=== PATIENT | female | born 1990 | race Hispanic/Latino ===

== ENCOUNTER 2020-07-12 11:10 | Emergency (ER) | payer MEDICAID ==
[~2020-07-12] VITALS: Ht 165.1 cm; Wt 84.1 kg
[2020-07-12 11:10] VITALS: BP 158/68
[2020-07-12] MEDS ORDERED: NS 1,000 ML IV ONE (11:45)
[2020-07-12] MEDS ORDERED: ACETAMINOPHEN 325 MG TAB PO ONE (12:00)
[2020-07-12 12:18] LABS: BASO % 0.4 % (0.0-1.0); EOS # 0.1 10^3/uL (0.0-0.5); HEMATOCRIT 38.2 % (36.0-47.0); HEMOGLOBIN 11.5 g/dl (12.0-15.5); LYMPH # 1.7 10^3/uL (1.5-5.0); LYMPH % 24.7 % (24.0-44.0); MEAN CORPUSCULAR HEMOGLOBIN 25.2 pg (27.0-33.0); MEAN CORPUSCULAR HGB CONC 30.1 g/dl (32.0-36.5); MEAN CORPUSCULAR VOLUME 83.8 fl (80.0-96.0); MONO # 0.7 10^3/uL (0.0-0.8); MONO % 10.3 % (0.0-5.0); NEUTROPHILS # 4.4 10^3/uL (1.5-8.5); NEUTROPHILS % 63.3 % (36.0-66.0); PLATELET COUNT, AUTOMATED 342 10^3/uL (150-450); RED BLOOD COUNT 4.56 10^6/uL (4.00-5.40); WHITE BLOOD COUNT 6.9 10^3/uL (4.0-10.0)
[2020-07-12 12:37] LABS: ALBUMIN 3.8 GM/DL (3.2-5.2); BILIRUBIN,DIRECT 0.2 MG/DL (0.0-0.2); BILIRUBIN,TOTAL 0.5 MG/DL (0.2-1.0); TOTAL PROTEIN 7.3 GM/DL (6.4-8.2)
--- NOTE | 2020-08-13 16:11 | REP ---
EMERGENCY FIRST TRIMESTER OBSTETRIC SONOGRAPHY HISTORY: Pelvic pain. Early . FINDINGS: Transabdominal and transvaginal scanning demonstrate an empty normal size uterus with dimension of 7.7 x 4.0 x 4.9 cm. Endometrial echo is 1.8 cm thick. No cul-de-sac fluid is seen. A normal right ovary is seen measuring 3.2 x 2.1 x 3.1 cm. Left ovarian dimensions are 4.5 x 2.7 x 2.6 cm. There is a 2.6 x 2.5 x 1.7 cm cystic area in the left ovary. Doppler flow is present bilaterally in the ovaries. IMPRESSION: Normal size empty uterus. No free fluid. A 2.6 cm complex cyst, left ovary. Nonspecific findings. Clinical and possibly sonographic follow-up suggested. MTDD
== END 2020-07-12 13:52 | disposition home or self-care (01) ==
LOC: M ED 11:10
DX: Z32.01 Encounter for pregnancy test, result positive (principal); R51 Headache; Z98.84 Bariatric surgery status; Z88.0 Allergy status to penicillin

== ENCOUNTER → 2020-10-07 | Outpatient (CLI) | payer SELFPAY, MEDICAID ==
[~2020-10-07] MED LIST: CYCL5TAB PO; LIDO5DIS41 TD
[2020-10-07 13:48] LABS: BASO % 0.4 % (0.0-1.0); EOS # 0.1 10^3/uL (0.0-0.5); EOS % 1.2 % (0.0-3.0); HEMATOCRIT 37.1 % (36.0-47.0); HEMOGLOBIN 11.2 g/dl (12.0-15.5); LYMPH # 1.9 10^3/uL (1.5-5.0); LYMPH % 28.3 % (24.0-44.0); MEAN CORPUSCULAR HEMOGLOBIN 25.4 pg (27.0-33.0); MEAN CORPUSCULAR HGB CONC 30.2 g/dl (32.0-36.5); MEAN CORPUSCULAR VOLUME 84.1 fl (80.0-96.0); MONO # 0.6 10^3/uL (0.0-0.8); MONO % 8.2 % (0.0-5.0); NEUTROPHILS # 4.2 10^3/uL (1.5-8.5); NEUTROPHILS % 61.8 % (36.0-66.0); PLATELET COUNT, AUTOMATED 270 10^3/uL (150-450); RED BLOOD COUNT 4.41 10^6/uL (4.00-5.40); WHITE BLOOD COUNT 6.7 10^3/uL (4.0-10.0)
[2020-10-07 14:19] LABS: C REACTIVE PROTEIN QUANTITATIV 0.41 MG/DL (0.00-0.30); RHEUMATOID FACTOR QUANT < 10.0 IU/ML (<15.0)
[2020-10-07 14:29] LABS: ERYTHROCYTE SEDIMENTATION RATE 17 mm/hr (0-20)
[2020-10-08 16:11] LABS: ANTINUCLEAR ANTIBODIES DIRECT Negative (Negative); Lyme Disease IgG/IgM Antibodie <0.91 ISR (0.00-0.90); Lyme Disease IgM Ab Quantitati <0.80 index (0.00-0.79)
== END ==
LOC: M PLALAB 11:03
PROVIDERS: ATTEND Orthopaedic Surgery
DX: G56.03 Carpal tunnel syndrome, bilateral upper limbs (principal)

== ENCOUNTER 2020-10-09 19:33 | Emergency (ER) | payer OTHER, MEDICAID ==
[~2020-10-09] VITALS: Ht 165.1 cm; Wt 77.3 kg
[2020-10-09 19:34] VITALS: BP 129/66
[2020-10-09] MEDS ORDERED: CYCLOBENZAPRINE 5MG TABLET PO ONE ×2 (21:00→22:30)
[2020-10-09] MEDS ORDERED: NORCO, ANEXSIA 5/325MG TABLET (HYDROcodone/ACETAMINOPHEN) PO ONE (21:00)
[2020-10-09] MEDS ORDERED: LIDOCAINE 5% (LIDODERM) PATCH TD ONE (21:00)
[2020-10-09] MEDS ORDERED: **NOTE PATIENT COMMENT** MISC XX SCH (21:00)
[2020-10-09 21:31] LABS: BASO % 0.6 % (0.0-1.0); EOS # 0.1 10^3/uL (0.0-0.5); EOS % 1.7 % (0.0-3.0); HEMOGLOBIN 10.6 g/dl (12.0-15.5); LYMPH % 41.6 % (24.0-44.0); MEAN CORPUSCULAR HEMOGLOBIN 25.1 pg (27.0-33.0); MEAN CORPUSCULAR HGB CONC 30.3 g/dl (32.0-36.5); MEAN CORPUSCULAR VOLUME 82.7 fl (80.0-96.0); MONO # 0.7 10^3/uL (0.0-0.8); MONO % 10.4 % (0.0-5.0); NEUTROPHILS # 3.3 10^3/uL (1.5-8.5); NEUTROPHILS % 45.6 % (36.0-66.0); PLATELET COUNT, AUTOMATED 280 10^3/uL (150-450); RED BLOOD COUNT 4.23 10^6/uL (4.00-5.40); WHITE BLOOD COUNT 7.1 10^3/uL (4.0-10.0)
[2020-10-09 21:49] LABS: BLOOD UREA NITROGEN 12 MG/DL (7-18); CALCIUM LEVEL 8.7 MG/DL (8.5-10.1); CARBON DIOXIDE LEVEL 27 MEQ/L (21-32); CHLORIDE LEVEL 109 MEQ/L (98-107); CREATININE FOR GFR 0.64 MG/DL (0.55-1.30); GLOMERULAR FILTRATION RATE > 60.0 (>60); GLUCOSE, FASTING 84 MG/DL (70-100); HCG, SERUM QUANTITATIVE 9 MIU/ML; POTASSIUM SERUM 4.1 MEQ/L (3.5-5.1); SODIUM LEVEL 141 MEQ/L (136-145)
[2020-10-09] MEDS ORDERED: ACETAMINOPHEN 500 MG TAB PO ONE (22:00)
[2020-10-09] MEDS ORDERED: LIDO5DIS41 TD (22:23)
[2020-10-09] MEDS ORDERED: CYCL5TAB PO (22:23)
== END 2020-10-09 22:40 | disposition left against medical advice (07) ==
LOC: M ED 19:33
DX: M54.9 Dorsalgia, unspecified (principal); Z33.1 Pregnant state, incidental; Z98.84 Bariatric surgery status; Z88.0 Allergy status to penicillin

== ENCOUNTER 2020-12-07 08:02 | Inpatient (IN) | payer MEDICAID, OTHER ==
[~2020-12-07] VITALS: Ht 165.1 cm; Wt 75.0 kg
[2020-12-07] VITALS (8 sets, daily range): BP systolic 102–131; BP diastolic 61–83; O2SAT 100
--- OUTSIDE RECORDS SUMMARY | 2020-12-07 08:08 | CCD | Continuity of Care Document ---
Author Author Joie LOO MD Organization Unknown Address [address] [place] [address] Phone [phone] Care Team Providers Care Spectroscopist Name Role Phone Louisa Rod MD [facility] [phone] Problems Description No Information Available Social History Type Date Description Comments Sex Unknown Allergies, Adverse Reactions, Alerts Description No Information Available Medications Description No Information Available Immunizations Description No Information Available Vital Signs Description No Information Available Results Description No Information Available Procedures Description No Information Available Medical Devices Description No Information Available Encounters Description No Information Available Assessments Date Code Description Provider 10/07/2020 G56.03 Carpal tunnel syndrome, bilatera l upper limbs Prabhu Loo MD Plan of Treatment 10/07/2020 - Prabhu Loo MD* G56.03 Carpal tunnel syndrome, bilateral upper limbs* New Orders:* [place] [facility] Wrist Brace - Right, Ordered: 10/07/20 * Follow up:* after emg results with any pa Functional Status Description No Information Available Mental Status Description No Information Available Referrals Description No Information Available
--- OUTSIDE RECORDS SUMMARY | 2020-12-07 08:08 | CCD | Continuity of Care Document ---
Author Author Joie LAWSON MD Organization Unknown Address [address] [place] [address] Phone [phone] Care Team Providers Care Is Analyst Name Role Phone Louisa Rod MD [facility] [phone] Problems Description No Information Available Social History Type Date Description Comments Sex Unknown Allergies, Adverse Reactions, Alerts Description No Information Available Medications Description No Information Available Immunizations Description No Information Available Vital Signs Description No Information Available Results Test Acquired Date Facility Test Result H/L Range Note CBC With Differential 10/07/[address] [address] (464)- - White Blood Count 6.7 10 Normal 4.0-10.0 Red Blood Count 4.41 10 Normal 4.00-5.40 Hemoglobin 11.2 g/dL Low 12.0-15.5 Hematocrit 37.1 % Normal 36.0-47.0 Mean Corpuscular Volume 84.1 fl Normal 80.0-96.0 Mean Corpuscular Hemoglobin 25.4 pg Low 27.0-33.0 Mean Corpuscular HGB Conc 30.2 g/dL Low 32.0-36.5 Red Cell Distribution Width 13.6 % Normal 11.5-14.5 Platelet Count, Automated 270 10 Normal 150-450 Neutrophils % 61.8 % Normal 36.0-66.0 Lymph % 28.3 % Normal 24.0-44.0 [place] % 8.2 % High 0.0-5.0 Eos % 1.2 % Normal 0.0-3.0 Baso % 0.4 % Normal 0.0-1.0 Immature Granulocyte % 0.1 % Normal 0-3.0 Nucleated Red Blood Cell % 0.0 % Normal 0-0 Neutrophils # 4.2 10 Normal 1.5-8.5 Lymph # 1.9 10 Normal 1.5-5.0 [place] # 0.6 10 Normal 0.0-0.8 Eos # 0.1 10 Normal 0.0-0.5 Baso # 0.0 10 Normal 0.0-0.2 Laboratory test finding 10/07/2020 [place] [address] (315)- - Rheumatoid Factor Quant < 10.0 IU/mL Normal <15.0 Antinuclear Antibodies 10/07/2020 [place] [address] (315)- - Antinuclear Antibodies Direct Negative Normal Negati ve 1 Laboratory test finding 10/07/2020 [place] [address] (315)- - Erythrocyte Sedimentation Rate 17 mm/hr Normal 0-20 C Reactive Protein Quantitativ 0.41 mg/dL High 0.00-0.30 Lyme Disease SCRN With Confirm 10/07/2020 [place] [address] (315)- - Lyme Disease IgG/IgM Antibodie <0.91 ISR Normal 0.00- 0.90 2 Lyme Disease IgM Ab Quantitati <0.80 index Normal 0.00-0.79 3 1 Performed at: RN - [facility] [address] [id number] Dba: Michelle Metzger MD, Phone: [phone] 2 Negative <0.91 Equivocal 0.91 - 1.09 Positive >1.09 3 Negative <0.80 Equivocal 0.80 - 1.19 Positive >1.19 . IgM levels may peak at 3-6 weeks post infection, then gradually decline. Procedures Description No Information Available Medical Devices Description No Information Available Encounters Type Date Location Provider Dx Diagnosis Office Visit 10/07/2020 9:30a Saud Lawson MD G56.03 Carpal tunnel syndrome, bilateral upper limbs Assessments Date Code Description Provider 10/07/2020 G56.03 Carpal tunnel syndrome, bilatera l upper limbs Prabhu Lawson MD Plan of Treatment 10/07/2020 - Prabhu Lawson MD* G56.03 Carpal tunnel syndrome, bilateral upper limbs* Follow up:* after EMG results with any pa Functional Status Description No Information Available Mental Status Description No Information Available Referrals Description No Information Available
--- OUTSIDE RECORDS SUMMARY | 2020-12-07 08:08 | CCD ---
Author Organization Unknown Address [address] [place] [address] Phone [phone] Care Team Providers Care Epic Cadence Analyst Name Role Phone GUY 1 [phone] Allergies Code Code System Name Reaction Severity Status Onset 723 RxNorm Amoxicillin Hives Mild to Moderate Active Penicillins Hives Mild to Moderate Active Medications Name Status Start Date Stop Date albuterol sulfate HFA 90 mcg/actuation aerosol inhaler Completed 10/27/2020 bupropion HCl XL 150 mg 24 hr tablet, ex tended release take 1 tablet by mouth once daily Completed 10/27 chlorhexidine gluconate 0.12 % mouthwash Completed 10/27/2020 cholecalciferol (vitamin D3) 1,250 mcg (50,000 unit) capsule Com pleted 10/27/2020 clindamycin HCl 150 mg capsule Completed 1 12/28/2019 clindamycin HCl 300 mg capsule Completed 1 12/28/2019 cyclobenzaprine 10 mg tablet Completed 06/2020 ferrous sulfate 325 mg (65 mg iron) tablet Completed 10/27/2020 fluconazole 150 mg tablet Completed 2019 hydrocodone 5 mg-acetaminophen 325 mg tablet Completed 10/27/2020 ibuprofen 600 mg tablet Completed 10/27/20 20 Lidocaine Viscous 2 % mucosal solution Completed 10/27/2020 multivitamin 1 capsule once a day Active Not available naproxen 500 mg tablet Completed 0 nitrofurantoin monohydrate/macrocrystals 100 mg capsule Complete d 10/27/2020 permethrin 5 % topical cream Completed 06/2020 phenazopyridine 200 mg tablet TAKE 1 TABLET BY MOUTH THREE TIMES DAILY FOR 2 DAYS Completed 10/27/2020 sulfamethoxazole 800 mg-trimethoprim 160 mg tablet Completed 10/27/2020 tramadol 50 mg tablet take 1 tablet by mouth every 6 hours if needed for pain Completed 10/27/2020 Vitamin C 500 mg tablet TAKE 1 TABLET DAILY Completed 10/27/2020 Zanaflex 4 mg tablet Take 1 tablet 3 times a day by oral route as needed. Active Not available Problems None recorded. Procedures Date Name Performed by 11/04/2015 Gastric Bypass for Obesity Information n ot available Back Surgery Notes: [address] Jewell Information not available 10/27/2020 MRI, Cervical Spine, W/o Contrast Inform ation not available 10/27/2020 MRI, Lumbar Spine, W/o Contrast Informat ion not available Results Lab Results None recorded. Past Encounters 10/27/2020 Lumbar Post-laminectomy Syndrome; Lumbar Radiculopathy; Lumbosacral Spondylosis without Myelopathy; Cervical Radiculopathy; Cervical Spondylosis without Myelopathy; Myofascial Pain Gume Bhardwaj MD: [id number] [facility] [address], [place] [address], Ph. Social History Tobacco Smoking Status Never Smoker Vaccine List None recorded. Plan of Care Reminders Provider Appointments None recorded. Lab None recorded. Referral None recorded. Procedures None recorded. Surgeries None recorded. Imaging None recorded. Vitals Height Weight BMI Blood Pressure 5 ft 5 in 189 lbs 31.5 kg/m2 128/81 mm[Hg]
--- OUTSIDE RECORDS SUMMARY | 2020-12-07 08:08 | CCD | Continuity of Care Document ---
Author Author Joie GASTELUM Organization Unknown Address [address] [place] [address] Phone [phone] Care Team Providers Care Crematory Operator Name Role Phone [facility] [phone] Problems Description No Information Available Social History Type Date Description Comments Sex Unknown Tobacco Use Start: Unknown Never Smoked Cigarettes Tobacco Use Start: Unknown Never Smoked Cigars Tobacco Use Start: Unknown Never Smoked A Pipe Tobacco Use Start: Unknown Never Used Smokeless Tobacco ETOH Use Denies alcohol use Tobacco Use Start: Unknown Patient has never smoked Recreational Drug Use Denies Drug Use Allergies, Adverse Reactions, Alerts Description No Information Available Medications Description No Information Available Immunizations Description No Information Available Vital Signs Date Vital Result Comment 10/19/2020 10:33am BP Systolic 121 mmHg BP Diastolic 81 mmHg Heart Rate 87 /min Body Temperature 97.8 F Respiratory Rate 16 /min O2 % BldC Oximetry 98 % Weight 190.00 lb Weight 86.184 kg Height 65 inches 5'5" BMI (Body Mass Index) 31.6 kg/m2 BSA (Body Surface Area) 1.94 m2 Results Description No Information Available Procedures Description No Information Available Medical Devices Description No Information Available Encounters Description No Information Available Assessments Description No Information Available Plan of Treatment Future Appointment(s):* 01/18/2021 9:00 am - [facility] at Neurosurgery Functional Status Description No Information Available Mental Status Description No Information Available Referrals Description No Information Available
--- OUTSIDE RECORDS SUMMARY | 2020-12-07 08:08 | CCD ---
Author Organization Unknown Address [address] [place] [address] Phone [phone] Care Team Providers Care Composite Layup Worker Name Role Phone GUY 1 [phone] Allergies Code Code System Name Reaction Severity Status Onset 723 RxNorm Amoxicillin Hives Mild to Moderate Active Penicillins Hives Mild to Moderate Active Medications Name Status Start Date Stop Date albuterol sulfate HFA 90 mcg/actuation aerosol inhaler Completed 10/27/2020 baclofen 10 mg tablet Take 1 tablet twice a day by oral route as needed. Active Not available bupropion HCl XL 150 mg 24 hr [...] 800 mg-trimethoprim 160 mg tablet Completed 10/27/2020 tizanidine 4 mg tablet Active Not avail able tramadol 50 mg tablet take 1 tablet by mouth every 6 hours if needed for pain Completed 10/27/2020 Vitamin C 500 mg tablet TAKE 1 TABLET DAILY Completed 10/27/2020 Problems None recorded. Procedures Date Name Performed by 11/04/2015 Gastric Bypass for Obesity Information n ot available Back Surgery Notes: [address] Jewell Information not available 10/27/2020 MRI, Cervical Spine, W/o Contrast [facility] [address] [address] (Work [address]) 10/27/2020 MRI, Lumbar Spine, W/o Contrast [facility] [address] [address] (Work Place) 11/03/2020 MRI, Cervical Spine, W/o Contrast [facility] [address] [address] (Work [address]) 11/03/2020 MRI, Lumbar Spine, W/o Contrast [facility] [address] [address] (Work [address]) Results Lab Results None recorded. Past Encounters 11/03/2020 Lumbar Post-laminectomy Syndrome; Lumbar Radiculopathy; Lumbosacral Spondylosis without Myelopathy; Cervical Radiculopathy; Cervical Spondylosis without Myelopathy; Myofascial Pain Hazel Cadet NP: [id number] [address], [place] [address], Ph. 10/27/2020 Lumbar Post-laminectomy Syndrome; Lumbar Radiculopathy; Lumbosacral Spondylosis without Myelopathy; Cervical Radiculopathy; Cervical Spondylosis without Myelopathy; Myofascial Pain Gume Bhardwaj MD: [id number] [facility], [place] [address], Ph. Social History Tobacco Smoking Status Never Smoker Vaccine List None recorded. Plan of Care Reminders Provider Appointments None recorded. Lab None recorded. Referral None recorded. Procedures None recorded. Surgeries None recorded. Imaging None recorded. Vitals 11/03/2020 01:45PM FOLLOW-UP Height Blood Pressure 5 ft 5 in 130/82 mm[Hg] 10/27/2020 11:30AM NEW PATIENT Height Weight BMI Blood Pressure 5 ft 5 in 189 lbs 31.5 kg/m2 128/81 mm[Hg]
--- OUTSIDE RECORDS SUMMARY | 2020-12-07 08:08 | CCD | Continuity of Care Document ---
Author Author Joie LOO MD Organization Unknown Address [address] [place] [address] Phone [phone] Care Team Providers Care Velvet Cutter Name Role Phone Louisa Rod MD [facility] [phone] Problems Description No Information Available Social History Type Date Description Comments Sex Unknown Allergies, Adverse Reactions, Alerts Description No Information Available Medications Description No Information Available Immunizations Description No Information Available Vital Signs Description No Information Available Results Test Acquired Date Facility Test Result H/L Range Note CBC With Differential 10/07/[address] [address] (544)- - White Blood Count 6.7 10 Normal [...] 36.0-66.0 Lymph % 28.3 % Normal 24.0-44.0 [place] % 8.2 % High 0.0-5.0 Eos % 1.2 % Normal 0.0-3.0 Baso % 0.4 % Normal 0.0-1.0 Immature Granulocyte % 0.1 % Normal 0-3.0 Nucleated Red Blood Cell % 0.0 % Normal 0-0 Neutrophils # 4.2 10 Normal 1.5-8.5 Lymph # 1.9 10 Normal 1.5-5.0 [place] # 0.6 10 Normal 0.0-0.8 Eos # 0.1 10 Normal 0.0-0.5 Baso # 0.0 10 Normal 0.0-0.2 Laboratory test finding 10/07/2020 [facility] [address] [place] [address] (315)- - Rheumatoid Factor Quant < 10.0 IU/mL Normal <15.0 Laboratory test finding 10/07/2020 [facility] [address] [place] [address] (315)- - Erythrocyte Sedimentation Rate 17 mm/hr Normal 0-20 C Reactive Protein Quantitativ 0.41 mg/dL High 0.00-0.30 Procedures Description No Information Available Medical Devices Description No Information Available Encounters Type Date Location Provider Dx Diagnosis Office Visit 10/07/2020 9:30a [place] Prabhu Loo MD G56.03 Carpal tunnel syndrome, bilateral upper limbs Assessments Date Code Description Provider 10/07/2020 G56.03 Carpal tunnel syndrome, bilatera l upper limbs Prabhu Loo MD Plan of Treatment 10/07/2020 - Prabhu Loo MD* G56.03 Carpal tunnel syndrome, bilateral upper limbs* Follow up:* after emg results with any pa Functional Status Description No Information Available Mental Status Description No Information Available Referrals Description No Information Available
--- OUTSIDE RECORDS SUMMARY | 2020-12-07 08:08 | CCD | Continuity of Care Document ---
Author Author Joie LOO MD Organization Unknown Address [address] [place] [address] Phone [phone] Care Team Providers Care Labor Arbitrator Name Role Phone Louisa Rod MD [facility] [phone] Problems Description No Information Available Social History [...] Provider Dx Diagnosis Office Visit 10/07/2020 9:30a [place] Prabhu Loo MD G56.03 Carpal tunnel syndrome, [...]
--- OUTSIDE RECORDS SUMMARY | 2020-12-07 08:08 | CCD | Continuity of Care Document ---
Author Author Joie LAWSON MD Organization Unknown Address [address] [place] [address] Phone [phone] Care Team Providers Care Billing Assistant Name Role Phone Louisa Rod MD [facility] [phone] Problems Description No Information Available Social History Type Date Description Comments Sex Unknown Allergies, Adverse Reactions, Alerts Description No Information Available Medications Description No Information Available Immunizations Description No Information Available Vital Signs Description No Information Available Results Test Acquired Date Facility Test Result H/L Range Note CBC With Differential 10/07/[address] [address] (724)- - White Blood Count 6.7 10 Normal [...] 36.0-66.0 Lymph % 28.3 % Normal 24.0-44.0 [place] % 8.2 % High 0.0-5.0 Eos % 1.2 % Normal 0.0-3.0 Baso % 0.4 % Normal 0.0-1.0 Immature Granulocyte % 0.1 % Normal 0-3.0 Nucleated Red Blood Cell % 0.0 % Normal 0-0 Neutrophils # 4.2 10 Normal 1.5-8.5 Lymph # 1.9 10 Normal 1.5-5.0 [place] # 0.6 10 Normal 0.0-0.8 Eos # 0.1 10 Normal 0.0-0.5 Baso # 0.0 10 Normal 0.0-0.2 Laboratory test finding 10/07/2020 [place] [address] (315)- - Rheumatoid Factor Quant < 10.0 IU/mL Normal <15.0 Antinuclear Antibodies 10/07/2020 [place] [address] (315)- - Antinuclear Antibodies Direct Negative Normal Negati ve 1 Laboratory test finding 10/07/2020 [place] [address] (315)- - Erythrocyte Sedimentation Rate 17 mm/hr Normal 0-20 C Reactive Protein Quantitativ 0.41 mg/dL High 0.00-0.30 Lyme Disease SCRN With Confirm 10/07/2020 [place] [address] (315)- - Lyme Disease IgG/IgM Antibodie <0.91 ISR Normal 0.00- 0.90 2 Lyme Disease IgM Ab Quantitati <0.80 index Normal 0.00-0.79 3 1 Performed at: RN - [facility] [address] [id number] Rubberizing Mechanic: Michelle Metzger MD, Phone: [phone] 2 Negative <0.91 Equivocal 0.91 - 1.09 Positive >1.09 3 Negative <0.80 Equivocal 0.80 - 1.19 Positive >1.19 . IgM levels may peak at 3-6 weeks post infection, then gradually decline. Procedures Description No Information Available Medical Devices Description No Information Available Encounters Type Date Location Provider Dx Diagnosis Office Visit 10/07/2020 9:30a Saud Lawson MD M25.531 Pain in right wrist M25.532 Pain in left wrist Assessments Date Code Description Provider 10/07/2020 M25.531 Pain in right wrist Prabhu grossman MD 10/07/2020 M25.532 Pain in left wrist Prabhu aguayo MD Plan of Treatment No Information Available Functional Status Description No Information Available Mental Status Description No Information Available Referrals Description No Information Available
--- OUTSIDE RECORDS SUMMARY | 2020-12-07 08:09 | CCD ---
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 Name Role Phone Ahmed, Ohara Unavailable Unavailable Ahmed, Ohara Unavailable Unavailable Ahmed, Ohara Unavailable Unavailable Ahmed, Ohara Unavailable Unavailable Ahmed, Ohara Unavailable Unavailable Bailee LICONA MD Unavailable Unavailable Bailee LICONA MD Unavailable Unavailable Bailee LICONA MD Unavailable Unavailable Bailee LICONA MD Unavailable Unavailable Bailee LICONA MD Unavailable Unavailable Bailee LICONA MD Unavailable Unavailable Fish B Prabhu SMITH Unavailable Unavailable Fish, B Prabhu SMITH Unavailable Unavailable Fish, B Prabhu SMITH Unavailable Unavailable Fish, B Prabhu SMITH Unavailable Unavailable Fish, B Prabhu SMITH Unavailable Unavailable Fish, B Prabhu SMITH Unavailable Unavailable Fish, B Prabhu SMITH Unavailable Unavailable Fish, B Prabhu SMITH Unavailable Unavailable Fish, B Prabhu SMITH Unavailable Unavailable Fish, B Prabhu SMITH Unavailable Unavailable Fish, B Prabhu SMITH Unavailable Unavailable Fish, B Prabhu SMITH Unavailable Unavailable Fish, B Prabhu SMITH Unavailable Unavailable Fish, B Prabhu SMITH Unavailable Unavailable Fish, B Prabhu SMITH Unavailable Unavailable Fish, B Prabhu SMITH Unavailable Unavailable Fish, B Prabhu SMITH Unavailable Unavailable Fish, B Prabhu SMITH Unavailable Unavailable Fish, B Prabhu SMITH Unavailable Unavailable Fish, B Prabhu SMITH Unavailable Unavailable Fish, B Prabhu SMITH Unavailable Unavailable Fish, B Prabhu SMITH Unavailable Unavailable Fish, B Prabhu SMITH Unavailable Unavailable Fish, B Prabhu SMITH Unavailable Unavailable Fish, B Prabhu SMITH Unavailable Unavailable Fish, B Prabhu SMITH Unavailable Unavailable Fish, B Prabhu SMITH Unavailable Unavailable Fish, B Prabhu SMITH Unavailable Unavailable Fish, B Prabhu SMITH Unavailable Unavailable Fish, B Prabhu SMITH Unavailable Unavailable Fish, B Prabhu SMITH Unavailable Unavailable Fish, B Prabhu SMITH Unavailable Unavailable Fish, B Prabhu SMITH Unavailable Unavailable Fish, B Prabhu SMITH Unavailable Unavailable Fish, B Prabhu SMITH Unavailable Unavailable Fish, B Prabhu SMITH Unavailable Unavailable Fish, B Prabhu SMITH Unavailable Unavailable Fish, B Prabhu SMITH Unavailable Unavailable Fish, B Prabhu SMITH Unavailable Unavailable Fish, B Prabhu SMITH Unavailable Unavailable Fish, B Prabhu SMITH Unavailable Unavailable Fish, B Prabhu SMITH Unavailable Unavailable Fish, B Prabhu SMITH Unavailable Unavailable Fish, B Prabhu SMITH Unavailable Unavailable Fish, B Prabhu SMITH Unavailable Unavailable Fish, B Prabhu SMITH Unavailable Unavailable Fish, B Prabhu SMITH Unavailable Unavailable Fish, B Prabhu SMITH Unavailable Unavailable Fish, B Prabhu SMITH Unavailable Unavailable Fish, B Prabhu SMITH Unavailable Unavailable Fish, B Prabhu SMITH Unavailable Unavailable Fish, B Prabhu SMITH Unavailable Unavailable Fish, B Prabhu SMITH Unavailable Unavailable Zuniga, M Guerrero PA Unavailable Unavailable Zuniga, M Guerrero PA Unavailable Unavailable Zuniga, M Guerrero PA Unavailable Unavailable Zuniga, M Guerrero PA Unavailable Unavailable Zuniga, M Guerrero PA Unavailable Unavailable Zuniga, M Guerrero PA Unavailable Unavailable Zuniga, M Guerrero PA Unavailable Unavailable Zuniga, M Guerrero PA Unavailable Unavailable Zuniga, M Guerrero PA Unavailable Unavailable Zuniga, M Guerrero PA Unavailable Unavailable Zuniga, M Guerrero PA Unavailable Unavailable Zuniga, M Guerrero PA Unavailable Unavailable Zuniga, M Guerrero PA Unavailable Unavailable Zuniga, M Guerrero PA Unavailable Unavailable Zuniga, M Guerrero PA Unavailable Unavailable Zuniga, M Guerrero PA Unavailable Unavailable Zuniga, M Guerrero PA Unavailable Unavailable Zuniga, M Guerrero PA Unavailable Unavailable Zuniga, M Guerrero PA Unavailable Unavailable Zuniga, M Guerrero PA Unavailable Unavailable Zuniga, M Guerrero PA Unavailable Unavailable Zuniga, M Guerrero PA Unavailable Unavailable Zuniga, M Guerrero PA Unavailable Unavailable Zuniga, M Guerrero PA Unavailable Unavailable Zuniga, M Guerrero PA Unavailable Unavailable Zuniga, M Guerrero PA Unavailable Unavailable Zuniga, M Guerrero PA Unavailable Unavailable Zuniga, M Guerrero PA Unavailable Unavailable Zuniga, M Guerrero PA Unavailable Unavailable Zuniga, M Guerrero PA Unavailable Unavailable Zuniga, M Guerrero PA Unavailable Unavailable Zuniga, M Guerrero PA Unavailable Unavailable Zuniga, M Guerrero PA Unavailable Unavailable Zuniga, M Guerrero PA Unavailable Unavailable Zuniga, M Guerrero PA Unavailable Unavailable Zuniga, M Guerrero PA Unavailable Unavailable Zuniga, M Guerrero PA Unavailable Unavailable Zuniga, M Guerrero PA Unavailable Unavailable Zuniga, M Guerrero PA Unavailable Unavailable Zuniga, M Guerrero PA Unavailable Unavailable Zuniga, M Guerrero PA Unavailable Unavailable Zuniga, M Guerrero PA Unavailable Unavailable Zuniga, M Guerrero PA Unavailable Unavailable Zuniga, M Guerrero PA Unavailable Unavailable Zuniga, M Guerrero PA Unavailable Unavailable Zuniga, M Guerrero PA Unavailable Unavailable Zuniga, M Guerrero PA Unavailable Unavailable Saleem, P Ortiz SMITH Unavailable Unavailable Saleem, P Ortiz SMITH Unavailable Unavailable Saleem, P Ortiz MD Unavailable Unavailable Saleem, P Ortiz SMITH Unavailable Unavailable Saleem, P Ortiz SMITH Unavailable Unavailable Saleem, P Ortiz SMITH Unavailable Unavailable Saleem, P Ortiz MD Unavailable Unavailable Saleem, P Ortiz MD Unavailable Unavailable Saleem, P Ortiz SMITH Unavailable Unavailable Saleem, P Ortiz SMITH Unavailable Unavailable Saleem, P Ortiz SMITH Unavailable Unavailable Saleem, P Ortiz SMITH Unavailable Unavailable Saleem, P Ortiz SMITH Unavailable Unavailable Saleem, P Ortiz MD Unavailable Unavailable Saleem, P Ortiz MD Unavailable Unavailable Saleem, P Ortiz SMITH Unavailable Unavailable Saleem, P Ortiz MD Unavailable Unavailable Saleem, P Ortiz SMITH Unavailable Unavailable Saleem, P Ortiz MD Unavailable Unavailable Saleem, P Ortiz MD Unavailable Unavailable Saleem, P Ortiz MD Unavailable Unavailable Saleem, P Ortiz MD Unavailable Unavailable Saleem, P Ortiz MD Unavailable Unavailable Saleem, P Ortiz MD Unavailable Unavailable Saleem, P Ortiz MD Unavailable Unavailable Saleem, P Ortiz MD Unavailable Unavailable Saleem, P Ortiz MD Unavailable Unavailable Saleem, P Ortiz MD Unavailable Unavailable Saleem, P Ortiz MD Unavailable Unavailable Saleem, P Ortiz MD Unavailable Unavailable Saleem, P Ortiz MD Unavailable Unavailable Saleem, P Ortiz MD Unavailable Unavailable Saleem, P Ortiz MD Unavailable Unavailable Saleem, P Ortiz MD Unavailable Unavailable Saleem, P Ortiz MD Unavailable Unavailable Saleem, P Ortiz MD Unavailable Unavailable Saleem, P Ortiz MD Unavailable Unavailable Saleem, P Ortiz MD Unavailable Unavailable Saleem, P Ortiz MD Unavailable Unavailable Saleem, P Ortiz MD Unavailable Unavailable Saleem, P Ortiz MD Unavailable Unavailable Saleem, P Ortiz MD Unavailable Unavailable Saleem, P Ortiz MD Unavailable Unavailable Saleem, P Ortiz MD Unavailable Unavailable Saleem, P Ortiz MD Unavailable Unavailable Saleem, P Ortiz MD Unavailable Unavailable Saleem, P Ortiz MD Unavailable Unavailable Saleem, P Ortiz MD Unavailable Unavailable Metzger, E Isabel MEATMAN Unavailable Unavailable Metzger, E Isabel MEATMAN Unavailable Unavailable Metzger, E Isabel MEATMAN Unavailable Unavailable Metzger, E Isabel MEATMAN Unavailable Unavailable Metzger, E Isabel MEATMAN Unavailable Unavailable Metzger, E Isabel MEATMAN Unavailable Unavailable Metzger, E Isabel MEATMAN Unavailable Unavailable Metzger, E Isabel MEATMAN Unavailable Unavailable Metzger, E Isabel MEATMAN Unavailable Unavailable Metzger, E Isabel MEATMAN Unavailable Unavailable Metzger, E Isabel MEATMAN Unavailable Unavailable Metzger, E Isabel MEATMAN Unavailable Unavailable Metzger, E Isabel MEATMAN Unavailable Unavailable Metzger, E Isabel MEATMAN Unavailable Unavailable Metzger, E Isabel MEATMAN Unavailable Unavailable Metzger, E Isabel MEATMAN Unavailable Unavailable Metzger, E Isabel MEATMAN Unavailable Unavailable Metzger, E Isabel MEATMAN Unavailable Unavailable Metzger, E Isabel MEATMAN Unavailable Unavailable Metzger, E Isabel MEATMAN Unavailable Unavailable Metzger, E Isabel MEATMAN Unavailable Unavailable Metzger, E Isabel MEATMAN Unavailable Unavailable Metzger, E Isabel MEATMAN Unavailable Unavailable Metzger, E Isabel MEATMAN Unavailable Unavailable Metzger, E Isabel MEATMAN Unavailable Unavailable Metzger, E Isabel MEATMAN Unavailable Unavailable Metzger, E Isabel MEATMAN Unavailable Unavailable Metzger, E Isabel MEATMAN Unavailable Unavailable Metzger, E Isabel MEATMAN Unavailable Unavailable Metzger, E Isabel MEATMAN Unavailable Unavailable Cyndi Sylvester MD Unavailable Unavailable Cyndi Sylvester MD Unavailable Unavailable Cyndi Sylvester MD Unavailable Unavailable Cyndi Sylvester MD Unavailable Unavailable Cyndi Sylvester MD Unavailable Unavailable Cyndi Sylvester MD Unavailable Unavailable Cyndi Sylvester MD Unavailable Unavailable Cyndi Sylvester MD Unavailable Unavailable Wojtasiewicz, Cyndi MD Unavailable Unavailable Wojtasiewicz, Cyndi Unavailable Unavailable Wojtasiewicz, Cyndi MD Unavailable Unavailable Wojtasiewicz, Cyndi Unavailable Unavailable Wojtasiewicz, Cyndi MD Unavailable Unavailable Wojtasiewicz, Cyndi MD Unavailable Unavailable Wojtasiewicz, Cyndi MD Unavailable Unavailable Wojtasiewicz, Cyndi MD Unavailable Unavailable Wojtasiewicz, Cyndi MD Unavailable Unavailable Wojtasiewicz, Cyndi MD Unavailable Unavailable Wojtasiewicz, Cyndi MD Unavailable Unavailable Wojtasiewicz, Cyndi MD Unavailable Unavailable Wojtasiewicz, Cyndi Unavailable Unavailable Wojtasiewicz, Cyndi MD Unavailable Unavailable Wojtasiewicz, Cyndi MD Unavailable Unavailable Wojtasiewicz, Cyndi MD Unavailable Unavailable Wojtasiewicz, Cyndi Unavailable Unavailable Wojtasiewicz, Cyndi MD Unavailable Unavailable Wojtasiewicz, Cyndi MD Unavailable Unavailable Wojtasiewicz, Cyndi SMITH Unavailable Unavailable Wojtasiewicz, Cyndi Unavailable Unavailable Wojtasiewicz, Cyndi MD Unavailable Unavailable Wojtasiewicz, Cyndi SMITH Unavailable Unavailable Wojtasiewicz, Cyndi SMITH Unavailable Unavailable Wojtasiewicz, Cyndi SMITH Unavailable Unavailable Wojtasiewicz, Cyndi MD Unavailable Unavailable Wojtasiewicz, Cyndi MD Unavailable Unavailable Wojtasiewicz, Cyndi SMITH Unavailable Unavailable Wojtasiewicz, Cyndi SMITH Unavailable Unavailable Wojtasiewicz, Cyndi SMITH Unavailable Unavailable Wojtasiewicz, Cyndi MD Unavailable Unavailable Wojtasiewicz, Cyndi SMITH Unavailable Unavailable Wojtasiewicz, Cyndi Unavailable Unavailable Wojtasiismael, Cyndi SMITH Unavailable Unavailable Wojtasiewcassandra, Cyndi SMITH Unavailable Unavailable Wojtasiewcassandra, Cyndi SMITH Unavailable Unavailable Wojtasiewcassandra, Cyndi MD Unavailable Unavailable Wojtasiewcassandra, Cyndi MD Unavailable Unavailable Wojtasiewcassandra, Cyndi MD Unavailable Unavailable Wojtasiewcassandra, Cyndi SMITH Unavailable Unavailable Wojtasiewcassandra, Cyndi SMITH Unavailable Unavailable Wojtasiewicz, Cyndi MD Unavailable Unavailable Wojtasiewicz, Cyndi MD Unavailable Unavailable Wojtasiewicz, Cyndi MD Unavailable Unavailable Wojtasiewicz, Cyndi MD Unavailable Unavailable Wojtasiewicz, Cyndi MD Unavailable Unavailable Wojtasiewicz, Cyndi MD Unavailable Unavailable Wojtasiewicz, Cyndi MD Unavailable Unavailable Wojtasiewicz, Cyndi MD Unavailable Unavailable Wojtasiewicz, Cyndi MD Unavailable Unavailable Wojtasiewicz, Cyndi MD Unavailable Unavailable Wojtasiewicz, Cyndi MD Unavailable Unavailable Wojtasiewicz, Cyndi MD Unavailable Unavailable Wojtasiewicz, Cyndi MD Unavailable Unavailable Wojtasiewicz, Cyndi MD Unavailable Unavailable Wojtasiewicz, Cyndi MD Unavailable Unavailable Wojtasiewicz, Cyndi MD Unavailable Unavailable Wojtasiewicz, Cyndi MD Unavailable Unavailable Wojtasiewicz, Cyndi MD Unavailable Unavailable Wojtasiewicz, Cyndi MD Unavailable Unavailable Wojtasiewicz, Cyndi MD Unavailable Unavailable CHENG, C WILBUR CNM Unavailable Unavailable CHENG, C WILBUR CNM Unavailable Unavailable CHENG, C WILBUR CNM Unavailable Unavailable CHENG, C WILBUR CNM Unavailable Unavailable CHENG, C WILBUR CNM Unavailable Unavailable CHENG, C WILBUR CNM Unavailable Unavailable CHENG, C WILBUR CNM Unavailable Unavailable CHENG, C WILBUR CNM Unavailable Unavailable CHENG, C WILBUR CNM Unavailable Unavailable CHENG, C WILBUR CNM Unavailable Unavailable CHENG, C WILBUR CNM Unavailable Unavailable CHENG, C WILBUR CNM Unavailable Unavailable CHENG, C WILBUR CNM Unavailable Unavailable CHENG, C WILBUR CNM Unavailable Unavailable CHENG, C WILBUR CNM Unavailable Unavailable CHENG, C WILBUR CNM Unavailable Unavailable CHENG, C WILBUR CNM Unavailable Unavailable CHENG, C WILBUR CNM Unavailable Unavailable CHENG, C WILBUR CNM Unavailable Unavailable CHENG, C WILBUR CNM Unavailable Unavailable Ibis AMBRIZ MD Unavailable Unavailable Ibis AMBRIZ MD Unavailable Unavailable Ibis AMBRIZ MD Unavailable Unavailable Ibis AMBRIZ MD Unavailable Unavailable Ibis AMBRIZ MD Unavailable Unavailable Ibis AMBRIZ MD Unavailable Unavailable Ibis AMBRIZ MD Unavailable Unavailable Ibis AMBRIZ MD Unavailable Unavailable Ibis AMBRIZ MD Unavailable Unavailable Ibis AMBRIZ MD Unavailable Unavailable Ibis AMBRIZ MD Unavailable Unavailable Ibis AMBRIZ MD Unavailable Unavailable Ibis AMBRIZ MD Unavailable Unavailable Ibis AMBRIZ MD Unavailable Unavailable Ibis AMBRIZ MD Unavailable Unavailable Ibis AMBRIZ MD Unavailable Unavailable Ibis AMBRIZ MD Unavailable Unavailable Ibis AMBRIZ MD Unavailable Unavailable Ibis AMBRIZ MD Unavailable Unavailable Ibis AMBRIZ MD Unavailable Unavailable Ibis AMBRIZ MD Unavailable Unavailable Ibis AMBRIZ MD Unavailable Unavailable Ibis AMBRIZ MD Unavailable Unavailable Ibis AMBRIZ MD Unavailable Unavailable Ibis AMBRIZ MD Unavailable Unavailable Ibis AMBRIZ MD Unavailable Unavailable Ibis AMBRIZ MD Unavailable Unavailable Ibsi AMBRIZ MD Unavailable Unavailable Ibis AMBRIZ MD Unavailable Unavailable Ibis AMBRIZ MD Unavailable Unavailable Ibis AMBRIZ MD Unavailable Unavailable Ibis AMBRIZ MD Unavailable Unavailable Ibis AMBRIZ MD Unavailable Unavailable Ibis AMBRIZ MD Unavailable Unavailable Ibis AMBRIZ MD Unavailable Unavailable Ibis AMBRIZ MD Unavailable Unavailable Ibis AMBRIZ MD Unavailable Unavailable Ibis AMBRIZ MD Unavailable Unavailable Ibis AMBRIZ MD Unavailable Unavailable Ibis AMBRIZ MD Unavailable Unavailable Ibis AMBRIZ MD Unavailable Unavailable Ibis AMBRIZ MD Unavailable Unavailable Ibis AMBRIZ MD Unavailable Unavailable Ibis AMBRIZ MD Unavailable Unavailable Ibis AMBRIZ MD Unavailable Unavailable Ibis AMBRIZ MD Unavailable Unavailable Ibis AMBRIZ MD Unavailable Unavailable Ibis AMBRIZ MD Unavailable Unavailable Ibis AMBRIZ MD Unavailable Unavailable Ibis AMBRIZ MD Unavailable Unavailable Ibis AMBRIZ MD Unavailable Unavailable Ibis AMBRIZ MD Unavailable Unavailable Ibis AMBRIZ MD Unavailable Unavailable Ibis AMBRIZ MD Unavailable Unavailable Ibis AMBRIZ MD Unavailable Unavailable Ibis AMBRIZ MD Unavailable Unavailable Ibis AMBRIZ MD Unavailable Unavailable Ibis AMBRIZ MD Unavailable Unavailable Ibis AMBRIZ MD Unavailable Unavailable Ibis AMBRIZ MD Unavailable Unavailable Ibis AMBRIZ MD Unavailable Unavailable Ibis AMBRIZ MD Unavailable Unavailable Ibis AMBRIZ MD Unavailable Unavailable Ibis AMBRIZ MD Unavailable Unavailable Ibis AMBRIZ MD Unavailable Unavailable Ibis AMBRIZ MD Unavailable Unavailable Ibis AMBRIZ MD Unavailable Unavailable Ibis AMBRIZ MD Unavailable Unavailable Ibis AMBRIZ MD Unavailable Unavailable Ibis AMBRIZ MD Unavailable Unavailable Ibis AMBRIZ MD Unavailable Unavailable Ibis AMBRIZ MD Unavailable Unavailable Ibis AMBRIZ MD Unavailable Unavailable Ibis AMBRIZ MD Unavailable Unavailable Ibis AMBRIZ MD Unavailable Unavailable Ibis AMBRIZ MD Unavailable Unavailable Ibis AMBRIZ MD Unavailable Unavailable Ibis AMBRIZ MD Unavailable Unavailable Ibis AMBRIZ MD Unavailable Unavailable Ibis AMBRIZ MD Unavailable Unavailable Ibis AMBRIZ MD Unavailable Unavailable Ibis AMBRIZ MD Unavailable Unavailable Ibis AMBRIZ MD Unavailable Unavailable Ibis AMBRIZ MD Unavailable Unavailable Ibis AMBRIZ MD Unavailable Unavailable Ibis AMBRIZ MD Unavailable Unavailable Ibis AMBRIZ MD Unavailable Unavailable Jumalon, M Hazel BI TRI OPERATOR Unavailable Unavailable Jumalon, M Hazel BI TRI OPERATOR Unavailable Unavailable Jumalon, M Hazel BI TRI OPERATOR Unavailable Unavailable Jumalon, M Hazel BI TRI OPERATOR Unavailable Unavailable Jumalon, M Hazel BI TRI OPERATOR Unavailable Unavailable Jumalon, M Hazel BI TRI OPERATOR Unavailable Unavailable Jumalon, M Hazel BI TRI OPERATOR Unavailable Unavailable Jumalon, M Hazel BI TRI OPERATOR Unavailable Unavailable Jumalon, M Hazel BI TRI OPERATOR Unavailable Unavailable Jumalon, M Hazel BI TRI OPERATOR Unavailable Unavailable Jumalon, M Hazel BI TRI OPERATOR Unavailable Unavailable Jumalon, M Hazel BI TRI OPERATOR Unavailable Unavailable Jumalon, M Hazel BI TRI OPERATOR Unavailable Unavailable Jumalon, M Hazel BI TRI OPERATOR Unavailable Unavailable Jumalon, M Hazel BI TRI OPERATOR Unavailable Unavailable Jumalon, M Hazel BI TRI OPERATOR Unavailable Unavailable Jumalon, M Hazel BI TRI OPERATOR Unavailable Unavailable Jumalon, M Hazel BI TRI OPERATOR Unavailable Unavailable Jumalon, M Hazel BI TRI OPERATOR Unavailable Unavailable Jumalon, M Hazel BI TRI OPERATOR Unavailable Unavailable Jumalon, M Hazel BI TRI OPERATOR Unavailable Unavailable Jumalon, M Hazel BI TRI OPERATOR Unavailable Unavailable Jumalon, M Hazel BI TRI OPERATOR Unavailable Unavailable Jumalon, M Hazel BI TRI OPERATOR Unavailable Unavailable Jumalon, M Hazel BI TRI OPERATOR Unavailable Unavailable Jumalon, M Hazel BI TRI OPERATOR Unavailable Unavailable Jumalon, M Hazel BI TRI OPERATOR Unavailable Unavailable Jumalon, M Hazel BI TRI OPERATOR Unavailable Unavailable Huger, P Lul DO Unavailable Unavailable Binh, P Lul DO Unavailable Unavailable Binh, P Lul DO Unavailable Unavailable Binh, P Lul DO Unavailable Unavailable Binh, P Lul DO Unavailable Unavailable Huger, P Lul DO Unavailable Unavailable Huger, P Lul DO Unavailable Unavailable Binh, P Lul DO Unavailable Unavailable Binh, P Lul DO Unavailable Unavailable Huger, P Lul DO Unavailable Unavailable Binh, P Lul DO Unavailable Unavailable Huger, P Lul DO Unavailable Unavailable Binh, P Lul DO Unavailable Unavailable Huger, P Lul DO Unavailable Unavailable Binh, P Lul DO Unavailable Unavailable Huger, P Lul DO Unavailable Unavailable Binh, P Lul DO Unavailable Unavailable Binh, P Lul DO Unavailable Unavailable Huger, P Lul DO Unavailable Unavailable Huger, P Lul DO Unavailable Unavailable Binh, P Lul DO Unavailable Unavailable Binh, P Lul DO Unavailable Unavailable Binh, P Lul DO Unavailable Unavailable Huger, P Lul DO Unavailable Unavailable Binh, P Lul DO Unavailable Unavailable Huger, P Lul DO Unavailable Unavailable Huger, P Lul DO Unavailable Unavailable Huger, P Lul DO Unavailable Unavailable Huger, P Lul DO Unavailable Unavailable Huger, P Lul DO Unavailable Unavailable Binh, P Lul DO Unavailable Unavailable Huger, P Lul DO Unavailable Unavailable Huger, P Lul DO Unavailable Unavailable Huger, P Lul DO Unavailable Unavailable Binh, P Lul DO Unavailable Unavailable Huger, P Lul DO Unavailable Unavailable Huger, P Lul DO Unavailable Unavailable Huger, P Lul DO Unavailable Unavailable Huger, P Lul DO Unavailable Unavailable Binh, P Lul DO Unavailable Unavailable Huger, P Lul DO Unavailable Unavailable VIANEY, Analia LOPES MD Unavailable Unavailable VIANEY, Analia LOPES MD Unavailable Unavailable VIANEY, Analia LOPES MD Unavailable Unavailable VIANEY, Analia LOPES MD Unavailable Unavailable VIANEY, Analia LOPES MD Unavailable Unavailable VIANEY, Analia LOPES MD Unavailable Unavailable VIANEY, Analia LOPES MD Unavailable Unavailable VIANEY, Analia LOPES MD Unavailable Unavailable VIANEY, Analia LOPES MD Unavailable Unavailable VIANEY, Analia LOPES MD Unavailable Unavailable VIANEY, Analia LOPES MD Unavailable Unavailable VIANEY, Analia LOPES MD Unavailable Unavailable VIANEY, Analia LOPES MD Unavailable Unavailable VIANEY, Analia LOPES MD Unavailable Unavailable VIANEY, Analia LOPES MD Unavailable Unavailable VIANEY, Analia LOPES MD Unavailable Unavailable VIANEY, Analia LOPES MD Unavailable Unavailable VIANEY, Analia LOPES MD Unavailable Unavailable VIANEY, Analia LPOES MD Unavailable Unavailable VIANEY, Analia LOPES MD Unavailable Unavailable VIANEY, Analia LOPES MD Unavailable Unavailable VIANEY, Analia LOPES MD Unavailable Unavailable VIANEY, Analia LOPES MD Unavailable Unavailable VIANEY, Analia LOPES MD Unavailable Unavailable VIANEY, Analia LOPES MD Unavailable Unavailable VIANEY, Analia LOPES MD Unavailable Unavailable VIANEY, Analia LOPES MD Unavailable Unavailable VIANEY, Analia LOPES MD Unavailable Unavailable VIANEY, Analia LOPES MD Unavailable Unavailable VIANEY, Analia LOPES MD Unavailable Unavailable VIANEY, Analia LOPES MD Unavailable Unavailable VIANEY, Analia LOPES MD Unavailable Unavailable VIANEY, Analia LOPES MD Unavailable Unavailable VIANEY, Analia LOPES MD Unavailable Unavailable VIANEY, Analia LOPES MD Unavailable Unavailable VIANEY, Analia LOPES MD Unavailable Unavailable VIANEY, Analia LOPES MD Unavailable Unavailable VIANEY, Analia LOPES MD Unavailable Unavailable VIANEY, Analia LOPES MD Unavailable Unavailable VIANEY, Analia LOPES MD Unavailable Unavailable VIANEY, Analia LOPES MD Unavailable Unavailable VIANEY, Analia LOPES MD Unavailable Unavailable VIANEY, Analia LOPES MD Unavailable Unavailable VIANEY, Analia LOPES MD Unavailable Unavailable VIANEY, Analia LOPES MD Unavailable Unavailable VIANEY, Analia LOPES MD Unavailable Unavailable VIANEY, Analia LOPES MD Unavailable Unavailable VIANEY, Analia LOPES MD Unavailable Unavailable VIANEY, Analia LOPES MD Unavailable Unavailable VIANEY, Analia LOPES MD Unavailable Unavailable VIANEY, Analia LOPES MD Unavailable Unavailable VIANEY, Analia LOPES MD Unavailable Unavailable VIANEY, Analia LOPES MD Unavailable Unavailable VIANEY, Analia LOPES MD Unavailable Unavailable VIANEY, Analia LOPES MD Unavailable Unavailable VIANEY, Analia LOPES MD Unavailable Unavailable VIANEY, Analia LOPES MD Unavailable Unavailable VIANEY, Analia LOPES MD Unavailable Unavailable VIANEY, Analia LOPES MD Unavailable Unavailable VIANEY, Analia LOPES MD Unavailable Unavailable VIANEY, Analia LOPES MD Unavailable Unavailable VIANEY, Analia LOPES MD Unavailable Unavailable VIANEY, Analia LOPES MD Unavailable Unavailable BARBOZA, P GAVIN MD Unavailable Unavailable BARBOZA, P GAVIN MD Unavailable Unavailable BARBOZA, P GAVIN MD Unavailable Unavailable BARBOZA, P GAVIN MD Unavailable Unavailable BARBOZA, P GAVIN MD Unavailable Unavailable BARBOZA, P GAVIN MD Unavailable Unavailable BARBOZA, P GAVIN MD Unavailable Unavailable BARBOZA, P GAVIN MD Unavailable Unavailable BARBOZA, P GAVIN MD Unavailable Unavailable BARBOZA, P GAVIN MD Unavailable Unavailable BARBOZA, P GAVIN MD Unavailable Unavailable BARBOZA, P GAVIN MD Unavailable Unavailable BARBOZA, P GAVIN MD Unavailable Unavailable BARBOZA, P GAVIN MD Unavailable Unavailable BARBOZA, P GAVIN MD Unavailable Unavailable BARBOZA, P GAVIN MD Unavailable Unavailable BARBOZA, P GAVIN MD Unavailable Unavailable BARBOZA, P GAVIN MD Unavailable Unavailable BARBOZA, P GAVIN MD Unavailable Unavailable BARBOZA, P GAVIN MD Unavailable Unavailable BARBOZA, P GAVIN MD Unavailable Unavailable BARBOZA, P GAVIN MD Unavailable Unavailable Cherelle Menchaca MD Unavailable Unavailable Cherelle Menchaca MD Unavailable Unavailable Cherelle Menchaca MD Unavailable Unavailable Cherelle Menchaca MD Unavailable Unavailable Cherelle Menchaca MD Unavailable Unavailable Cherelle Menchaca MD Unavailable Unavailable Cherelle Menchaca MD Unavailable Unavailable Cherelle Menchaca MD Unavailable Unavailable Cherelle Menchaca MD Unavailable Unavailable Cherelle Menchaca MD Unavailable Unavailable Cherelle Menchaca MD Unavailable Unavailable Cherelle Menchaca MD Unavailable Unavailable Cherelle Menchaca MD Unavailable Unavailable Cherelle Menchaca MD Unavailable Unavailable Cherelle Menchaca MD Unavailable Unavailable Cherelle Menchaca MD Unavailable Unavailable Cherelle Menchaca MD Unavailable Unavailable Cherelle Menchaca MD Unavailable Unavailable Cherelle Menchaca MD Unavailable Unavailable Cherelle Menchaca MD Unavailable Unavailable Cherelle Menchaca MD Unavailable Unavailable Cherelle Menchaca MD Unavailable Unavailable Cherelle Menchaca MD Unavailable Unavailable Cherelle Menchaca MD Unavailable Unavailable Cherelle Menchaca MD Unavailable Unavailable Cherelle Menchaca MD Unavailable Unavailable Cherelle Menchaca MD Unavailable Unavailable Cherelle Menchaca MD Unavailable Unavailable Cherelle Menchaca MD Unavailable Unavailable Cherelle Menchaca MD Unavailable Unavailable Cherelle Menchaca MD Unavailable Unavailable Cherelle Menchaca MD Unavailable Unavailable Cherelle Menchaca MD Unavailable Unavailable Cherelle Menchaca MD Unavailable Unavailable Cherelle Menchaca MD Unavailable Unavailable Cherelle Menchaca MD Unavailable Unavailable Cherelle Menchaca MD Unavailable Unavailable Cherelle Menchaca MD Unavailable Unavailable Cherelle Menchaca MD Unavailable Unavailable Cherelle Menchaca MD Unavailable Unavailable Falguni Bhardwaj MD Unavailable Unavailable Falguni Bhardwaj MD Unavailable Unavailable BolFalguni culver MD Unavailable Unavailable Falguni Bhardwaj MD Unavailable Unavailable Falguni Bhardwaj MD Unavailable Unavailable Falguni Bhardwaj MD Unavailable Unavailable BolFalguni culver MD Unavailable Unavailable BolFalguni culver MD Unavailable Unavailable BolFalguni culver MD Unavailable Unavailable Falguni Bhardwaj MD Unavailable Unavailable BolFalguni culver MD Unavailable Unavailable Falguni Bhardwaj MD Unavailable Unavailable BolFalguni culver MD Unavailable Unavailable Falguni Bhardwaj MD Unavailable Unavailable BolFalguni culver MD Unavailable Unavailable BolFalguni culver MD Unavailable Unavailable BolFalguni culver MD Unavailable Unavailable BolFalguni culver MD Unavailable Unavailable BolFalguni culver MD Unavailable Unavailable BolFalguni culver MD Unavailable Unavailable BolFalguni culver MD Unavailable Unavailable BolFalguni culver MD Unavailable Unavailable BolFalguni culver MD Unavailable Unavailable BolFalguni culver MD Unavailable Unavailable BolFalguni culver MD Unavailable Unavailable BolFalguni culver MD Unavailable Unavailable BolFalguni culver MD Unavailable Unavailable BolFalguni culver MD Unavailable Unavailable BolFalguni culver MD Unavailable Unavailable BolFalguni culver MD Unavailable Unavailable BolFalguni culver MD Unavailable Unavailable BolFalguni culver MD Unavailable Unavailable Bolla, S Gume MD Unavailable Unavailable Falguni Bhardwaj MD Unavailable Unavailable Falguni Bhardwaj MD Unavailable Unavailable Falguni Bhardwaj MD Unavailable Unavailable Falguni Bhardwaj MD Unavailable Unavailable Falguni Bhardwaj MD Unavailable Unavailable Falguni Bhardwaj MD Unavailable Unavailable Falguni Bhardwaj MD Unavailable Unavailable Falguni Bhardwaj MD Unavailable Unavailable Falguni Bhardwaj MD Unavailable Unavailable Falguni Bhardwaj MD Unavailable Unavailable Falguni Bhardwaj MD Unavailable Unavailable Falguni Bhardwaj MD Unavailable Unavailable Falguni Bhardwaj MD Unavailable Unavailable Falguni Bhardwaj MD Unavailable Unavailable Falguni Bhardwaj MD Unavailable Unavailable WojCyndi bradford MD Unavailable Unavailable WojCyndi bradford MD Unavailable Unavailable WojtaCyndi cruz MD Unavailable Unavailable WojtaCyndi cruz MD Unavailable Unavailable WojtaCyndi cruz MD Unavailable Unavailable WojtaCyndi cruz MD Unavailable Unavailable WojtaCyndi cruz MD Unavailable Unavailable WojCyndi bradford MD Unavailable Unavailable WojtaCyndi cruz MD Unavailable Unavailable WojtaCyndi cruz MD Unavailable Unavailable WojtaCyndi cruz MD Unavailable Unavailable WojtaCyndi cruz MD Unavailable Unavailable WojtasiCyndi guevara MD Unavailable Unavailable WojtasiCyndi guevara MD Unavailable Unavailable WojtaCyndi cruz MD Unavailable Unavailable WojtaCyndi cruz MD Unavailable Unavailable WojtaCyndi cruz MD Unavailable Unavailable WojtasiCyndi guevara MD Unavailable Unavailable WojtasiCyndi guevara MD Unavailable Unavailable WojtasiCyndi guevara MD Unavailable Unavailable WojtasiCyndi guevara MD Unavailable Unavailable WojtaCyndi cruz MD Unavailable Unavailable WojtasiCyndi guevara MD Unavailable Unavailable WojtasiCyndi guevara MD Unavailable Unavailable WojtasiCyndi guevara MD Unavailable Unavailable WojtasiCyndi guevara MD Unavailable Unavailable WojtasiCyndi guevara MD Unavailable Unavailable Wojtasiewicz, Cyndi MD Unavailable Unavailable Wojtasiewicz, Cyndi MD Unavailable Unavailable Wojtasiewicz, Cyndi MD Unavailable Unavailable Wojtasiewicz, Cyndi MD Unavailable Unavailable Wojtasiewicz, Cyndi MD Unavailable Unavailable Wojtasiewicz, Cyndi MD Unavailable Unavailable Wojtasiewicz, Cyndi MD Unavailable Unavailable Wojtasiewicz, Cyndi MD Unavailable Unavailable Wojtasiewicz, Cyndi MD Unavailable Unavailable Wojtasiewicz, Cyndi MD Unavailable Unavailable Wojtasiewicz, Cyndi MD Unavailable Unavailable Wojtasiewicz, Cyndi MD Unavailable Unavailable Wojtasiewicz, Cyndi MD Unavailable Unavailable Wojtasiewicz, Cyndi MD Unavailable Unavailable Wojtasiewicz, Cyndi MD Unavailable Unavailable Wojtasiewicz, Cyndi MD Unavailable Unavailable Wojtasiewicz, Cyndi MD Unavailable Unavailable Wojtasiewicz, Cyndi MD Unavailable Unavailable Wojtasiewicz, Cyndi MD Unavailable Unavailable Wojtasiewicz, Cyndi MD Unavailable Unavailable Wojtasiewicz, Cyndi MD Unavailable Unavailable Wojtasiewicz, Cyndi MD Unavailable Unavailable Wojtasiewicz, Cyndi MD Unavailable Unavailable Wojtasiewicz, Cyndi MD Unavailable Unavailable Wojtasiewicz, Cyndi MD Unavailable Unavailable Wojtasiewicz, Cyndi MD Unavailable Unavailable Wojtasiewicz, Cyndi MD Unavailable Unavailable Wojtasiewicz, Cyndi MD Unavailable Unavailable Wojtasiewicz, Cyndi MD Unavailable Unavailable Wojtasiewicz, Cyndi MD Unavailable Unavailable Wojtasiewicz, Cyndi MD Unavailable Unavailable Wojtasiewicz, Cyndi MD Unavailable Unavailable Wojtasiewicz, Cyndi MD Unavailable Unavailable Wojtasiewicz, Cyndi MD Unavailable Unavailable Wojtasiewicz, Cyndi MD Unavailable Unavailable Wojtasiewicz, Cyndi MD Unavailable Unavailable Wojtasiewicz, Cyndi MD Unavailable Unavailable Wojtasiewicz, Cyndi MD Unavailable Unavailable Wojtasiewicz, Cyndi MD Unavailable Unavailable Wojtasiewicz, Cyndi MD Unavailable Unavailable Wojtasiewicz, Cyndi MD Unavailable Unavailable Wojtasiewicz, Cyndi MD Unavailable Unavailable Re-disclosure Warning The records that you are about to access may contain information from federally-assisted alcohol or drug abuse programs. If such information is present, then the following federally mandated warning applies: This information has been disclosed to you from records protected by federal confidentiality rules (42 CFR part 2). The federal rules prohibit you from making any further disclosure of this information unless further disclosure is expressly permitted by the written consent of the person to whom it pertains or as otherwise permitted by 42 CFR part 2. A general authorization for the release of medical or other information is NOT sufficient for this purpose. The Federal rules restrict any use of the information to criminally investigate or prosecute any alcohol or drug abuse patient.The records that you are about to access may contain highly sensitive health information, the redisclosure of which is protected by Article 27-F of the [facility] Public Health law. If you continue you may have access to information: Regarding HIV / AIDS; Provided by facilities licensed or operated by the [facility] Office of Mental Health; or Provided by the [facility] Office for People With Developmental Disabilities. If such information is present, then the following [facility] mandated warning applies: This information has been disclosed to you from confidential records which are protected by state law. State law prohibits you from making any further disclosure of this information without the specific written consent of the person to whom it pertains, or as otherwise permitted by law. Any unauthorized further disclosure in violation of state law may result in a fine or fpc sentence or both. A general authorization for the release of medical or other information is NOT sufficient authorization for further disc losure. Encounters Encounter Providers Location Date Indications Data Source(s ) Recurring Patient Attender: Isabel Metzger NPReferrer: PRANAY BETTENCOURT MD 11/19/2020 11:06:45 AM EST [facility] Hazel Krzysztof Cadet, MEATMAN: [id number] [address], [facility] [place] [address], Ph. Attender: Hazel Cadet [facility] - [facility] - Main Office 11/03/2020 12:00:00 AM EST ATHE SENIA ([facility]) Gume Bhardwaj MD: [id number] [facility] [address] [place] [phone], Ph. Attender: Gume Bhardwaj MD [place] - [facility] - Main Office 10/27/2020 12:00:00 AM EST LENNY ([facility]) Gume Bhardwaj MD: [id number] [facility], [place] [address], Ph. Attender: Gume Bhardwaj MD [place] - [facility] - Main Office 10/27/2020 12:00:00 AM EST LENNY ([facility]) Recurring Patient Attender: Isabel Metzger NPReferrer: PRANAY BETTENCOURT MD 10/26/2020 10:36:01 AM EST [facility] Outpatient Attender: Guerrero CHANG 10/19 10:20:00 AM EST - 10/19/2020 10:20:00 AM EST [facility] Outpatient Attender: MARIANNE WINTERS MD [id number] 2019 02:55:01 PM EST - 10/12/2020 03:31:04 PM EST [facility] Outpatient Attender: Lul Purcell DOConsultant: Camryn Purcell DO [id number] 10/09/2020 01:48:23 PM EST - 10/09/2020 02:37:55 PM EST OFFICE OUTPATIENT NEW 30 MINUTES Attender: Prabhu Loo MD Physic al Therapy 10/07/2020 08:30:00 AM EST [facility] ([facility]) Outpatient 08/20/2020 12:00:00 AM [facility] Outpatient Attender: WILBUR CHENG CNM 08/20/2020 12:00:00 AM [facility] Outpatient Attender: WILBUR CHENG CNM 08/11/2020 12:00:00 AM [facility] Outpatient Attender: WILBUR CHENG CNM 07/20/2020 12:00:00 AM [facility] Outpatient Attender: Cyndi Sylvester MD [id number] 07/08/2020 12:00:00 AM EDT - 07/08/2020 10:46:40 AM EDT [facility] Emergency Attender: ALETHA LICONA MD [id number] 05/20 11:54:00 AM EDT - 05/31/2020 02:56:00 PM EDT [facility] Patient discharged. Outpatient Attender: Ortiz Saleem MD [id number] 12:00:00 AM EDT - 02/27/2020 01:12:04 PM EDT [facility] Outpatient Attender: Cyndi Sylvester MDAttender: Ortiz Saleem MDReferrer: Cyndi Sylvester MD [id number] 02/18/2020 12:00:00 AM EDT Outpatient Attender: Cyndi NOVAK 02/13/2020 12:26:54 PM EDT - 02/13/2020 02:16:04 PM EDT [facility] Emergency Attender: Lev Crowder ES1-ES1 0 09:08:00 AM EDT - 02/08/2020 01:23:00 PM EDT Patient discharged. Outpatient Attender: Ferdinand Menchaca MD 01/28/2020 12:00:00 A M [facility] Outpatient Attender: Cyndi NOVAK 01/27/2020 08:49:25 AM EDT - 01/27/2020 09:42:48 AM EDT [facility] Outpatient 01/20/2020 12:00:00 AM [facility] Outpatient Admitter: GAVIN BARBOZA MDReferrer: GAVIN CLARK MD [id number] 01/08/2020 10:03:13 AM EST [facility] Outpatient Attender: Cyndi NOVAK 01/02/2020 09:19:17 AM EST - 01/02/2020 11:05:40 AM EST [facility] Outpatient Admitter: GAVIN BARBOZA MDReferrer: GAVIN LIEBERMAN.CCN 11/20/2019 12:00:00 AM EST [facility] Outpatient Admitter: GAVIN BARBOZA MDReferrer: GAVIN LIEBERMAN.CCN 10/20/2019 12:00:00 AM EST [facility] Immunizations Vaccine Date Status Description Data Source(s) TB Skin test is not vaccine. 10/09/2020 12:00:00 AM EST completed PPD Test 10/09/2020, 10/03/2018 Medications Medication Brand Name Start Date Product Form Dose Route Admi nistrative Instructions Pharmacy Instructions Status Indications Reaction Description Data Source(s) Cyclobenzaprine hydrochloride 10 MG Oral Tablet cyclobenzaprine (FLEXERIL) 10 MG tablet cyclobenzaprine (FLEXERIL) 10 MG tablet 07/08/2020 12:00:00 AM E DT 10 mg Oral active Take 1 tab let (10 mg total) by mouth 2 (two) times a day as needed for muscle spasms 24 HR Bupropion Hydrochloride 150 MG Ext ended Release Oral Tablet buPROPion (WELLBUTRIN XL) 150 MG 24 hr tablet buPROPion (WELLBUTRIN XL) 150 MG 24 hr tablet 07/08/2020 12:00:00 AM EDT 150 mg Oral active Take 1 tablet (150 mg total) by mouth daily lidocaine (LIDODERM) 5 % [id number] 07/08/2020 12:00:00 AM EDT 1 {patch} Transdermal active Place 1 patch on the skin daily Remove & Discard patch within 12 hours or as directed by buspirone hydrochloride 7.5 MG Oral Tablet busPIRone ( BUSPAR) 7.5 MG tablet busPIRone (BUSPAR) 7.5 MG tablet 02/13/2020 12:00:00 AM EDT 7.5 mg Oral active Take 1 tablet (7.5 mg total) by mouth 3 (three) times a day sodium chloride 0.9% (NS) bolus 1,000 mL [id number] 02/08/2020 11:00:00 AM EDT 1000 mL Intravenous completed 1, 000 mL, Intravenous, Administer over 1 Hours, Once, 02/08/20 at 1100, For 1 dose Medication administered onsite Acetaminophen 325 MG / Hydrocodone Sara trate 5 MG Oral Tablet HYDROcodone- acetaminophen (NORCO) 5-325 MG per tablet 1 tablet HYDROcodone-acetaminophen (NORCO) 5-325 MG per tablet 1 tablet 02/08/2020 10:35:00 AM EDT 1 { tbl} Oral completed 1 tablet, Oral, Once, 02/08/20 at 1035, For 1 dose Medication administered onsite Sulfamethoxazole 800 MG / Trimethoprim 1 60 MG Oral Tablet sulfamethoxazole- trimethoprim (BACTRIM DS,SEPTRA DS) 800-160 MG per tablet sulfamethoxazole- trimethoprim (BACTRIM DS,SEPTRA DS) 800-160 MG per tablet 02/08/2020 12:00:00 AM EDT Oral active Take 1 t ablet (160 mg of trimethoprim total) by mouth 2 (two) times a day for 7 days smx-tmp DS (BACTRIM) 800-160 mg tabs (1tab q12 D10) tramadol hydrochloride 50 MG Oral Tablet traMADol (ULT MARILY) 50 MG tablet traMADol (ULTRAM) 50 MG tablet 02/08/2020 12:00:00 AM EDT 50 mg Oral active Take 1 tablet (50 mg total) by mouth every 6 (six) hours as needed for pain Max Daily Amount: 200 mg Cholecalciferol 41605 UNT Oral Capsule C holecalciferol (VITAMIN D3) 1.25 MG (52172 UT) CAPS Cholecalciferol (VITAMIN D3) 1.25 MG (57178 UT) CAPS 0 01/07/2020 12:00:00 AM EST 13941 U Oral active Take 1 capsule (50,000 Units total) by mouth once a week albuterol (PROVENTIL HFA) 108 (90 Base) MCG/ACT inhaler [id number] 01/02/2020 12:00:00 AM EST 2 {puff} Inhalation active Mil d intermittent asthma without complication Inhale 2 puffs every 4 (four ) hours as needed for wheezing or shortness of breath [facility] Mild intermittent asthma without complic ation Ibuprofen 600 MG Oral Tablet ibuprofen (ADVIL,MOTRIN) 600 MG tablet ibuprofen (ADVIL,MOTRIN) 600 MG tablet 01/02/2020 12:00:00 AM EST 600 mg Oral active Take 1 tablet (600 mg total) by mouth every 30 (thirty) days ferrous sulfate 325 MG Oral Tablet Ferrous Sulfate (IR ON) 325 (65 Fe) MG TABS Ferrous Sulfate (IRON) 325 (65 Fe) MG TABS 01/02/2020 12:00:00 AM EST 325 mg Oral active Take 1 tablet (325 mg total) by mouth 2 (two) times a day with meals calcium citrate-vitamin D (CALCIUM + D) 315-200 MG-UNIT per tablet [id number] 01/02/2020 12:00:00 AM EST 1 {tbl} Oral active Take 1 tablet by mouth daily Ascorbic Acid 500 MG Oral Capsule Ascorbic Acid (VITAM IN C) 500 MG CAPS Ascorbic Acid (VITAMIN C) 500 MG CAPS 01/02/2020 12:00:00 AM EST 1 {capsule} Or al active Take 1 capsule by mouth Daily sl iding scale Vit-Fe Fumarate-FA ( MULTIVITAMIN) 27-1 MG TABS 01/02/2020 12:00:00 AM EST 1 {tbl} Oral active Take 1 tablet by mouth daily Cholecalciferol 50833 UNT Oral Capsule c holecalciferol (vitamin D3) 1,250 mcg (50,000 unit) capsule cholecalciferol (vitamin D3) 1,250 mcg ( 50,000 unit) capsule completed cholecalcifero l 1.25 MG Oral Capsule LENNY ([facility]) Fluconazole 150 MG Oral Tablet fluconazole 150 mg tabl et fluconazole 150 mg tablet completed fluconazole 150 MG Oral Tablet LENNY ([facility]) Permethrin 50 MG/ML Topical Cream permethrin 5 % topic al cream permethrin 5 % topical cream completed permethr in 50 MG/ML Topical Cream LENNY ([facility]) Clindamycin 300 MG Oral Capsule clindamycin HCl 300 mg capsule clindamycin HCl 300 mg capsule completed clindam ycin 300 MG Oral Capsule LENNY ([facility]) Clindamycin 150 MG Oral Capsule clindamycin HCl 150 mg capsule clindamycin HCl 150 mg capsule completed clindam ycin 150 MG Oral Capsule LENNY ([facility]) Cyclobenzaprine hydrochloride 10 MG Oral Tablet cyclob enzaprine 10 mg tablet cyclobenzaprine 10 mg tablet completed cyclobenzaprine hydrochloride 10 MG Oral Tablet LENNY ([facility]) tramadol hydrochloride 50 MG Oral Tablet tramadol 50 mg tablet take 1 tablet by mouth every 6 hours if needed for pain tramadol 50 mg tablet take 1 tablet by mouth every 6 hours if needed for pain completed tramadol hydrochloride 50 MG Oral Tablet LENNY ([facility]) Clindamycin 150 MG Oral Capsule clindamycin HCl 150 mg capsule clindamycin HCl 150 mg capsule completed clindam ycin 150 MG Oral Capsule LENNY ([facility]) 24 HR Bupropion Hydrochloride 150 MG Ext ended Release Oral Tablet bupropion HCl XL 150 mg 24 hr tablet, extended release take 1 tablet by mouth once daily bupropion HCl XL 150 mg 24 hr tablet, extended release take 1 tablet by mouth once daily completed 24 HR bupropion hydrochloride 150 MG Extended Release Oral Tablet LENNY ([facility]) NITROFURANTOIN, MACROCRYSTALS 25 MG / Ni trofurantoin, Monohydrate 75 MG Oral Capsule nitrofurantoin monohydrate/macrocrystals 100 mg capsule nitrofurantoin monohydrate/macrocrystals 100 mg capsule completed nitrofurantoin, macrocrystals 25 MG / nitrofurantoin, monohydrate 75 MG Oral Capsule LENNY ([facility]) Lidocaine Hydrochloride 20 MG/ML Mucous Membrane Topical Solution Lidocaine Viscous 2 % mucosal solution Lidocaine Viscous 2 % mucosal solution completed lidocaine hydrochloride 20 MG/ML Mucous Membrane Topical Solution LENNY ([facility]) 24 HR Bupropion Hydrochloride 150 MG Ext ended Release Oral Tablet bupropion HCl XL 150 mg 24 hr tablet, extended release take 1 tablet by mouth once daily bupropion HCl XL 150 mg 24 hr tablet, extended release take 1 tablet by mouth once daily completed 24 HR bupropion hydrochloride 150 MG Extended Release Oral Tablet LENNY ([facility]) albuterol sulfate HFA 90 mcg/actuation aerosol inhaler [id number] completed [id number] 200 ACTUAT albuterol 0.09 MG/ACTUAT Metered Dose Inhaler LENNY ([facility]) NITROFURANTOIN, MACROCRYSTALS 25 MG / Ni trofurantoin, Monohydrate 75 MG Oral Capsule nitrofurantoin monohydrate/macrocrystals 100 mg capsule nitrofurantoin monohydrate/macrocrystals 100 mg capsule completed nitrofurantoin, macrocrystals 25 MG / nitrofurantoin, monohydrate 75 MG Oral Capsule LENNY ([facility]) Naproxen 500 MG Oral Tablet naproxen 500 mg tablet naproxen 500 mg ta blet completed naproxen 500 MG Oral Tablet LENNY ([facility]) chlorhexidine gluconate 1.2 MG/ML Mouthw juan josé chlorhexidine gluconate 0.12 % mouthwash chlorhexidine gluconate 0.12 % mouthwash completed chlorhexidine gluconate 1.2 MG/ML Mouthwash LENNY ([facility]) Ascorbic Acid 500 MG Oral Tablet Vitamin C 500 mg tabl et TAKE 1 TABLET DAILY Vitamin C 500 mg tablet TAKE 1 TABLET DAILY completed ascorbic acid 500 MG Oral Tablet LENNY ([facility]) Fluconazole 150 MG Oral Tablet fluconazole 150 mg tabl et fluconazole 150 mg tablet completed fluconazole 150 MG Oral Tablet LENNY ([facility]) Sulfamethoxazole 800 MG / Trimethoprim 1 60 MG Oral Tablet sulfamethoxazole 800 mg-trimethoprim 160 mg tablet sulfamethoxazole 800 mg-trimethoprim 160 mg tablet completed sulfame thoxazole 800 MG / trimethoprim 160 MG Oral Tablet LENNY ([facility]) ferrous sulfate 325 MG Oral Tablet ferrous sulfate 325 mg (65 mg iron) tablet ferrous sulfate 325 mg (65 mg iron) tablet completed ferrous sulfate 325 MG Oral Tablet LENNY ([facility]) Lidocaine Hydrochloride 20 MG/ML Mucous Membrane Topical Solution Lidocaine Viscous 2 % mucosal solution Lidocaine Viscous 2 % mucosal solution completed lidocaine hydrochloride 20 MG/ML Mucous Membrane Topical Solution LENNY ([facility]) Clindamycin 300 MG Oral Capsule clindamycin HCl 300 mg capsule clindamycin HCl 300 mg capsule completed clindam ycin 300 MG Oral Capsule LENNY ([facility]) Ibuprofen 600 MG Oral Tablet ibuprofen 600 mg tablet ibuprofen 6 00 mg tablet completed ibuprofen 600 MG Oral Tablet LENNY ([facility]) Acetaminophen 325 MG / Hydrocodone Sara trate 5 MG Oral Tablet hydrocodone 5 mg- acetaminophen 325 mg tablet hydrocodone 5 mg-acetaminophen 325 mg tablet completed acetaminophen 325 MG / hydrocodone bitartrate 5 MG Oral Tablet LENNY ([facility]) Sulfamethoxazole 800 MG / Trimethoprim 1 60 MG Oral Tablet sulfamethoxazole 800 mg-trimethoprim 160 mg tablet sulfamethoxazole 800 mg-trimethoprim 160 mg tablet completed sulfame thoxazole 800 MG / trimethoprim 160 MG Oral Tablet LENNY ([facility]) Naproxen 500 MG Oral Tablet naproxen 500 mg tablet naproxen 500 mg ta blet completed naproxen 500 MG Oral Tablet LENNY ([facility]) Ibuprofen 600 MG Oral Tablet ibuprofen 600 mg tablet ibuprofen 6 00 mg tablet completed ibuprofen 600 MG Oral Tablet LENNY ([facility]) Permethrin 50 MG/ML Topical Cream permethrin 5 % topic al cream permethrin 5 % topical cream completed permethr in 50 MG/ML Topical Cream LENNY ([facility]) albuterol sulfate HFA 90 mcg/actuation aerosol inhaler [id number] completed [id number] 200 ACTUAT albuterol 0.09 MG/ACTUAT Metered Dose Inhaler LENNY ([facility]) tramadol hydrochloride 50 MG Oral Tablet tramadol 50 mg tablet take 1 tablet by mouth every 6 hours if needed for pain tramadol 50 mg tablet take 1 tablet by mouth every 6 hours if needed for pain completed tramadol hydrochloride 50 MG Oral Tablet LENNY ([facility]) Ascorbic Acid 500 MG Oral Tablet Vitamin C 500 mg tabl et TAKE 1 TABLET DAILY Vitamin C 500 mg tablet TAKE 1 TABLET DAILY completed ascorbic acid 500 MG Oral Tablet LENNY ([facility]) Acetaminophen 325 MG / Hydrocodone Sara trate 5 MG Oral Tablet hydrocodone 5 mg- acetaminophen 325 mg tablet hydrocodone 5 mg-acetaminophen 325 mg tablet completed acetaminophen 325 MG / hydrocodone bitartrate 5 MG Oral Tablet [facility] ([facility]) Phenazopyridine hydrochloride 200 MG Ora l Tablet phenazopyridine 200 mg tablet TAKE 1 TABLET BY MOUTH THREE TIMES DAILY FOR 2 DAYS phenazopyridine 200 mg tablet TAKE 1 TABLET BY MOUTH THREE TIMES DAILY FOR 2 DAYS completed phenazopyridine hydrochloride 20 0 MG Oral Tablet [facility] ([facility]) ferrous sulfate 325 MG Oral Tablet ferrous sulfate 325 mg (65 mg iron) tablet ferrous sulfate 325 mg (65 mg iron) tablet completed ferrous sulfate 325 MG Oral Tablet [facility] ([facility]) Phenazopyridine hydrochloride 200 MG Ora l Tablet phenazopyridine 200 mg tablet TAKE 1 TABLET BY MOUTH THREE TIMES DAILY FOR 2 DAYS phenazopyridine 200 mg tablet TAKE 1 TABLET BY MOUTH THREE TIMES DAILY FOR 2 DAYS completed phenazopyridine hydrochloride 20 0 MG Oral Tablet [facility] ([facility]) Cyclobenzaprine hydrochloride 10 MG Oral Tablet cyclob enzaprine 10 mg tablet cyclobenzaprine 10 mg tablet completed cyclobenzaprine hydrochloride 10 MG Oral Tablet [facility] ([facility]) Cholecalciferol 44313 UNT Oral Capsule c holecalciferol (vitamin D3) 1,250 mcg (50,000 unit) capsule cholecalciferol (vitamin D3) 1,250 mcg ( 50,000 unit) capsule completed cholecalcifero l 1.25 MG Oral Capsule [facility] ([facility]) chlorhexidine gluconate 1.2 MG/ML Mouthw juan josé chlorhexidine gluconate 0.12 % mouthwash chlorhexidine gluconate 0.12 % mouthwash completed chlorhexidine gluconate 1.2 MG/ML Mouthwash [facility] ([facility]) Insurance Providers Payer name Policy type / Coverage type Policy ID Covered libertarian ID Covered libertarian's relationship to littlejohn Policy Littlejohn Plan Information [employer] [id number] SP [id number] EMEDNY [id number] SP [id number] [facility] Medicaid D [id number] SELF [id number] SNYDER [id number] Fozia [id number] MEDICAID [id number] Fozia [id number] 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 [id number] COMM[employer] [id number] SP [id number] SELF PAY ONLY [id number] SP [id number] WORKERS COMPENSATION GENERIC W [id number] Empl [id number] [facility] I [id number] Self [id number] MEDICAID [id number] SNYDER [id number] [employer] [id number] SP [id number] SNYDER [id number] Fozia [id number] SNYDER [id number] SNYDER [id number] Fozia [id number] MEDICAID [id number] Fozia [id number] [facility] HEA [id number] S [id number] TOTAL CARE MEDICAID/SNYDER [id number] Fozia [id number] TOTAL CARE MEDICAID/SNYDER [id number] Fozia [id number] [facility] I [id number] Self CB [id number] MEDICAID GME [id number] S [id number] MEDICAID PI PI TOTAL CARE MEDICAID/SNYDER PI PI STPP Wrap [id number] [facility] [id number] M [id number] NO FAULT [id number] Fozia [id number] [employer]ALTHPLEX IPA INC DENTAL [id number] Fozia [id number] NO FAULT PI PI HEALTHPLEX IPA INC DENTAL PI PI UNAVAILABLE UNAVAILA BLE MEDICAID HEALTH MAINTENANCE ORGANIZATION HEA UNAVAILABLE UNAVAILABLE TOTAL CARE HEA [id number] TOTAL CARE I [id number] Self [id number] TOTAL CARE MEDICAID [id number] Fozia [id number] HEALTHPLEX IPA INC DENTAL [id number] Fozia [id number] Totalcare Medicaid F [id number] SELF C [id number] Total Care [id number] Totalcare Medicaid F [id number] SELF C [id number] MEDICAID GME W [id number] TOTAL CARE W [id number] S [id number] MEDICAID [id number] Fozia [id number] MEDICAID [id number] Fozia [id number] HEALTHPLEX IPA INC DENTAL [id number] Fozia [id number] SELF PAY 2 UNAVAILABLE 1 UNAVAILA BLE PCAP PENDING [id number] [facility] MEDICAID 2 [id number] 1 [id number] [place] 3 [id number] TOTAL CARE MEDICAID 2 [id number] [place] 3 [id number] PCAP PENDING [id number] SELF PAY 2 UNAVAILABLE UNAVAILA BLE Problems, Conditions, and Diagnoses Code Display Name Description Problem Type Effective Dates Data Source(s) Z11.1 Encounter for screening for respiratory tuberculosis Encounter for screening for respiratory Diagnosis 10/12/2020 02:55:01 PM EST [facility] Z02.1 Encounter for pre-employment examination Encounter for pre-employment examination Diagnosis 10/09/2020 01:48:23 PM EST M51.36 Other intervertebral disc degeneration, lumbar region Other intervertebral disc degeneration, Diagnosis 07/08/2020 09:48:58 AM EDT M50.30 Other cervical disc degeneration, unspec ified cervical region Other cervical disc degeneration, unspec Diagnosis 07/08/2020 09:48:58 AM ED T N93.9 Abnormal uterine and vaginal bleeding, u nspecified Abnormal uterine and vaginal bleeding, u Diagnosis 05/31/2020 12:40:57 PM EDT M54.32 Sciatica, left side Sciatica, left side Diagnosis 0 05/31/2020 12:40:57 PM EDT Z48.89 Encounter for other specified surgical a ftercare Encounter for other specified surgical a Diagnosis 02/27/2020 12:19:46 PM EDT T81.49XA Infection following a proced ure, other surgical site, initial encounter Infection following a procedure, other s Diagnosis 020 01:07:26 PM EDT T81.49XA Infection following a proced ure, other surgical site, initial encounter Infection following a procedure, other s Diagnosis 020 12:26:54 PM EDT [facility] F41.9 Anxiety disorder, unspecified Anxiety disorder, unspec ified Diagnosis 02/13/2020 12:26:54 PM EDT [facility] Z48.03 Encounter for change or removal of drain s Encounter for change or removal of drain Diagnosis 02/08/2020 09:18:27 AM EDT Z51.89 Encounter for other specified aftercare Encounter for other specified aftercare Diagnosis 02/08/2020 09:18:27 AM EDT N89.8 Other specified noninflammatory disorder s of vagina Other specified noninflammatory disorder Diagnosis 01/27/2020 08:49:25 AM EDT [facility] Z13.6 Encounter for screening for cardiovascul ar disorders Encounter for screening for cardiovascul Diagnosis 01/02/2020 09:19:17 AM EST [facility] Practices Z13.21 Encounter for screening for nutritional disorder Encounter for screening for nutritional Diagnosis 01/02/2020 09:19:17 AM [facility] F32.9 Major depressive disorder, single episod e, unspecified Major depressive disorder, single episod Diagnosis 01/02/2020 09:19:17 AM [facility] K21.9 Gastro-esophageal reflux disease without esophagitis Gastro-esophageal reflux disease without Diagnosis 01/02/2020 09:19:17 AM [facility] Z98.84 Bariatric surgery status Bariatric surgery status Diag nosis 01/02/2020 09:19:17 AM [facility] J45.20 Mild intermittent asthma, uncomplicated Mild intermittent asthma, uncomplicated Diagnosis 01/02/2020 09:19:17 AM [facility] Z00.00 Encounter for general adult medical examination without abnormal findings Encounter for general adult medical exam Diagnosis 020 09:19:17 AM [facility] Surgeries/Procedures Procedure Description Date Indications Data Source(s) MRI, lumbar spine, w/o contrast 10/27/2020 12:00:00 AM EST [facility] ([facility]) MRI, cervical spine, w/o contrast 10/27/2020 12:00:00 AM EST [facility] ([facility]) DUP-SCAN XTR VEINS UNILATERAL/LIMITED STUDY US LOWER EXTREM ITY VENOUS LEFT STAT 05/31/2020 1:40 PM EDT 05/31/2020 05:40:38 PM EDT BLOOD COUNT COMPLETE AUTO&AUTO DIFRNTL WBC COUNT CBC AND DIFFER ENTIAL STAT 05/31/2020 1:20 PM EDT 05/31/2020 05:20:00 PM EDT GONADOTROPIN CHORIONIC QUANTITATIVE HCG, QUANTITATIVE, PREGNANC Y STAT 05/31/2020 1:20 PM EDT 05/31/2020 05:20:00 PM EDT BASIC METABOLIC PANEL CALCIUM TOTAL BASIC METABOLIC PANEL STAT 05/31/2020 1:20 PM EDT 05/31/2020 05:20:00 PM EDT [facility] GLUC BLD GLUC MNTR DEV CLEARED FDA SPEC HOME USE POCT GLUCOSE Routine 02/08/2020 10:29 AM EDT 02/08/2020 02:29:00 PM EDT Results ID Date Data Source [id number] 10/21/2020 09:14:00 AM EST [facility] [address] [place] [address] PHONE: [phone] FAX: [phone] Name .................. : FAIZA SOUZA Acct Number.................. : [id number] ROOM. ................. : MR Number ................... : [id number] Stay type ............. : CLINIC Discharge Date......... ... : 10/19/20 Admit Date ...... ... : 10/19/20 Admit Phys .................... : ORIANA WHITEHEAD Date of ....... : 1990 Family Phys ................... : Phone .................. : [phone] Age ................................ : 30 Film# .................. .:[id number] Sex ................................. : F Unsigned transcriptions are preliminary reports and do not represent a medical or legal document [place] [id number] COMPLETE:10/19/20 12:15 CALEB 00106 (SPINE PROC REASON: CERVICALGIA CERVICAL SPINE SERIES: HISTORY: Cervicalgia. FINDINGS: There is some slight loss of the normal cervical lordosis. There is otherwise normal alignment and position of the bones with no significant pathology identified. IMPRESSION: No acute pathology noted. Electronically Reviewed and Signed By JOSE LOPEZ MD , 10/21/20 09:14, [facility] Transcribe Initials: DZ , Transcribe Date: 10/19/20 21:33, Dictation Date: Page 1 of 1 Name Value Range Interpretation Code Description Data Dayana rce(s) Supporting Document(s) ID Date Data Source [id number] 10/20/2020 09:39:00 AM EST [facility] [address] [place] [address] PHONE: [phone] FAX: [phone] Name .................. : FAIZA SOUZA Acct Number.................. : [id number] ROOM. ................. : Number ................... : [id number] Stay type ............. : CLINIC Discharge Date......... ... : 10/19/20 Admit Date ...... ... : 10/19/20 Admit Phys .................... : ORIANA WHITEHEAD Date of ....... : 1990 Family Phys ................... : Phone .................. : [phone] Age ................................ : 30 Film# .................. .:[id number] Sex ................................. : F Unsigned transcriptions are preliminary reports and do not represent a medical or legal document SPINE LS AP & LAT [id number] COMPLETE:10/19/20 12:15 CALEB 42771 (SPINE PROC REASON: CERVICALGIA LUMBAR SPINE SERIES: INDICATION: Neck pain. FINDINGS: Minimal left-conway curvature of the lumbar spine is identified. No clear evidence of an acute fracture is noted. Disc space narrowing is noted at L4-5 and L5-S1. Mild facet joint hypertrophy is identified at the lower lumbar spine. There is a calcification identified in the right lower quadrant which could represent an appendicolith or possibly could represent a ureteral calculus, though this is less likely. Clinical correlation is recommended. If further imaging is required, a CT scan could be performed. IMPRESSION: Mild leftward curvature which may be positional. Degenerative changes. Calcification in the right lower quadrant, question appendicolith versus ureteral calculus. CT imaging and further evaluation as necessary, is recommended. Examination dictated by BERNARDO Moy. Examination was reviewed with Zeynep Chen MD, radiologist at the time of this dictation. Electronically Reviewed and Signed By Zeynep Chen MD , 10/20/20 09:39, [facility] Transcribe Initials: DOYLE , Transcribe Date: 10/19/20 22:14, Dictation Date: Page 1 of 1 Name Value Range Interpretation Code Description Data Dayana rce(s) Supporting Document(s) ID Date Data Source [id number] 10/15/2020 05:04:17 PM EST [facility] INFORMATIONPatient MRN Name Date of Age Gend*PT [id number] Harley Rutherford 1990 30 years F ---PT Location Admission Date/Time Visit ID Attending Provider --- --- --- --- EPI ID CSN Admitting Provider [id number] ---Assessment/Plan:Diagnoses and all orders for this visit:Encounter for PPD skin test reading (Primary)Negative PPDSigned paperworkFollow Up Return for Next scheduled follow up.Subjective:Patient ID: Harley Rutherford is a 30 years female.Patient presetns today for a PPD reading.HPIPPD Reading NotePPD read and results entered in [employer].Result: 0 mm induration.Interpretation: negative PPDIf test not read within 48-72 hours of initial placement, patient advised torepeat in other arm 1-3 weeks after this test.Allergic reaction: noPPD right arm negativeThe following portions of the patient's history were reviewed and updated asappropriate: allergies, current medications were reconciled with dischargemedications if applicable, past medic al history, past social history, pastsurgical history, problem list and nutrition. Encouraged regular exercise andhealthy diet. BMI management plan discussed..Review of SystemsConstitutional: Negative for chills, fatigue and fever.HENT: Negative for congestion, sinus pressure and sinus pain.Respiratory: Negative for cough, chest tightness and shortness of breath.Cardiovascular: Negative for chest pain, palpitations and leg swelling.Gastrointestinal: Negative for constipation, diarrhea, nausea and vomiting.Genitourinary: Negative for difficulty urinating and urgency.Musculoskeletal: Negative for back pain and neck pain.Skin: Negative for rash.Neurological: Negative for dizziness, light- headedness and headaches.Objective:Vitals: There were no vitals taken for this visit.Physical ExamPPD read right forearm, no erythema or induration, negative PPD Name Value Range Interpretation Code Description Data Dayana rce(s) Supporting Document(s) ID Date Data Source [id number] 10/09/2020 04:26:17 PM EST [facility] INFORMATIONPatient MRN Name Date of Age Gend*PT [id number] Harley Rutherford 1990 30 years F ---PT Location Admission Date/Time Visit ID Attending Provider --- --- --- --- EPI ID CSN Admitting Provider [id number] ---Assessment/Plan:Diagnoses and all orders for this visit:Pre-employment health screening examination (Primary) - 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 Paperwork done. PPD placed. 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 She needs a ppd placed.The following portions of the patient's history were reviewed and updated asappropriate:Past Medical History:Diagnosis Date Adverse effect of anesthesia 04/11/14 Patient had GA, post op developed dissociative like episode where she was notorientated, eyes moving rapidly left/right up and down, unable to feel or moveparts of her body. Narrcan did improve symptoms. NO ketamine was given for theprocedure. Anemia Anxiety Asthma Chronic pain disorder Complication of anesthesia hard to wake up Depression Gallstone Gastric bypass status for obesity GERD (gastroesophageal reflux disease) Gestational diabetes Herniated disc History of narcotic use Obesity depression induced hypertension Trichomonal cervicitis.Review of SystemsConstitutional: Negative for chills and fever.Respiratory: Negative for cough, shortness of breath and wheezi ng.Cardiovascular: Negative for chest pain, palpitations and leg swelling.Gastrointestinal: Negative for abdominal pain, constipation and diarrhea.Neurological: Negative for dizziness, light-headedness and headaches.Objective:Vitals: BP 100/70 (BP Location: Left upper arm, Patient Position: Sitting) |Pulse 85 | Temp 98 F (Tympanic) | Resp 16 | Ht 1.753 m (5' 9") | Wt 86.2 kg(190 lb) | SpO2 96% | BMI 28.06 kg/m Physical Exam Physical ExamConstitutional: Oriented to person, place, and time. Appears well-developed andwell-nourished.HENT:Head: Normocephalic and atraumatic.Eyes: Pupils are equal, round, and reactive to light.Neck: Normal range of motion. Neck supple.Cardiovascular: Normal rate, regular rhythm and normal heart sounds.Pulmonary/Chest: Effort normal and breath sounds normal. No respiratorydistress. No wheezes. no rales. no tenderness.Abdominal: Soft. Bowel sounds are normal.Neurological: alert and oriented to person, place, and time.Skin: warm and dry.Psychiatric: normal mood and affect. Name Value Range Interpretation Code Description Data Dayana madhavi(s) Supporting Document(s) ID Date Data Source [id number] 10/07/2020 11:12:00 AM EST [facility] ([facility]) Name Value Range Interpretation Code Description Data Dayana rce(s) Supporting Document(s) Lyme Disease IgG/IgM Antibodie Laboratory test result 0.00-0.90 [facility] ([facility]) <content>Negative <0.91</content >
<content>Equivocal 0.91 - 1.09</content>
<content>Positive >1.09</content>
<content></content> Lyme Disease IgM Ab Quantitati Laboratory test result 0.00-0.79 [facility] ([facility]) <content>Negative <0.80</content >
<content>Equivocal 0.80 - 1.19</content>
<content>Positive >1.19</content>
<content>.</content>
<content>IgM levels may peak at 3-6 weeks post infection, then</content>
<content>gradually decline.</content>
<content></content> ID Date Data Source [id number] 10/07/2020 11:12:00 AM EST [facility] ([facility]) Name Value Range Interpretation Code Description Data Dayana rce(s) Supporting Document(s) Erythrocyte sedimentation rate by Westergren method 17 mm/hr 0-20 [facility] ([facility]) C reactive protein [Mass/volume] in Serum or Plasma by High sensitivity method 0.41 mg/dL 0.00-0.30 [facility] ([facility]) ID Date Data Source [id number] 10/07/2020 11:12:00 AM EST [facility] ([facility]) Name Value Range Interpretation Code Description Data Dayana rce(s) Supporting Document(s) Antinuclear Antibodies Direct Laboratory test result [facility] ([facility]) Performed at: - [facility] [address] [id number] Admissions Advisor: Michelle Metzger MD, Phone: [phone] ID Date Data Source [id number] 10/07/2020 11:12:00 AM EST [facility] ([facility]) Name Value Range Interpretation Code Description Data Dayana rce(s) Supporting Document(s) Rheumatoid factor [Units/volume] in Serum or Plasma Laboratory test result [facility] ([facility]) ID Date Data Source [id number] 10/07/2020 11:12:00 AM EST [facility] ([facility]) Name Value Range Interpretation Code Description Data Dayana rce(s) Supporting Document(s) Red Blood Count 4.41 10 4.00-5.40 [facility] ([facility]) White Blood Count 6.7 10 4.0-10.0 [facility] ([facility]) Hematocrit 37.1 % 36.0-47.0 [facility] ([facility]) Mean Corpuscular Volume 84.1 fl 80.0-96.0 M [facility] ([facility]) Hemoglobin 11.2 g/dL 12.0-15.5 [facility] ([facility]) Mean Corpuscular HGB Conc 30.2 g/dL 32.0-36.5 [facility] ([facility]) Red Cell Distribution Width 13.6 % 11.5-14.5 [facility] ([facility]) Mean Corpuscular Hemoglobin 25.4 pg 27.0-33.0 [facility] ([facility]) Lymph % 28.3 % 24.0-44.0 [facility] ([facility]) Platelet Count, Automated 270 10 150-450 [facility] ([facility]) Neutrophils % 61.8 % 36.0-66.0 [facility] ([facility]) Aiken % 8.2 % 0.0-5.0 [facility] ([facility]) Eos % 1.2 % 0.0-3.0 [facility] ([facility]) Nucleated Red Blood Cell % 0.0 % 0-0 [facility] ([facility]) Immature Granulocyte % 0.1 % 0-3.0 [facility] ([facility]) Baso % 0.4 % 0.0-1.0 [facility] ([facility]) Aiken # 0.6 10 0.0-0.8 [facility] ([facility]) Neutrophils # 4.2 10 1.5-8.5 [facility] ([facility]) Lymph # 1.9 10 1.5-5.0 [facility] ([facility]) Eos # 0.1 10 0.0-0.5 [facility] ([facility]) Baso # 0.0 10 0.0-0.2 [facility]) ID Date Data Source [id number] 09/29/2020 12:00:00 AM EST [facility] Name Value Range Interpretation Code Description Data Dayana rce(s) Supporting Document(s) SARS coronavirus 2 RNA [Presence] in Res piratory specimen by CHEY with probe detection [facility] This lab was ordered by Althea Villavicencio and reported by [employer]. ID Date Data Source [id number] 06/02/2020 08:49:39 AM EDT [facility] NT INFORMATIONPatient MRN Name Date of Age Gend*PT [id number] Harley Rutherford 1990 29 years F EDPT Location Admission Date/Time Visit ID Attending [id number] 05/31/20 1240 --- --- EPI ID CSN Admitting Provider [id number] ---Provider in Triage NotesNo notes on fileHistory of Present IllnessChief ComplaintPatient presents with Vaginal Bleeding pt had intercourse twice yesterday and noted vag bleeding afterwards Possible pt late with Foot Swelling pt c/o 2 weeks of left foot swelling and pain left foot29 years old female with PMHx of Anemia, Anxiety, Asthma, Chronic pain disorder,Complication of anesthesia, Depression, Gallstone, GERD, Gestational diabetes,Herniated disc, History of narcotic use, Obesity, de pression, induced hypertension, and Trichomonal cervicitis presents to the EDc/o vaginal bleeding onset the last three days. During intercourse yesterday(05/30) and the day before (05/29), pt began having light pink discharge. Pt hassome cramping, but all symptoms have resolved. Pt denies any other irregularvaginal discharge. Pt's LMP was last month, pt thinks it is possible she is. Pt also endorses left leg swelling, soreness, and numbness for thelast three weeks. The pain radiates up into her back and buttocks. Pt denies CP,SOB, vomiting, diarrhea, dysuria, fever, chills and all other sx at this time.PCP- Cyndi Sylvester MDHistory provided by: PatientLanguage newspaper carrier used: Mitch Medical History:Diagnosis Date Adverse effect of anesthesia 04/11/14 Patient had GA, post op developed dissociative like episode where she was notorientated, eyes moving rapidly left/right up and down, unable to feel or moveparts of her body. Narrcan did improve symptoms. NO ketamine was given for theprocedure. Anemia Anxiety Asthma Chronic pain disorder Complication of anesthesia hard to wake up Depression Gallstone GERD (gastroesophageal reflux disease) Gestational diabetes Herniated disc History of narcotic use Obesity depression induced hypertension Trichomonal cervicitisPast Surgical History:Procedure Laterality Date APPENDECTOMY BACK SURGERY Bilateral 04/11/2014 Procedure: LUMBAR/THORACIC DISCECTOMY LEVEL 1 LUMBAR 4 5 MICRODISCECTOMYBILATERAL MICROSCOPE ; Surgeon: Pranay Ambriz MD; [facility] [place];Service: Spine; Laterality: Bilateral; BARIATRIC SURGERY SECTION SECTION CHOLECYSTECTOMY GASTRIC BYPASS LIPOSUCTION MULTIPLE BODY PARTS AVA-EN-Y PROCEDURE 05/2015 TONSILLECTOMYFamily HistoryProblem Relation Age of Onset Kidney disease Father Anxiety disorder Mother Bipolar disorder Mother Depression Mother Anxiety disorder Brother Bipolar disorder Brother Depression Brother Cancer OtherSocial HistoryTobacco Use Smoking status: Never Smoker Smokeless tobacco: Never UsedSubstance Use Topics Alcohol use: No Drug use: NoROSReview of SystemsConstitutional: Negative for chills and fever.HENT: Negative for congestion, rhinorrhea and sore throat.Eyes: Negative for pain and redness.Respiratory: Negative for cough and shortness of breath.Cardiovascular: Negative for chest pain, palpitations and leg swelling (leftleg).Gastrointestinal: Negative for abdominal pain, diarrhea, nausea and vomiting.Genitourinary: Negative for difficulty urinating, dysuria and hematuria.Musculoskeletal: Positive for back pain and myalgias (left leg pain). Negativefor arthralgias and neck pain.Skin: Negative for rash and wound.Neurological: Negative for syncope and headaches.Physical ExamBP 128/90 (BP Location: Right upper arm, Patient Position: Sitting) | Pulse 80| Temp 97.8 F (Oral) | Resp 18 | Ht 69" | Wt 75.8 kg | LMP 04/22/2020(Approximate) | SpO2 99% | No | BMI 24.66 kg/m Physical ExamConstitutional: She is oriented to person, place, and time. She appearswell-developed. Non-toxic appearance. No distress.HENT:Head: Normocephalic and atraumatic.Right Ear: External ear normal.Left Ear: External ear normal.Mouth/Throat: Oropharynx is clear and moist and mucous membranes are normal.Eyes: Pupils are equal, round, and reactive to light. EOM are tato l.Neck: Neck supple. No JVD present.Cardiovascular: Normal rate, regular rhythm and intact distal pulses.Pulmonary/Chest: Effort normal and breath sounds normal. She has no decreasedbreath sounds. She has no wheezes. She has no rhonchi. She has no rales.Abdominal: Soft. She exhibits no distension. There is no tenderness. There is norebound and no guarding.Musculoskeletal:Mild left calf tenderness. No obvious swelling on exam.Neurological: She is alert and oriented to person, place, and time.No focal deficits.Skin: Skin is warm and dry. No rash noted.Nursing note and vitals reviewed.ED CourseProceduresMDMNumber of Diagnoses or Management OptionsSciatica of left side:Vaginal bleeding:Diagnosis management comments: Pt presents with left leg pain that is likelyrelated to sciatica. Pt's ultrasound was negative for DVT. Pt also c/o vaginalbleeding with intercourse and discharge, but refused urinalysis and pelvic exam.She said she will make an appointment with her PCP for pelvic exam. Pt was toldshe was not and will follow up with PCP and return for worseningsymptoms.Amount and/or Complexity of Data ReviewedClinical lab tests: ordered and reviewedTests in the radiology section of CPT : ordered and reviewedReview and summarize past medical records: yesIndependent visualization of images, tracings, or specimens: yesLab ResultsResults for orders placed or performed during the hospital encounter of 05/31/20CBC w/ diffResult Value Ref Range WBC 5.6 4.1 - 11.0 10*3/uL RBC 4.89 4.00 - 5.40 10*6/uL Hemoglobin 12.3 12.0 - 16.0 g/dL Hematocrit 39.2 36.0 - 47.0 % MCV 80.1 80.0 - 95.0 fL MCH 25.1 (L) 27.0 - 32.0 pg MCHC 31.4 (L) 32.0 - 36.0 g/dL RDW 14.9 (H) 10.5 - 14.5 % Platelets 276 150 - 450 10*3/uL MPV 8.5 7.1 - 10.7 fL Neutrophils % 62.2 35.0 - 75.0 % Lymphocytes Relative 25.3 16.0 - 52.0 % Monocytes Relative 10.5 (H) 0.0 - 8.0 % Eosinophils Relative 1.2 0.0 - 5.0 % Basophils Relative 0.8 0.0 - 4.0 % Neutrophils Absolute 3.5 1.8 - 7.7 10*3/uL Lymphocytes Absolute 1.4 1.2 - 4.8 10*3/uL Monocytes Absolute 0.6 0.0 - 0.8 10*3/uL Eosinophils Man 0.1 0.0 - 0.5 10*3/uL Basophils Absolute 0.0 0.0 - 0.2 10*3/uLImaging ResultsUS Leg venous doppler LEFTFinal ResultIMPRESSION: 1. No deep vein thrombosis identifiedED MedicationsMedications - No data to displayProgress Notes:12:57 PM Pt seen and examined.12:55 PM Pt is refusing pelvic exam and will follow up with PCP.2:55 PM Pt is refusing to give a urine sample, and will not accept painmedication unless it is a narcotic. Pt will get pain medication from her PCP. Ptwants to leave so she can, 'celebrate not being '.DISPOSITION - Discharge in stable condition.DIAGNOSIS1. Sciatica of left side2. Vaginal bleedingNew Prescriptions No medications on fileThis was electronically signed by Noe aPrker acting as scribe for andin the presence of Aletha Licona MD , 05/31/20 2:10 PM.ED AttestationAttestation of Scribe Documentation: I personally performed the servicesdescribed in the documentation, reviewed the documentation recorded by thenoe in my presence and it accurately and completely records my words andactions.Aletha Licona MD 8:49 Sanam Licona MD06/02/20 0849 Name Value Range Interpretation Code Description Data Dayana rce(s) Supporting Document(s) ID Date Data Source [id number] 05/31/2020 01:48:37 PM EDT [address] [id number] Name: HARLEY RUTHERFORDDOB: 1990Sex: FOrdering Provider: ALETHA LICONAAuthorizing Prov: ALETHA LICONAReferring Provider: Procedure Performed: US LOWER EXTREMITY VENOUS LEFTExam Date: 05/31/2020 13:40MRN: [id number] Number: [id number] Class: EmergencyAccount #: [id number] for Exam: left leg swelling and painTechnique: Duplex sonography was performed.Comparison: NoneFINDINGS:The common femoral vein, superficial femoral vein, and popliteal veins are patent and compressible.The calf veins are unremarkableIMPRESSION:1. No deep vein thrombosis identified.Report electronically signed by: SEBASTIAN MOSQUEDA On 05/31/2020 1:48 PMWorkstation ID: [id number] - [id number] Name Value Range Interpretation Code Description Data Dayana rce(s) Supporting Document(s) ID Date Data Source [id number] 05/31/2020 02:44:08 PM EDT [facility] Name Value Range Interpretation Code Description Data Dayana rce(s) Supporting Document(s) HCG,QUANT PREG <1 mU/mL [facility] INTERPRETATION:LESS THAN 6 NEGATIVE 6 - 10 BORDERLINE (SUGGEST REPEAT IN 48 HOURS) APPROX HCG RANGE WEEKS POST LMP 11 - 130 3 - 4 WEEKS 75 - 2600 4 - 5 WEEKS 850 - 39507 5 - 6 WEEKS 4000 - [id number] 6 - 7 [id number] - [id number] 7 - 12 [id number] - [id number] 12 - 16 WEEKS 1400 - 36403 16 - 29 WEEKS 940 - 78842 29 - 41 WEEKS ID Date Data Source [id number] 05/31/2020 02:14:48 PM EDT [facility] Name Value Range Interpretation Code Description Data Dayana rce(s) Supporting Document(s) SODIUM 140 mmol/L (136-145) [facility] POTASSIUM 3.7 mmol/L (3.6-5.2) [facility] CHLORIDE 107 mmol/L (100-108) [facility] CO2 30 mmol/L (22-31) [facility] ANION GAP 3 mmol/L (7-16) L [facility] UREA NITROGEN 12 mg/dL (7-24) [facility] CREATININE 0.78 mg/dL (0.60-1.00) [facility] BUN/CREAT RATIO 15.4 RATIO (10.0-20.0) [facility] GLUCOSE 71 mg/dL (70-99) [facility] CALCIUM 8.9 mg/dL (8.4-10.2) [facility] GFR >60 ml/min/1.73m2 (>59) [facility] GFR ( AMER) >60 ml/min/1.73m2 (>59) [facility] GFR INTERPRETATION [facility] --NORMAL KIDNEY FUNCTION OR MILD DISEASE - GFR >OR= 60CHRONIC KIDNEY DISEASE - GFR 15 - 59RENAL FAILURE - GFR <15 Est. GFR calculation based on the MDRDstudy equation, which assumes a steadystate for creatinine. Est. GFR should notbe used for medication dosing. ID Date Data Source [id number] 05/31/2020 02:03:11 PM EDT [facility] Name Value Range Interpretation Code Description Data Dayana [facility](s) Supporting Document(s) WBC 5.6 10*3/uL (4.1-11.0) [facility] [place] RBC 4.89 10*6/uL (4.00-5.40) [facility] HGB 12.3 g/dL (12.0-16.0) [facility] HCT 39.2 % (36.0-47.0) [facility] MCV 80.1 fL (80.0-95.0) [facility] MCH 25.1 pg (27.0-32.0) L [facility] MCHC 31.4 g/dL (32.0-36.0) L [facility] RDW 14.9 % (10.5-14.5) H [facility] PLT 276 10*3/uL (150-450) [facility] MPV 8.5 fL (7.1-10.7) [facility] NEUT % 62.2 % (35.0-75.0) [facility] LYMPH % 25.3 % (16.0-52.0) [facility] MONO % 10.5 % (0.0-8.0) H [facility] EOS % 1.2 % (0.0-5.0) [facility] BASO % 0.8 % (0.0-4.0) [facility] NEUT # 3.5 10*3/uL (1.8-7.7) [facility] LYMPH # 1.4 10*3/uL (1.2-4.8) [facility] MONO # 0.6 10*3/uL (0.0-0.8) [facility] Eosinophils [#/volume] in Blood by Automated count 0.1 10*3/uL (0.0-0 .5) [facility] BASO # 0.0 10*3/uL (0.0-0.2) [facility] ID Date Data Source [id number] 05/01/2020 12:00:00 AM EDT [facility] Name Value Range Interpretation Code Description Data Dayana rce(s) Supporting Document(s) SARS-CoV-2 [facility] This lab was ordered by [facility] and reported by [facility]. ID Date Data Source [id number] 02/27/2020 01:17:45 PM EDT [facility] NT INFORMATIONPatient MRN Name Date of Age Gend*PT [id number] Harley Rutherford 1990 29 years F ---PT Location Admission Date/Time Visit ID Attending Provider --- --- --- --- EPI ID CSN Admitting Provider [id number] ---Subjective:Harley Rutherford is a 29 years old female who [facility] No iss ues.Imaging:noneObjective:Pathology:nonePhysical ExamThere were no vitals taken for this visit.Constitutional: Appears well-developed and well- nourished.Underarm and inner thigh incisions closed with scabs in place, no infectionAssessment:Doing well s/p arm and thigh skin removal.Plan:1. Sutures removed2. Return to clinic PRNSignature: Ortiz Saleem MDDate: February 27, 2020Time: 1:16 PM Name Value Range Interpretation Code Description Data Dayana rce(s) Supporting Document(s) ID Date Data Source [id number] 02/18/2020 01:48:07 PM EDT [facility] NT INFORMATIONPatient MRN Name Date of Age Gend*PT [id number] Harley Rutherford 1990 29 years F ---PT Location Admission Date/Time Visit ID Attending Provider --- --- --- Cyndi Sylvester MD([id number]) EPI ID CSN Admitting Provider [id number] ---Subjective:Harley Rutherford is a 29 years old female who was referred for evaluation forwound care following skin removal of both arms and abdomen. Pt had surgery on02/03/20 in the [facility]. No complaints. Pain controlled. Somedrainage from right thigh. No pain at this time.ImagingnoneAllergies:AllergiesAllergen Reactions Amoxicillin Hives and Shortness Of Breath Paroxetine Anaphylaxis Has "migraine and blurred vision" Paxil [Paroxetine Hcl] Anaphylaxis Has "migraine and blurred vision" Penicillins Hives, Shortness Of Breath and Rash Apple Cider Vinegar SwellingPast medical history:Past Medical History:Diagnosis Date Adverse effect of anesthesia 5/23/14 Patient had GA, post op developed dissociative like episode where she was notorientated, eyes moving rapidly left/right up and down, unable to feel or moveparts of her body. Narrcan did improve symptoms. NO ketamine was given for theprocedure. Anemia Anxiety Asthma Chronic pain disorder Complication of anesthesia hard to wake up Depression Gallstone GERD (gastroesophageal reflux disease) Gestational diabetes Herniated disc History of narcotic use Obesity depression induced hypertension Trichomonal cervicitisPast surgical history:Past Surgical History:Procedure Laterality Date APPENDECTOMY BACK SURGERY Bilateral 04/11/2014 Procedure: LUMBAR/THORACIC DISCECTOMY LEVEL 1 LUMBAR 4 5 MICRODISCECTOMYBILATERAL MICROSCOPE ; Surgeon: Pranay Ambriz MD; Location: [facility];Service: Spine; Laterality: Bilateral; BARIATRIC SURGERY SECTION SECTION CHOLECYSTECTOMY GASTRIC BYPASS LIPOSUCTION MULTIPLE BODY PARTS AVA-EN-Y PROCEDURE 05/2015 TONSILLECTOMYSocial history:Social HistorySocioeconomic History Marital status: Spouse name: Not on file Number of children: Not on file Years of education: Not on file Highest education level: Not on fileOccupational History Not on fileSocial Needs Financial resource strain: Not on file Food insecurity: Worry: Not on file Inability: Not on file Transportation needs: Medical: Not on file Non-medical: Not on fileTobacco Use Smoking status: Never Smoker Smokeless tobacco: Never UsedSubstance and Sexual Activity Alcohol use: No Drug use: No Sexual activity: Yes Partners: Male control/protection: NoneLifestyle Physical activity: Days per week: Not on file Minutes per session: Not on file Stress: Not on fileRelationships Social connections: Talks on phone: Not on file Gets together: Not on file Attends church service: Not on file Active member of club or organization: Not on file Attends meetings of clubs or organizations: Not on file Relationship status: Not on file Intimate partner violence: Fear of current or ex partner: Not on file Emotionally abused: Not on file Physically abused: Not on file Forced sexual activity: Not on fileOther Topics Concern Bike Helmet Not Asked History of Falls Not Asked Self-Exams Not Asked Caffeine Concern Not Asked Hobby Hazards Not Asked Sleep Concern Not Asked Daily Calcium Supplement Not Asked Lead Exposure Not Asked Special Diet Not Asked Daily Vitamin D Supplement Not Asked Service Not Asked Stress Concern Not Asked Domestic Violence in home Not Asked Radon exposure Not Asked Weight Concern Not Asked Exercise Not Asked Seat Belt Not Asked Well water Not Asked Firearms in home Not AskedSocial History Narrative Not on fileMedications:Current Outpatient Medications: albuterol (PROVENTIL HFA) 108 (90 Base) MCG/ACT inhaler, Inhale 2 puffs every4 (four) hours as needed for wheezing or shortness of breath, Disp: 1 Inhaler,Rfl: 2 amitriptyline (ELAVIL) 25 MG tablet, Take 1 tablet (25 mg total) by mouthnightly, Disp: 30 tablet, Rfl: 3 Ascorbic Acid (VITAMIN C) 500 MG CAPS, Take 1 capsule by mouth Daily slidingscale (Patient taking differently: Take 1 capsule by mouth daily ), Disp: 30capsule, Rfl: 2 Blood Glucose Monitoring Suppl (FREESTYLE LITE) JOSE, Use as directed. Testblood sugar up to 10 times daily, Disp: , Rfl: busPIRone (BUSPAR) 7.5 MG tablet, Take 1 tablet (7.5 mg total) by mouth 3(three) times a day, Disp: 90 tablet, Rfl: 2 calcium citrate-vitamin D (CALCIUM + D) 315-200 MG-UNIT per tablet, Take 1tablet by mouth daily, Disp: 30 tablet, Rfl: 2 Cholecalciferol (VITAMIN D3) 1.25 MG (61012 UT) CAPS, Take 1 capsule (50,000Units total) by mouth once a week, Disp: 12 capsule, Rfl: 2 cyclobenzaprine (FLEXERIL) 10 MG tablet, Take 10 mg by mouth 3 (three) timesa day as needed , Disp: , Rfl: Ferrous Sulfate (IRON) 325 (65 Fe) MG TABS, Take 1 tablet (325 mg total) bymouth 2 (two) times a day with meals, Disp: 30 tablet, Rfl: 2 gabapentin (NEURONTIN) 100 MG capsule, Take 100 mg by mouth 3 (three) times aday , Disp: , Rfl: glucose blood (FREESTYLE LITE) test strip, Test blood sugar up to 4 timesdaily, Disp: , Rfl: ibuprofen (ADVIL,MOTRIN) 600 MG tablet, Take 1 tablet (600 mg total) by mouthevery 30 (thirty) days, Disp: 30 tablet, Rfl: 2 levonorgestrel (MIRENA, 52 MG,) 20 MCG/24HR IUD, 1 each by Intrauterine routeonce, Disp: , Rfl: metroNIDAZOLE (FLAGYL) 500 MG tablet, take 1 tablet by mouth twice a day for7 days, Disp: , Rfl: 0 Vit-Fe Fumarate-FA ( MULTIVITAMIN) 27-1 MG TABS, Take 1tablet by mouth daily, Disp: 100 each, Rfl: 2 sulfamethoxazole-trimethoprim (BACTRIM DS,SEPTRA DS) 800-160 MG per tablet,Take 1 tablet (160 mg of trimethoprim total) by mouth 2 (two) times a day for 10days smx-tmp DS (BACTRIM) 800-160 mg tabs (1tab q12 D10), Disp: 20 tablet, Rfl:0 Thiamine HCl (VITAMIN B-1) 100 MG tablet, Take 100 mg by mouth, Disp: , Rfl: traMADol (ULTRAM) 50 MG tablet, Take 1 tablet (50 mg total) by mouth every 6(six) hours as needed for pain Max Daily Amount: 200 mg, Disp: 20 tablet, Rfl: 0Review of SystemsConstitutional: negative for anorexia, chills, fevers and sweatsEyes: negative for icterus, redness and visual disturbanceEars, nose, mouth, throat, and face: negative for earaches, epistaxis andhearing lossRespiratory: negative for cough, dyspnea on exertion, stridor and wheezingCardiovascular: negative for chest pain, chest pressure/discomfort,claudication, exertional chest pressure/discomfort, irregular heart beat andpalpitationsGastrointestinal: negative for abdominal pain, nausea, vomitingGenitourinary: negative for incontinence, retentionHematologic/lymphatic: negative for bleeding, easy bruising, petechiae and hx ofbleeding disorderAllergic/Immunologic: negative for anaphylaxisMusculoskeletal: negative for back pain, neck pain and stiff jointsNe urological: negative for dizziness, gait problems and headachesBehavioral/Psych: negative for anxiety and depressionEndocrine: negative for diabetic symptoms including blurry vision, increasedfatigue and polyuria and temperature intoleranceObjective:Physical ExamBP 110/77 (BP Location: Right lower arm, Patient Position: Sitting) | Pulse 77| Ht 1.651 m (5' 5") | Wt 83.9 kg (185 lb) | LMP 01/19/2020 | BMI 30.79 kg/m Constitutional: Oriented to person, place, and time. Appears well-developed andwell-nourished.HENT:Head: Normocephalic and atraumatic.Right Ear: External ear normal.Left Ear: External ear normal.Mouth/Throat: Oropharynx is clear and moist.Eyes: Conjunctivae and EOM are normal. Pupils are equal, round, and reactive tolight.Neck: Normal range of motion. Neck supple. No JVD present. No tracheal deviationpresent.Cardiovascular: Normal rate, regular rhythm and normal heart sounds.Pulmonary/Chest: Effort normal and breath sounds normal. No respiratorydistress.Abdominal: Soft. Exhibits no distension. There is not tenderness. Liposuctionincisions in abdomen and back healed wellMusculoskeletal: Normal range of motion.Neurological: Alert and oriented to person, place, and time.Psychiatric: Has a normal mood and affect. Behavior is normal. Judgment andthought content normal.Skin: incisions under both arms healing well, no infection. Has open area onproximal left upper arm. Both thigh incisions without erythema, no drainage.Assessment:S/p skin removal of thighs, arms, liposuctionPlan:1. Will remove stitches of liposuction sites, keep arms and legs for now.2. Return late next week for remainder of suture removalSignature: Ortiz Saleem, MDDate: February 18, 2020Time: 1:43 PM Name Value Range Interpretation Code Description Data Dayana rce(s) Supporting Document(s) ID Date Data Source [id number] 02/13/2020 02:06:54 PM EDT [facility]FORMATIONPatient MRN Name Date of Age Gend*PT [id number] Harley Rutherford 1990 29 years F ---PT Location Admission Date/Time Visit ID Attending Provider --- --- --- --- EPI ID CSN Admitting Provider [id number] ---Assessment/Plan:Diagnoses and all orders for this visit:Anxiety (Primary)Pt advised to try Buspar 7.5 mg po bid x 2 weeks, than increase to TID. Call ifshe has any concerns. Pt agreed with the plan.Infected incisionPt is aware Dr. Saleem's nurse will call her with alejandro. Pt advised to continueBactrim. She agreed with the plan.- Ambulatory referral to General Surgery; FutureOther orders- busPIRone (BUSPAR) 7.5 MG tablet; Take 1 tablet (7.5 mg total) by mouth 3(three) times a day- sulfamethoxazole-trimethoprim (BACTRIM DS,SEPTRA DS) 800-160 MG pertablet; Take 1 tablet (160 mg of trimethoprim total) by mouth 2 (two) times aday for 10 days smx-tmp DS (BACTRIM) 800-160 mg tabs (1tab q12 D10)Subjective:Patient ID: Harley Rutherford is a 29 years female.AnxietyPresents for follow-up visit. Onset was at an unknown time. The problem has beenwaxing and waning. Symptoms include excessive worry, irritability andnervous/anxious behavior. Patient reports no chest pain, depressed mood,dizziness, nausea, palpitations or shortness of breath. Symptoms occur mostdays. The severity of symptoms is interfering with daily activities and mild.The symptoms are aggravated by family issues and social activities. The qualityof sleep is fair. Compliance with prior treatments has been variable.PHQ-2/PHQ-9 Depression ScreeningFrequency of the following problems over the past two weeks:Little interest or pleasure in doing things: 0 - not at allFeeling down, depressed, or hopeless: 0 - not at allPHQ-2 Score: 0Interpretation of the PHQ depression sc ore severity: NegativeThe following portions of the patient's history were reviewed and updated asappropriate:Patient Active Problem ListDiagnosis Asthma Lumbar disc disorder with myelopathy GERD without esophagitis induced hypertension Depression Anxiety Herniated nucleus pulposus, L4-5 Lumbar disc herniation with radiculopathy Sleep apnea Nausea Back pain Obesity History of Ava-en-Y gastric bypass Esophageal abrasion Fall due to ice or snow Back pain affecting in second trimester Vaginal bleeding during , antepartum with care elsewhere in second trimester Epigastric pain History of delivery Iron deficiency anemia due to dietary causes DDD (degenerative disc disease), lumbar DDD (degenerative disc disease), cervical Cervical stenosis of spinal canalPast Medical History:Diagnosis Date Adverse effect of anesthesia 5/23/14 Patient had GA, post op developed dissociative like episode where she was notorientated, eyes moving rapidly left/right up and down, unable to feel or moveparts of her body. Narrcan did improve symptoms. NO ketamine was given for theprocedure. Anemia Anxiety Asthma Chronic pain disorder Complication of anesthesia hard to wake up Depression Gallstone GERD (gastroesophageal reflux disease) Gestational diabetes Herniated disc History of narcotic use Obesity depression induced hypertension Trichomonal cervicitisPast Surgical History:Procedure Laterality Date APPENDECTOMY BACK SURGERY Bilateral 04/11/2014 Procedure: LUMBAR/THORACIC DISCECTOMY LEVEL 1 LUMBAR 4 5 MICRODISCECTOMYBILATERAL MICROSCOPE ; Surgeon: Pranay Ambriz MD; [facility];Service: Spine; Laterality: Bilateral; BARIATRIC SURGERY SECTION SECTION CHOLECYSTECTOMY GASTRIC BYPASS LIPOSUCTION MULTIPLE BODY PARTS AVA-EN-Y PROCEDURE 05/2015 TONSILLECTOMYAllergiesAllergen Reactions Amoxicillin Hives and Shortness Of Breath Paroxetine Anaphylaxis Has "migraine and blurred vision" Paxil [Paroxetine Hcl] Anaphylaxis Has "migraine and blurred vision" Penicillins Hives, Shortness Of Breath and Rash Apple Cider Vinegar SwellingFamily HistoryProblem Relation Age of Onset Kidney disease Father Anxiety disorder Mother Bipolar disorder Mother Depression Mother Anxiety disorder Brother Bipolar disorder Brother Depression Brother Cancer OtherSocial HistoryTobacco Use Smoking status: Never Smoker Smokeless tobacco: Never UsedSubstance Use Topics Alcohol use: No Drug use: NoCurrent Outpatient MedicationsMedication Sig Dispense Refill albuterol (PROVENTIL HFA) 108 (90 Base) MCG/ACT inhaler Inhale 2 puffs every 4(four) hours as needed for wheezing or shortness of breath 1 Inhaler 2 amitriptyline (ELAVIL) 25 MG tablet Take 1 tablet (25 mg total) by mouthnightly 30 tablet 3 Ascorbic Acid (VITAMIN C) 500 MG CAPS Take 1 capsule by mouth Daily slidingscale (Patient taking differently: Take 1 capsule by mouth daily ) 30 capsule 2 Blood Glucose Monitoring Suppl (FREESTYLE LITE) JOSE Use as directed. Testblood sugar up to 10 times daily calcium citrate-vitamin D (CALCIUM + D) 315-200 MG-UNIT per tablet Take 1tablet by mouth daily 30 tablet 2 Cholecalciferol (VITAMIN D3) 1.25 MG (64654 UT) CAPS Take 1 capsule (50,000Units total) by mouth once a week 12 capsule 2 cyclobenzaprine (FLEXERIL) 10 MG tablet Take 10 mg by mouth 3 (three) times aday as needed Ferrous Sulfate (IRON) 325 (65 Fe) MG TABS Take 1 tablet (325 mg total) bymouth 2 (two) times a day with meals 30 tablet 2 gabapentin (NEURONTIN) 100 MG capsule Take 100 mg by mouth 3 (three) times aday glucose blood (FREESTYLE LITE) test strip Test blood sugar up to 4 times daily ibuprofen (ADVIL,MOTRIN) 600 MG tablet Take 1 tablet (600 mg total) by mouthevery 30 (thirty) days 30 tablet 2 levonorgestrel (MIRENA, 52 MG,) 20 MCG/24HR IUD 1 each by Intrauterine routeonce Vit-Fe Fumarate-FA ( MULTIVITAMIN) 27-1 MG TABS Take 1 tabletby mouth daily 100 each 2 sulfamethoxazole-trimethoprim (BACTRIM DS,SEPTRA DS) 800-160 MG per tabletTake 1 tablet (160 mg of trimethoprim total) by mouth 2 (two) times a day for 10days smx-tmp DS (BACTRIM) 800-160 mg tabs (1tab q12 D10) 20 tablet 0 Thiamine HCl (VITAMIN B-1) 100 MG tablet Take 100 mg by mouth traMADol (ULTRAM) 50 MG tablet Take 1 tablet (50 mg total) by mouth every 6(six) hours as needed for pain Max Daily Amount: 200 mg 20 tablet 0 busPIRone (BUSPAR) 7.5 MG tablet Take 1 tablet (7.5 mg total) by mouth 3(three) times a day 90 tablet 2 metroNIDAZOLE (FLAGYL) 500 MG tablet take 1 tablet by mouth twice a day for 7days 0No current facility-administered medications for this visit..Review of S ystemsConstitutional: Positive for irritability. Negative for chills and fever.Respiratory: Negative for cough, chest tightness, shortness of breath andwheezing.Cardiovascular: Negative for chest pain and palpitations.Gastrointestinal: Negative for blood in stool, constipation, nausea andvomiting.Genitourinary: Negative for decreased urine volume and difficulty urinating.Skin: Positive for wound (stitches to inner legs, under bilateral axilla, on herback and under buttocks and on bilateral hips.).Allergic/Immunologic: Negative for environmental allergies and food allergies.Neurological: Negative for dizziness, syncope, light-headedness and headaches.Psychiatric/Behavioral: The patient is nervous/anxious.Objective:Vitals: Pulse 84 | Temp 97.8 F | Resp 18 | Ht 1.651 m (5' 5") | Wt 84 kg(185 lb 3.2 oz) | LMP 01/19/2020 | BMI 30.82 kg/m Physical ExamConstitutional: She is oriented to person, place, and time. She appearswell-developed and well-nourished. No distress.HENT:Head: Normocephalic and atraumatic.Eyes: Pupils are equal, round, and reactive to light. Conjunctivae and EOM arenormal.Neck: Normal range of motion. Neck supple.Cardiovascular: Normal rate, regular rhythm and normal heart sounds.Pulmonary/Chest: Effort normal and breath sounds normal.Abdominal: Soft. There is no tenderness.Neurological: She is alert and oriented to person, place, and time. No cranialnerve deficit.Skin: Skin is warm. There is erythema.Pt has incisions to bilateral inner arms, inner legs, lower abdomen, and in thelower lumbar region. Not healed completely yet, erythema with purulent drainagein armpits and thighsPsychiatric: Her speech is normal and behavior is normal. Judgment and thoughtcontent normal. Her mood appears anxious. Her affect is not angry, not blunt,not labile and not inappropriate. Cognition and memory are normal. Name Value Range Interpretation Code Description Data Dayana rce(s) Supporting Document(s) ID Date Data Source [id number] 02/09/2020 09:52:10 AM EDT [facility] NT INFORMATIONPatient MRN Name Date of Age Gend*PT [id number] Harley Rutherford 1990 29 years F EDPT Location Admission Date/Time Visit ID Attending [id number] 02/08/20 0918 --- --- EPI ID CSN Admitting Provider [id number] ---Provider in Triage NotesNo notes on fileHistory of Present IllnessChief ComplaintPatient presents with Post-op Problem pt had [place] the [place] 5 days ago, pt has drains in back and arms that sheneeds removed.29 years old Female [place] [facility] [place] [facility] [place] [facility] [place] [facility] [place] Pt had a [place], fat removal and skin removal. Because pt has kids here and there wasconcern with the CoVid19 Pandemic, [place] Pt wassupposed to have her drains removed yesterday. Pt is following up here withconcern and needing to have her drains removed. Pt has incisions to bilateralinner arms, inner legs and in the lower lumbar region. Pt is unsure if she is onabx. Pt denies DIOP, CP, N/V/D, SOB, fever, chills or any other sx at this time.Pt has a h/o: GERD, .PCP Cyndi Sylvester MDHistory provided by: PatientLanguage newspaper carrier used: MileHishoneyPa Medical History:Diagnosis Date Adverse effect of anesthesia 04/11/14 Patient had GA, post op developed dissociative like episode where she was notorientated, eyes moving rapidly left/right up and down, unable to feel or moveparts of her body. Narrcan did improve symptoms. NO ketamine was given for theprocedure. Anemia Anxiety Asthma Chronic pain disorder Complication of anesthesia hard to wake up Depression Gallstone GERD (gastroesophageal reflux disease) Gestational diabetes Herniated disc History of narcotic use Obesity depression induced hypertension Trichomonal cervicitisPast Surgical History:Procedure Laterality Date APPENDECTOMY BACK SURGERY Bilateral 04/11/2014 Procedure: LUMBAR/THORACIC DISCECTOMY LEVEL 1 LUMBAR 4 5 MICRODISCECTOMYBILATERAL MICROSCOPE ; Surgeon: Pranay Ambriz MD; [facility] [place];Service: Spine; Laterality: Bilateral; BARIATRIC SURGERY SECTION SECTION CHOLECYSTECTOMY GASTRIC BYPASS LIPOSUCTION MULTIPLE BODY PARTS AVA-EN-Y PROCEDURE 05/2015 TONSILLECTOMYFamily HistoryProblem Relation Age of Onset Kidney disease Father Anxiety disorder Mother Bipolar disorder Mother Depression Mother Anxiety disorder Brother Bipolar disorder Brother Depression Brother Cancer OtherSocial HistoryTobacco Use Smoking status: Never Smoker Smokeless tobacco: Never UsedSubstance Use Topics Alcohol use: No Drug use: NoROSReview of SystemsConstitutional: Negative for appetite change, chills, fatigue and fever.HENT: Negative for congestion, ear discharge, ear pain, postnasal drip,rhinorrhea, sinus pressure, sneezing and sore throat.Eyes: Negative for photophobia and visual disturbance.Respiratory: Negative for cough, chest tightness, shortness of breath andwheezing.Cardiovas cular: Negative for chest pain, palpitations and leg swelling.Gastrointestinal: Negative for abdominal distention, abdominal pain,constipation, diarrhea, nausea and vomiting.Genitourinary: Negative for dysuria, flank pain, frequency, hematuria andurgency.Musculoskeletal: Negative for back pain, neck pain and neck stiffness.Skin: Negative for rash and wound.Neurological: Negative for dizziness, syncope, weakness, light-headedness,numbness and headaches.Psychiatric/Behavioral: Negative for behavioral problems and confusion. Thepatient is not nervous/anxious.Physical ExamBP 108/56 (BP Location: Left lower arm, Patient Position: Lying) | Pulse 89 |Temp 98.6 F (Oral) | Resp 18 | Ht 65" | Wt 68 kg | LMP 01/19/2020 | SwD479% | BMI 24.96 kg/m Physical ExamConstitutional: She is oriented to person, place, and time. She appearswell-developed and well-nourished. No distress.HENT:Head: Normocephalic and atraumatic.Nose: Nose normal.Mouth/Throat: Oropharynx is clear and moist. No oropharyngeal exudate.Eyes: Pupils are equal, round, and reactive to light. Conjunctivae and EOM arenormal. No scleral icterus.Neck: Normal range of motion. Neck supple. No JVD present. No tracheal deviationpresent. No thyromegaly present.Cardiovascular: Normal rate, regular rhythm, normal heart sounds and intactdistal pulses.No murmur heard.Pulmonary/Chest: Effort normal and breath sounds normal. No respiratorydistress. She has no wheezes. She exhibits no tenderness.Abdominal: Soft. Bowel sounds are normal. She exhibits no distension. There isno tenderness. There is no rebound and no guarding.Musculoskeletal: Normal range of motion. She exhibits no edema.Lymphadenopathy: She has no cervical adenopathy.Neurological: She is alert and oriented to person, place, and time. No cranialnerve deficit or sensory deficit. She exhibits normal muscle tone.Skin: Skin is warm. She is not diaphoretic. No erythema. No pallor.Incision sites bilaterally to the underarms and inner thighs with sutures inplace. Appearing to the healing hell with no drainage. Iodoform vs packinginside the incision sites.Drain out of the lower back with minimal blood drainage.Extensive bruising to the lower abd, inner arms and thighs bilaterally.Psychiatric: She has a normal mood and affect. Her behavior is normal.Nursing note and vitals reviewed.ED CourseProceduresMDMNumber of Diagnoses or Management OptionsChange or removal of drains:Visit for wound care:Patient ProgressPatient progress: improvedLab Results:Results for orders placed or performed during the hospital encounter of 02/08/20POCT glucoseResult Value Ref Range Glucose, POC 91 70 - 99 mg/dLED Medications:MedicationsHYDROcodone-acetaminophen (NORCO) 5-325 MG per tablet 1 tablet (1 tablet OralGiven 02/08/20 1035)sodium chloride 0.9% (NS) bolus 1,000 mL (0 mL Intravenous Stopped 02/08/20 1144)Progress Notes:10:[address] Bruner regarding the pt's case. She recommends that I pull outthe drain and packing, leaving the drain in her back, then have the pt [facility] with Dr. Sanchez.11:43 LISA spoke with pt regarding alternatives including a follow up with plasticsurgery or being seen by her PCP to follow up. Pt reports that she spoken withher plastic surgeon today who report that she would just like the tubes anddrains and packing removed today in the ED. Pt also reports that she would behappy to speak with her plastic surgeon on Facetime while I am in the room.12:03 PMPt is adamant that the drain be removed now from her back and the packing in herextremities be removed now.12:04 PMI have removed the packing from all four extremities which all are wellappearing with no signs of infection or purulent drainage. This process welltolerated well by the pt. Pt has requested abx as she isn't sure that she is onany right now and I agree that this is a good idea concerning the procedure thatthe pt had done. I also removed the drain from the pt's low back. The incisionsite appears well healing with no signs of infection. There was copious amountsof drainage, all clear and well appearing. There was no signs of infection andthis was well tolerated by the pt.1:07 PMRechecked pt who is resting comfortably in the stretcher. Updated pt on labresults, as well as plan for discharge. Pt understands and agrees with plan. Allquestions answered. Patient was instructed to return to the ED for any worseningsx or concerns, otherwise follow up with her PCP for further management. Ptunderstands and agrees with plan.DISPOSITIONDischarge in stable condition.DIAGNOSIS1. Visit for wound care2. Change or removal of drainsThis was electronically signed by Noe Arellano acting as scribe forand in the presence of Lev Crowder MD, 02/08/20 12:03 PM.ED MD AttestationAttestation of Scribe Documentation: I personally performed the servicesdescribed in the documentation, reviewed the documentation recorded by thegarryribe in my presence and it accurately and completely records my words andactions.Signature: YOLANDA Valladaresate: January 192019Time: 9:50 Mary Crowder MD02/09/20 0952 Name Value Range Interpretation Code Description Data Dayana rce(s) Supporting Document(s) ID Date Data Source [id number] 02/08/2020 10:30:45 AM EDT [facility] Name Value Range Interpretation Code Description Data Dayana rce(s) Supporting Document(s) POC NOVA GLU 91 mg/dL (70-99) [facility] [place] [facility]INICAL STAFF ID Date Data Source [id number] 01/27/2020 09:40:05 AM EDT [facility] NT INFORMATIONPatient MRN Name Date of Age Gend*PT [id number] Harley Rutherford 1990 29 years F ---PT Location Admission Date/Time Visit ID Attending Provider --- --- --- --- EPI ID CSN Admitting Provider [id number] ---Assessment/Plan:Diagnoses and all orders for this visit:Vaginal discharge (Primary)Pt advised to take Diflucan as prescribed. Call if Sx continue despitetreatment. She agreed with the plan.Other orders- fluconazole (DIFLUCAN) 150 MG tablet; Take 1 tablet (150 mg total) bymouth once for 1 dosSubjective:Patient ID: Harley Rutherford is a 29 years female.Vaginal DischargeThe patient's primary symptoms include vaginal discharge. The patient'spertinent negatives include no genital itching, genital lesions, genital odor,genital rash, missed menses, pelvic pain or vaginal bleeding. This is arecurrent problem. The current episode started in the past 7 days. The problemoccurs daily. The problem has been unchanged. The patient is experiencing nopain. She is not . Pertinent negatives include no abdominal pain,chills, constipation, diarrhea, discolored urine, dysuria, fever, frequency,headaches, hematuria, nausea, rash, urgency or vomiting. The vaginal dischargewas copious and white. There has been no bleeding. Nothing aggravates thesymptoms. She has tried nothing for the symptoms. Her menstrual history has beenregular.The following portions of the patient's history were reviewed and updated asappropriate: allergies, current medications were reconciled with dischargemedications if applicable, past family history, past medical history, pastsocial history, past surgical history, problem list and nutrition. Encouragedregular exercise and healthy diet. BMI management plan discussed..Review of SystemsConstitutional: Negative for activity change, appetite change, chills, fatigue,fever and unexpected weight change.HENT: Negative for congestion and trouble swallowing.Respiratory: Negative for cough, chest tightness, shortness of breath andwheezing.Cardiovascular: Negative for chest pain, palpitations and leg swelling.Gastrointestinal: Negative for abdominal pain, constipation, diarrhea, nauseaand vomiting.Genitourinary: Positive for vaginal discharge. Negative for decreased urinevolume, difficulty urinating, dysuria, frequency, hematuria, missed menses,pelvic pain and urgency.Musculoskeletal: Negative for arthralgias and myalgias.Skin: Negative for rash.Neurological: Negative for dizziness, light-headedness and headaches.Psychiatric/Behavioral: Negative for sleep disturbance. The patient isnervous/anxious.Objective:Vitals: BP 118/74 | Pulse 90 | Temp 98.1 F (Oral) | Resp 18 | Ht 1.676 m(5' 6") | Wt 85.3 kg (188 lb) | LMP 01/06/2020 | BMI 30.34 kg/m Physical ExamConstitutional: She is oriented to person, place, and time. She appearswell-developed and well-nourished. No distress.Neck: Neck supple.Cardiovascular: Normal rate, regular rhythm, normal heart sounds and intactdistal pulses.Pulmonary/Chest: Effort normal and breath sounds normal. No respiratorydistress.Abdominal: Soft. There is no tenderness.Genitourinary:Genitourinary Comments: Declined exam; states she had yeast infection multipletimesLymphadenopathy: She has no cervical adenopathy.Neurological: She is alert and oriented to person, place, and time. No cranialnerve deficit.Psychiatric: Her mood appears anxious. Her affect is labile. Name Value Range Interpretation Code Description Data Dayana rce(s) Supporting Document(s) ID Date Data Source [id number] 01/02/2020 02:36:49 PM [facility] NT INFORMATIONPatient MRN Name Date of Age Gend*PT [id number] Harley Rutherford 1990 29 years F ---PT Location Admission Date/Time Visit ID Attending Provider --- --- --- --- EPI ID CSN Admitting Provider [id number] ---Subjective: Harley Rutherford is a 29 years female and is here for a comprehensive physicalexam. The patient reports problems - needs refills for medications anddepression - she sees . Pt needs to do labs. States [facility] She f/u with [facility].Patient Care Team:Cyndi Sylvester MD as PCP - General (Family Medicine)Pranay Ambriz MD as Consulting Physician (Neurosurgery)Mary Carmen Parisi RN as Registered Nurse (Behavioral Health)Doug Law MD as Referring Physician (Gastroenterology)[facility] - [facility] as Care Management - External Health Home OutreachGU History:LMP: No LMP recorded.Last pap date: 2018 History of abnormal pap? noHealth MaintenanceTopic Date Due Dental Radiographs Bitewings 1991 Dental Radiographs Full Mouth 1991 Dental Oral Exam 06/03/2016 Dental Prophylaxis 06/03/2016 Influenza Vaccine 06/20/2019 PHQ Depression Screening 11/20/2019 PAP SMEAR 10/20/2021 Tetanus Vaccines (7 - Td) 10/03/2028 HIV Testing Offered (13-64 y/o) AddressedDepression and anxiety screening if applicable: PHQ Depression ScorePatient Health Questionnaire PHQ-2/9 ResultsPHQ-9 Score: 16Interpretation of the PHQ depression score severity: Moderately severePatient Active Problem ListDiagnosis Asthma Lumbar disc disorder with myelopathy GERD without esophagitis induced hypertension Depression Anxiety Herniated nucleus pulposus, L4-5 Lumbar disc herniation with radiculopathy Sleep apnea Nausea Back pain Obesity History of Ava-en-Y gastric bypass Esophageal abrasion Fall due to ice or snow Back pain affecting in second trimester Vaginal bleeding during , antepartum with care elsewhere in second trimester Epigastric pain History of delivery Iron deficiency anemia due to dietary causes DDD (degenerative disc disease), lumbar DDD (degenerative disc disease), cervical Cervical stenosis of spinal canalPast Medical History:Diagnosis Date Adverse effect of anesthesia 04/11/14 Patient had GA, post op developed di ssociative like episode where she was notorientated, eyes moving rapidly left/right up and down, unable to feel or moveparts of her body. Narrcan did improve symptoms. NO ketamine was given for theprocedure. Anemia Anxiety Asthma Chronic pain disorder Complication of anesthesia hard to wake up Depression Gallstone GERD (gastroesophageal reflux disease) Herniated disc History of narcotic use Obesity depression induced hypertension Trichomonal cervicitisPast Surgical History:Procedure Laterality Date APPENDECTOMY BACK SURGERY Bilateral 04/11/2014 Procedure: LUMBAR/THORACIC DISCECTOMY LEVEL 1 LUMBAR 4 5 MICRODISCECTOMYBILATERAL MICROSCOPE ; Surgeon: Pranay Ambriz MD; [facility] [place];Service: Spine; Laterality: Bilateral; BARIATRIC SURGERY SECTION SECTION CHOLECYSTECTOMY GASTRIC BYPASS AVA-EN-Y PROCEDURE 05/2015 TONSILLECTOMYOB HistoryGravida Para Term AB Living3 2 2SAB TAB Ectopic Multiple Live Births# Outcome Date GA Lbr Jai/2nd Weight Sex Delivery Anes PTL Lv3 Gravida2 Para1 ParaFamily HistoryProblem Relation Age of Onset Kidney disease Father Anxiety disorder Mother Bipolar disorder Mother Depression Mother Anxiety disorder Brother Bipolar disorder Brother Depression Brother Cancer OtherSocial HistorySocioeconomic History Marital status: Spouse name: Not on file Number of children: Not on file Years of education: Not on file Highest education level: Not on fileOccupational History Not on fileSocial Needs Financial resource strain: Not on file Food insecurity: Worry: Not on file Inability: Not on file Transportation needs: Medical: Not on file Non-medical: Not on fileTobacco Use Smoking status: Never Smoker Smokeless tobacco: Never UsedSubstance and Sexual Activity Alcohol use: No Drug use: No Sexual activity: Yes Partners: Male control/protection: NoneLifestyle Physical activity: Days per week: Not on file Minutes per session: Not on file Stress: Not on fileRelationships Social connections: Talks on phone: Not on file Gets together: Not on file Attends church service: Not on file Active member of club or organization: Not on file Attends meetings of clubs or organizations: Not on file Relationship status: Not on file Intimate partner violence: Fear of current or ex partner: Not on file Emotionally abused: Not on file Physically abused: Not on file Forced sexual activity: Not on fileOther Topics Concern Bike Helmet Not Asked History of Falls Not Asked Self-Exams Not Asked Caffeine Concern Not Asked Hobby Hazards Not Asked Sleep Concern Not Asked Daily Calcium Supplement Not Asked Lead Exposure Not Asked Special Diet Not Asked Daily Vitamin D Supplement Not Asked Service Not Asked Stress Concern Not Asked Domestic Violence in home Not Asked Radon exposure Not Asked Weight Concern Not Asked Exercise Not Asked Seat Belt Not Asked Well water Not Asked Firearms in home Not AskedSocial History Narrative Not on fileMedication list reviewed.AllergiesAllergen Reactions Amoxicillin Hives and Shortness Of Breath Paroxetine Anaphylaxis Has "migraine and blurred vision" Paxil [Paroxetine Hcl] Anaphylaxis Has "migraine and blurred vision" Penicillins Hives, Shortness Of Breath and Rash Apple Cider Vinegar SwellingReview of SystemsConstitutional: Negative for activity change, appetite change, fatigue andunexpected weight change.HENT: Negative for congestion, ear pain, postnasal drip, sinus pressure, sinuspain, sore throat, trouble swallowing and voice change.Eyes: Negative for pain and visual disturbance.Respiratory: Negative for cough, chest tightness, shortness of breath andwheezing.Cardiovascular: Negative for chest pain, palpitations and leg swelling.Gastrointestinal: Negative for abdominal distention, abdominal pain, blood instool, constipation, diarrhea, nausea and vomiting.Endocrine: Negative for cold intolerance, heat intolerance, polydipsia,polyphagia and polyuria.Genitourinary: Negative for difficulty urinating, genital sores, hematuria,pelvic pain, vaginal bleeding, vaginal discharge and vaginal pain.Musculoskeletal: Negative for arthralgias, back pain and myalgias.Skin: Negative for rash.Allergic/Immunologic: Negative for environmental allergies and food allergies.Neurological: Negative for dizziness, syncope, weakness, light-h eadedness andheadaches.Hematological: Negative for adenopathy. Does not bruise/bleed easily.Psychiatric/Behavioral: Negative for sleep disturbance.Objective:Vitals: BP 128/74 | Temp 97.2 F | Resp 16 | Ht 1.676 m (5' 6") | BMI 30.38kg/m No exam data presentPhysical ExamConstitutional: She is oriented to person, place, and time. She appearswell-developed and well-nourished. No distress.H ENT:Head: Normocephalic and atraumatic.Mouth/Throat: Oropharynx is clear and moist.Eyes: Pupils are equal, round, and reactive to light. Conjunctivae and EOM arenormal.Neck: Normal range of motion. Neck supple. No JVD present. No thyromegalypresent.Cardiovascular: Normal rate, regular rhythm, normal heart sounds and intactdistal pulses.No murmur heard.Pulmonary/Chest: Effort normal and breath sounds normal. No respiratorydistress. She has no wheezes.Abdominal: Soft. Bowel sounds are normal. She exhibits no distension. There isno tenderness.Musculoskeletal: Normal range of motion. She exhibits no edema or tenderness.Lymphadenopathy: She has no cervical adenopathy.Neurological: She is alert and oriented to person, place, and time. No cranialnerve deficit.Skin: Skin is warm. No erythema.Psychiatric: She has a normal mood and affect.Exam was chaperoned? YesNo visits with results within 1 Month(s) from this visit.Latest known visit with results is:Office Visit on 08/01/2019Component Date Value Preg Test, Ur 08/01/2019 NegativeAssessment and Plan:Diagnoses and all orders for this visit:Annual physical exam (Primary)Pt is doing well. We will call her with lab results/plan. Advised to CPM. F/ufor PEX in 1 year. Pt was informed to be carefull with lipos[place]. Strongly encouraged to not do it outside [place]. Call ifshe has any questions/concerns.Mild intermittent asthma without complicationStable. CPM.- albuterol (PROVENTIL HFA) 108 (90 Base) MCG/ACT inhaler; Inhale 2 puffsevery 4 (four) hours as needed for wheezing or shortness of breath Dispense: 1Inhaler; Refill: 2History of Ava-en-Y gastric bypassPt is aware she needs to follow LFD, LCD, walk/exercise daily to lose weight.GERD without esophagitisStable. CPM.Anxiety and depressionStable. CPM.Other orders- Ascorbic Acid (VITAMIN C) 500 MG CAPS; Take 1 capsule by mouth Dailysliding scale Dispense: 30 capsule; Refill: 2- calcium citrate-vitamin D (CALCIUM + D) 315-200 MG-UNIT per tablet; Take 1tablet by mouth daily Dispense: 30 tablet; Refill: 2- Ferrous Sulfate (IRON) 325 (65 Fe) MG TABS; Take 1 tablet (325 mg total)by mouth 2 (two) times a day with meals Dispense: 30 tablet; Refill: 2- ibuprofen (ADVIL,MOTRIN) 600 MG tablet; Take 1 tablet (600 mg total) bymouth every 30 (thirty) days Dispense: 30 tablet; Refill: 2- Vit-Fe Fumarate-FA ( MULTIVITAMIN) 27-1 MG TABS; Take 1tablet by mouth daily Dispense: 100 each; Refill: 2Patient was counseled on the following:Caffeine/sodium intake in moderation, Healthy diet and regular exercise, Sleephygeine, Stress management, Behavior modification in regards to tobacco,alcohol, drugs, sexual activity, abstinence/safe sex (as appropriate),Immunizations in prevention of disease, Age appropriate screening exams, HealthMaintenance ListHealth MaintenanceTopic Date Due Dental Radiographs Bitewings 1991 Dental Radiographs Full Mouth 1991 Dental Oral Exam 06/03/2016 Dental Prophylaxis 06/03/2016 PAP SMEAR 10/20/2021 Tetanus Vaccines (7 - Td) 10/03/2028 PHQ Depression Screening Completed Influenza Vaccine Completed HIV Testing Offered (13-64 y/o) Addressed, Safety issues- Helmets, seat belts, smoke and carbon monoxide detectors,firearms precautions and Dental HealthRisk Assessments:Discussed the patient's BMI with her. Body mass index is 30.38 kg/m . The BMI isabove average; diet and exercise discussed. BMI management plan is completedDepression:Patient Health Questionnaire PHQ-2/9 ResultsPHQ-9 Score: 16Interpretation of the PHQ depression score severity: Moderately severeContinue current treatment plan Name Value Range Interpretation Code Description Data Dayana rce(s) Supporting Document(s) ID Date Data Source [id number] 01/02/2020 09:30:[address] [facility] Name Value Range Interpretation Code Description Data Dayana rce(s) Supporting Document(s) WBC 5.3 K/uL 4.2-10.4 [facility] RBC 4.67 M/uL 4.07-5.29 [facility] Hemoglobin 9.3 g/dL 12.6-16.[address] [facility] Hematocrit 32.8 % 35.2-47.[address] [facility] MCV 70 fL 80-[address] [facility] MCH 20.0 pg 28.2-32.[address] [facility] MCHC 28.5 g/dL 32.0-36.[address] [facility] RDW 19.8 % 10.7-15.[address] [facility] Platelets 390 K/uL 150-450 [facility] Results Verified by Repeat Analysis ID Date Data Source [id number] 01/02/2020 09:30:[address] [facility] Name Value Range Interpretation Code Description Data Dayana rce(s) Supporting Document(s) Glucose 92 mg/dL 67-106 [facility] Urea 16.0 mg/dL 5.0-25.0 [facility] Creatinine 0.6 mg/dL 0.5-1.2 [facility] BUN/Creatinine Ratio 26.7 13.0-22.[address] [facility] eGFR 119.0 mL/1.73m [facility] Sodium 137 mmol/L 137-147 [facility] Potassium 4.4 mmol/L 3.7-5.4 [facility] Chloride 103 mmol/L 95-107 [facility] Carbon Dioxide 24 mmol/L 21-30 [facility] Anion Gap 10.0 7.0-16.0 [facility] Calcium 9.6 mg/dL 8.8-10.4 [facility] AST 19 U/L 1-41 [facility] ALT 11 U/L 1-43 [facility] Alkaline Phosphatase 53 U/L 36-126 [facility] Total Bilirubin 0.3 mg/dL 0.0-1.2 [facility] Albumin 4.1 g/dL 3.3-4.[facility] Protein 7.2 g/dL 6.1-8.1 [facility] Globulin 3.1 g/dL 2.2-4.0 [facility] A/G Ratio 1.3 0.9-1.7 [facility] New range effective: 07/09/2019. ALP now traceable to the [facility] procedure at 37 ID Date Data Source [id number] 01/02/2020 09:30:[address] [facility] Name Value Range Interpretation Code Description Data Dayana rce(s) Supporting Document(s) Cholesterol 132 mg/dL 100-[facility] Triglycerides 36 mg/dL 25-160 [facility] HDL 66 mg/dL 40-69 [facility] LDL (calculated) 59 mg/dL 0-130 [facility] VLDL 7.2 mg/dL 6.0-40.0 [facility] Chol/HDL Ratio 2.00 [facility] Values listed are Risk Dependent: ID Date Data Source [id number] 01/02/2020 09:30:[address] [facility] Name Value Range Interpretation Code Description Data Dayana rce(s) Supporting Document(s) Ultra hTSH II 0.78 uIU/mL 0.30-5.00 [facility] ID Date Data Source [id number] 01/02/2020 09:30:00 AM EST [facility] Name Value Range Interpretation Code Description Data Dayana rce(s) Supporting Document(s) VITAMIN_D 20.3 ng/ml 30.0-100.[address] [facility] Procedure Social History Code Duration Value Status Description Data Source(s ) Alcohol intake 10/15/2020 12:00:00 AM EST No completed Smoking 10/15/2020 12:00:00 AM EST Never smoker completed Never [facility] Alcohol intake 10/09/2020 12:00:00 AM EST No completed Smoking 10/09/2020 12:00:00 AM EST Never smoker completed Never [facility] Alcohol intake 05/31/2020 12:00:00 AM EDT No completed Smoking 05/31/2020 12:00:00 AM EDT Never smoker completed Never [facility] Alcohol intake 02/08/2020 12:00:00 AM EDT No completed Smoking 02/08/2020 12:00:00 AM EDT Never smoker completed Never [facility] Vital Signs ID Date Data Source UNK Name Value Range Interpretation Code Description Data Source(s) Systolic blood pressure 130 mm[Hg] 130 mm[Hg] A THENA ([facility]) Body height 65 [in_i] 65 [in_i] LENNY ([facility]) Diastolic blood pressure 82 mm[Hg] 82 mm[Hg] LENNY ([facility]) Body weight 189 [lb_av] 189 [lb_av] [facility] ([facility]) Systolic blood pressure 128 mm[Hg] 128 mm[Hg] A THENA ([facility]) Body mass index (BMI) [Ratio] 31.5 kg/m2 31.5 k g/m2 LENNY ([facility]) Body height 65 [in_i] 65 [in_i] LENNY ([facility]) Diastolic blood pressure 81 mm[Hg] 81 mm[Hg] LENNY ([facility]) Body weight 189 [lb_av] 189 [lb_av] LENNY ([facility]) Systolic blood pressure 128 mm[Hg] 128 mm[Hg] A THENA ([facility]) Body mass index (BMI) [Ratio] 31.5 kg/m2 31.5 k g/m2 LENNY ([facility]) Body height 65 [in_i] 65 [in_i] LENNY ([facility]) Diastolic blood pressure 81 mm[Hg] 81 mm[Hg] LENNY ([facility]) Systolic blood pressure 121 mm[Hg] 121 mm[Hg] M EDENT ([facility]) Diastolic blood pressure 81 mm[Hg] 81 mm[Hg] MEDENT ([facility]) Heart rate 87 /min 87 /min MEDENT ([facility]) Body temperature 97.8 [degF] 97.8 [degF] MEDENT ([facility]) Respiratory rate 16 /min 16 /min MEDENT ( [facility]) Oxygen saturation in Arterial blood by Pulse oximetry 98 % 98 % MEDENT ([facility]) Body weight 190.00 [lb_av] 190.00 [lb_av] MEDEN T ([facility]) Body weight 86.184 kg 86.184 kg MEDENT ([facility]) Body height 65 [in_i] 65 [in_i] MEDENT ([facility]) 5'5" Body mass index (BMI) [Ratio] 31.6 kg/m2 31.6 k g/m2 MEDENT ([facility]) Body surface area Derived from formula 1.94 m2 1.94 m2 [facility] Oxygen saturation in Arterial blood by Pulse oximetry 96 % 96 % Body mass index (BMI) [Ratio] 28.06 kg/m2 28.06 kg/m2 Body weight 86.183 kg 86.183 kg Body height 175.3 cm 175.3 cm Respiratory rate 16 /min 16 /min [facility] Body temperature 36.67 Fernanda 36.67 Fernanda [facility] Heart rate 85 /min 85 /min [facility] Diastolic blood pressure 70 mm[Hg] 70 mm[Hg] Systolic blood pressure 100 mm[Hg] 100 mm[Hg] [facility] Oxygen saturation in Arterial blood by Pulse oximetry 98 % 98 % Respiratory rate 16 /min 16 /min [facility] Heart rate 84 /min 84 /min [facility] Diastolic blood pressure 84 mm[Hg] 84 mm[Hg] Systolic blood pressure 119 mm[Hg] 119 mm[Hg] [facility] Body mass index (BMI) [Ratio] 24.66 kg/m2 24.66 kg/m2 Body weight 75.751 kg 75.751 kg Body height 175.3 cm 175.3 cm Body temperature 36.56 Fernanda 36.56 Fernanda [facility] Oxygen saturation in Arterial blood by Pulse oximetry 95 % 95 % Respiratory rate 18 /min 18 /min [facility] Body temperature 36.44 Fernanda 36.44 Fernanda [facility] Heart rate 83 /min 83 /min [facility] Diastolic blood pressure 83 mm[Hg] 83 mm[Hg] Systolic blood pressure 161 mm[Hg] 161 mm[Hg] [facility] Body mass index (BMI) [Ratio] 24.96 kg/m2 24.96 kg/m2 Body weight 68.04 kg 68.04 kg Body height 165.1 cm 165.1 cm Patient Treatment Plan of Care Planned Activity Planned Date Details Description Data Source (s) lidocaine (LIDODERM) 5 % 07/08/2020 12:00:00 AM EDT Cyclobenzaprine hydrochloride 10 MG Oral Tablet 07/08/2020 12:00:00 AM EDT 24 HR Bupropion Hydrochloride 150 MG Extended Release Oral Tablet 07/08/2020 12:00:[address] [facility] [place] buspirone hydrochloride 7.5 MG Oral Tablet 02/13/2020 12:00:00 AM E DT Sulfamethoxazole 800 MG / Trimethoprim 160 MG Oral Tab let 02/08/2020 12:00:[address] [facility] [place] tramadol hydrochloride 50 MG Oral Tablet 02/08/2020 12:00:00 AM EDT Cholecalciferol [id number] UNT Oral Capsule 01/07/2020 12:00:00 AM EST Vit-Fe Fumarate-FA ( MULTIVITAMIN) 27 -1 MG TABS 01/02/2020 12:00:[address] [facility] [place] Ibuprofen 600 MG Oral Tablet 01/02/2020 12:00:00 AM EST ferrous sulfate 325 MG Oral Tablet 01/02/2020 12:00:00 AM EST calcium citrate-vitamin D (CALCIUM + D) 315-200 MG-UNI T per tablet 01/02/2020 12:00:[address] [facility] [place] Ascorbic Acid 500 MG Oral Capsule 01/02/2020 12:00:00 AM EST albuterol (PROVENTIL HFA) 108 (90 Base) MCG/ACT inhale r 01/02/2020 12:00:[address] [facility] [place] Ascorbic Acid 500 MG Oral Tablet LENNY ([facility]) tramadol hydrochloride 50 MG Oral Tablet LENNY ([facility]) Sulfamethoxazole 800 MG / Trimethoprim 160 MG Oral Tablet LENNY ([facility]) Phenazopyridine hydrochloride 200 MG Oral Tablet LENNY ([facility]) Permethrin 50 MG/ML Topical Cream LENNY ([facility]) NITROFURANTOIN, MACROCRYSTALS 25 MG / Ni trofurantoin, Monohydrate 75 MG Oral Capsule LENNY ([facility]) Naproxen 500 MG Oral Tablet LENNY ([facility]) Lidocaine Hydrochloride 20 MG/ML Mucous Membrane Topical Solution LENNY ([facility]) Ibuprofen 600 MG Oral Tablet LENNY ([facility]) Acetaminophen 325 MG / Hydrocodone Bitartrate 5 MG Oral Tablet LENNY ([facility]) Fluconazole 150 MG Oral Tablet LENNY ([facility]) ferrous sulfate 325 MG Oral Tablet LENNY ([facility]) Cyclobenzaprine hydrochloride 10 MG Oral Tablet LENNY ([facility]) Clindamycin 300 MG Oral Capsule LENNY ([facility]) Clindamycin 150 MG Oral Capsule LENNY ([facility]) Cholecalciferol 71948 UNT Oral Capsule LENNY ([facility]) chlorhexidine gluconate 1.2 MG/ML Mouthwash LENNY ([facility]) 24 HR Bupropion Hydrochloride 150 MG Extended Release Oral Tablet LENNY ([facility]) albuterol sulfate HFA 90 mcg/actuation aerosol inhaler LENNY ([facility]) Ascorbic Acid 500 MG Oral Tablet LENNY ([facility]) tramadol hydrochloride 50 MG Oral Tablet LENNY ([facility]) Sulfamethoxazole 800 MG / Trimethoprim 160 MG Oral Tablet LENNY ([facility]) Phenazopyridine hydrochloride 200 MG Oral Tablet LENNY ([facility]) Permethrin 50 MG/ML Topical Cream LENNY ([facility]) NITROFURANTOIN, MACROCRYSTALS 25 MG / Ni trofurantoin, Monohydrate 75 MG Oral Capsule LENNY ([facility] Naproxen 500 MG Oral Tablet LENNY ([facility]) Lidocaine Hydrochloride 20 MG/ML Mucous Membrane Topical Solution LENNY ([facility]) Ibuprofen 600 MG Oral Tablet LENNY ([facility]) Acetaminophen 325 MG / Hydrocodone Bitartrate 5 MG Oral Tablet LENNY ([facility]) Fluconazole 150 MG Oral Tablet LENNY ([facility]) ferrous sulfate 325 MG Oral Tablet LENNY ([facility]) Cyclobenzaprine hydrochloride 10 MG Oral Tablet LENNY ([facility]) Clindamycin 300 MG Oral Capsule LENNY ([facility]) Clindamycin 150 MG Oral Capsule LENNY ([facility]) Cholecalciferol 30858 UNT Oral Capsule LENNY ([facility]) chlorhexidine gluconate 1.2 MG/ML Mouthwash LENNY ([facility]) 24 HR Bupropion Hydrochloride 150 MG Extended Release Oral Tablet LENNY ([facility]) albuterol sulfate HFA 90 mcg/actuation aerosol inhaler LENNY ([facility])
[2020-12-07] MEDS ORDERED: KETOROLAC 30 MG/ML 1ML VIAL IV ONE (08:15)
[2020-12-07] MEDS ORDERED: ONDANSETRON 4MG/2ML VIAL IV ONE (08:15)
[2020-12-07 08:34] LABS: BASO % 0.7 % (0.0-1.0); EOS # 0.1 10^3/uL (0.0-0.5); EOS % 1.8 % (0.0-3.0); HEMATOCRIT 39.3 % (36.0-47.0); HEMOGLOBIN 11.4 g/dl (12.0-15.5); LYMPH # 1.8 10^3/uL (1.5-5.0); LYMPH % 29.2 % (24.0-44.0); MEAN CORPUSCULAR HEMOGLOBIN 24.6 pg (27.0-33.0); MEAN CORPUSCULAR VOLUME 84.9 fl (80.0-96.0); MONO # 0.4 10^3/uL (0.0-0.8); NEUTROPHILS # 3.8 10^3/uL (1.5-8.5); NEUTROPHILS % 62.1 % (36.0-66.0); PLATELET COUNT, AUTOMATED 323 10^3/uL (150-450); RED BLOOD COUNT 4.63 10^6/uL (4.00-5.40); WHITE BLOOD COUNT 6.1 10^3/uL (4.0-10.0)
--- OUTSIDE RECORDS SUMMARY | 2020-12-07 08:48 | CCD ---
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 Name Role Phone Ahmed, Ohara Unavailable Unavailable Ahmed, Ohara Unavailable Unavailable Ahmed, Ohara Unavailable Unavailable Ahmed, Ohara Unavailable Unavailable Ahmed, Ohara Unavailable Unavailable Bailee LICONA MD Unavailable Unavailable Bailee LICONA MD Unavailable Unavailable Bailee LICONA MD Unavailable Unavailable Bailee LICONA MD Unavailable Unavailable Bailee LICONA MD Unavailable Unavailable Bailee LICONA MD Unavailable Unavailable Fish B Prabhu SMITH Unavailable Unavailable Fish, B rPabhu SMITH Unavailable Unavailable Fish, B Prabhu SMITH [...] Prabhu SMITH Unavailable Unavailable Fish, B Prabhu SMIHT Unavailable Unavailable Fish, B Prabhu SMITH Unavailable [...] Guerrero PA Unavailable Unavailable Saleem, P Ortiz MD Unavailable [...] P Ortiz MD Unavailable Unavailable Saleem, P Rotiz MD Unavailable Unavailable Saleem, P Ortiz MD Unavailable Unavailable Saleem, P Ortiz MD Unavailable Unavailable Saleem, P Ortiz MD Unavailable Unavailable Saleem, P Oritz MD Unavailable Unavailable Saleem, P Ortiz MD Unavailable Unavailable Saleem, P Ortiz MD Unavailable Unavailable Saleem, P Ortiz MD Unavailable Unavailable Saleem, P Ortiz MD Unavailable Unavailable Saleem, P Ortiz MD Unavailable Unavailable Saleem, P Ortiz Unavailable Unavailable Saleem, P Ortiz MD Unavailable [...] Ortiz MD Unavailable Unavailable Metzger, E Isabel LABORATORY ANIMAL CARETAKER Unavailable Unavailable Metzger, E Isabel LABORATORY ANIMAL CARETAKER Unavailable Unavailable Metzger, E Isabel LABORATORY ANIMAL CARETAKER Unavailable Unavailable Metzger, E Isabel LABORATORY ANIMAL CARETAKER Unavailable Unavailable Metzger, E Isabel LABORATORY ANIMAL CARETAKER Unavailable Unavailable Metzger, E Isabel LABORATORY ANIMAL CARETAKER Unavailable Unavailable Metzger, E Isabel LABORATORY ANIMAL CARETAKER Unavailable Unavailable Metzger, E Isabel LABORATORY ANIMAL CARETAKER Unavailable Unavailable Metzger, E Isabel LABORATORY ANIMAL CARETAKER Unavailable Unavailable Metzger, E Isabel LABORATORY ANIMAL CARETAKER Unavailable Unavailable Metzger, E Isabel LABORATORY ANIMAL CARETAKER Unavailable Unavailable Metzger, E Isabel LABORATORY ANIMAL CARETAKER Unavailable Unavailable Metzger, E Isabel LABORATORY ANIMAL CARETAKER Unavailable Unavailable Metzger, E Isabel LABORATORY ANIMAL CARETAKER Unavailable Unavailable Metzger, E Isabel LABORATORY ANIMAL CARETAKER Unavailable Unavailable Metzger, E Isabel LABORATORY ANIMAL CARETAKER Unavailable Unavailable Metzger, E Isabel LABORATORY ANIMAL CARETAKER Unavailable Unavailable Metzger, E Isabel LABORATORY ANIMAL CARETAKER Unavailable Unavailable Metzger, E Isabel LABORATORY ANIMAL CARETAKER Unavailable Unavailable Metzger, E Isabel LABORATORY ANIMAL CARETAKER Unavailable Unavailable Metzger, E Isabel LABORATORY ANIMAL CARETAKER Unavailable Unavailable Metzger, E Isabel LABORATORY ANIMAL CARETAKER Unavailable Unavailable Metzger, E Isabel LABORATORY ANIMAL CARETAKER Unavailable Unavailable Metzger, E Isabel LABORATORY ANIMAL CARETAKER Unavailable Unavailable Metzger, E Isabel LABORATORY ANIMAL CARETAKER Unavailable Unavailable Metzger, E Isabel LABORATORY ANIMAL CARETAKER Unavailable Unavailable Metzger, E Isabel LABORATORY ANIMAL CARETAKER Unavailable Unavailable Metzger, E Isabel LABORATORY ANIMAL CARETAKER Unavailable Unavailable Metzger, E Isabel LABORATORY ANIMAL CARETAKER Unavailable Unavailable Metzger, E Isabel LABORATORY ANIMAL CARETAKER Unavailable Unavailable Cyndi Sylvester MD Unavailable Unavailable [...] Unavailable Wojtasiewicz, Cyndi Unavailable Unavailable Wojtasiewicz, Cyndi Unavailable Unavailable Wojtasiewicz, Cyndi MD Unavailable Unavailable Wojtasiewicz, Cyndi SMITH Unavailable Unavailable Wojtasiewicz, Cyndi MD Unavailable Unavailable Wojtasiewicz, Cyndi Unavailable Unavailable Wojtasiewicz, Cyndi MD Unavailable Unavailable Wojtasiewicz, Cyndi MD Unavailable Unavailable Wojtasiewicz, Cyndi SMITH Unavailable Unavailable Wojtasiewicz, Cyndi MD Unavailable Unavailable Wojtasiewicz, Cyndi Unavailable Unavailable Wojtasiewicz, Cyndi Unavailable Unavailable Wojtasiewicz, Cyndi Unavailable Unavailable Wojtasiewcassandra, Cyndi MD Unavailable Unavailable Wojtasiewcassandra, Cyndi SMITH Unavailable Unavailable Wojtasiewcassandra, Cyndi MD Unavailable Unavailable Wojtasiewcassandra, Cyndi Unavailable Unavailable Wojtasiewcassandra, Cyndi Unavailable Unavailable Wojtasiewcassandra, Cyndi Unavailable Unavailable Wojtasiewcassandra, Cyndi SMITH Unavailable Unavailable Wojtasiewcassandra, Cyndi MD Unavailable Unavailable Wojtasiewicz, Cyndi MD [...] Unavailable Unavailable Ibis AMBRIZ MD Unavailable Unavailable AMBRIZIbis Lizama MD Unavailable Unavailable AMBRIZIbis Lizama MD Unavailable Unavailable AMBRIZIbis BETTENCOURT MD Unavailable Unavailable Ibis AMBRIZ MD Unavailable Unavailable AMBRIZIbis BETTENCOURT MD Unavailable Unavailable Ibis AMBRIZ MD Unavailable Unavailable Ibis AMBRIZ MD Unavailable Unavailable Ibis AMBRIZ MD Unavailable Unavailable Ibis AMBRIZ MD Unavailable Unavailable Ibis AMBRZI MD Unavailable Unavailable AMBRIZIbis BETTENCOURT MD Unavailable Unavailable AMBRIZIbis Lizama MD Unavailable Unavailable Ibis AMBRIZ MD Unavailable [...] Unavailable Ibis AMBRIZ MD Unavailable Unavailable Ibis AMRBIZ MD Unavailable Unavailable Ibis AMBRIZ MD Unavailable [...] AMBRIZ MD Unavailable Unavailable Jumalon, M Hazel SOCIAL SCIENCE INSTRUCTOR Unavailable Unavailable Jumalon, M Hazel SOCIAL SCIENCE INSTRUCTOR Unavailable Unavailable Jumalon, M Hazel SOCIAL SCIENCE INSTRUCTOR Unavailable Unavailable Jumalon, M Hazel SOCIAL SCIENCE INSTRUCTOR Unavailable Unavailable Jumalon, M Hazel SOCIAL SCIENCE INSTRUCTOR Unavailable Unavailable Jumalon, M Hazel SOCIAL SCIENCE INSTRUCTOR Unavailable Unavailable Jumalon, M Hazel SOCIAL SCIENCE INSTRUCTOR Unavailable Unavailable Jumalon, M Hazel SOCIAL SCIENCE INSTRUCTOR Unavailable Unavailable Jumalon, M Hazel SOCIAL SCIENCE INSTRUCTOR Unavailable Unavailable Jumalon, M Hazel SOCIAL SCIENCE INSTRUCTOR Unavailable Unavailable Jumalon, M Hazel SOCIAL SCIENCE INSTRUCTOR Unavailable Unavailable Jumalon, M Hazel SOCIAL SCIENCE INSTRUCTOR Unavailable Unavailable Jumalon, M Hazel SOCIAL SCIENCE INSTRUCTOR Unavailable Unavailable Jumalon, M Hazel SOCIAL SCIENCE INSTRUCTOR Unavailable Unavailable Jumalon, M Hazel SOCIAL SCIENCE INSTRUCTOR Unavailable Unavailable Jumalon, M Hazel SOCIAL SCIENCE INSTRUCTOR Unavailable Unavailable Jumalon, M Hazel SOCIAL SCIENCE INSTRUCTOR Unavailable Unavailable Jumalon, M Hazel SOCIAL SCIENCE INSTRUCTOR Unavailable Unavailable Jumalon, M Hazel SOCIAL SCIENCE INSTRUCTOR Unavailable Unavailable Jumalon, M Hazel SOCIAL SCIENCE INSTRUCTOR Unavailable Unavailable Jumalon, M Hazel SOCIAL SCIENCE INSTRUCTOR Unavailable Unavailable Jumalon, M Hazel SOCIAL SCIENCE INSTRUCTOR Unavailable Unavailable Jumalon, M Hazel SOCIAL SCIENCE INSTRUCTOR Unavailable Unavailable Jumalon, M Hazel SOCIAL SCIENCE INSTRUCTOR Unavailable Unavailable Jumalon, M Hazel SOCIAL SCIENCE INSTRUCTOR Unavailable Unavailable Jumalon, M Hazel SOCIAL SCIENCE INSTRUCTOR Unavailable Unavailable Jumalon, M Hazel SOCIAL SCIENCE INSTRUCTOR Unavailable Unavailable Jumalon, M Hazel SOCIAL SCIENCE INSTRUCTOR Unavailable Unavailable Binh, P Lul DO Unavailable Unavailable [place], P Lul DO Unavailable Unavailable [place], P Lul DO Unavailable Unavailable [place], P Lul DO Unavailable Unavailable Binh, P Lul DO Unavailable Unavailable Binh, P Lul DO Unavailable Unavailable [place], P Lul DO Unavailable Unavailable [place], P Ull DO Unavailable Unavailable [place], P Lul DO Unavailable Unavailable Binh, P Lul DO Unavailable Unavailable [place], P Lul DO Unavailable Unavailable [place], P Lul DO Unavailable Unavailable [place], P Lul DO Unavailable Unavailable [place], P Lul DO Unavailable Unavailable Binh, P Lul DO Unavailable Unavailable Binh, P Lul DO Unavailable Unavailable Binh, P Lul DO Unavailable Unavailable [place], P Lul DO Unavailable Unavailable Binh, P Lul DO Unavailable Unavailable Binh, P Lul DO Unavailable Unavailable [place], P Lul DO Unavailable Unavailable Binh, P Lul DO Unavailable Unavailable [place], P Lul DO Unavailable Unavailable [place], P Lul DO Unavailable Unavailable Binh, P Lul DO Unavailable Unavailable Binh, P Lul DO Unavailable Unavailable Binh, P Lul DO Unavailable Unavailable Binh, P Lul DO Unavailable Unavailable [place], P Lul DO Unavailable Unavailable [place], P Lul DO Unavailable Unavailable [place], P Lul DO Unavailable Unavailable [place], P Lul DO Unavailable Unavailable Binh, P Lul DO Unavailable Unavailable [place], P Lul DO Unavailable Unavailable [place], P Lul DO Unavailable Unavailable Binh, P Lul DO Unavailable Unavailable [place], P Lul DO Unavailable Unavailable Binh, P Lul DO Unavailable Unavailable [place], P Lul DO Unavailable Unavailable Binh, P Lul DO Unavailable Unavailable Binh, P Lul DO Unavailable Unavailable VIANEY, Analia [...] Unavailable VIANEY, Analia LOPES MD Unavailable Unavailable VAINEY, Analia LOPES MD Unavailable Unavailable VIANEY, Analia LOPES MD Unavailable Unavailable IVANEY, Analia LOPES MD Unavailable Unavailable VIANEY, Analia [...] Unavailable BolFalguni culver MD Unavailable Unavailable BolFalguni cuvler MD Unavailable Unavailable Falguni Bhardwaj MD Unavailable [...] Unavailable Unavailable BolFalguni culver MD Unavailable Unavailable Bolabiola S Gume MD Unavailable Unavailable BolFalguni culver MD Unavailable [...] Unavailable Unavailable Falguni Bhardwaj MD Unavailable Unavailable WoCyndi franz MD Unavailable Unavailable WojCyndi bradford MD Unavailable [...] Unavailable Unavailable WojtaCyndi cruz MD Unavailable Unavailable Wojtasiewicz, Cyndi MD Unavailable [...] is protected by Article 27-F of the [facility] Public Health law. If you continue you may have access to information: Regarding HIV / AIDS; Provided by facilities licensed or operated by the [facility] Office of Mental Health; or Provided by the [facility] Office for People With Developmental Disabilities. If such information is present, then the following [facility] mandated warning applies: This information has been [...] law may result in a fine or longterm sentence or both. A general authorization for the release of medical or other information is NOT sufficient authorization for further disc losure. Encounters Encounter Providers Location Date Indications Data Source(s ) Recurring Patient Attender: Isabel Metzger NPReferrer: MIGUEL BETTENCOURT MD 11/19/2020 11:06:45 AM EST [facility] Hazel Krzysztof Cadet, LABORATORY ANIMAL CARETAKER: [address], [place] [address], Ph. Attender: Hazel Cadet [facility] - Main Office 11/03/2020 12:00:00 AM EST ATHE SENIA ([facility]) Gume Bhardwaj MD: [id number], [facility] [address], Ph. Attender: Gume Bhardwaj MD [place] - [facility] - Main Office 10/27/2020 12:00:00 AM EST LEN[facility] ([facility]) Gume Bhardwaj MD: [id number] [address], [place] [address], Ph. Attender: Gume Bhardwaj MD [place] - [facility] - Main Office 10/27/2020 12:00:00 AM EST [facility] ([facility]) Recurring Patient Attender: Isabel Metzger NPReferrer: MIGUEL BETTENCOURT MD 10/26/2020 10:36:01 AM EST [facility] Outpatient Attender: Guerrero CHANG 10/19 10:20:00 AM EST - 10/19/2020 10:20:[address] [facility] Outpatient Attender: MARIANNE WINTERS MD [id number] 2019 02:55:01 PM EST - 10/12/2020 03:31:04 PM EST [facility] Outpatient Attender: Lul Purcell DOConsultant: Camryn Purcell DO [id number] 10/09/2020 01:48:23 PM EST - 10/09/2020 02:37:55 PM EST [facility] OFFICE OUTPATIENT NEW 30 MINUTES Attender: Prabhu Loo MD Physic al Therapy 10/07/2020 08:30:00 AM EST [facility] ([facility]) Outpatient 08/20/2020 12:00:00 AM [facility] Outpatient Attender: WILBUR CHENG CNM 08/20/2020 12:00:00 AM [facility] Outpatient Attender: WILBUR CHENG CNM 08/11/2020 12:00:00 AM [facility] Outpatient Attender: WILBUR CHENG CNM 07/20/2020 12:00:00 AM [facility] Outpatient Attender: Cyndi Sylvester MD [id number] 07/08/2020 12:00:00 AM EDT - 07/08/2020 10:46:40 AM EDT [facility] Emergency Attender: ALETHA LICONA MD [id number] 05/20 11:54:00 AM EDT - 05/31/2020 02:56:00 PM EDT [facility] Patient discharged. Outpatient Attender: Ortiz Saleem MD [id number] 12:00:00 AM EDT - 02/27/2020 01:12:04 PM EDT [facility] Outpatient Attender: Cyndi Sylvester MDAttender: Ortiz Saleem MDReferrer: Cyndi Sylvester MD [id number] 02/18/2020 12:00:00 AM EDT [facility] Outpatient Attender: Cyndi NOVAK 02/13/2020 12:26:54 PM EDT - 02/13/2020 02:16:04 PM EDT [facility] Emergency Attender: Lev Crowder ES1-ES1 0 09:08:00 AM EDT - 02/08/2020 01:23:00 PM EDT [facility] Patient discharged. Outpatient Attender: Ferdinand Menchaca MD 01/28/2020 12:00:00 A M [facility] Outpatient Attender: Cyndi NOVAK 01/27/2020 08:49:25 AM EDT - 01/27/2020 09:42:48 AM EDT [facility] Outpatient 01/20/2020 12:00:00 AM [facility] Outpatient Admitter: GAVIN BARBOZA MDReferrer: GAVIN CLARK MD [email or web address] 01/08/2020 10:03:13 AM EST [facility] Outpatient Attender: Cyndi NOVAK 01/02/2020 09:19:17 AM EST - 01/02/2020 11:05:40 AM EST [facility] Outpatient Admitter: GAVIN BARBOZA MDReferrer: GAVIN LIEBREMAN.CCN 11/20/2019 12:00:00 AM EST [facility] Outpatient Admitter: GAVIN BARBOZA MDReferrer: GAVIN LIEBERMAN.CCN 10/20/2019 12:00:00 AM EST [facility] Immunizations Vaccine Date Status Description Data Source(s) TB Skin test is not vaccine. 10/09/2020 12:00:00 AM EST completed PPD Test 10/09/2020, 10/03/2018 [facility] Medications Medication Brand Name Start Date Product [...] a day as needed for muscle spasms [facility] 24 HR Bupropion Hydrochloride 150 MG Ext ended Release Oral Tablet buPROPion (WELLBUTRIN XL) 150 MG 24 hr tablet buPROPion (WELLBUTRIN XL) 150 MG 24 hr tablet 07/08/2020 12:00:00 AM EDT 150 mg Oral active Take 1 tablet (150 mg total) by mouth daily [facility] lidocaine (LIDODERM) 5 % 0660-5717-08 07/08/2020 12:00:00 AM EDT 1 {patch} Transdermal active Place 1 patch on the skin daily Remove & Discard patch within 12 hours or as directed by [facility] buspirone hydrochloride 7.5 MG Oral Tablet busPIRone ( BUSPAR) 7.5 MG tablet busPIRone (BUSPAR) 7.5 MG tablet 02/13/2020 12:00:00 AM EDT 7.5 mg Oral active Take 1 tablet (7.5 mg total) by mouth 3 (three) times a day [facility] sodium chloride 0.9% (NS) bolus 1,000 mL 0121-6582-80 02/08/2020 11:00:00 AM EDT 1000 mL Intravenous completed 1, 000 mL, Intravenous, Administer over 1 Hours, Once, 02/08/20 at 1100, For 1 dose [facility] Medication administered onsite Acetaminophen 325 MG / Hydrocodone Sara trate 5 MG Oral Tablet HYDROcodone- acetaminophen (NORCO) 5-325 MG per tablet 1 tablet HYDROcodone-acetaminophen (NORCO) 5-325 MG per tablet 1 tablet 02/08/2020 10:35:00 AM EDT 1 { tbl} Oral completed 1 tablet, Oral, Once, 02/08/20 at 1035, For 1 dose [facility] Medication administered onsite Sulfamethoxazole 800 MG / [...] (BACTRIM) 800-160 mg tabs (1tab q12 D10) [facility] tramadol hydrochloride 50 MG Oral Tablet traMADol (ULT MARILY) 50 MG tablet traMADol (ULTRAM) 50 MG tablet 02/08/2020 12:00:00 AM EDT 50 mg Oral active Take 1 tablet (50 mg total) by mouth every 6 (six) hours as needed for pain Max Daily Amount: 200 mg [facility] Cholecalciferol 70329 UNT Oral Capsule C holecalciferol (VITAMIN D3) 1.25 MG (90954 UT) CAPS Cholecalciferol (VITAMIN D3) 1.25 MG (23765 UT) CAPS 0 01/07/2020 12:00:00 AM EST 79419 U Oral active Take 1 capsule (50,000 Units total) by mouth once a week [facility] albuterol (PROVENTIL HFA) 108 (90 Base) MCG/ACT inhaler 0093 -3174-31 01/02/2020 12:00:00 AM EST 2 {puff} Inhalation active Mil d intermittent asthma without complication Inhale 2 puffs every 4 (four ) hours as needed for wheezing or shortness of breath [facility] Mild intermittent asthma without complic ation Ibuprofen 600 MG Oral Tablet ibuprofen (ADVIL,MOTRIN) 600 MG tablet ibuprofen (ADVIL,MOTRIN) 600 MG tablet 01/02/2020 12:00:00 AM EST 600 mg Oral active Take 1 tablet (600 mg total) by mouth every 30 (thirty) days [facility] ferrous sulfate 325 MG Oral Tablet Ferrous Sulfate (IR ON) 325 (65 Fe) MG TABS Ferrous Sulfate (IRON) 325 (65 Fe) MG TABS 01/02/2020 12:00:00 AM EST 325 mg Oral active Take 1 tablet (325 mg total) by mouth 2 (two) times a day with meals [facility] calcium citrate-vitamin D (CALCIUM + D) 315-200 MG-UNIT per tablet [id number] 01/02/2020 12:00:00 AM EST 1 {tbl} Oral active Take 1 tablet by mouth daily [facility] Ascorbic Acid 500 MG Oral Capsule Ascorbic Acid (VITAM IN C) 500 MG CAPS Ascorbic Acid (VITAMIN C) 500 MG CAPS 01/02/2020 12:00:00 AM EST 1 {capsule} Or al active Take 1 capsule by mouth Daily sl iding scale [facility] Vit-Fe Fumarate-FA ( MULTIVITAMIN) 27-1 MG TABS 01/02/2020 12:00:00 AM EST 1 {tbl} Oral active Take 1 tablet by mouth daily [facility] Cholecalciferol 67454 UNT Oral Capsule c holecalciferol (vitamin D3) 1,250 mcg (50,000 unit) capsule cholecalciferol (vitamin D3) 1,250 mcg ( 50,000 unit) capsule completed cholecalcifero l 1.25 MG Oral Capsule [facility]ENNY ([facility]) Fluconazole 150 MG Oral Tablet fluconazole 150 mg tabl et fluconazole 150 mg tablet completed fluconazole 150 MG Oral Tablet [facility]ENNY ([facility]) Permethrin 50 MG/ML Topical Cream permethrin 5 % topic al cream permethrin 5 % topical cream completed permethr in 50 MG/ML Topical Cream LENNY ([facility]) Clindamycin 300 MG Oral Capsule clindamycin HCl 300 mg capsule clindamycin HCl 300 mg capsule completed clindam ycin 300 MG Oral Capsule LENNY ([facility]) Clindamycin 150 MG Oral Capsule clindamycin HCl 150 mg capsule clindamycin HCl 150 mg capsule completed clindam ycin 150 MG Oral Capsule LENNY ([facility]) Cyclobenzaprine hydrochloride 10 MG Oral Tablet cyclob enzaprine 10 mg tablet cyclobenzaprine 10 mg tablet completed cyclobenzaprine hydrochloride 10 MG Oral Tablet LENNY ([facility]) tramadol hydrochloride 50 MG Oral Tablet tramadol 50 mg tablet take 1 tablet by mouth every 6 hours if needed for pain tramadol 50 mg tablet take 1 tablet by mouth every 6 hours if needed for pain completed tramadol hydrochloride 50 MG Oral Tablet [facility]ENNY ([facility]) Clindamycin 150 MG Oral Capsule clindamycin HCl 150 mg capsule clindamycin HCl 150 mg capsule completed clindam ycin 150 MG Oral Capsule LENNY ([facility]) 24 HR Bupropion Hydrochloride 150 MG Ext ended Release Oral Tablet bupropion HCl XL 150 mg 24 hr tablet, extended release take 1 tablet by mouth once daily bupropion HCl XL 150 mg 24 hr tablet, extended release take 1 tablet by mouth once daily completed 24 HR bupropion hydrochloride 150 MG Extended Release Oral Tablet LENNY ([facility]) NITROFURANTOIN, MACROCRYSTALS 25 MG / Ni trofurantoin, Monohydrate 75 MG Oral Capsule nitrofurantoin monohydrate/macrocrystals 100 mg capsule nitrofurantoin monohydrate/macrocrystals 100 mg capsule completed nitrofurantoin, macrocrystals 25 MG / nitrofurantoin, monohydrate 75 MG Oral Capsule LENNY ([facility]) Lidocaine Hydrochloride 20 MG/ML Mucous Membrane Topical Solution Lidocaine Viscous 2 % mucosal solution Lidocaine Viscous 2 % mucosal solution completed lidocaine hydrochloride 20 MG/ML Mucous Membrane Topical Solution LENNY ([facility]) 24 HR Bupropion Hydrochloride 150 MG Ext ended Release Oral Tablet bupropion HCl XL 150 mg 24 hr tablet, extended release take 1 tablet by mouth once daily bupropion HCl XL 150 mg 24 hr tablet, extended release take 1 tablet by mouth once daily completed 24 HR bupropion hydrochloride 150 MG Extended Release Oral Tablet [facility]ENNY ([facility]) albuterol sulfate HFA 90 mcg/actuation aerosol inhaler [id number] completed [id number] 200 ACTUAT albuterol 0.09 MG/ACTUAT Metered Dose Inhaler LENNY ([facility]) NITROFURANTOIN, MACROCRYSTALS 25 MG / Ni trofurantoin, Monohydrate 75 MG Oral Capsule nitrofurantoin monohydrate/macrocrystals 100 mg capsule nitrofurantoin monohydrate/macrocrystals 100 mg capsule completed nitrofurantoin, macrocrystals 25 MG / nitrofurantoin, monohydrate 75 MG Oral Capsule [facility]NY ([facility]) Naproxen 500 MG Oral Tablet naproxen 500 mg tablet naproxen 500 mg ta blet completed naproxen 500 MG Oral Tablet [facility] ([facility]) chlorhexidine gluconate 1.2 MG/ML Mouthw juan josé chlorhexidine gluconate 0.12 % mouthwash chlorhexidine gluconate 0.12 % mouthwash completed chlorhexidine gluconate 1.2 MG/ML Mouthwash LENNY ([facility]) Ascorbic Acid 500 MG Oral Tablet Vitamin C 500 mg tabl et TAKE 1 TABLET DAILY Vitamin C 500 mg tablet TAKE 1 TABLET DAILY completed ascorbic acid 500 MG Oral Tablet LENNY ([facility]) Fluconazole 150 MG Oral Tablet fluconazole 150 mg tabl et fluconazole 150 mg tablet completed fluconazole 150 MG Oral Tablet [facility]ENNY ([facility]) Sulfamethoxazole 800 MG / Trimethoprim 1 60 MG Oral Tablet sulfamethoxazole 800 mg-trimethoprim 160 mg tablet sulfamethoxazole 800 mg-trimethoprim 160 mg tablet completed sulfame thoxazole 800 MG / trimethoprim 160 MG Oral Tablet LENNY ([facility]) ferrous sulfate 325 MG Oral Tablet ferrous sulfate 325 mg (65 mg iron) tablet ferrous sulfate 325 mg (65 mg iron) tablet completed ferrous sulfate 325 MG Oral Tablet LENNY ([facility]) Lidocaine Hydrochloride 20 MG/ML Mucous Membrane Topical Solution Lidocaine Viscous 2 % mucosal solution Lidocaine Viscous 2 % mucosal solution completed lidocaine hydrochloride 20 MG/ML Mucous Membrane Topical Solution LENNY ([facility]) Clindamycin 300 MG Oral Capsule clindamycin HCl 300 mg capsule clindamycin HCl 300 mg capsule completed clindam ycin 300 MG Oral Capsule [facility]ENNY ([facility]) Ibuprofen 600 MG Oral Tablet ibuprofen 600 mg tablet ibuprofen 6 00 mg tablet completed ibuprofen 600 MG Oral Tablet [facility] ([facility]) Acetaminophen 325 MG / Hydrocodone Sara trate 5 MG Oral Tablet hydrocodone 5 mg- acetaminophen 325 mg tablet hydrocodone 5 mg-acetaminophen 325 mg tablet completed acetaminophen 325 MG / hydrocodone bitartrate 5 MG Oral Tablet [facility] ([facility]) Sulfamethoxazole 800 MG / Trimethoprim 1 60 MG Oral Tablet sulfamethoxazole 800 mg-trimethoprim 160 mg tablet sulfamethoxazole 800 mg-trimethoprim 160 mg tablet completed sulfame thoxazole 800 MG / trimethoprim 160 MG Oral Tablet [facility] ([facility]) Naproxen 500 MG Oral Tablet naproxen 500 mg tablet naproxen 500 mg ta blet completed naproxen 500 MG Oral Tablet [facility] ([facility]) Ibuprofen 600 MG Oral Tablet ibuprofen 600 mg tablet ibuprofen 6 00 mg tablet completed ibuprofen 600 MG Oral Tablet [facility] ([facility]) Permethrin 50 MG/ML Topical Cream permethrin 5 % topic al cream permethrin 5 % topical cream completed permethr in 50 MG/ML Topical Cream [facility] ([facility]) albuterol sulfate HFA 90 mcg/actuation aerosol inhaler [id number] completed [id number] 200 ACTUAT albuterol 0.09 MG/ACTUAT Metered Dose Inhaler [facility] ([facility]) tramadol hydrochloride 50 MG Oral Tablet tramadol 50 mg tablet take 1 tablet by mouth every 6 hours if needed for pain tramadol 50 mg tablet take 1 tablet by mouth every 6 hours if needed for pain completed tramadol hydrochloride 50 MG Oral Tablet [facility] ([facility]) Ascorbic Acid 500 MG Oral Tablet Vitamin C 500 mg tabl et TAKE 1 TABLET DAILY Vitamin C 500 mg tablet TAKE 1 TABLET DAILY completed ascorbic acid 500 MG Oral Tablet [facility] ([facility]) Acetaminophen 325 MG / Hydrocodone Sara trate 5 MG Oral Tablet hydrocodone 5 mg- acetaminophen 325 mg tablet hydrocodone 5 mg-acetaminophen 325 mg tablet completed acetaminophen 325 MG / hydrocodone bitartrate 5 MG Oral Tablet [facility] ([facility]) Phenazopyridine hydrochloride 200 MG Ora l Tablet phenazopyridine 200 mg tablet TAKE 1 TABLET BY MOUTH THREE TIMES DAILY FOR 2 DAYS phenazopyridine 200 mg tablet TAKE 1 TABLET BY MOUTH THREE TIMES DAILY FOR 2 DAYS completed phenazopyridine hydrochloride 20 0 MG Oral Tablet [facility] ([facility]) ferrous sulfate 325 MG Oral Tablet ferrous sulfate 325 mg (65 mg iron) tablet ferrous sulfate 325 mg (65 mg iron) tablet completed ferrous sulfate 325 MG Oral Tablet [facility] ([facility]) Phenazopyridine hydrochloride 200 MG Ora l Tablet phenazopyridine 200 mg tablet TAKE 1 TABLET BY MOUTH THREE TIMES DAILY FOR 2 DAYS phenazopyridine 200 mg tablet TAKE 1 TABLET BY MOUTH THREE TIMES DAILY FOR 2 DAYS completed phenazopyridine hydrochloride 20 0 MG Oral Tablet [facility] ([facility]) Cyclobenzaprine hydrochloride 10 MG Oral Tablet cyclob enzaprine 10 mg tablet cyclobenzaprine 10 mg tablet completed cyclobenzaprine hydrochloride 10 MG Oral Tablet [facility] ([facility]) Cholecalciferol 88149 UNT Oral Capsule c holecalciferol (vitamin D3) 1,250 mcg (50,000 unit) capsule cholecalciferol (vitamin D3) 1,250 mcg ( 50,000 unit) capsule completed cholecalcifero l 1.25 MG Oral Capsule [facility] ([facility]) chlorhexidine gluconate 1.2 MG/ML Mouthw juan josé chlorhexidine gluconate 0.12 % mouthwash chlorhexidine gluconate 0.12 % mouthwash completed chlorhexidine gluconate 1.2 MG/ML Mouthwash [facility] ([facility]) Insurance Providers Payer name Policy type / Coverage type Policy ID Covered alliance party ID Covered alliance party's relationship to littlejohn Policy [place] Plan Information EMEDNY [id number] SP [id number] COMMITED HOME CARE [id number] SP [id number] [facility] Medicaid D [id number] SELF [id number] SNYDER [id number] Fozia [id number] MEDICAID [id number] Fozia [id number] 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 [id number] 18 [id number] COMMITTED HOME CARE [id number] SP [id number] SELF PAY ONLY [id number] SP [id number] WORKERS COMPENSATION GENERIC W [id number] Empl [id number] [facility]C[facility] I [id number] Self CB [id number] MEDICAID [id number] SNYDER [id number] COMMITED HOME CARE [id number] SP [id number] SNYDER [id number] Fozia [id number] SNYDER [id number] SNYDER [id number] Fozia [id number] MEDICAID [id number] Fozia [id number] [facility] HEA [id number] S CB [id number] TOTAL CARE MEDICAID/SNYDER [id number] Fozia [id number] TOTAL CARE MEDICAID/SNYDER [id number] Fozia [id number] [facility]C[facility] I [id number] Self CB [id number] MEDICAID GME [id number] S [id number] MEDICAID PI PI TOTAL CARE MEDICAID/SNYDER PI PI STPP Wrap [id number] D [facility] [id number] NO FAULT [id number] Fozia [id number] HEALTHCB [employer] IPA INC DENTAL [id number] Fozia [id number] NO FAULT PI PI HEALTHPLEX IPA INC DENTAL PI PI UNAVAILABLE UNAVAILA BLE MEDICAID HEALTH MAINTENANCE ORGANIZATION HEA UNAVAILABLE UNAVAILABLE TOTAL CARE HEA [id number] TOTAL CARE I [id number] Self [id number] TOTAL CARE MEDICAID [id number] Fozia [id number] HEALTHPLEX IPA INC DENTAL [id number] Fozia [id number] Totalcare Medicaid F [id number] SELF C [id number] Total Care [id number] Totalcare Medicaid F [id number] SELF C [id number] MEDICAID GME W [id number] S [id number] C TOTAL CARE W [id number] S [id number] MEDICAID [id number] Fozia [id number] MEDICAID [id number] Fozia [id number] HEALTHPLEX [employer] DENTAL [id number] Fozia [id number] SELF PAY 2 UNAVAILABLE 1 UNAVAILA BLE PCAP PENDING 2 [id number] F[place]EL[place] MEDICAID 2 [id number] 1 [id number] MEDICAID [facility] 3 [id number] TOTAL CARE MEDICAID 2 [id number] MEDICAID [facility] 3 [id number] PCAP PENDING 2 [id number] SELF PAY 2 UNAVAILABLE UNAVAILA BLE Problems, Conditions, and Diagnoses Code Display Name Description Problem Type Effective Dates Data Source(s) Z11.1 Encounter for screening for respiratory tuberculosis Encounter for screening for respiratory Diagnosis 10/12/2020 02:55:01 PM EST [facility] Z02.1 Encounter for pre-employment examination Encounter for pre-employment examination Diagnosis 10/09/2020 01:48:23 PM EST [facility] M51.36 Other intervertebral disc degeneration, lumbar region Other intervertebral disc degeneration, Diagnosis 07/08/2020 09:48:58 AM EDT [facility] M50.30 Other cervical disc degeneration, unspec ified cervical region Other cervical disc degeneration, unspec Diagnosis 07/08/2020 09:48:58 AM ED T [facility] N93.9 Abnormal uterine and vaginal bleeding, u nspecified Abnormal uterine and vaginal bleeding, u Diagnosis 05/31/2020 12:40:57 PM EDT [facility] M54.32 Sciatica, left side Sciatica, left side Diagnosis 0 05/31/2020 12:40:57 PM EDT [facility] Z48.89 Encounter for other specified surgical a ftercare Encounter for other specified surgical a Diagnosis 02/27/2020 12:19:46 PM EDT [facility] T81.49XA Infection following a proced ure, other surgical site, initial encounter Infection following a procedure, other s Diagnosis 020 01:07:26 PM EDT [facility] T81.49XA Infection following a proced ure, other surgical site, initial encounter Infection following a procedure, other s Diagnosis 020 12:26:54 PM EDT [facility] F41.9 Anxiety disorder, unspecified Anxiety disorder, unspec ified Diagnosis 02/13/2020 12:26:54 PM EDT [facility] Z48.03 Encounter for change or removal of drain s Encounter for change or removal of drain Diagnosis 02/08/2020 09:18:27 AM EDT [facility] Z51.89 Encounter for other specified aftercare Encounter for other specified aftercare Diagnosis 02/08/2020 09:18:27 AM EDT [facility] N89.8 Other specified noninflammatory disorder s of vagina Other specified noninflammatory disorder Diagnosis 01/27/2020 08:49:25 AM EDT [facility] Z13.6 Encounter for screening for cardiovascul ar disorders Encounter for screening for cardiovascul Diagnosis 01/02/2020 09:19:17 AM EST [facility] Z13.21 Encounter for screening for nutritional disorder Encounter for screening for nutritional Diagnosis 01/02/2020 09:19:17 AM [facility] F32.9 Major depressive disorder, single episod e, unspecified Major depressive disorder, single episod Diagnosis 01/02/2020 09:19:17 AM [facility] K21.9 Gastro-esophageal reflux disease without esophagitis Gastro-esophageal reflux disease without Diagnosis 01/02/2020 09:19:17 AM [facility] Z98.84 Bariatric surgery status Bariatric surgery status Diag nosis 01/02/2020 09:19:17 AM [facility] J45.20 Mild intermittent asthma, uncomplicated Mild intermittent asthma, uncomplicated Diagnosis 01/02/2020 09:19:17 AM [facility] Z00.00 Encounter for general adult medical examination without abnormal findings Encounter for general adult medical exam Diagnosis 020 09:19:17 AM [facility] Surgeries/Procedures Procedure Description Date Indications Data Source(s) MRI, lumbar spine, w/o contrast 10/27/2020 12:00:00 AM EST [facility] ([facility]) MRI, cervical spine, w/o contrast 10/27/2020 12:00:00 AM EST [facility] ([facility]) DUP-SCAN XTR VEINS UNILATERAL/LIMITED STUDY US LOWER EXTREM ITY VENOUS LEFT STAT 05/31/2020 1:40 PM EDT 05/31/2020 05:40:38 PM EDT [facility] BLOOD COUNT COMPLETE AUTO&AUTO DIFRNTL WBC COUNT CBC AND DIFFER ENTIAL STAT 05/31/2020 1:20 PM EDT 05/31/2020 05:20:00 PM EDT [facility] GONADOTROPIN CHORIONIC QUANTITATIVE HCG, QUANTITATIVE, PREGNANC Y STAT 05/31/2020 1:20 PM EDT 05/31/2020 05:20:00 PM EDT [facility] BASIC METABOLIC PANEL CALCIUM TOTAL BASIC METABOLIC PANEL STAT 05/31/2020 1:20 PM EDT 05/31/2020 05:20:00 PM EDT [facility] GLUC BLD GLUC MNTR DEV CLEARED FDA SPEC HOME USE POCT GLUCOSE Routine 02/08/2020 10:29 AM EDT 02/08/2020 02:29:00 PM EDT [facility] Results ID Date Data Source [id number] 10/21/2020 09:14:00 AM EST [facility] [address] [place] [address] PHONE: [phone] FAX: [phone] Name .................. : FAIZA SOUZA Acct Number.................. : [id number] ROOM. ................. : MR Number ................... : [id number] Stay type ............. : CLINIC Discharge Date......... ... : 10/19/20 Admit Date ...... ... : 10/19/20 Admit Phys .................... : ORIANA WHITEHEAD Date of ....... : 1990 Family Phys ................... : Phone .................. : [phone] Age ................................ : 30 Film# .................. .:[id number] Sex ................................. : F Unsigned transcriptions are preliminary reports and do not represent a medical or legal document SPINE CERVICAL AP & LAT [id number] COMPLETE:10/19/20 12:15 CALEB [id number] (SPINE PROC REASON: CERVICALGIA CERVICAL SPINE SERIES: HISTORY: Cervicalgia. FINDINGS: There is some slight loss of the normal cervical lordosis. There is otherwise normal alignment and position of the bones with no significant pathology identified. IMPRESSION: No acute pathology noted. Electronically Reviewed and Signed By JOSE LOPEZ MD , 10/21/20 09:14, [facility] Transcribe Initials: DZ , Transcribe Date: 10/19/20 21:33, Dictation Date: Page 1 of 1 Name Value Range Interpretation Code Description Data Dayana rce(s) Supporting Document(s) ID Date Data Source [id number] 10/20/2020 09:39:00 AM EST [facility] [address] [place] [address] PHONE: [phone] FAX: [phone] Name .................. : FAIZA SOUZA Acct Number.................. : [id number] ROOM. ................. : Number ................... : [id number] Stay type ............. : CLINIC Discharge Date......... ... : 10/19/20 Admit Date ...... ... : 10/19/20 Admit Phys .................... : ORIANA WHITEHEAD Date of ....... : 1990 Family Phys ................... : Phone .................. : [phone] Age ................................ : 30 Film# .................. .:[id number] Sex ................................. : F Unsigned transcriptions are preliminary reports and do not represent a medical or legal document SPINE LS AP & LAT [address]19 COMPLETE:10/19/20 12:15 CALEB 99509 (SPINE PROC REASON: CERVICALGIA LUMBAR SPINE SERIES: [...] rce(s) Supporting Document(s) ID Date Data Source [id number] 10/15/2020 05:04:17 PM EST [facility] INFORMATIONPatient MRN Name Date of Age Gend*PT [id number] Harley Rutherford 1990 30 years F ---PT Location Admission Date/Time Visit ID Attending Provider --- --- --- --- EPI ID CSN Admitting Provider [id number] ---Assessment/Plan:Diagnoses and all orders for this visit:Encounter for PPD skin test reading (Primary)Negative PPDSigned paperworkFollow Up Return for Next scheduled follow up.Subjective:Patient ID: Harley Rutherford is a 30 years female.Patient presetns today for a PPD reading.HPIPPD Reading NotePPD read and results entered in [employer].Result: 0 mm induration.Interpretation: negative PPDIf test not [...] rce(s) Supporting Document(s) ID Date Data Source [id number] 10/09/2020 04:26:17 PM EST [facility] INFORMATIONPatient MRN Name Date of Age Gend*PT [id number] Harley Rutherford 1990 30 years F ---PT Location Admission Date/Time Visit ID Attending Provider --- --- --- --- EPI ID CSN Admitting Provider [id number] ---Assessment/Plan:Diagnoses and all orders for this visit:Pre-employment health screening examination (Primary) - 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 Paperwork done. PPD placed. 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 She needs a ppd placed.The following portions [...] rce(s) Supporting Document(s) ID Date Data Source [id number] 10/07/2020 11:12:00 AM EST [facility] ([facility]) Name Value Range Interpretation Code Description Data Dayana rce(s) Supporting Document(s) Lyme Disease IgG/IgM Antibodie Laboratory test result 0.00-0.90 [facility] ([facility]) <content>Negative <0.91</content >
<content>Equivocal 0.91 - 1.09</content>
<content>Positive >1.09</content>
<content></content> Lyme Disease IgM Ab Quantitati Laboratory test result 0.00-0.79 [facility] ([facility]) <content>Negative <0.80</content >
<content>Equivocal 0.80 - 1.19</content>
<content>Positive >1.19</content>
<content>.</content>
<content>IgM levels may peak at 3-6 weeks post infection, then</content>
<content>gradually decline.</content>
<content></content> ID Date Data Source [id number] 10/07/2020 11:12:00 AM EST [facility] ([facility]) Name Value Range Interpretation Code Description Data Dayana rce(s) Supporting Document(s) Erythrocyte sedimentation rate by Westergren method 17 mm/hr 0-20 [facility] ([facility]) C reactive protein [Mass/volume] in Serum or Plasma by High sensitivity method 0.41 mg/dL 0.00-0.30 [facility] ([facility]) ID Date Data Source [id number] 10/07/2020 11:12:00 AM EST [facility] ([facility]) Name Value Range Interpretation Code Description Data Dayana rce(s) Supporting Document(s) Antinuclear Antibodies Direct Laboratory test result [facility] ([facility]) Performed at: RN - [facility] [address] [id number] Hvac Controls Technician: Michelle Metzger MD, Phone: [phone] ID Date Data Source [id number] 10/07/2020 11:12:00 AM EST [facility] ([facility]) Name Value Range Interpretation Code Description Data Dayana rce(s) Supporting Document(s) Rheumatoid factor [Units/volume] in Serum or Plasma Laboratory test result [facility] ([facility]) ID Date Data Source [id number] 10/07/2020 11:12:00 AM EST [facility] ([facility]) Name Value Range Interpretation Code Description Data Dayana rce(s) Supporting Document(s) Red Blood Count 4.41 10 4.00-5.40 [facility] ([facility]) White Blood Count 6.7 10 4.0-10.0 [facility] ([facility]) Hematocrit 37.1 % 36.0-47.0 [facility] ([facility]) Mean Corpuscular Volume 84.1 fl 80.0-96.0 M [facility] ([facility]) Hemoglobin 11.2 g/dL 12.0-15.5 [facility] ([facility]) Mean Corpuscular HGB Conc 30.2 g/dL 32.0-36.5 [facility] ([facility]) Red Cell Distribution Width 13.6 % 11.5-14.5 [facility] ([facility]) Mean Corpuscular Hemoglobin 25.4 pg 27.0-33.0 [facility] ([facility]) Lymph % 28.3 % 24.0-44.0 [facility] ([facility]) Platelet Count, Automated 270 10 150-450 [facility] ([facility]) Neutrophils % 61.8 % 36.0-66.0 [facility] ([facility]) Rhea % 8.2 % 0.0-5.0 [facility] ([facility]) Eos % 1.2 % 0.0-3.0 [facility] ([facility]) Nucleated Red Blood Cell % 0.0 % 0-0 [facility] ([facility]) Immature Granulocyte % 0.1 % 0-3.0 [facility] ([facility]) Baso % 0.4 % 0.0-1.0 [facility] ([facility]) Rhea # 0.6 10 0.0-0.8 [facility] ([facility]) Neutrophils # 4.2 10 1.5-8.5 [facility] ([facility]) Lymph # 1.9 10 1.5-5.0 [facility]) Eos # 0.1 10 0.0-0.5 [facility] ([facility]) Baso # 0.0 10 0.0-0.2 [facility]) ID Date Data Source [id number] 09/29/2020 12:00:00 AM EST [facility] Name Value Range Interpretation Code Description Data Dayana rce(s) Supporting Document(s) SARS coronavirus 2 RNA [Presence] in Res piratory specimen by CHEY with probe detection [facility] This lab was ordered by Althea Villavicencio and reported by [employer]. ID Date Data Source [id number] 06/02/2020 08:49:39 AM EDT [facility] NT INFORMATIONPatient MRN Name Date of Age Gend*PT [id number] Harley Rutherford 1990 29 years F EDPT Location Admission Date/Time Visit ID Attending [id number] 05/31/20 1240 --- --- EPI ID CSN Admitting Provider [id number] ---Provider in Triage NotesNo notes on fileHistory [...] time.PCP- Cyndi Sylvester MDHistory provided by: PatientLanguage software development project manager used: Mitch Medical History:Diagnosis Date Adverse effect [...] LUMBAR 4 5 MICRODISCECTOMYBILATERAL MICROSCOPE ; Surgeon: Miguel Ambriz MD; Location: [facility];Service: Spine; Laterality: Bilateral; BARIATRIC SURGERY SECTION [...] medications on fileThis was electronically signed by Milton Parker acting as scribe for andin the presence of Aletha Licona MD , 05/31/20 2:10 PM.ED AttestationAttestation of Scribe Documentation: I personally performed the servicesdescribed in the documentation, reviewed the documentation recorded by thegarryrilauro in my presence and it accurately and completely records my words andactions.Aletha Licona MD 8:49 Sanam Licona MD06/02/20 0849 Name Value Range Interpretation Code Description Data Dayana rce(s) Supporting Document(s) ID Date Data Source [id number] 05/31/2020 01:48:37 PM EDT [address] [address] Name: HARLEY RUTHERFORDDOB: 1990Sex: FOrdering Provider: ALETHA LICONAAuthorizing Prov: ALETHA LICONAReferring Provider: Procedure Performed: US LOWER EXTREMITY VENOUS LEFTExam Date: 05/31/2020 13:40MRN: [id number] Number: [id number] Class: EmergencyAccount #: [id number] for Exam: left leg swelling and painTechnique: Duplex sonography was performed.Comparison: NoneFINDINGS:The common femoral vein, superficial femoral vein, and popliteal veins are patent and compressible.The calf veins are unremarkableIMPRESSION:1. No deep vein thrombosis identified.Report electronically signed by: SEBASTIAN MOSQUEDA On 05/31/2020 1:48 PMWorkstation ID: [id number] Name Value Range Interpretation Code Description Data Dayana rce(s) Supporting Document(s) ID Date Data Source [id number] 05/31/2020 02:44:08 PM EDT [facility] Name Value Range Interpretation Code Description Data Dayana rce(s) Supporting Document(s) HCG,QUANT PREG <1 mU/mL [facility] INTERPRETATION:LESS THAN 6 NEGATIVE 6 - 10 BORDERLINE (SUGGEST REPEAT IN 48 HOURS) APPROX HCG RANGE WEEKS POST LMP 11 - 130 3 - 4 WEEKS 75 - 2600 4 - 5 WEEKS 850 - 95375 5 - 6 WEEKS 4000 - 463360 6 - 7 [id number] - 889324 7 - 12 [id number] - [id number] 12 - 16 WEEKS 1400 - 32292 16 - 29 WEEKS 940 - 88337 29 - 41 WEEKS ID Date Data Source [id number] 05/31/2020 02:14:48 PM EDT [facility] Name Value Range Interpretation Code Description Data Dayana rce(s) Supporting Document(s) SODIUM 140 mmol/L (136-145) [facility] POTASSIUM 3.7 mmol/L (3.6-5.2) [facility] CHLORIDE 107 mmol/L (100-108) [facility] CO2 30 mmol/L (22-31) [facility] ANION GAP 3 mmol/L (7-16) L [facility] UREA NITROGEN 12 mg/dL (7-24) [facility] CREATININE 0.78 mg/dL (0.60-1.00) [facility] BUN/CREAT RATIO 15.4 RATIO (10.0-20.0) [facility] GLUCOSE 71 mg/dL (70-99) [facility] CALCIUM 8.9 mg/dL (8.4-10.2) [facility] GFR >60 ml/min/1.73m2 (>59) [facility] GFR ( AMER) >60 ml/min/1.73m2 (>59) [facility] GFR INTERPRETATION [facility] --NORMAL KIDNEY FUNCTION OR MILD DISEASE - GFR >OR= 60CHRONIC KIDNEY DISEASE - GFR 15 - 59RENAL FAILURE - GFR <15 Est. GFR calculation based on the MDRDstudy equation, which assumes a steadystate for creatinine. Est. GFR should notbe used for medication dosing. ID Date Data Source [id number] 05/31/2020 02:03:11 PM EDT [facility] Name Value Range Interpretation Code Description Data Dayana [facility](s) Supporting Document(s) WBC 5.6 10*3/uL (4.1-11.0) [facility] [place] RBC 4.89 10*6/uL (4.00-5.40) [facility] HGB 12.3 g/dL (12.0-16.0) [facility] HCT 39.2 % (36.0-47.0) [facility] MCV 80.1 fL (80.0-95.0) [facility] MCH 25.1 pg (27.0-32.0) L [facility] MCHC 31.4 g/dL (32.0-36.0) L [facility] RDW 14.9 % (10.5-14.5) H [facility] PLT 276 10*3/uL (150-450) [facility] MPV 8.5 fL (7.1-10.7) [facility] NEUT % 62.2 % (35.0-75.0) [facility] LYMPH % 25.3 % (16.0-52.0) [facility] MONO % 10.5 % (0.0-8.0) H [facility] EOS % 1.2 % (0.0-5.0) [facility] BASO % 0.8 % (0.0-4.0) [facility] NEUT # 3.5 10*3/uL (1.8-7.7) [facility] LYMPH # 1.4 10*3/uL (1.2-4.8) [facility] MONO # 0.6 10*3/uL (0.0-0.8) [facility] Eosinophils [#/volume] in Blood by Automated count 0.1 10*3/uL (0.0-0 .5) [facility] BASO # 0.0 10*3/uL (0.0-0.2) [facility] ID Date Data Source [id number] 05/01/2020 12:00:00 AM EDT [facility] Name Value Range Interpretation Code Description Data Dayana rce(s) Supporting Document(s) SARS-CoV-2 [facility] This lab was ordered by [facility] and reported by [employer]. ID Date Data Source [id number] 02/27/2020 01:17:45 PM EDT [facility] NT INFORMATIONPatient MRN Name Date of Age Gend*PT [id number] Harley Rutherford 1990 29 years F ---PT Location Admission Date/Time Visit ID Attending Provider --- --- --- --- EPI ID CSN Admitting Provider [id number] ---Subjective:Harley Rutherford is a 29 years old female who returns for suture [facility]. No iss ues.Imaging:noneObjective:Pathology:nonePhysical ExamThere were [...] rce(s) Supporting Document(s) ID Date Data Source [id number] 02/18/2020 01:48:07 PM EDT [facility] NT INFORMATIONPatient MRN Name Date of Age Gend*PT [id number] Harley Rutherford 1990 29 years F ---PT Location Admission Date/Time Visit ID Attending Provider --- --- --- Cyndi Sylvester MD([id number]) EPI ID CSN Admitting Provider [id number] ---Subjective:Harley Rutherford is a 29 years old female who was referred for evaluation forwound care following skin removal of both arms and abdomen. Pt had surgery on02/03/20 in the [facility]. No complaints. Pain controlled. Somedrainage [...] LUMBAR 4 5 MICRODISCECTOMYBILATERAL MICROSCOPE ; Surgeon: Miguel Ambriz MD; Location: [facility];Service: Spine; Laterality: Bilateral; BARIATRIC SURGERY SECTION [...] file Gets together: Not on file Attends rastafarian service: Not on file Active member of [...] Rfl: 2 Cholecalciferol (VITAMIN D3) 1.25 MG (47015 UT) CAPS, Take 1 capsule (50,000Units total) [...] rce(s) Supporting Document(s) ID Date Data Source [id number] 02/13/2020 02:06:54 PM [facility]T [facility] MR[facility] Name Date of Age Gend*PT [id number] Harley Rutherford 1990 29 years F ---PT Location Admission Date/Time Visit ID Attending Provider --- --- --- --- EPI ID CSN Admitting Provider [id number] ---Assessment/Plan:Diagnoses and all orders for this visit:Anxiety [...] LUMBAR 4 5 MICRODISCECTOMYBILATERAL MICROSCOPE ; Surgeon: Miguel Ambriz MD; Location: [facility] [place];Service: Spine; Laterality: Bilateral; BARIATRIC SURGERY SECTION SECTION [...] tablet 2 Cholecalciferol (VITAMIN D3) 1.25 MG (78643 UT) CAPS Take 1 capsule (50,000Units total) [...] Name Value Range Interpretation Code Description Data [facility] rce(s) Supporting Document(s) ID Date Data Source [id number] 02/09/2020 09:52:10 AM EDT [facility] NT INFORMATIONPatient MRN Name Date of Age Gend*PT [id number] Harley Rutherford 1990 29 years F EDPT Location Admission Date/Time Visit ID Attending [id number] 02/08/20 0918 --- --- EPI ID CSN Admitting Provider [id number] ---Provider in Triage NotesNo notes on fileHistory of Present IllnessChief ComplaintPatient presents with Post-op Problem pt [place] 5 [place], pt has drains in back and arms that sheneeds removed.29 years old Female [place] the ED [place] Pt had a [place], fat removal and skin removal. Because [...] .PCP Cyndi Sylvester MDHistory provided by: PatientLanguage software development project manager used: Mitch Medical History:Diagnosis Date Adverse effect [...] LUMBAR 4 5 MICRODISCECTOMYBILATERAL MICROSCOPE ; Surgeon: Miguel Ambriz MD; Location: [facility] [place];Service: Spine; Laterality: Bilateral; BARIATRIC SURGERY SECTION SECTION [...] Wt 68 kg | LMP 01/19/2020 | IqE997% | BMI 24.96 kg/m Physical ExamConstitutional: She [...] the pt [facility] few days with Dr. [...] removal of drainsThis was electronically signed by Milton Arellano acting as scribe forand in the presence of Lev Crowder MD, 02/08/20 12:03 PM.ED MD AttestationAttestation of Scribe Documentation: I personally performed the servicesdescribed in the documentation, reviewed the documentation recorded by [email or web address] in my presence and it accurately and completely records my words andactions.Signature: YOLANDA Valladaresate: January 192019Time: 9:50 Mary Crowder MD02/09/20 0952 Name Value Range Interpretation Code Description Data [facility] rce(s) Supporting Document(s) ID Date Data Source [id number] 02/08/2020 10:30:45 AM EDT [facility] Name Value Range Interpretation Code Description Data Dayana rce(s) Supporting Document(s) POC NOVA GLU 91 mg/dL (70-99) [facility] [place] PERFORMED BY [facility] CLINICAL STAFF ID Date Data Source [id number] 01/27/2020 09:40:05 AM EDT [facility]FORMATIONPatient MRN Name Date of Age Gend*PT [id number] RaudelHarley ambrosio 1990 29 years F ---PT Location Admission Date/Time Visit ID Attending Provider --- --- --- --- EPI ID CSN Admitting Provider [id number] ---Assessment/Plan:Diagnoses and all orders for this visit:Vaginal discharge (Primary)Pt advised to take Diflucan as prescribed. Call if Sx continue despitetreatment. She agreed with the plan.Other orders- fluconazole (DIFLUCAN) 150 MG tablet; Take 1 tablet (150 mg total) bycauth once for 1 dosSubjective:Patient ID: Harley Rutherford [...] rce(s) Supporting Document(s) ID Date Data Source [id number] 01/02/2020 02:36:49 PM [facility] NT INFORMATIONPatient MRN Name Date of Age Gend*PT [id number] Harley Rutherford 1990 29 years F ---PT Location Admission Date/Time Visit ID Attending Provider --- --- --- --- EPI ID CSN Admitting Provider [id number] ---Subjective: Harley Rutherford is a 29 years female and is here for a comprehensive physicalexam. The patient reports problems - needs refills for medications anddepression - she sees . Pt needs to do labs. States she planes to havelip[facility] done [facility]. She f/u with [facility].Patient Care Team:Cyndi Sylvester MD as PCP - General (Family Medicine)Miguel Ambriz MD as Consulting Physician (Neurosurgery)Mary Carmen Parisi RN as Registered Nurse (Behavioral Health)Doug Law MD as Referring Physician (Gastroenterology)[facility] as Care Management - External Health [facility] CenterVenecia Swartz as Care Management - External Health [...] LUMBAR 4 5 MICRODISCECTOMYBILATERAL MICROSCOPE ; Surgeon: Miguel Ambriz MD; Location: [facility] [place];Service: Spine; Laterality: Bilateral; BARIATRIC SURGERY SECTION SECTION [...] file Gets together: Not on file Attends rastafarian service: Not on file Active member of [...] known visit with results is:Office Visit on 09/12/2019Component Date Value Preg Test, Ur 08/01/2019 NegativeAssessment [...] rce(s) Supporting Document(s) ID Date Data Source [id number] 01/02/2020 09:30:[address] [facility] Name Value Range Interpretation Code Description Data [...] by Repeat Analysis ID Date Data Source [id number] 01/02/2020 09:30:[address] [facility] [...] Physici ans Carbon Dioxide 24 mmol/L 21-30 [facility] Anion Gap 10.0 7.0-16.0 [facility] Calcium 9.6 mg/dL 8.8-10.4 [facility] AST 19 U/L 1-41 [facility] ALT 11 U/L 1-43 [facility] Alkaline Phosphatase 53 U/L 36-126 [facility] Total Bilirubin 0.3 mg/dL 0.0-1.2 [facility] Albumin 4.1 g/dL 3.3-4.[facility] Protein 7.2 g/dL 6.1-8.1 [facility] Globulin 3.1 g/dL 2.2-4.0 [facility] A/G Ratio 1.3 0.9-1.7 [facility] New range effective: 07/09/2019. ALP now traceable to the IF[facility] procedure at 37 ID Date Data Source [id number] 01/02/2020 09:30:[address] [facility] Name Value Range Interpretation Code Description Data Dayana rce(s) Supporting Document(s) Cholesterol 132 mg/dL 100-[facility] Triglycerides 36 mg/dL 25-160 [facility] HDL 66 mg/dL 40-69 [facility] LDL (calculated) 59 mg/dL 0-130 [facility] VLDL 7.2 mg/dL 6.0-40.0 [facility] Chol/HDL Ratio 2.00 [facility] sicians Values listed are Risk Dependent: ID Date Data Source [id number] 01/02/2020 09:30:[address] [facility] Name Value Range Interpretation Code Description Data Dayana rce(s) Supporting Document(s) Ultra hTSH II 0.78 uIU/mL 0.30-5.00 [facility] ID Date Data Source [id number] 01/02/2020 09:30:00 AM EST [facility] Name Value Range Interpretation Code Description Data Dayana rce(s) Supporting Document(s) VITAMIN_D 20.3 ng/ml 30.0-100.[address] [facility] Procedure Social History Code Duration Value Status Description Data Source(s ) Alcohol intake 10/15/2020 12:00:00 AM EST No completed [facility] Smoking 10/15/2020 12:00:00 AM EST Never smoker completed Never [facility] Alcohol intake 10/09/2020 12:00:00 AM EST No completed [facility] Smoking 10/09/2020 12:00:00 AM EST Never smoker completed Never [facility] Alcohol intake 05/31/2020 12:00:00 AM EDT No completed [facility] Smoking 05/31/2020 12:00:00 AM EDT Never smoker completed Never [facility] Alcohol intake 02/08/2020 12:00:00 AM EDT No completed [facility] Smoking 02/08/2020 12:00:00 AM EDT Never smoker completed Never [facility] Vital Signs ID Date Data Source UNK Name Value Range Interpretation Code Description Data Source(s) Systolic blood pressure 130 mm[Hg] 130 mm[Hg] A THENA ([facility]) Body height 65 [in_i] 65 [in_i] LENNY ([facility]) Diastolic blood pressure 82 mm[Hg] 82 mm[Hg] LENNY ([facility]) Body weight 189 [lb_av] 189 [lb_av] L[facility]NY ([facility]) Systolic blood pressure 128 mm[Hg] 128 mm[Hg] A THENA ([facility]) Body mass index (BMI) [Ratio] 31.5 kg/m2 31.5 k g/m2 LENNY ([facility]) Body height 65 [in_i] 65 [in_i] LENNY ([facility]) Diastolic blood pressure 81 mm[Hg] 81 mm[Hg] LENNY ([facility]) Body weight 189 [lb_av] 189 [lb_av] LENNY ([facility]) Systolic blood pressure 128 mm[Hg] 128 mm[Hg] A THENA ([facility]) Body mass index (BMI) [Ratio] 31.5 kg/m2 31.5 k g/m2 LENNY ([facility]) Body height 65 [in_i] 65 [in_i] LENNY ([facility]) Diastolic blood pressure 81 mm[Hg] 81 mm[Hg] LENNY ([facility]) Systolic blood pressure 121 mm[Hg] 121 mm[Hg] M EDENT ([facility]) Diastolic blood pressure 81 mm[Hg] 81 mm[Hg] MEDENT ([facility]) Heart rate 87 /min 87 /min MEDENT ([facility]) Body temperature 97.8 [degF] 97.8 [degF] MEDENT ([facility]) Respiratory rate 16 /min 16 /min MEDENT ( [facility]) Oxygen saturation in Arterial blood by Pulse oximetry 98 % 98 % MEDENT ([facility]) Body weight 190.00 [lb_av] 190.00 [lb_av] MEDEN T ([facility]) Body weight 86.184 kg 86.184 kg MEDENT ([facility]) Body height 65 [in_i] 65 [in_i] MEDENT ([facility]) 5'5" Body mass index (BMI) [Ratio] 31.6 kg/m2 31.6 k g/m2 MEDENT ([facility]) Body surface area Derived from formula 1.94 m2 1.94 m2 [facility] Oxygen saturation in Arterial blood by Pulse oximetry 96 % 96 % [facility] Body mass index (BMI) [Ratio] 28.06 kg/m2 28.06 kg/m2 [facility] Body weight 86.183 kg 86.183 kg [facility] Body height 175.3 cm 175.3 cm [facility] Respiratory rate 16 /min 16 /min [facility] Body temperature 36.67 Fernanda 36.67 Fernanda [facility] Heart rate 85 /min 85 /min [facility] Diastolic blood pressure 70 mm[Hg] 70 mm[Hg] [facility] Systolic blood pressure 100 mm[Hg] 100 mm[Hg] [facility] Oxygen saturation in Arterial blood by Pulse oximetry 98 % 98 % [facility] Respiratory rate 16 /min 16 /min [facility] Heart rate 84 /min 84 /min [facility] Diastolic blood pressure 84 mm[Hg] 84 mm[Hg] [facility] Systolic blood pressure 119 mm[Hg] 119 mm[Hg] [facility] Body mass index (BMI) [Ratio] 24.66 kg/m2 24.66 kg/m2 [facility] Body weight 75.751 kg 75.751 kg [facility] Body height 175.3 cm 175.3 cm [facility] Body temperature 36.56 Fernanda 36.56 Fernanda [facility] Oxygen saturation in Arterial blood by Pulse oximetry 95 % 95 % [facility] Respiratory rate 18 /min 18 /min [facility] Body temperature 36.44 Fernanda 36.44 Fernanda [facility] Heart rate 83 /min 83 /min [facility] Diastolic blood pressure 83 mm[Hg] 83 mm[Hg] [facility] Systolic blood pressure 161 mm[Hg] 161 mm[Hg] [facility] Body mass index (BMI) [Ratio] 24.96 kg/m2 24.96 kg/m2 [facility] Body weight 68.04 kg 68.04 kg [facility] Body height 165.1 cm 165.1 cm [facility] Patient Treatment Plan of Care Planned Activity Planned Date Details Description Data Source (s) lidocaine (LIDODERM) 5 % 07/08/2020 12:00:00 AM EDT [facility] Cyclobenzaprine hydrochloride 10 MG Oral Tablet 07/08/2020 12:00:00 AM EDT [facility] 24 HR Bupropion Hydrochloride 150 MG Extended Release Oral Tablet 07/08/2020 12:00:00 AM EDT [facility] buspirone hydrochloride 7.5 MG Oral Tablet 02/13/2020 12:00:00 AM E DT [facility] Sulfamethoxazole 800 MG / Trimethoprim 160 MG Oral Tab let 02/08/2020 12:00:00 AM EDT [facility] tramadol hydrochloride 50 MG Oral Tablet 02/08/2020 12:00:00 AM EDT [facility] Cholecalciferol 24193 UNT Oral Capsule 01/07/2020 12:00:00 AM EST [facility] Vit-Fe Fumarate-FA ( MULTIVITAMIN) 27 -1 MG TABS 01/02/2020 12:00:00 AM EST [facility] Ibuprofen 600 MG Oral Tablet 01/02/2020 12:00:00 AM EST [facility] ferrous sulfate 325 MG Oral Tablet 01/02/2020 12:00:00 AM EST [facility] calcium citrate-vitamin D (CALCIUM + D) 315-200 MG-UNI T per tablet 01/02/2020 12:00:00 AM EST [facility] Ascorbic Acid 500 MG Oral Capsule 01/02/2020 12:00:00 AM EST [facility] albuterol (PROVENTIL HFA) 108 (90 Base) MCG/ACT inhale r 01/02/2020 12:00:00 AM EST [facility] Ascorbic Acid 500 MG Oral Tablet LENNY ([facility]) tramadol hydrochloride 50 MG Oral Tablet LENNY ([facility]) Sulfamethoxazole 800 MG / Trimethoprim 160 MG Oral Tablet LENNY ([facility]) Phenazopyridine hydrochloride 200 MG Oral Tablet LENNY ([facility]) Permethrin 50 MG/ML Topical Cream LENNY ([facility]) NITROFURANTOIN, MACROCRYSTALS 25 MG / Ni trofurantoin, Monohydrate 75 MG Oral Capsule LENNY ([facility]) Naproxen 500 MG Oral Tablet LENNY ([facility]) Lidocaine Hydrochloride 20 MG/ML Mucous Membrane Topical Solution LENNY ([facility]) Ibuprofen 600 MG Oral Tablet LENNY ([facility]) Acetaminophen 325 MG / Hydrocodone Bitartrate 5 MG Oral Tablet LENNY ([facility]) Fluconazole 150 MG Oral Tablet LENNY ([facility]) ferrous sulfate 325 MG Oral Tablet LENNY ([facility]) Cyclobenzaprine hydrochloride 10 MG Oral Tablet LENNY ([facility]) Clindamycin 300 MG Oral Capsule LENNY ([facility]) Clindamycin 150 MG Oral Capsule LENNY ([facility]) Cholecalciferol 56339 UNT Oral Capsule LENNY ([facility]) chlorhexidine gluconate 1.2 MG/ML Mouthwash LENNY ([facility]) 24 HR Bupropion Hydrochloride 150 MG Extended Release Oral Tablet LENNY ([facility]) albuterol sulfate HFA 90 mcg/actuation aerosol inhaler LENNY ([facility]) Ascorbic Acid 500 MG Oral Tablet LENNY ([facility]) tramadol hydrochloride 50 MG Oral Tablet LENYN ([facility]) Sulfamethoxazole 800 MG / Trimethoprim 160 MG Oral Tablet LENNY ([facility]) Phenazopyridine hydrochloride 200 MG Oral Tablet LENNY ([facility]) Permethrin 50 MG/ML Topical Cream LENNY ([facility]) NITROFURANTOIN, MACROCRYSTALS 25 MG / Ni trofurantoin, Monohydrate 75 MG Oral Capsule [facility] Naproxen 500 MG Oral Tablet LENNY ([facility]) Lidocaine Hydrochloride 20 MG/ML Mucous Membrane Topical Solution LENNY ([facility]) Ibuprofen 600 MG Oral Tablet LENNY ([facility]) Acetaminophen 325 MG / Hydrocodone Bitartrate 5 MG Oral Tablet LENNY ([facility]) Fluconazole 150 MG Oral Tablet LENNY ([facility]) ferrous sulfate 325 MG Oral Tablet LENNY ([facility]) Cyclobenzaprine hydrochloride 10 MG Oral Tablet LENNY ([facility]) Clindamycin 300 MG Oral Capsule LENNY ([facility]) Clindamycin 150 MG Oral Capsule LENYN ([facility]) Cholecalciferol 98346 UNT Oral Capsule LENNY ([facility]) chlorhexidine gluconate 1.2 MG/ML Mouthwash LENNY ([facility]) 24 HR Bupropion Hydrochloride 150 MG Extended Release Oral Tablet LENNY ([facility]) albuterol sulfate HFA 90 mcg/actuation aerosol inhaler LENNY ([facility])
[2020-12-07] MEDS ORDERED: CLIN300C6 PO (09:01)
[2020-12-07 09:05] LABS: ALBUMIN 3.8 GM/DL (3.2-5.2); ALT/SGPT 23 U/L (12-78); BILIRUBIN,DIRECT < 0.1 MG/DL (0.0-0.2); BILIRUBIN,TOTAL 0.3 MG/DL (0.2-1.0); BLOOD UREA NITROGEN 15 MG/DL (7-18); CALCIUM LEVEL 9.2 MG/DL (8.5-10.1); CARBON DIOXIDE LEVEL 29 MEQ/L (21-32); CHLORIDE LEVEL 106 MEQ/L (98-107); CREATININE FOR GFR 0.64 MG/DL (0.55-1.30); GLOMERULAR FILTRATION RATE > 60.0 (>60); GLUCOSE, FASTING 96 MG/DL (70-100); LIPASE 123 U/L (73-393); POTASSIUM SERUM 4.1 MEQ/L (3.5-5.1); SODIUM LEVEL 141 MEQ/L (136-145); TOTAL PROTEIN 6.9 GM/DL (6.4-8.2)
--- NOTE | 2020-12-07 09:06 | REP ---
INDICATION: r/o perf viscous COMPARISON: None. TECHNIQUE: Upright view of the chest with supine and upright views of the abdomen and pelvis. FINDINGS: Frontal upright view of the chest demonstrates free air below the left and right hemidiaphragms consistent with underlying pneumoperitoneum and bowel perforation. Correlation is required. No evidence for bowel obstruction. No organomegaly. Prior gastric bypass and cholecystectomy noted. No significant foreign body. Skeletal structures are intact. IMPRESSION: Evidence for pneumoperitoneum consistent with bowel perforation. No evidence for bowel obstruction. <Electronically signed by Gavin Pittman > 12/07/20 0902
--- NOTE | 2020-12-07 09:14 | ECGEPIP ---
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
[2020-12-07] MEDS ORDERED: MOXIFLOXACIN HCL 400 MG in IV 1 EA IV ONE (09:15)
[2020-12-07] MEDS ORDERED: MORPHINE 4 MG/ML 1ML VIAL/SYRINGE (J2270) IV PRN (09:15)
[2020-12-07] MEDS ORDERED: NS 1,000 ML IV SCH (09:30)
[2020-12-07] MEDS ORDERED: ROCURONIUM BROMIDE 50 MG/5 ML VIAL As Ordered ONE (09:59)
[2020-12-07] MEDS ORDERED: fentaNYL 100 MCG/2 ML INJECTION (J3010) As Ordered ONE ×2 (09:59→12:02)
[2020-12-07] MEDS ORDERED: LIDOCAINE 2% 100MG/5ML SDV (FOR ANES.) As Ordered ONE ×2 (09:59→10:09)
[2020-12-07] MEDS ORDERED: propofoL 200 MG/20 ML VIAL As Ordered ONE (09:59)
[2020-12-07] MEDS ORDERED: MIDAZOLAM INJ 2MG/2ML VIAL (J2250 PER 1MG) As Ordered ONE ×2 (10:00→11:29)
[2020-12-07] MEDS ORDERED: dexameTHASONE 4 MG/ML 1ML VIAL (J1100 PER 1MG) As Ordered ONE (10:00)
[2020-12-07] MEDS ORDERED: ONDANSETRON 4MG/2ML VIAL As Ordered ONE (10:00)
[2020-12-07] MEDS ORDERED: LACRILUBE (AKWA TEARS) OPHTH OINT 3.5 GM As Ordered ONE (10:07)
[2020-12-07] MEDS ORDERED: BUPIVACAINE/EPIN 0.25% 30 ML VIAL As Ordered ONE (10:19)
[2020-12-07 10:27] LABS: RSV AMPLIFICATION NEGATIVE (NEGATIVE)
[2020-12-07] MEDS ORDERED: ISOVUE-370 76% 100ML VIAL As Ordered ONE (10:29)
--- OUTSIDE RECORDS SUMMARY | 2020-12-07 10:41 | CCD ---
Author Author [facility] Organization [facility] Address Unknown Phone Unavailable Care Team Providers Care Motor Vehicle Light Assembler Name Role Phone Ahmed, Ohara Unavailable Unavailable [...] Ortiz MD Unavailable Unavailable Metzger, E Isabel CARPET OR RUG LAYER HELPER Unavailable Unavailable Metzger, E Isabel CARPET OR RUG LAYER HELPER Unavailable Unavailable Metzger, E Isabel CARPET OR RUG LAYER HELPER Unavailable Unavailable Metzger, E Isabel CARPET OR RUG LAYER HELPER Unavailable Unavailable Metzger, E Isabel CARPET OR RUG LAYER HELPER Unavailable Unavailable Metzger, E Isabel CARPET OR RUG LAYER HELPER Unavailable Unavailable Metzger, E Isabel CARPET OR RUG LAYER HELPER Unavailable Unavailable Metzger, E Isabel CARPET OR RUG LAYER HELPER Unavailable Unavailable Metzger, E Isabel CARPET OR RUG LAYER HELPER Unavailable Unavailable Metzger, E Isabel CARPET OR RUG LAYER HELPER Unavailable Unavailable Metzger, E Isabel CARPET OR RUG LAYER HELPER Unavailable Unavailable Metzger, E Isabel CARPET OR RUG LAYER HELPER Unavailable Unavailable Metzger, E Isabel CARPET OR RUG LAYER HELPER Unavailable Unavailable Metzger, E Isabel CARPET OR RUG LAYER HELPER Unavailable Unavailable Metzger, E Isabel CARPET OR RUG LAYER HELPER Unavailable Unavailable Metzger, E Isabel CARPET OR RUG LAYER HELPER Unavailable Unavailable Metzger, E Isabel CARPET OR RUG LAYER HELPER Unavailable Unavailable Metzger, E Isabel CARPET OR RUG LAYER HELPER Unavailable Unavailable Metzger, E Isabel CARPET OR RUG LAYER HELPER Unavailable Unavailable Metzger, E Isabel CARPET OR RUG LAYER HELPER Unavailable Unavailable Metzger, E Isabel CARPET OR RUG LAYER HELPER Unavailable Unavailable Metzger, E Isabel CARPET OR RUG LAYER HELPER Unavailable Unavailable Metzger, E Isabel CARPET OR RUG LAYER HELPER Unavailable Unavailable Metzger, E Isabel CARPET OR RUG LAYER HELPER Unavailable Unavailable Metzger, E Isabel CARPET OR RUG LAYER HELPER Unavailable Unavailable Metzger, E Isabel CARPET OR RUG LAYER HELPER Unavailable Unavailable Metzger, E Isabel CARPET OR RUG LAYER HELPER Unavailable Unavailable Metzger, E Isabel CARPET OR RUG LAYER HELPER Unavailable Unavailable Metzger, E Isabel CARPET OR RUG LAYER HELPER Unavailable Unavailable Metzger, E Isabel CARPET OR RUG LAYER HELPER Unavailable Unavailable Cyndi Sylvester MD Unavailable Unavailable [...] Unavailable Unavailable AMBRIZIbis Lizama MD Unavailable Unavailable AMBRIZIibs Lizama MD Unavailable Unavailable AMBRIZIbis BETTENCOURT MD [...] AMBRIZ MD Unavailable Unavailable Jumalon, M Hazel RECREATION PROFESSOR Unavailable Unavailable Jumalon, M Hazel RECREATION PROFESSOR Unavailable Unavailable Jumalon, M Hazel RECREATION PROFESSOR Unavailable Unavailable Jumalon, M Hazel RECREATION PROFESSOR Unavailable Unavailable Jumalon, M Hazel RECREATION PROFESSOR Unavailable Unavailable Jumalon, M Hazel RECREATION PROFESSOR Unavailable Unavailable Jumalon, M Hazel RECREATION PROFESSOR Unavailable Unavailable Jumalon, M Hazel RECREATION PROFESSOR Unavailable Unavailable Jumalon, M Hazel RECREATION PROFESSOR Unavailable Unavailable Jumalon, M Hazel RECREATION PROFESSOR Unavailable Unavailable Jumalon, M Hazel RECREATION PROFESSOR Unavailable Unavailable Jumalon, M Hazel RECREATION PROFESSOR Unavailable Unavailable Jumalon, M Hazel RECREATION PROFESSOR Unavailable Unavailable Jumalon, M Hazel RECREATION PROFESSOR Unavailable Unavailable Jumalon, M Hazel RECREATION PROFESSOR Unavailable Unavailable Jumalon, M Hazel RECREATION PROFESSOR Unavailable Unavailable Jumalon, M Hazel RECREATION PROFESSOR Unavailable Unavailable Jumalon, M Hazel RECREATION PROFESSOR Unavailable Unavailable Jumalon, M Hazel RECREATION PROFESSOR Unavailable Unavailable Jumalon, M Hazel RECREATION PROFESSOR Unavailable Unavailable Jumalon, M Hazel RECREATION PROFESSOR Unavailable Unavailable Jumalon, M Hazel RECREATION PROFESSOR Unavailable Unavailable Jumalon, M Hazel RECREATION PROFESSOR Unavailable Unavailable Jumalon, M Hazel RECREATION PROFESSOR Unavailable Unavailable Jumalon, M Hazel RECREATION PROFESSOR Unavailable Unavailable Jumalon, M Hazel RECREATION PROFESSOR Unavailable Unavailable Jumalon, M Hazel RECREATION PROFESSOR Unavailable Unavailable Jumalon, M Hazel RECREATION PROFESSOR Unavailable Unavailable Binh, P Lul DO Unavailable Unavailable Fishers, P Lul DO Unavailable Unavailable Fishers, P Lul DO Unavailable Unavailable Fishers, P Lul DO Unavailable Unavailable Binh, P Lul DO Unavailable Unavailable Binh, P Lul DO Unavailable Unavailable Fishers, P Lul DO Unavailable Unavailable Fishers, P Lul DO Unavailable Unavailable Fishers, P Lul DO Unavailable Unavailable Binh, P Lul DO Unavailable Unavailable Fishers, P Lul DO Unavailable Unavailable Fishers, P Lul DO Unavailable Unavailable Fishers, P Lul DO Unavailable Unavailable Fishers, P Lul DO Unavailable Unavailable Binh, P Lul DO Unavailable Unavailable Binh, P Lul DO Unavailable Unavailable Binh, P Lul DO Unavailable Unavailable Fishers, P Lul DO Unavailable Unavailable Binh, P Lul DO Unavailable Unavailable Binh, P Lul DO Unavailable Unavailable Fishers, P Lul DO Unavailable Unavailable Binh, P Lul DO Unavailable Unavailable Fishers, P Lul DO Unavailable Unavailable Fishers, P Lul DO Unavailable Unavailable Binh, P Lul DO Unavailable Unavailable Binh, P Lul DO Unavailable Unavailable Binh, P Lul DO Unavailable Unavailable Binh, P Lul DO Unavailable Unavailable Fishers, P Lul DO Unavailable Unavailable Fishers, P Lul DO Unavailable Unavailable Fishers, P Lul DO Unavailable Unavailable Fishers, P Lul DO Unavailable Unavailable Binh, P Lul DO Unavailable Unavailable Fishers, P Lul DO Unavailable Unavailable Fishers, P Lul DO Unavailable Unavailable Binh, P Lul DO Unavailable Unavailable Fishers, P Lul DO Unavailable Unavailable Binh, P Lul DO Unavailable Unavailable Fishers, P Lul DO Unavailable Unavailable Binh, P Lul DO Unavailable Unavailable Binh, P Lul DO Unavailable Unavailable VIANEY, Analia LOPES MD Unavailable Unavailable VIANEY, Analia LOPES MD Unavailable Unavailable VIANEY, Analia LOPES MD Unavailable Unavailable VIANEY, Analia LOPES MD Unavailable Unavailable VIANEY, Analia LOPES MD Unavailable Unavailable VIANEY, Anaila LOPES MD Unavailable Unavailable VIANEY, Analia LOPES [...] Unavailable BARBOZA, P GAVIN MD Unavailable Unavailable BRABOZA, P GAVIN MD Unavailable Unavailable BARBOZA, P GAVIN MD Unavailable Unavailable BARBOZA, P GAVIN MD Unavailable Unavailable BARBOZA, P GAVIN MD Unavailable Unavailable BARBOZA, P GAVIN MD Unavailable Unavailable BARBOZA, P GAVIN MD Unavailable Unavailable BARBOZA, P GAVIN MD Unavailable Unavailable BARBOZA, P GAVIN MD Unavailable Unavailable BABROZA, P GAVIN MD Unavailable Unavailable BARBOZA, P [...] is protected by Article 27-F of the [facility] Public Health law. If you continue you may have access to information: Regarding HIV / AIDS; Provided by facilities licensed or operated by the [facility] Office of Mental Health; or Provided by the [facility] Office for People With Developmental Disabilities. If such information is present, then the following [facility] mandated warning applies: This information has been [...] law may result in a fine or [place] sentence or both. A general authorization for the release of medical or other information is NOT sufficient authorization for further disc losure. Encounters Encounter Providers Location Date Indications Data Source(s ) Recurring Patient Attender: Isabel Metzger NPReferrer: MIGUEL BETTENCOURT MD 11/19/2020 11:06:45 AM EST [facility] Hazel Krzysztof Cadet, CARPET OR RUG LAYER HELPER: [id number] [facility] [address], [place] [address], Ph. Attender: Hazel Cadet [facility] - Main Office 11/03/2020 12:00:00 AM EST ATHE SENIA ([facility]) Gume Bhardwaj MD: [id number] [facility] [address] [facility] [place] [address], Ph. Attender: Gume Bhardwaj MD [place] - [facility] - Main Office 10/27/2020 12:00:00 AM EST LENNY ([facility]) Gume Bhardwaj MD: [id number] [address], [place] [address], Ph. Attender: Gume Bhardwaj MD [place] - [facility] - Main Office 10/27/2020 12:00:00 AM EST [facility]EN[facility] ([facility]) Recurring Patient Attender: Isabel Metzger NPReferrer: MIGUEL BETTENCOURT MD 10/26/2020 10:36:01 AM EST [facility] Outpatient Attender: Guerrero CHANG 10/19 10:20:00 AM EST - 10/19/2020 10:20:00 AM EST [facility] Outpatient Attender: MARIANNE WINTERS MD [id number] 2019 02:55:01 PM EST - 10/12/2020 03:31:04 PM EST [facility] Outpatient Attender: Lul Purcell DOConsultant: Camryn Purcell DO [id number] 10/09/2020 01:48:23 PM EST - 10/09/2020 02:37:55 PM EST [facility] OFFICE OUTPATIENT NEW 30 MINUTES Attender: Prabhu Loo MD Physic al Therapy 10/07/2020 08:30:00 AM EST [facility] ([facility]) Outpatient 08/20/2020 12:00:[address] [facility] Outpatient Attender: WILBUR CHENG CNM 08/20/2020 12:00:[address] [facility] Outpatient Attender: WILBUR CHENG CNM 08/11/2020 12:00:[address] [facility] Outpatient Attender: WILBUR CHENG CNM 07/20/2020 12:00:[address] [facility] Outpatient Attender: Cyndi Sylvester MD [id number] 07/08/2020 12:00:00 AM EDT - 07/08/2020 10:46:[address] [facility] Emergency Attender: ALETHA LICONA MD [id number] 05/20 11:54:00 AM EDT - 05/31/2020 02:56:00 PM EDT [facility] Patient discharged. Outpatient Attender: Ortiz Saleem MD [id number] 12:00:00 AM EDT - 02/27/2020 01:12:04 PM EDT [facility] Outpatient Attender: Cyndi Sylvester MDAttender: Ortiz Saleem MDReferrer: Cyndi Sylvester MD [id number] 02/18/2020 12:00:00 AM EDT [facility] Outpatient Attender: Cyndi NOVAK 02/13/2020 12:26:54 PM EDT - 02/13/2020 02:16:[address] [facility] Emergency Attender: Lev Crowder [id number] 0 09:08:00 AM EDT - 02/08/2020 01:23:00 PM EDT [facility] Patient discharged. Outpatient Attender: Ferdinand Menchaca MD 01/28/2020 12:00:[address] [facility] Outpatient Attender: Cyndi NOVAK 01/27/2020 08:49:25 AM EDT - 01/27/2020 09:42:[address] [facility] Outpatient 01/20/2020 12:00:00 AM [facility] Outpatient Admitter: GVAIN BARBOZA MDReferrer: GAVIN CLARK MD [id number] 01/08/2020 10:03:13 AM EST [facility] Outpatient Attender: Cyndi NOVAK 01/02/2020 09:19:17 AM EST - 01/02/2020 11:05:[address] [facility] Outpatient Admitter: GAVIN BARBOZA MDReferrer: GAVIN LIEBERMAN.CCN 11/20/2019 12:00:00 AM EST [facility] Outpatient Admitter: GAVIN BARBOZA MDReferrer: GAVIN LIEBERMAN.CCN 10/20/2019 12:00:00 AM EST [facility] Immunizations Vaccine Date Status Description Data Source(s) TB Skin test is not vaccine. 10/09/2020 12:00:00 AM EST completed PPD Test 10/09/2020, 10/03/2018 [facility] Medications Medication Brand Name Start Date Product [...] a day as needed for muscle spasms [facility] 24 HR Bupropion Hydrochloride 150 MG Ext ended Release Oral Tablet buPROPion (WELLBUTRIN XL) 150 MG 24 hr tablet buPROPion (WELLBUTRIN XL) 150 MG 24 hr tablet 07/08/2020 12:00:00 AM EDT 150 mg Oral active Take 1 tablet (150 mg total) by mouth daily [facility] lidocaine (LIDODERM) 5 % 6443-6148-14 07/08/2020 12:00:00 AM EDT 1 {patch} Transdermal active Place 1 patch on the skin daily Remove & Discard patch within 12 hours or as directed by [facility] buspirone hydrochloride 7.5 MG Oral Tablet busPIRone ( BUSPAR) 7.5 MG tablet busPIRone (BUSPAR) 7.5 MG tablet 02/13/2020 12:00:00 AM EDT 7.5 mg Oral active Take 1 tablet (7.5 mg total) by mouth 3 (three) times a day [facility] sodium chloride 0.9% (NS) bolus 1,000 mL [id number] 02/08/2020 11:00:00 AM EDT 1000 mL Intravenous completed 1, 000 mL, Intravenous, Administer over 1 Hours, Once, 02/08/20 at 1100, For 1 dose [facility] Medication administered onsite Acetaminophen 325 MG / Hydrocodone Sara trate 5 MG Oral Tablet HYDROcodone- acetaminophen (NORCO) 5-325 MG per tablet 1 tablet HYDROcodone-acetaminophen (NORCO) 5-325 MG per tablet 1 tablet 02/08/2020 10:35:00 AM EDT 1 { tbl} Oral completed 1 tablet, Oral, Once, 02/08/20 at 1035, For 1 dose [facility] Medication administered onsite Sulfamethoxazole 800 MG / [...] (BACTRIM) 800-160 mg tabs (1tab q12 D10) [facility] tramadol hydrochloride 50 MG Oral Tablet traMADol (ULT MARILY) 50 MG tablet traMADol (ULTRAM) 50 MG tablet 02/08/2020 12:00:00 AM EDT 50 mg Oral active Take 1 tablet (50 mg total) by mouth every 6 (six) hours as needed for pain Max Daily Amount: 200 mg [facility] Cholecalciferol 42734 UNT Oral Capsule C holecalciferol (VITAMIN D3) 1.25 MG (70193 UT) CAPS Cholecalciferol (VITAMIN D3) 1.25 MG (25592 UT) CAPS 0 01/07/2020 12:00:00 AM EST 08558 U Oral active Take 1 capsule (50,000 Units total) by mouth once a week [facility] albuterol (PROVENTIL HFA) 108 (90 Base) MCG/ACT inhaler [id number] -[id number] 01/02/2020 12:00:00 AM EST 2 {puff} Inhalation active Mil d intermittent asthma without complication Inhale 2 puffs every 4 (four ) hours as needed for wheezing or shortness of breath [facility] Mild intermittent asthma without complic ation Ibuprofen 600 MG Oral Tablet ibuprofen (ADVIL,MOTRIN) 600 MG tablet ibuprofen (ADVIL,MOTRIN) 600 MG tablet 01/02/2020 12:00:00 AM EST 600 mg Oral active Take 1 tablet (600 mg total) by mouth every 30 (thirty) days [facility] ferrous sulfate 325 MG Oral Tablet Ferrous Sulfate (IR ON) 325 (65 Fe) MG TABS Ferrous Sulfate (IRON) 325 (65 Fe) MG TABS 01/02/2020 12:00:00 AM EST 325 mg Oral active Take 1 tablet (325 mg total) by mouth 2 (two) times a day with meals [facility] calcium citrate-vitamin D (CALCIUM + D) 315-200 MG-UNIT per tablet [id number] 01/02/2020 12:00:00 AM EST 1 {tbl} Oral active Take 1 tablet by mouth daily [facility] Ascorbic Acid 500 MG Oral Capsule Ascorbic Acid (VITAM IN C) 500 MG CAPS Ascorbic Acid (VITAMIN C) 500 MG CAPS 01/02/2020 12:00:00 AM EST 1 {capsule} Or al active Take 1 capsule by mouth Daily sl iding scale [facility] Vit-Fe Fumarate-FA ( MULTIVITAMIN) 27-1 MG TABS 01/02/2020 12:00:00 AM EST 1 {tbl} Oral active Take 1 tablet by mouth daily [facility] Cholecalciferol 75304 UNT Oral Capsule c holecalciferol (vitamin D3) 1,250 mcg (50,000 unit) capsule cholecalciferol (vitamin D3) 1,250 mcg ( 50,000 unit) capsule completed cholecalcifero l 1.25 MG Oral Capsule LENNY ([facility]) Fluconazole 150 MG Oral Tablet fluconazole 150 mg tabl et fluconazole 150 mg tablet completed fluconazole 150 MG Oral Tablet LENNY ([facility]) Permethrin 50 MG/ML Topical Cream permethrin 5 % topic al cream permethrin 5 % topical cream completed permethr in 50 MG/ML Topical Cream LENNY ([facility]) Clindamycin 300 MG Oral Capsule clindamycin HCl 300 mg capsule clindamycin HCl 300 mg capsule completed clindam ycin 300 MG Oral Capsule LENNY ([facility]) Clindamycin 150 MG Oral Capsule clindamycin HCl 150 mg capsule clindamycin HCl 150 mg capsule completed clindam ycin 150 MG Oral Capsule LENNY ([facility]) Cyclobenzaprine hydrochloride 10 MG Oral Tablet cyclob enzaprine 10 mg tablet cyclobenzaprine 10 mg tablet completed cyclobenzaprine hydrochloride 10 MG Oral Tablet LENNY ([facility]) tramadol hydrochloride 50 MG Oral Tablet tramadol 50 mg tablet take 1 tablet by mouth every 6 hours if needed for pain tramadol 50 mg tablet take 1 tablet by mouth every 6 hours if needed for pain completed tramadol hydrochloride 50 MG Oral Tablet LENNY ([facility]) Clindamycin 150 MG Oral Capsule clindamycin HCl 150 mg capsule clindamycin HCl 150 mg capsule completed clindam ycin 150 MG Oral Capsule LENNY ([facility]) 24 HR Bupropion Hydrochloride 150 MG Ext ended Release Oral Tablet bupropion HCl XL 150 mg 24 hr tablet, extended release take 1 tablet by mouth once daily bupropion HCl XL 150 mg 24 hr tablet, extended release take 1 tablet by mouth once daily completed 24 HR bupropion hydrochloride 150 MG Extended Release Oral Tablet LENNY ([facility]) NITROFURANTOIN, MACROCRYSTALS 25 MG / Ni trofurantoin, Monohydrate 75 MG Oral Capsule nitrofurantoin monohydrate/macrocrystals 100 mg capsule nitrofurantoin monohydrate/macrocrystals 100 mg capsule completed nitrofurantoin, macrocrystals 25 MG / nitrofurantoin, monohydrate 75 MG Oral Capsule LENNY ([facility]) Lidocaine Hydrochloride 20 MG/ML Mucous Membrane Topical Solution Lidocaine Viscous 2 % mucosal solution Lidocaine Viscous 2 % mucosal solution completed lidocaine hydrochloride 20 MG/ML Mucous Membrane Topical Solution LENNY ([facility]) 24 HR Bupropion Hydrochloride 150 MG Ext ended Release Oral Tablet bupropion HCl XL 150 mg 24 hr tablet, extended release take 1 tablet by mouth once daily bupropion HCl XL 150 mg 24 hr tablet, extended release take 1 tablet by mouth once daily completed 24 HR bupropion hydrochloride 150 MG Extended Release Oral Tablet [facility]NY ([facility]) albuterol sulfate HFA 90 mcg/actuation aerosol inhaler [id number] completed [id number] 200 ACTUAT albuterol 0.09 MG/ACTUAT Metered Dose Inhaler LENNY ([facility]) NITROFURANTOIN, MACROCRYSTALS 25 MG / Ni trofurantoin, Monohydrate 75 MG Oral Capsule nitrofurantoin monohydrate/macrocrystals 100 mg capsule nitrofurantoin monohydrate/macrocrystals 100 mg capsule completed nitrofurantoin, macrocrystals 25 MG / nitrofurantoin, monohydrate 75 MG Oral Capsule [facility] ([facility]) Naproxen 500 MG Oral Tablet naproxen 500 mg tablet naproxen 500 mg ta blet completed naproxen 500 MG Oral Tablet [facility] ([facility]) chlorhexidine gluconate 1.2 MG/ML Mouthw juan josé chlorhexidine gluconate 0.12 % mouthwash chlorhexidine gluconate 0.12 % mouthwash completed chlorhexidine gluconate 1.2 MG/ML Mouthwash LENNY ([facility]) Ascorbic Acid 500 MG Oral Tablet Vitamin C 500 mg tabl et TAKE 1 TABLET DAILY Vitamin C 500 mg tablet TAKE 1 TABLET DAILY completed ascorbic acid 500 MG Oral Tablet [facility] ([facility]) Fluconazole 150 MG Oral Tablet fluconazole 150 mg tabl et fluconazole 150 mg tablet completed fluconazole 150 MG Oral Tablet [facility] ([facility]) Sulfamethoxazole 800 MG / Trimethoprim 1 60 MG Oral Tablet sulfamethoxazole 800 mg-trimethoprim 160 mg tablet sulfamethoxazole 800 mg-trimethoprim 160 mg tablet completed sulfame thoxazole 800 MG / trimethoprim 160 MG Oral Tablet LEN[facility] ([facility]) ferrous sulfate 325 MG Oral Tablet ferrous sulfate 325 mg (65 mg iron) tablet ferrous sulfate 325 mg (65 mg iron) tablet completed ferrous sulfate 325 MG Oral Tablet [facility] ([facility]) Lidocaine Hydrochloride 20 MG/ML Mucous Membrane Topical Solution Lidocaine Viscous 2 % mucosal solution Lidocaine Viscous 2 % mucosal solution completed lidocaine hydrochloride 20 MG/ML Mucous Membrane Topical Solution LENNY ([facility]) Clindamycin 300 MG Oral Capsule clindamycin HCl 300 mg capsule clindamycin HCl 300 mg capsule completed clindam ycin 300 MG Oral Capsule [facility] ([facility]) Ibuprofen 600 MG Oral Tablet ibuprofen 600 mg tablet ibuprofen 6 00 mg tablet completed ibuprofen 600 MG Oral Tablet [facility] ([facility]) Acetaminophen 325 MG / Hydrocodone Sara trate 5 MG Oral Tablet hydrocodone 5 mg- acetaminophen 325 mg tablet hydrocodone 5 mg-acetaminophen 325 mg tablet completed acetaminophen 325 MG / hydrocodone bitartrate 5 MG Oral Tablet [facility] ([facility]) Sulfamethoxazole 800 MG / Trimethoprim 1 60 MG Oral Tablet sulfamethoxazole 800 mg-trimethoprim 160 mg tablet sulfamethoxazole 800 mg-trimethoprim 160 mg tablet completed sulfame thoxazole 800 MG / trimethoprim 160 MG Oral Tablet [facility] ([facility]) Naproxen 500 MG Oral Tablet naproxen 500 mg tablet naproxen 500 mg ta blet completed naproxen 500 MG Oral Tablet [facility] ([facility]) Ibuprofen 600 MG Oral Tablet ibuprofen 600 mg tablet ibuprofen 6 00 mg tablet completed ibuprofen 600 MG Oral Tablet [facility] ([facility]) Permethrin 50 MG/ML Topical Cream permethrin 5 % topic al cream permethrin 5 % topical cream completed permethr in 50 MG/ML Topical Cream [facility] ([facility]) albuterol sulfate HFA 90 mcg/actuation aerosol inhaler [id number] completed [id number] 200 ACTUAT albuterol 0.09 MG/ACTUAT Metered Dose Inhaler LENNY ([facility]) tramadol hydrochloride 50 MG Oral Tablet tramadol 50 mg tablet take 1 tablet by mouth every 6 hours if needed for pain tramadol 50 mg tablet take 1 tablet by mouth every 6 hours if needed for pain completed tramadol hydrochloride 50 MG Oral Tablet [facility] ([facility]) Ascorbic Acid 500 MG Oral Tablet Vitamin C 500 mg tabl et TAKE 1 TABLET DAILY Vitamin C 500 mg tablet TAKE 1 TABLET DAILY completed ascorbic acid 500 MG Oral Tablet [facility] ([facility]) Acetaminophen 325 MG / Hydrocodone Sara trate 5 MG Oral Tablet hydrocodone 5 mg- acetaminophen 325 mg tablet hydrocodone 5 mg-acetaminophen 325 mg tablet completed acetaminophen 325 MG / hydrocodone bitartrate 5 MG Oral Tablet [facility] ([facility]) Phenazopyridine hydrochloride 200 MG Ora l Tablet phenazopyridine 200 mg tablet TAKE 1 TABLET BY MOUTH THREE TIMES DAILY FOR 2 DAYS phenazopyridine 200 mg tablet TAKE 1 TABLET BY MOUTH THREE TIMES DAILY FOR 2 DAYS completed phenazopyridine hydrochloride 20 0 MG Oral Tablet [facility]EN[facility] ([facility]) ferrous sulfate 325 MG Oral Tablet ferrous sulfate 325 mg (65 mg iron) tablet ferrous sulfate 325 mg (65 mg iron) tablet completed ferrous sulfate 325 MG Oral Tablet [facility] ([facility]) Phenazopyridine hydrochloride 200 MG Ora l Tablet phenazopyridine 200 mg tablet TAKE 1 TABLET BY MOUTH THREE TIMES DAILY FOR 2 DAYS phenazopyridine 200 mg tablet TAKE 1 TABLET BY MOUTH THREE TIMES DAILY FOR 2 DAYS completed phenazopyridine hydrochloride 20 0 MG Oral Tablet [facility] ([facility]) Cyclobenzaprine hydrochloride 10 MG Oral Tablet cyclob enzaprine 10 mg tablet cyclobenzaprine 10 mg tablet completed cyclobenzaprine hydrochloride 10 MG Oral Tablet [facility] ([facility]) Cholecalciferol 33530 UNT Oral Capsule c holecalciferol (vitamin D3) 1,250 mcg (50,000 unit) capsule cholecalciferol (vitamin D3) 1,250 mcg ( 50,000 unit) capsule completed cholecalcifero l 1.25 MG Oral Capsule LENNY ([facility]) chlorhexidine gluconate 1.2 MG/ML Mouthw juan josé chlorhexidine gluconate 0.12 % mouthwash chlorhexidine gluconate 0.12 % mouthwash completed chlorhexidine gluconate 1.2 MG/ML Mouthwash [facility] ([facility]) Insurance Providers Payer name Policy type / Coverage type Policy ID Covered democrat ID Covered democrat's relationship to [place] Policy [place] Plan Information EMEDNY [id number] SP [id number] COMMITED HOME CARE [id number] SP [id number] [facility] Medicaid D [id number] SELF [id number] SNYDER [id number] Fozia [id number] MEDICAID [id number] Fozia [id number] 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 [id number] 18 [id number] COMMITTED HOME CARE [id number] SP [id number] SELF PAY ONLY [id number] SP [id number] WORKERS COMPENSATION GENERIC W [id number] Empl [id number] [facility]DER HE[facility]CARE I [id number] Self [id number] MEDICAID [id number] SNYDER [id number] COMMITED HOME CARE [id number] SP [id number] SNYDER [id number] Fozia [id number] SNYDER [id number] SNYDER [id number] Fozia [id number] MEDICAID [id number] Fozia [id number] [facility] HEA [id number] S [id number] TOTAL CARE MEDICAID/SNYDER [id number] Fozia [id number] TOTAL CARE MEDICAID/SNYDER [id number] Fozia [id number] [facility] I [id number] Self CB [id number] MEDICAID GME [id number] S [id number] MEDICAID PI PI TOTAL CARE MEDICAID/SNYDER PI PI STPP Wrap [id number] [facility] [id number] M [id number] NO FAULT [id number] Fozia [id number] HEALTHDinnr IPA INC DENTAL [id number] Fozia [id number] NO FAULT PI PI HEALTHPLEX IPA INC DENTAL PI PI UNAVAILABLE UNAVAILA BLE MEDICAID HEALTH MAINTENANCE ORGANIZATION HEA UNAVAILABLE UNAVAILABLE TOTAL CARE HEA [id number] TOTAL CARE I [id number] Self [id number] TOTAL CARE MEDICAID [id number] Fozia [id number] HEALTHPLEX IPA INC DENTAL [id number] Fozia [id number] Totalcare Medicaid F [id number] SELF C [id number] Total Care [id number] Totalcare Medicaid F [id number] SELF C [id number] MEDICAID GME W [id number] S [id number] C TOTAL CARE W [id number] S [id number] MEDICAID [id number] Fozia [id number] MEDICAID [id number] Fozia [id number] HEALTHPLEX IPA INC DENTAL [id number] Fozia [id number] SELF PAY 2 UNAVAILABLE 1 UNAVAILA BLE PCAP PENDING 2 [id number] [place] MEDICAID 2 [id number] 1 [id number] MEDICAID [facility] 3 [id number] TOTAL CARE MEDICAID 2 [id number] MEDICAID [facility] 3 [id number] PCAP PENDING 2 [id number] SELF PAY 2 UNAVAILABLE UNAVAILA BLE Problems, Conditions, and Diagnoses Code Display Name Description Problem Type Effective Dates Data Source(s) Z11.1 Encounter for screening for respiratory tuberculosis Encounter for screening for respiratory Diagnosis 10/12/2020 02:55:01 PM EST [facility] Z02.1 Encounter for pre-employment examination Encounter for pre-employment examination Diagnosis 10/09/2020 01:48:23 PM EST [facility] M51.36 Other intervertebral disc degeneration, lumbar region Other intervertebral disc degeneration, Diagnosis 07/08/2020 09:48:58 AM EDT [facility] M50.30 Other cervical disc degeneration, unspec ified cervical region Other cervical disc degeneration, unspec Diagnosis 07/08/2020 09:48:58 AM ED T [facility] N93.9 Abnormal uterine and vaginal bleeding, u nspecified Abnormal uterine and vaginal bleeding, u Diagnosis 05/31/2020 12:40:57 PM EDT [facility] M54.32 Sciatica, left side Sciatica, left side Diagnosis 0 05/31/2020 12:40:57 PM EDT [facility] Z48.89 Encounter for other specified surgical a ftercare Encounter for other specified surgical a Diagnosis 02/27/2020 12:19:46 PM EDT [facility] T81.49XA Infection following a proced ure, other surgical site, initial encounter Infection following a procedure, other s Diagnosis 020 01:07:26 PM EDT [facility] T81.49XA Infection following a proced ure, other surgical site, initial encounter Infection following a procedure, other s Diagnosis 020 12:26:54 PM EDT [facility] F41.9 Anxiety disorder, unspecified Anxiety disorder, unspec ified Diagnosis 02/13/2020 12:26:54 PM EDT [facility] Z48.03 Encounter for change or removal of drain s Encounter for change or removal of drain Diagnosis 02/08/2020 09:18:27 AM EDT [facility] Z51.89 Encounter for other specified aftercare Encounter for other specified aftercare Diagnosis 02/08/2020 09:18:27 AM EDT [facility] N89.8 Other specified noninflammatory disorder s of vagina Other specified noninflammatory disorder Diagnosis 01/27/2020 08:49:25 AM EDT [facility] Practices Z13.6 Encounter for screening for cardiovascul ar disorders Encounter for screening for cardiovascul Diagnosis 01/02/2020 09:19:17 AM EST [facility] Z13.21 Encounter for screening for nutritional disorder Encounter for screening for nutritional Diagnosis 01/02/2020 09:19:17 AM [facility] F32.9 Major depressive disorder, single episod e, unspecified Major depressive disorder, single episod Diagnosis 01/02/2020 09:19:17 AM [facility] K21.9 Gastro-esophageal reflux disease without esophagitis Gastro-esophageal reflux disease without Diagnosis 01/02/2020 09:19:17 AM [facility] Z98.84 Bariatric surgery status Bariatric surgery status Diag nosis 01/02/2020 09:19:17 AM [facility] J45.20 Mild intermittent asthma, uncomplicated Mild intermittent asthma, uncomplicated Diagnosis 01/02/2020 09:19:17 AM [facility] Z00.00 Encounter for general adult medical examination without abnormal findings Encounter for general adult medical exam Diagnosis 020 09:19:17 AM [facility] Surgeries/Procedures Procedure Description Date Indications Data Source(s) MRI, lumbar spine, w/o contrast 10/27/2020 12:00:00 AM EST [facility] ([facility]) MRI, cervical spine, w/o contrast 10/27/2020 12:00:00 AM EST [facility] ([facility]) DUP-SCAN XTR VEINS UNILATERAL/LIMITED STUDY US LOWER EXTREM ITY VENOUS LEFT STAT 05/31/2020 1:40 PM EDT 05/31/2020 05:40:38 PM EDT [facility] BLOOD COUNT COMPLETE AUTO&AUTO DIFRNTL WBC COUNT CBC AND DIFFER ENTIAL STAT 05/31/2020 1:20 PM EDT 05/31/2020 05:20:00 PM EDT [facility] GONADOTROPIN CHORIONIC QUANTITATIVE HCG, QUANTITATIVE, PREGNANC Y STAT 05/31/2020 1:20 PM EDT 05/31/2020 05:20:00 PM EDT [facility] BASIC METABOLIC PANEL CALCIUM TOTAL BASIC METABOLIC PANEL STAT 05/31/2020 1:20 PM EDT 05/31/2020 05:20:00 PM EDT [facility] GLUC BLD GLUC MNTR DEV CLEARED FDA SPEC HOME USE POCT GLUCOSE Routine 02/08/2020 10:29 AM EDT 02/08/2020 02:29:00 PM EDT [facility] Results ID Date Data Source [id number] 10/21/2020 09:14:00 AM EST [facility] [address] [place] [address] PHONE: [phone] FAX: [phone] Name .................. : FAIZA SOUZA Acct Number.................. : [id number] ROOM. ................. : MR Number ................... : [id number] Stay type ............. : CLINIC Discharge Date......... ... : 10/19/20 Admit Date ...... ... : 10/19/20 Admit Phys .................... : ORIANA WHITEHEAD Date of ....... : 1990 Family Phys ................... : Phone .................. : [phone] Age ................................ : 30 Film# .................. .:[id number] Sex ................................. : F Unsigned transcriptions are preliminary reports and do not represent a medical or legal document SPINE CERVICAL AP & LAT 62673 COMPLETE:10/19/20 12:15 CALEB 02763 (SPINE PROC REASON: CERVICALGIA CERVICAL SPINE SERIES: HISTORY: Cervicalgia. FINDINGS: There is some slight loss of the normal cervical lordosis. There is otherwise normal alignment and position of the bones with no significant pathology identified. IMPRESSION: No acute pathology noted. Electronically Reviewed and Signed By JOSE LOPEZ MD , 10/21/20 09:14, [facility] Transcribe Initials: DZ , Transcribe Date: 10/19/20 21:33, Dictation Date: Page 1 of 1 Name Value Range Interpretation Code Description Data Dayana rce(s) Supporting Document(s) ID Date Data Source [id number] 10/20/2020 09:39:00 AM EST [facility] [address] [place] [address] PHONE: [phone] FAX: [phone] Name .................. : FAIZA SOUZA Acct Number.................. : [id number] ROOM. ................. : Number ................... : [id number] Stay type ............. : CLINIC Discharge Date......... ... : 10/19/20 Admit Date ...... ... : 10/19/20 Admit Phys .................... : ORIANA WHITEHEAD Date of ....... : 1990 Family Phys ................... : Phone .................. : [phone] Age ................................ : 30 Film# .................. .:[id number] Sex ................................. : F Unsigned transcriptions are preliminary reports and do not represent a medical or legal document SPINE LS AP & LAT 81122 COMPLETE:10/19/20 12:15 CALEB 59620 (SPINE PROC REASON: CERVICALGIA LUMBAR SPINE SERIES: [...] rce(s) Supporting Document(s) ID Date Data Source [id number] 10/15/2020 05:04:17 PM EST [facility]FORMATIONPatient MRN Name Date of Age Gend*PT [id number] Harley Rutherford 1990 30 years F ---PT Location Admission Date/Time Visit ID Attending Provider --- --- --- --- EPI ID CSN Admitting Provider [id number] ---Assessment/Plan:Diagnoses and all orders for this visit:Encounter for PPD skin test reading (Primary)Negative PPDSigned paperworkFollow Up Return for Next scheduled follow up.Subjective:Patient ID: Harley Rutherford is a 30 years female.Patient presetns today for a PPD reading.HPIPPD Reading NotePPD read and results entered in [employer].Result: 0 mm induration.Interpretation: negative PPDIf test not [...] rce(s) Supporting Document(s) ID Date Data Source [id number] 10/09/2020 04:26:17 PM EST [facility] INFORMATIONPatient MRN Name Date of Age Gend*PT [id number] Harley Rutherford 1990 30 years F ---PT Location Admission Date/Time Visit ID Attending Provider --- --- --- --- EPI ID CSN Admitting Provider [id number] ---Assessment/Plan:Diagnoses and all orders for this visit:Pre-employment health screening examination (Primary) - 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 Paperwork done. PPD placed. 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 She needs a ppd placed.The following [...] rce(s) Supporting Document(s) ID Date Data Source [id number] 10/07/2020 11:12:00 AM EST [facility] ([facility]) Name Value Range Interpretation Code Description Data Dayana rce(s) Supporting Document(s) Lyme Disease IgG/IgM Antibodie Laboratory test result 0.00-0.90 [facility] ([facility]) <content>Negative <0.91</content >
<content>Equivocal 0.91 - 1.09</content>
<content>Positive >1.09</content>
<content></content> Lyme Disease IgM Ab Quantitati Laboratory test result 0.00-0.79 [facility] ([facility]) <content>Negative <0.80</content >
<content>Equivocal 0.80 - 1.19</content>
<content>Positive >1.19</content>
<content>.</content>
<content>IgM levels may peak at 3-6 weeks post infection, then</content>
<content>gradually decline.</content>
<content></content> ID Date Data Source [id number] 10/07/2020 11:12:00 AM EST [facility] ([facility]) Name Value Range Interpretation Code Description Data Dayana rce(s) Supporting Document(s) Erythrocyte sedimentation rate by Westergren method 17 mm/hr 0-20 [facility] ([facility]) C reactive protein [Mass/volume] in Serum or Plasma by High sensitivity method 0.41 mg/dL 0.00-0.30 [facility] ([facility]) ID Date Data Source [id number] 10/07/2020 11:12:00 AM EST [facility] ([facility]) Name Value Range Interpretation Code Description Data Dayana rce(s) Supporting Document(s) Antinuclear Antibodies Direct Laboratory test result [facility] ([facility]) Performed at: RN - [facility] [address] [id number] Capacity Management Specialist: Michelle Metzger MD, Phone: [phone] ID Date Data Source [id number] 10/07/2020 11:12:00 AM EST [facility] ([facility]) Name Value Range Interpretation Code Description Data Dayana rce(s) Supporting Document(s) Rheumatoid factor [Units/volume] in Serum or Plasma Laboratory test result [facility] ([facility]) ID Date Data Source [id number] 10/07/2020 11:12:00 AM EST [facility] ([facility]) Name Value Range Interpretation Code Description Data Dayana rce(s) Supporting Document(s) Red Blood Count 4.41 10 4.00-5.40 [facility] ([facility]) White Blood Count 6.7 10 4.0-10.0 [facility] ([facility]) Hematocrit 37.1 % 36.0-47.0 [facility] ([facility]) Mean Corpuscular Volume 84.1 fl 80.0-96.0 M [facility] ([facility]) Hemoglobin 11.2 g/dL 12.0-15.5 [facility] ([facility]) Mean Corpuscular HGB Conc 30.2 g/dL 32.0-36.5 [facility] ([facility]) Red Cell Distribution Width 13.6 % 11.5-14.5 [facility] ([facility]) Mean Corpuscular Hemoglobin 25.4 pg 27.0-33.0 [facility] ([facility]) Lymph % 28.3 % 24.0-44.0 [facility] ([facility]) Platelet Count, Automated 270 10 150-450 [facility] ([facility]) Neutrophils % 61.8 % 36.0-66.0 [facility] ([facility]) [place] % 8.2 % 0.0-5.0 [facility] ([facility]) Eos % 1.2 % 0.0-3.0 [facility] ([facility]) Nucleated Red Blood Cell % 0.0 % 0-0 [facility] ([facility]) Immature Granulocyte % 0.1 % 0-3.0 [facility] ([facility]) Baso % 0.4 % 0.0-1.0 [facility] ([facility]) [place] # 0.6 10 0.0-0.8 [facility] ([facility]) Neutrophils # 4.2 10 1.5-8.5 [facility]) Lymph # 1.9 10 1.5-5.0 [facility] Eos # 0.1 10 0.0-0.5 [facility] Baso # 0.0 10 0.0-0.2 [facility]) ID Date Data Source [id number] 09/29/2020 12:00:00 AM EST [facility] Name Value Range Interpretation Code Description Data Dayana rce(s) Supporting Document(s) SARS coronavirus 2 RNA [Presence] in Res piratory specimen by CHEY with probe detection [facility] This lab was ordered by Althea Villavicencio and reported by [employer]. ID Date Data Source [id number] 06/02/2020 08:49:39 AM EDT [facility] INFORMATIONPatient MRN Name Date of Age Gend*PT [id number] Harley Rutherford 1990 29 years F EDPT Location Admission Date/Time Visit ID Attending [id number] 05/31/20 1240 --- --- EPI ID CSN Admitting Provider [id number] ---Provider in Triage NotesNo notes on fileHistory [...] time.PCP- Cyndi Sylvester MDHistory provided by: PatientLanguage translator interpreter used: Mitch Medical History:Diagnosis Date Adverse effect [...] MICROSCOPE ; Surgeon: Miguel Ambriz MD; Location: [facility];Service: Spine; Laterality: Bilateral; BARIATRIC SURGERY SECTION SECTION [...] rce(s) Supporting Document(s) ID Date Data Source [id number] 05/31/2020 01:48:37 PM EDT [address] [address]Lkvcrxn Name: HARLEY RUTHERFORDDOB: 1990Sex: FOrdering Provider: ALETHA LICONAAuthorizing Prov: ALETHA LICONAReferring Provider: Procedure Performed: US LOWER EXTREMITY VENOUS LEFTExam Date: 05/31/2020 13:40MRN: [id number] Number: [id number] Class: EmergencyAccount #: [id number] for Exam: left leg swelling and painTechnique: Duplex sonography was performed.Comparison: NoneFINDINGS:The common femoral vein, superficial femoral vein, and popliteal veins are patent and compressible.The calf veins are unremarkableIMPRESSION:1. No deep vein thrombosis identified.Report electronically signed by: SEBASTIAN MOSQUEDA On 05/31/2020 1:48 PMWorkstation ID: [id number] Name Value Range Interpretation Code Description Data Dayana rce(s) Supporting Document(s) ID Date Data Source [id number] 05/31/2020 02:44:08 PM EDT [facility] Name Value Range Interpretation Code Description Data Dayana rce(s) Supporting Document(s) HCG,QUANT PREG <1 mU/mL [facility] INTERPRETATION:LESS THAN 6 NEGATIVE 6 - 10 BORDERLINE (SUGGEST REPEAT IN 48 HOURS) APPROX HCG RANGE WEEKS POST LMP 11 - 130 3 - 4 WEEKS 75 - 2600 4 - 5 WEEKS 850 - 39679 5 - 6 WEEKS 4000 - 526596 6 - 7 [id number] - [id number] 7 - 12 [id number] - [id number] 12 - 16 WEEKS 1400 - 46507 16 - 29 WEEKS 940 - 42741 29 - 41 WEEKS ID Date Data Source [id number] 05/31/2020 02:14:48 PM EDT [facility] Name Value Range Interpretation Code Description Data Dayana rce(s) Supporting Document(s) SODIUM 140 mmol/L (136-145) [facility] POTASSIUM 3.7 mmol/L (3.6-5.2) [facility] CHLORIDE 107 mmol/L (100-108) [facility] CO2 30 mmol/L (22-31) [facility] ANION GAP 3 mmol/L (7-16) L [facility] UREA NITROGEN 12 mg/dL (7-24) [facility] CREATININE 0.78 mg/dL (0.60-1.00) [facility] BUN/CREAT RATIO 15.4 RATIO (10.0-20.0) [facility] GLUCOSE 71 mg/dL (70-99) [facility] CALCIUM 8.9 mg/dL (8.4-10.2) [facility] GFR >60 ml/min/1.73m2 (>59) [facility] GFR ( AMER) >60 ml/min/1.73m2 (>59) [facility] GFR INTERPRETATION [facility] --NORMAL KIDNEY FUNCTION OR MILD DISEASE - GFR >OR= 60CHRONIC KIDNEY DISEASE - GFR 15 - 59RENAL FAILURE - GFR <15 Est. GFR calculation based on the MDRDstudy equation, which assumes a steadystate for creatinine. Est. GFR should notbe used for medication dosing. ID Date Data Source [id number] 05/31/2020 02:03:11 PM EDT [facility] Name Value Range Interpretation Code Description Data Dayana [facility](s) Supporting Document(s) WBC 5.6 10*3/uL (4.1-11.0) [facility] [place] RBC 4.89 10*6/uL (4.00-5.40) [facility] HGB 12.3 g/dL (12.0-16.0) [facility] HCT 39.2 % (36.0-47.0) [facility] MCV 80.1 fL (80.0-95.0) [facility] MCH 25.1 pg (27.0-32.0) L [facility] MCHC 31.4 g/dL (32.0-36.0) L [facility] RDW 14.9 % (10.5-14.5) H [facility] PLT 276 10*3/uL (150-450) [facility] MPV 8.5 fL (7.1-10.7) [facility] NEUT % 62.2 % (35.0-75.0) [facility] LYMPH % 25.3 % (16.0-52.0) [facility] MONO % 10.5 % (0.0-8.0) H [facility] EOS % 1.2 % (0.0-5.0) [facility] BASO % 0.8 % (0.0-4.0) [facility] NEUT # 3.5 10*3/uL (1.8-7.7) [facility] LYMPH # 1.4 10*3/uL (1.2-4.8) [facility] MONO # 0.6 10*3/uL (0.0-0.8) [facility] Eosinophils [#/volume] in Blood by Automated count 0.1 10*3/uL (0.0-0 .5) [facility] BASO # 0.0 10*3/uL (0.0-0.2) [facility] ID Date Data Source [id number] 05/01/2020 12:00:00 AM EDT [facility] Name Value Range Interpretation Code Description Data Dayana rce(s) Supporting Document(s) SARS-CoV-2 [facility] This lab was ordered by [facility] and reported by [employer]. ID Date Data Source [id number] 02/27/2020 01:17:45 PM EDT [facility] INFORMATIONPatient MRN Name Date of Age Gend*PT [id number] Harley Rutherford 1990 29 years F ---PT Location Admission Date/Time Visit ID Attending Provider --- --- --- --- EPI ID CSN Admitting Provider [id number] ---Subjective:Harley Rutherford is a 29 years old female who [facility] No iss ues.Imaging:noneObjective:Pathology:nonePhysical ExamThere were [...] rce(s) Supporting Document(s) ID Date Data Source [id number] 02/18/2020 01:48:07 PM EDT [facility] INFORMATIONPatient MRN Name Date of Age Gend*PT [id number] Harley Rutherford 1990 29 years F ---PT Location Admission Date/Time Visit ID Attending Provider --- --- --- Cyndi Sylvester MD([id number]) EPI ID CSN Admitting Provider [id number] ---Subjective:Harley Rutherford is a 29 years old female who was referred for evaluation forwound care following skin removal of both arms and abdomen. Pt had surgery on02/03/20 in the [facility]. No complaints. Pain controlled. Somedrainage [...] MICROSCOPE ; Surgeon: Miguel Ambriz MD; Location: [facility];Service: Spine; Laterality: Bilateral; BARIATRIC SURGERY SECTION SECTION [...] file Gets together: Not on file Attends scientology service: Not on file Active member of [...] Rfl: 2 Cholecalciferol (VITAMIN D3) 1.25 MG (83906 UT) CAPS, Take 1 capsule (50,000Units total) [...] rce(s) Supporting Document(s) ID Date Data Source [id number] 02/13/2020 02:06:[address] [facility] [facility] MRN Name Date of Age Gend*PT [id number] Harley Rutherford 1990 29 years F ---PT Location Admission Date/Time Visit ID Attending Provider --- --- --- --- EPI ID CSN Admitting Provider [id number] ---Assessment/Plan:Diagnoses and all orders for this visit:Anxiety [...] MICROSCOPE ; Surgeon: Miguel Ambriz MD; Location: [facility];Service: Spine; Laterality: Bilateral; BARIATRIC SURGERY SECTION SECTION [...] tablet 2 Cholecalciferol (VITAMIN D3) 1.25 MG (26940 UT) CAPS Take 1 capsule (50,000Units total) [...] Name Value Range Interpretation Code Description Data [facility] rce(s) Supporting Document(s) ID Date Data Source [id number] 02/09/2020 09:52:10 AM EDT [facility] INFORMATIONPatient MRN Name Date of Age Gend*PT [id number] Harley Rutherford 1990 29 years F EDPT Location Admission Date/Time Visit ID Attending [id number] 02/08/20 0918 --- --- EPI ID CSN Admitting Provider [id number] ---Provider in Triage NotesNo notes on fileHistory of Present IllnessChief ComplaintPatient presents with Post-op Problem pt [place] 5 [place], pt has drains in back and arms that sheneeds removed.29 years old Female [place] the ED [place] Pt had a [place], fat removal and skin removal. Because [...] .PCP Cyndi Sylvester MDHistory provided by: PatientLanguage translator interpreter used: Mitch Medical History:Diagnosis Date Adverse effect [...] MICROSCOPE ; Surgeon: Miguel Ambriz MD; Location: [facility];Service: Spine; Laterality: Bilateral; BARIATRIC SURGERY SECTION SECTION [...] Wt 68 kg | LMP 01/19/2020 | VqG306% | BMI 24.96 kg/m Physical ExamConstitutional: She [...] the [facility] with Dr. Sanchez.11:43 [...] rce(s) Supporting Document(s) ID Date Data Source [id number] 02/08/2020 10:30:45 AM EDT [facility] Name Value Range Interpretation Code Description Data Dayana rce(s) Supporting Document(s) POC NOVA GLU 91 mg/dL (70-99) [facility] [place] PERFORMED BY [facility] CLINICAL STAFF ID Date Data Source [id number] 01/27/2020 09:40:[address] [facility] INFORMATIONPatient MRN Name Date of Age Gend*PT [id number] RaudelHarley ambrosio 1990 29 years F ---PT Location Admission Date/Time Visit ID Attending Provider --- --- --- --- EPI ID CSN Admitting Provider [id number] ---Assessment/Plan:Diagnoses and all orders for this visit:Vaginal discharge (Primary)Pt advised to take Diflucan as prescribed. Call if Sx continue despitetreatment. She agreed with the plan.Other orders- fluconazole (DIFLUCAN) 150 MG tablet; Take 1 tablet (150 mg total) bytxuth once for 1 dosSubjective:Patient ID: Harley Rutherford [...] rce(s) Supporting Document(s) ID Date Data Source [id number] 01/02/2020 02:36:49 PM [facility] NT INFORMATIONPatient MRN Name Date of Age Gend*PT [id number] Harley Rutherford 1990 29 years F ---PT Location Admission Date/Time Visit ID Attending Provider --- --- --- --- EPI ID CSN Admitting Provider [id number] ---Subjective: Harley Rutherford is a 29 years female and is here for a comprehensive physicalexam. The patient reports problems - needs refills for medications anddepression - she sees . Pt needs to do labs. States she planes to havelipos[facility] done outside [facility]. She f/u with [employer].Patient Care Team:Cyndi Sylvester MD as PCP - General (Family Medicine)Miguel Ambriz MD as Consulting Physician (Neurosurgery)Mary Carmen Parisi RN as Registered Nurse (Behavioral Health)Doug Law MD as Referring Physician (Gastroenterology)[facility] as Care Management - [facility] Care Management - External Health [...] MICROSCOPE ; Surgeon: Miguel Ambriz MD; Location: [facility];Service: Spine; Laterality: Bilateral; BARIATRIC SURGERY SECTION SECTION [...] file Gets together: Not on file Attends scientology service: Not on file Active member of [...] rce(s) Supporting Document(s) ID Date Data Source [id number] 01/02/2020 09:30:[address] [facility] [...] by Repeat Analysis ID Date Data Source [id number] 01/02/2020 09:30:[address] [facility] [...] Physici ans Carbon Dioxide 24 mmol/L 21-30 [facility] Anion Gap 10.0 7.0-16.0 [facility] Calcium 9.6 mg/dL 8.8-10.4 [facility] AST 19 U/L 1-41 [facility] ALT 11 U/L 1-43 [facility] Alkaline Phosphatase 53 U/L 36-126 [facility] Total Bilirubin 0.3 mg/dL 0.0-1.2 [facility] Albumin 4.1 g/dL 3.3-4.[facility] Total Protein 7.2 g/dL 6.1-8.1 [facility] Globulin 3.1 g/dL 2.2-4.0 [facility] A/G Ratio 1.3 0.9-1.7 [facility] New range effective: 07/09/2019. ALP now traceable to the IFCC procedure at 37 ID Date Data Source [id number] 01/02/2020 09:30:[address] [facility] Name Value Range Interpretation Code Description Data Dayana rce(s) Supporting Document(s) Cholesterol 132 mg/dL 100-[facility] Triglycerides 36 mg/dL 25-160 [facility] HDL 66 mg/dL 40-69 [facility] LDL (calculated) 59 mg/dL 0-130 [facility] VLDL 7.2 mg/dL 6.0-40.0 [facility] Chol/HDL Ratio 2.00 [facility] sicians Values listed are Risk Dependent: ID Date Data Source [id number] 01/02/2020 09:30:[address] [facility] Name Value Range Interpretation Code Description Data Dayana rce(s) Supporting Document(s) Ultra hTSH II 0.78 uIU/mL 0.30-5.00 [facility] ID Date Data Source [id number] 01/02/2020 09:30:00 AM EST [facility] Name Value Range Interpretation Code Description Data Dayana rce(s) Supporting Document(s) VITAMIN_D 20.3 ng/ml 30.0-100.[address] [facility] Procedure Social History Code Duration Value Status Description Data Source(s ) Alcohol intake 10/15/2020 12:00:00 AM EST No completed [facility] Smoking 10/15/2020 12:00:00 AM EST Never smoker completed Never [facility] Alcohol intake 10/09/2020 12:00:00 AM EST No completed [facility] Smoking 10/09/2020 12:00:00 AM EST Never smoker completed Never [facility] Alcohol intake 05/31/2020 12:00:00 AM EDT No completed [facility] Smoking 05/31/2020 12:00:00 AM EDT Never smoker completed Never [facility] Alcohol intake 02/08/2020 12:00:00 AM EDT No completed [facility] Smoking 02/08/2020 12:00:00 AM EDT Never smoker completed Never [facility] Vital Signs ID Date Data Source UNK Name Value Range Interpretation Code Description Data Source(s) Systolic blood pressure 130 mm[Hg] 130 mm[Hg] A THENA ([facility]) Body height 65 [in_i] 65 [in_i] LENNY ([facility]) Diastolic blood pressure 82 mm[Hg] 82 mm[Hg] LENNY ([facility]) Body weight 189 [lb_av] 189 [lb_av] [facility] ([facility]) Systolic blood pressure 128 mm[Hg] 128 mm[Hg] A THENA ([facility]) Body mass index (BMI) [Ratio] 31.5 kg/m2 31.5 k g/m2 LENNY ([facility]) Body height 65 [in_i] 65 [in_i] LENNY ([facility]) Diastolic blood pressure 81 mm[Hg] 81 mm[Hg] LENNY ([facility]) Body weight 189 [lb_av] 189 [lb_av] LENNY ([facility]) Systolic blood pressure 128 mm[Hg] 128 mm[Hg] A THENA ([facility]) Body mass index (BMI) [Ratio] 31.5 kg/m2 31.5 k g/m2 LENNY ([facility]) Body height 65 [in_i] 65 [in_i] LENNY ([facility]) Diastolic blood pressure 81 mm[Hg] 81 mm[Hg] LENNY ([facility]) Systolic blood pressure 121 mm[Hg] 121 mm[Hg] M EDENT ([facility]) Diastolic blood pressure 81 mm[Hg] 81 mm[Hg] MEDENT ([facility]) Heart rate 87 /min 87 /min MEDENT ([facility]) Body temperature 97.8 [degF] 97.8 [degF] MEDENT ([facility]) Respiratory rate 16 /min 16 /min MEDENT ( [facility]) Oxygen saturation in Arterial blood by Pulse oximetry 98 % 98 % MEDENT ([facility]) Body weight 190.00 [lb_av] 190.00 [lb_av] MEDEN T ([facility]) Body weight 86.184 kg 86.184 kg MEDENT ([facility]) Body height 65 [in_i] 65 [in_i] MEDENT ([facility]) 5'5" Body mass index (BMI) [Ratio] 31.6 kg/m2 31.6 k g/m2 MEDENT ([facility]) Body surface area Derived from formula 1.94 m2 1.94 m2 [facility] Oxygen saturation in Arterial blood by Pulse oximetry 96 % 96 % [facility] Body mass index (BMI) [Ratio] 28.06 kg/m2 28.06 kg/m2 [facility] Body weight 86.183 kg 86.183 kg [facility] Body height 175.3 cm 175.3 cm [facility] Respiratory rate 16 /min 16 /min [facility] Body temperature 36.67 Fernanda 36.67 Fernanda [facility] Heart rate 85 /min 85 /min [facility] Diastolic blood pressure 70 mm[Hg] 70 mm[Hg] [facility] Systolic blood pressure 100 mm[Hg] 100 mm[Hg] [facility] Oxygen saturation in Arterial blood by Pulse oximetry 98 % 98 % [facility] Respiratory rate 16 /min 16 /min [facility] Heart rate 84 /min 84 /min [facility] Diastolic blood pressure 84 mm[Hg] 84 mm[Hg] [facility] Systolic blood pressure 119 mm[Hg] 119 mm[Hg] [facility] Body mass index (BMI) [Ratio] 24.66 kg/m2 24.66 kg/m2 [facility] Body weight 75.751 kg 75.751 kg [facility] Body height 175.3 cm 175.3 cm [facility] Body temperature 36.56 Fernanda 36.56 Fernanda [facility] Oxygen saturation in Arterial blood by Pulse oximetry 95 % 95 % [facility] Respiratory rate 18 /min 18 /min [facility] Body temperature 36.44 Fernanda 36.44 Fernanda [facility] Heart rate 83 /min 83 /min [facility] Diastolic blood pressure 83 mm[Hg] 83 mm[Hg] [facility] Systolic blood pressure 161 mm[Hg] 161 mm[Hg] [facility] Body mass index (BMI) [Ratio] 24.96 kg/m2 24.96 kg/m2 [facility] Body weight 68.04 kg 68.04 kg [facility] Body height 165.1 cm 165.1 cm [facility] Patient Treatment Plan of Care Planned Activity Planned Date Details Description Data Source (s) lidocaine (LIDODERM) 5 % 07/08/2020 12:00:00 AM EDT [facility] Cyclobenzaprine hydrochloride 10 MG Oral Tablet 07/08/2020 12:00:00 AM EDT [facility] 24 HR Bupropion Hydrochloride 150 MG Extended Release Oral Tablet 07/08/2020 12:00:00 AM EDT [facility] buspirone hydrochloride 7.5 MG Oral Tablet 02/13/2020 12:00:00 AM E DT [facility] Sulfamethoxazole 800 MG / Trimethoprim 160 MG Oral Tab let 02/08/2020 12:00:00 AM EDT [facility] tramadol hydrochloride 50 MG Oral Tablet 02/08/2020 12:00:00 AM EDT [facility] Cholecalciferol 12077 UNT Oral Capsule 01/07/2020 12:00:00 AM EST [facility] Vit-Fe Fumarate-FA ( MULTIVITAMIN) 27 -1 MG TABS 01/02/2020 12:00:00 AM EST [facility] Ibuprofen 600 MG Oral Tablet 01/02/2020 12:00:00 AM EST [facility] ferrous sulfate 325 MG Oral Tablet 01/02/2020 12:00:00 AM EST [facility] calcium citrate-vitamin D (CALCIUM + D) 315-200 MG-UNI T per tablet 01/02/2020 12:00:00 AM EST [facility] Ascorbic Acid 500 MG Oral Capsule 01/02/2020 12:00:00 AM EST [facility] albuterol (PROVENTIL HFA) 108 (90 Base) MCG/ACT inhale r 01/02/2020 12:00:00 AM EST [facility] Ascorbic Acid 500 MG Oral Tablet LENNY ([facility]) tramadol hydrochloride 50 MG Oral Tablet LENNY ([facility]) Sulfamethoxazole 800 MG / Trimethoprim 160 MG Oral Tablet LENNY ([facility]) Phenazopyridine hydrochloride 200 MG Oral Tablet LENNY ([facility]) Permethrin 50 MG/ML Topical Cream LENNY ([facility]) NITROFURANTOIN, MACROCRYSTALS 25 MG / Ni trofurantoin, Monohydrate 75 MG Oral Capsule LENNY ([facility]) Naproxen 500 MG Oral Tablet LENNY ([facility]) Lidocaine Hydrochloride 20 MG/ML Mucous Membrane Topical Solution LENNY ([facility]) Ibuprofen 600 MG Oral Tablet LENNY ([facility]) Acetaminophen 325 MG / Hydrocodone Bitartrate 5 MG Oral Tablet LENNY ([facility]) Fluconazole 150 MG Oral Tablet LENNY ([facility]) ferrous sulfate 325 MG Oral Tablet LENNY ([facility]) Cyclobenzaprine hydrochloride 10 MG Oral Tablet LENNY ([facility]) Clindamycin 300 MG Oral Capsule LENNY ([facility]) Clindamycin 150 MG Oral Capsule LENNY ([facility]) Cholecalciferol 78153 UNT Oral Capsule LENNY ([facility]) chlorhexidine gluconate 1.2 MG/ML Mouthwash LENNY ([facility]) 24 HR Bupropion Hydrochloride 150 MG Extended Release Oral Tablet LENNY ([facility]) albuterol sulfate HFA 90 mcg/actuation aerosol inhaler LENNY ([facility]) Ascorbic Acid 500 MG Oral Tablet LENNY ([facility]) tramadol hydrochloride 50 MG Oral Tablet LENNY ([facility]) Sulfamethoxazole 800 MG / Trimethoprim 160 MG Oral Tablet LENNY ([facility]) Phenazopyridine hydrochloride 200 MG Oral Tablet LENNY ([facility]) Permethrin 50 MG/ML Topical Cream LENNY ([facility]) NITROFURANTOIN, MACROCRYSTALS 25 MG / Ni trofurantoin, Monohydrate 75 MG Oral C[facility]ule [facility] Naproxen 500 MG Oral Tablet LENNY ([facility]) Lidocaine Hydrochloride 20 MG/ML Mucous Membrane Topical Solution LENNY ([facility]) Ibuprofen 600 MG Oral Tablet LENNY ([facility]) Acetaminophen 325 MG / Hydrocodone Bitartrate 5 MG Oral Tablet LENNY ([facility]) Fluconazole 150 MG Oral Tablet LENNY ([facility]) ferrous sulfate 325 MG Oral Tablet LENNY ([facility]) Cyclobenzaprine hydrochloride 10 MG Oral Tablet LENNY ([facility]) Clindamycin 300 MG Oral Capsule LENNY ([facility]) Clindamycin 150 MG Oral Capsule LENNY ([facility]) Cholecalciferol 92051 UNT Oral Capsule LENNY ([facility]) chlorhexidine gluconate 1.2 MG/ML Mouthwash LENNY ([facility]) 24 HR Bupropion Hydrochloride 150 MG Extended Release Oral Tablet LENNY ([facility]) albuterol sulfate HFA 90 mcg/actuation aerosol inhaler LENNY ([facility])
--- NOTE | 2020-12-07 11:11 | REP ---
INDICATION: perf trevor-en-y anastamosis COMPARISON: Plain films today. TECHNIQUE: CT Scan of the abdomen and pelvis was performed with intravenous administration of 100 cc of Isovue 370, without oral contrast. FINDINGS: Lung bases: Unremarkable. Liver: Normal Gallbladder: Prior cholecystectomy. Spleen: Normal. Adrenals: Normal. Pancreas: Normal. Kidneys: Normal. Small and large bowel: Patient has had prior gastric bypass surgery. There is a moderate amount of free intraperitoneal air in the upper abdomen primarily anteriorly. There are tiny foci of extraluminal air adjacent to the gastric pouch likely representing the area of perforation. There is no bowel wall thickening. Free fluid: There is moderate free fluid in the pelvis. Tiny amount of free fluid around the spleen. Abdominal aorta: No aneurysm or dissection. Adenopathy: None. Appendix: Not inflamed. Osseous structures: Unremarkable. Pelvis: No mass. IMPRESSION: Status post prior gastric bypass surgery. Moderate free intraperitoneal air in the upper abdomen primarily anteriorly. Tiny foci of extraluminal air adjacent to the gastric pouch, indicating the likely site of perforation. Very mild free fluid in the upper abdomen. Moderate free fluid in the pelvis. Critical Findings: Free intraperitoneal air and free fluid due to bowel perforation, likely at the site of gastric pouch status post gastric bypass surgery. The critical information above was relayed directly by me in person to Jose Angel Marcum on 12/07/2020 at 11:05 am with readback verification. <Electronically signed by Jose Angel Cabrera > 12/07/20 1700
[2020-12-07] MEDS ORDERED: FLUCONAZOLE 200 MG in IV 1 EA IV SCH ×2 (11:30→14:00)
[2020-12-07] MEDS ORDERED: CIPROFLOXACIN/D5W 400 MG/200 ML BAG (J0744) As Ordered ONE (11:58)
[2020-12-07] MEDS ORDERED: metroNIDAZOLE/NACL 500MG(5MG/ML) 100ML BAG (S0030) As Ordered ONE (11:59)
[2020-12-07] MEDS ORDERED: PHENYLephrine 500MCG 5ML (100MCG/ML) SYRINGE As Ordered ONE (12:14)
[2020-12-07] MEDS ORDERED: SUGAMMADEX SODIUM 500 MG/5 ML VIAL (BRIDION) As Ordered ONE (12:48)
[2020-12-07] MEDS ORDERED: ACETAMINOPHEN 1000MG 100ML IV BTL (OFIRMEV) (J0131 PER 10MG) As Ordered ONE (12:56)
[2020-12-07] MEDS ORDERED: ONDANSETRON 4MG/2ML VIAL IV PRN (13:45)
[2020-12-07] MEDS ORDERED: LR 1,000 ML IV SCH (13:45)
[2020-12-07] MEDS ORDERED: HYDROMORPHONE HCL 0.5 MG/ 0.5 ML SYRINGE (J1170 PER 1) IV PRN (13:45)
[2020-12-07] MEDS: fentaNYL 100 MCG/2 ML INJECTION (J3010) IV PRN ×4 (13:47→14:12)
[2020-12-07] MEDS: ONDANSETRON 4MG/2ML VIAL IV PRN ×2 (13:48→17:43)
[2020-12-07] MEDS: oxyCODONE 5MG TAB PO PRN ×2 (13:52→14:22)
--- NOTE | 2020-12-07 14:31 | HPE ---
HISTORY AND PHYSICAL DATE OF ADMISSION: 12/07/2020 CHIEF COMPLAINT: Abdominal pain. HISTORY OF PRESENT ILLNESS: The patient is a 30-year-old female who presented to the emergency room with sudden onset of epigastric pain radiating up to the left shoulder. Pain started around 3:00 in the morning. She tried taking some water and Tylenol to help with the pain, thinking it was gas, and it just made the pain worse. She eventually came in to the emergency room. She had an initial x-ray that showed free air. CT was then completed, confirming likely perforation of gastric ulcer. She denies ever having any heartburn or acid reflux symptoms. She is not on any antireflux medications, nor has she ever taken them after her gastric bypass; however, she did have a gastric bypass six years ago. She takes a bunch of vitamins for that. No other significant medical history. She has had prior abdominoplasty, appendectomy and cholecystectomy. No other surgery or trauma. PAST MEDICAL HISTORY: Negative. PAST SURGICAL HISTORY: 1. Gastric bypass. 2. Abdominoplasty. 3. Appendectomy. 4. Cholecystectomy. ALLERGIES: PENICILLINS. SOCIAL HISTORY: Denies drug, alcohol, tobacco abuse. FAMILY HISTORY: Noncontributory. REVIEW OF SYSTEMS: Per positives and negatives as stated in the history of present illness (HPI). PHYSICAL EXAMINATION: GENERAL: Alert and oriented x3. No acute distress. VITALS SIGNS: Temperature 96.6, pulse 98, respirations 20, blood pressure 123/89, pulse oximetry 100% on room air. HEENT: Pupils are equal, round and reactive to light and accommodation. HEART: S1, S2. Regular rate and rhythm. LUNGS: Clear to auscultation bilaterally. ABDOMEN: Soft, non-distended. Tender to palpation, diffuse, more so in the epigastric area. No rebound or guarding. EXTREMITIES: No clubbing, cyanosis or edema. LABORATORIES: White count 6.1, hemoglobin 11.4, platelets 323. Potassium 4.1, creatinine 0. 64, lactic acid 1.3. COVID is negative. Abdominal x-ray was first completed that showed pneumoperitoneum consistent with bowel perforation. No evidence of obstruction. CT scan abdomen and pelvis was done and completed. I reviewed the images in person with the radiologist that shows she is status post gastric bypass surgery. There is moderate free air in the upper abdomen anteriorly, tiny foci of extraluminal air adjacent to the gastric pouch, indicating likely site of perforation. Very mild free fluid in the upper abdomen. Moderate free fluid in the pelvis. ASSESSMENT AND PLAN: The patient is a 30-year-old female with a perforated ulcer, most likely marginal ulcer status post gastric bypass. Recommendation at this time is to proceed with robotic-assisted exploratory laparoscopy. Risks and benefits of procedure, not limited to, but including bleeding, infection, hernia formation, damage to surrounding structures, need for further surgery, was discussed in detail with the patient. Informed consent was obtained and procedure was planned. Postoperatively, she will be kept npo., on IV fluids, antibiotics, antifungals and after 48 hours, if she is doing well, we will do an upper GI to confirm there is no leak and then she can be started on a diet if that comes back normal.
--- NOTE | 2020-12-07 14:31 | RO ---
OPERATIVE NOTE DATE OF OPERATION: 12/07/2020 PREOPERATIVE DIAGNOSIS: Perforated viscus. POSTOPERATIVE DIAGNOSIS: Perforated marginal ulcer. PROCEDURE: Robotic-assisted exploratory laparoscopy with abdominal washout, repair of perforated marginal ulcer and omental Lance patch. SURGEON: Jose Angel Marcum DO EMT P: None ANESTHESIA: General. ESTIMATED BLOOD LOSS: 5 mL COMPLICATIONS: None. INDICATIONS FOR PROCEDURE: The patient is a 30-year-old female who presents with abdominal pain, found to have free air on an x-ray. CT confirmed likely free air and free fluid all in the upper abdomen. Due to her history of gastric bypass, this was most likely associated with a marginal ulcer. Recommendation was to proceed with exploratory laparoscopy, robotic-assisted. Risks and benefits of the procedure not limited to but including bleeding, infection, hernia formation, damage to surrounding structures, need for further surgery were discussed in detail to the patient. Informed consent was obtained and the procedure was planned. DESCRIPTION OF PROCEDURE: The patient was brought back to operating room 7. After sufficient sedation, the abdomen was sterilely prepped and draped. Next, a timeout was done to confirm proper patient and proper procedure. Following that, an 8 mm incision was made in the left upper quadrant. A Veress needle was inserted and the abdomen was insufflated to 15 mmHg. The Veress needle was then removed and an 8 mm OptiView port was used to gain access to the abdomen. Once the abdomen was entered, the hole was identified up at the gastric pouch. Three more ports were placed across the upper abdomen, one the right upper quadrant. The ports were then docked to the robot. Next, from the console, the left lateral liver edge was elevated superiorly, revealing the perforation right at the GJ junction anteriorly. I was able to free up some omentum around it that was already starting to patch it. The using four interrupted 3-0 Vicryl sutures, I was able to close the defect primarily. A fifth suture was then placed with the tails left long. The omentum that was already in place was brought back over top of it sutured down to hold it in place as a Lance patch. The abdomen was then irrigated with saline. A 19 [place] Miguel Angel drain was then left over top of the gastric pouch and underneath the hepatic edge on the left-hand side. It was brought out through the left lateral port site. The abdomen was then desufflated. The skin incisions were closed with 4-0 Vicryl subcuticular sutures. The drain was sutured in place with a 2-0 silk. The abdomen was cleaned and dried. Steri-Strips, 4x4 and tape were applied, this ending procedure.
--- OUTSIDE RECORDS SUMMARY | 2020-12-07 14:43 | CCD ---
Author Author [facility] Organization [facility] Address Unknown Phone Unavailable Care Team Providers Care Seo Associate Name Role Phone Ahmed, Ohara Unavailable Unavailable [...] M Guerrero PA Unavailable Unavailable Zuniga, M Guerreor PA Unavailable Unavailable Zuniga, M Guerrero PA [...] Ortiz MD Unavailable Unavailable Metzger, E Isabel PATHOLOGY TEACHER Unavailable Unavailable Metzger, E Isabel PATHOLOGY TEACHER Unavailable Unavailable Metzger, E Isabel PATHOLOGY TEACHER Unavailable Unavailable Metzger, E Isabel PATHOLOGY TEACHER Unavailable Unavailable Metzger, E Isabel PATHOLOGY TEACHER Unavailable Unavailable Metzger, E Isabel PATHOLOGY TEACHER Unavailable Unavailable Metzger, E Isabel PATHOLOGY TEACHER Unavailable Unavailable Metzger, E Isabel PATHOLOGY TEACHER Unavailable Unavailable Metzger, E Isabel PATHOLOGY TEACHER Unavailable Unavailable Metzger, E Isabel PATHOLOGY TEACHER Unavailable Unavailable Metzger, E Isabel PATHOLOGY TEACHER Unavailable Unavailable Metzger, E Isabel PATHOLOGY TEACHER Unavailable Unavailable Metzger, E Isabel PATHOLOGY TEACHER Unavailable Unavailable Metzger, E Isabel PATHOLOGY TEACHER Unavailable Unavailable Metzger, E Isabel PATHOLOGY TEACHER Unavailable Unavailable Metzger, E Isabel PATHOLOGY TEACHER Unavailable Unavailable Metzger, E Isabel PATHOLOGY TEACHER Unavailable Unavailable Metzger, E Isabel PATHOLOGY TEACHER Unavailable Unavailable Metzger, E Isabel PATHOLOGY TEACHER Unavailable Unavailable Metzger, E Isabel PATHOLOGY TEACHER Unavailable Unavailable Metzger, E Isabel PATHOLOGY TEACHER Unavailable Unavailable Metzger, E Isabel PATHOLOGY TEACHER Unavailable Unavailable Metzger, E Isabel PATHOLOGY TEACHER Unavailable Unavailable Metzger, E Isabel PATHOLOGY TEACHER Unavailable Unavailable Metzger, E Isabel PATHOLOGY TEACHER Unavailable Unavailable Metzger, E Isabel PATHOLOGY TEACHER Unavailable Unavailable Metzger, E Isabel PATHOLOGY TEACHER Unavailable Unavailable Metzger, E Isabel PATHOLOGY TEACHER Unavailable Unavailable Metzger, E Isabel PATHOLOGY TEACHER Unavailable Unavailable Metzger, E Isabel PATHOLOGY TEACHER Unavailable Unavailable Cyndi Sylvester MD Unavailable Unavailable [...] AMBRIZ MD Unavailable Unavailable Jumalon, M Hazel CAR ELECTRONICS INSTALLER Unavailable Unavailable Jumalon, M Hazel CAR ELECTRONICS INSTALLER Unavailable Unavailable Jumalon, M Hazel CAR ELECTRONICS INSTALLER Unavailable Unavailable Jumalon, M Hazel CAR ELECTRONICS INSTALLER Unavailable Unavailable Jumalon, M Hazel CAR ELECTRONICS INSTALLER Unavailable Unavailable Jumalon, M Hazel CAR ELECTRONICS INSTALLER Unavailable Unavailable Jumalon, M Hazel CAR ELECTRONICS INSTALLER Unavailable Unavailable Jumalon, M Hazel CAR ELECTRONICS INSTALLER Unavailable Unavailable Jumalon, M Hazel CAR ELECTRONICS INSTALLER Unavailable Unavailable Jumalon, M Hazel CAR ELECTRONICS INSTALLER Unavailable Unavailable Jumalon, M Hazel CAR ELECTRONICS INSTALLER Unavailable Unavailable Jumalon, M Hazel CAR ELECTRONICS INSTALLER Unavailable Unavailable Jumalon, M Hazel CAR ELECTRONICS INSTALLER Unavailable Unavailable Jumalon, M Hazel CAR ELECTRONICS INSTALLER Unavailable Unavailable Jumalon, M Hazel CAR ELECTRONICS INSTALLER Unavailable Unavailable Jumalon, M Hazel CAR ELECTRONICS INSTALLER Unavailable Unavailable Jumalon, M Hazel CAR ELECTRONICS INSTALLER Unavailable Unavailable Jumalon, M Hazel CAR ELECTRONICS INSTALLER Unavailable Unavailable Jumalon, M Hazel CAR ELECTRONICS INSTALLER Unavailable Unavailable Jumalon, M Hazel CAR ELECTRONICS INSTALLER Unavailable Unavailable Jumalon, M Hazel CAR ELECTRONICS INSTALLER Unavailable Unavailable Jumalon, M Hazel CAR ELECTRONICS INSTALLER Unavailable Unavailable Jumalon, M Hazel CAR ELECTRONICS INSTALLER Unavailable Unavailable Jumalon, M Hazel CAR ELECTRONICS INSTALLER Unavailable Unavailable Jumalon, M Hazel CAR ELECTRONICS INSTALLER Unavailable Unavailable Jumalon, M Hazel CAR ELECTRONICS INSTALLER Unavailable Unavailable Jumalon, M Hazel CAR ELECTRONICS INSTALLER Unavailable Unavailable Jumalon, M Hazel CAR ELECTRONICS INSTALLER Unavailable Unavailable Houston, P Lul DO Unavailable Unavailable Binh, P Lul DO Unavailable Unavailable Houston, P Lul DO Unavailable Unavailable Houston, P Lul DO Unavailable Unavailable Binh, P Lul DO Unavailable Unavailable Houston, P Lul DO Unavailable Unavailable [place], P Lul DO Unavailable Unavailable Houston, P Lul DO Unavailable Unavailable Binh, P Lul DO Unavailable Unavailable Binh, P Lul DO Unavailable Unavailable Houston, P Lul DO Unavailable Unavailable Houston, P Lul DO Unavailable Unavailable [place], P Lul DO Unavailable Unavailable [place], P Lul DO Unavailable Unavailable Binh, P Lul DO Unavailable Unavailable Binh, P Lul DO Unavailable Unavailable Houston, P Lul DO Unavailable Unavailable Binh, P Lul DO Unavailable Unavailable Binh, P Lul DO Unavailable Unavailable Binh, P Lul DO Unavailable Unavailable Binh, P Lul DO Unavailable Unavailable Houston, P Lul DO Unavailable Unavailable [place], P Lul DO Unavailable Unavailable [place], P Lul DO Unavailable Unavailable Binh, P Lul DO Unavailable Unavailable [place], P Lul DO Unavailable Unavailable [place], P Lul DO Unavailable Unavailable Binh, P Lul DO Unavailable Unavailable [place], P Lul DO Unavailable Unavailable Binh, P Lul DO Unavailable Unavailable [place], P Lul DO Unavailable Unavailable [place], P Lul DO Unavailable Unavailable Binh, P Lul DO Unavailable Unavailable Binh, P Lul DO Unavailable Unavailable Binh, P Lul DO Unavailable Unavailable [place], P Lul DO Unavailable Unavailable Binh, P Lul DO Unavailable Unavailable [place], P Lul DO Unavailable Unavailable [place], P Lul DO Unavailable Unavailable Binh, P [...] BolFalguni culver MD Unavailable Unavailable BolFalguni culver Gume MD Unavailable Unavailable Falguni Bhardwaj MD [...] Unavailable Unavailable WojCyndi bradford MD Unavailable Unavailable Wojtasiewicz, Cyndi MD Unavailable Unavailable Wojtasiewicz, Cyndi MD Unavailable Unavailable Wojtasiewicz, Cyndi MD Unavailable Unavailable Wojtasiewicz, Cyndi MD Unavailable Unavailable Wojtasiewicz, Cyndi MD Unavailable Unavailable Wojtasiewicz, Cnydi MD Unavailable Unavailable Wojtasiewicz, Cyndi MD Unavailable [...] Unavailable Unavailable Wojtasiewicz, Cyndi MD Unavailable Unavailable Wojtasiewcassandra, Cyndi MD Unavailable Unavailable Wojtasiewicz, Cyndi MD Unavailable Unavailable Wojtasiewicz, Cyndi Unavailable Unavailable Wojtasiewcassandra, Cyndi Unavailable Unavailable Re-disclosure Warning The records that [...] is protected by Article 27-F of the [place] [employer] law. If you continue you may have access to information: Regarding HIV / AIDS; Provided by facilities licensed or operated by the [place] Office of Mental Health; or Provided by the [place] Office for People With Developmental Disabilities. If such information is present, then the following [place] mandated warning applies: This information has been [...] law may result in a fine or alf sentence or both. A general authorization for the release of medical or other information is NOT sufficient authorization for further disc losure. Encounters Encounter Providers Location Date Indications Data Source(s ) Recurring Patient Attender: Isabel Metzger NPReferrer: MIGUEL BETTENCOURT MD 11/19/2020 11:06:45 AM EST [facility] Hazel Krzysztof Cadet, PATHOLOGY TEACHER: [id number] [facility] [address] [place] [address], Ph. Attender: Hazel Cadet [facility] - [facility] - Main Office 11/03/2020 12:00:00 AM EST ATHE NA ([facility]) Gume Bhardwaj MD: [id number] [place] [address], Ph. Attender: Gume Bhardwaj MD [place] - [facility] - [facility] Office 10/27/2020 12:00:00 AM EST LENNY ([facility]) Gume Bhardwaj MD: [id number] [facility] [address] [facility] [place] [address], Ph. Attender: Gume Bhardwaj MD [place] - [facility] - [facility] Office 10/27/2020 12:00:00 AM EST LEN[facility] ([facility]) Recurring Patient Attender: Isabel Metzger NPReferrer: MIGUEL BETTENCOURT MD 10/26/2020 10:36:01 AM EST [facility] Outpatient Attender: Guerrero CHANG 10/19 10:20:00 AM EST - 10/19/2020 10:20:00 AM EST [facility] Outpatient Attender: MARIANNE WINTERS MD [id number] 2019 02:55:01 PM EST - 10/12/2020 03:31:[address] [facility] Outpatient Attender: Lul Purcell DOConsultant: Camryn Purcell DO [id number] 10/09/2020 01:48:23 PM EST - 10/09/2020 02:37:55 PM EST [facility] OFFICE OUTPATIENT NEW 30 MINUTES Attender: Prabhu Loo MD Physic al Therapy 10/07/2020 08:30:00 AM EST [facility] ([facility]) Outpatient 08/20/2020 12:00:00 AM [facility] Outpatient Attender: WILBUR CHENG CNM 08/20/2020 12:00:00 AM [facility] Outpatient Attender: WILBUR CHENG CNM 08/11/2020 12:00:00 AM [facility] Outpatient Attender: WILBUR CHENG CNM 07/20/2020 12:00:00 AM [facility] Outpatient Attender: Cyndi Sylvester MD CFM-CFM. 07/08/2020 12:00:00 AM EDT - 07/08/2020 10:46:40 AM EDT [facility] Emergency Attender: ALETHA LICONA MD ES1-ES1 05/20 11:54:00 AM EDT - 05/31/2020 02:56:[address] [facility] Patient discharged. Outpatient Attender: Ortiz Saleem MD [id number] 12:00:00 AM EDT - 02/27/2020 01:12:[address] [facility] Outpatient Attender: Cyndi Sylvester MDAttender: Ortiz Saleem MDReferrer: Cyndi Sylvester MD [id number] 02/18/2020 12:00:00 AM EDT [facility] Outpatient Attender: Cyndi NOVAK 02/13/2020 12:26:54 PM EDT - 02/13/2020 02:16:04 PM EDT [facility] Emergency Attender: Lev Crowder ES1-ES1 0 09:08:00 AM EDT - 02/08/2020 01:23:00 PM EDT [facility] Patient discharged. Outpatient Attender: Ferdinand Menchaca MD 01/28/2020 12:00:00 A M [facility] Outpatient Attender: Cyndi NOVAK 01/27/2020 08:49:25 AM EDT - 01/27/2020 09:42:48 [facility] 12:00:00 AM [facility] Outpatient Admitter: GAVIN BARBOZA MDReferrer: GAVIN CLARK MD [id number] 01/08/2020 10:03:[address] [facility] Outpatient Attender: Cyndi NOVAK 01/02/2020 09:19:17 AM EST - 01/02/2020 11:05:[facility] Ad[facility]: GAVIN BARBOZA MDReferrer: GAVIN LIEBERMAN.CCN 11/20/2019 12:00:[address] [facility] Outpatient Admitter: GAVIN BARBOZA MDReferrer: GAVIN LIEBERMAN.CCN 10/20/2019 12:00:[address] [facility] Immunizations Vaccine Date Status Description Data Source(s) TB Skin test is not vaccine. 10/09/2020 12:00:00 AM EST completed PPD Test 10/09/2020, 10/03/2018 [facility] Medications Medication Brand Name Start Date [...] a day as needed for muscle spasms [facility] 24 HR Bupropion Hydrochloride 150 MG Ext ended Release Oral Tablet buPROPion (WELLBUTRIN XL) 150 MG 24 hr tablet buPROPion (WELLBUTRIN XL) 150 MG 24 hr tablet 07/08/2020 12:00:00 AM EDT 150 mg Oral active Take 1 tablet (150 mg total) by mouth daily [facility] lidocaine (LIDODERM) 5 % [id number] 07/08/2020 12:00:00 AM EDT 1 {patch} Transdermal active Place 1 patch on the skin daily Remove & Discard patch within 12 hours or as directed by [facility] buspirone hydrochloride 7.5 MG Oral Tablet busPIRone ( BUSPAR) 7.5 MG tablet busPIRone (BUSPAR) 7.5 MG tablet 02/13/2020 12:00:00 AM EDT 7.5 mg Oral active Take 1 tablet (7.5 mg total) by mouth 3 (three) times a day [facility] sodium chloride 0.9% (NS) bolus 1,000 mL [id number] 02/08/2020 11:00:00 AM EDT 1000 mL Intravenous completed 1, 000 mL, Intravenous, Administer over 1 Hours, Once, 02/08/20 at 1100, For 1 dose [facility] Medication administered onsite Acetaminophen 325 MG / Hydrocodone Sara trate 5 MG Oral Tablet HYDROcodone- acetaminophen (NORCO) 5-325 MG per tablet 1 tablet HYDROcodone-acetaminophen (NORCO) 5-325 MG per tablet 1 tablet 02/08/2020 10:35:00 AM EDT 1 { tbl} Oral completed 1 tablet, Oral, Once, 02/08/20 at 1035, For 1 dose [facility] Medication administered onsite Sulfamethoxazole 800 MG [...] (BACTRIM) 800-160 mg tabs (1tab q12 D10) [facility] tramadol hydrochloride 50 MG Oral Tablet traMADol (ULT MARILY) 50 MG tablet traMADol (ULTRAM) 50 MG tablet 02/08/2020 12:00:00 AM EDT 50 mg Oral active Take 1 tablet (50 mg total) by mouth every 6 (six) hours as needed for pain Max Daily Amount: 200 mg [facility] Cholecalciferol 14007 UNT Oral Capsule C holecalciferol (VITAMIN D3) 1.25 MG (60537 UT) CAPS Cholecalciferol (VITAMIN D3) 1.25 MG (78731 UT) CAPS 0 01/07/2020 12:00:00 AM EST 97257 U Oral active Take 1 capsule (50,000 Units total) by mouth once a week [facility] albuterol (PROVENTIL HFA) 108 (90 Base) MCG/ACT inhaler [id number] -[id number] 01/02/2020 12:00:00 AM EST 2 {puff} Inhalation active Mil d intermittent asthma without complication Inhale 2 puffs every 4 (four ) hours as needed for wheezing or shortness of breath [facility] Mild intermittent asthma without complic ation Ibuprofen 600 MG Oral Tablet ibuprofen (ADVIL,MOTRIN) 600 MG tablet ibuprofen (ADVIL,MOTRIN) 600 MG tablet 01/02/2020 12:00:00 AM EST 600 mg Oral active Take 1 tablet (600 mg total) by mouth every 30 (thirty) days [facility] ferrous sulfate 325 MG Oral Tablet Ferrous Sulfate (IR ON) 325 (65 Fe) MG TABS Ferrous Sulfate (IRON) 325 (65 Fe) MG TABS 01/02/2020 12:00:00 AM EST 325 mg Oral active Take 1 tablet (325 mg total) by mouth 2 (two) times a day with meals [facility] calcium citrate-vitamin D (CALCIUM + D) 315-200 MG-UNIT per tablet [id number] 01/02/2020 12:00:00 AM EST 1 {tbl} Oral active Take 1 tablet by mouth daily [facility] Ascorbic Acid 500 MG Oral Capsule Ascorbic Acid (VITAM IN C) 500 MG CAPS Ascorbic Acid (VITAMIN C) 500 MG CAPS 01/02/2020 12:00:00 AM EST 1 {capsule} Or al active Take 1 capsule by mouth Daily sl iding scale [facility] Vit-Fe Fumarate-FA ( MULTIVITAMIN) 27-1 MG TABS 01/02/2020 12:00:00 AM EST 1 {tbl} Oral active Take 1 tablet by mouth daily [facility] Cholecalciferol 71099 UNT Oral Capsule c holecalciferol (vitamin D3) 1,250 mcg (50,000 unit) capsule cholecalciferol (vitamin D3) 1,250 mcg ( 50,000 unit) capsule completed cholecalcifero l 1.25 MG Oral Capsule LENNY ([facility]) Fluconazole 150 MG Oral Tablet fluconazole 150 mg tabl et fluconazole 150 mg tablet completed fluconazole 150 MG Oral Tablet LENNY ([facility]) Permethrin 50 MG/ML Topical Cream permethrin 5 % topic al cream permethrin 5 % topical cream completed permethr in 50 MG/ML Topical Cream LENNY ([facility]) Clindamycin 300 MG Oral Capsule clindamycin HCl 300 mg capsule clindamycin HCl 300 mg capsule completed clindam ycin 300 MG Oral Capsule LENNY ([facility]) Clindamycin 150 MG Oral Capsule clindamycin HCl 150 mg capsule clindamycin HCl 150 mg capsule completed clindam ycin 150 MG Oral Capsule LENNY ([facility]) Cyclobenzaprine hydrochloride 10 MG Oral Tablet cyclob enzaprine 10 mg tablet cyclobenzaprine 10 mg tablet completed cyclobenzaprine hydrochloride 10 MG Oral Tablet LENNY ([facility]) tramadol hydrochloride 50 MG Oral Tablet tramadol 50 mg tablet take 1 tablet by mouth every 6 hours if needed for pain tramadol 50 mg tablet take 1 tablet by mouth every 6 hours if needed for pain completed tramadol hydrochloride 50 MG Oral Tablet LENNY ([facility]) Clindamycin 150 MG Oral Capsule clindamycin HCl 150 mg capsule clindamycin HCl 150 mg capsule completed clindam ycin 150 MG Oral Capsule LENNY ([facility]) 24 HR Bupropion Hydrochloride 150 MG Ext ended Release Oral Tablet bupropion HCl XL 150 mg 24 hr tablet, extended release take 1 tablet by mouth once daily bupropion HCl XL 150 mg 24 hr tablet, extended release take 1 tablet by mouth once daily completed 24 HR bupropion hydrochloride 150 MG Extended Release Oral Tablet LENNY ([facility]) NITROFURANTOIN, MACROCRYSTALS 25 MG / Ni trofurantoin, Monohydrate 75 MG Oral Capsule nitrofurantoin monohydrate/macrocrystals 100 mg capsule nitrofurantoin monohydrate/macrocrystals 100 mg capsule completed nitrofurantoin, macrocrystals 25 MG / nitrofurantoin, monohydrate 75 MG Oral Capsule LENNY ([facility]) Lidocaine Hydrochloride 20 MG/ML Mucous Membrane Topical Solution Lidocaine Viscous 2 % mucosal solution Lidocaine Viscous 2 % mucosal solution completed lidocaine hydrochloride 20 MG/ML Mucous Membrane Topical Solution LENNY ([facility]) 24 HR Bupropion Hydrochloride 150 MG Ext ended Release Oral Tablet bupropion HCl XL 150 mg 24 hr tablet, extended release take 1 tablet by mouth once daily bupropion HCl XL 150 mg 24 hr tablet, extended release take 1 tablet by mouth once daily completed 24 HR bupropion hydrochloride 150 MG Extended Release Oral Tablet LENNY ([facility]) albuterol sulfate HFA 90 mcg/actuation aerosol inhaler [id number] completed [id number] 200 ACTUAT albuterol 0.09 MG/ACTUAT Metered Dose Inhaler LENNY ([facility]) NITROFURANTOIN, MACROCRYSTALS 25 MG / Ni trofurantoin, Monohydrate 75 MG Oral Capsule nitrofurantoin monohydrate/macrocrystals 100 mg capsule nitrofurantoin monohydrate/macrocrystals 100 mg capsule completed nitrofurantoin, macrocrystals 25 MG / nitrofurantoin, monohydrate 75 MG Oral Capsule L[facility]NY ([facility]) Naproxen 500 MG Oral Tablet naproxen 500 mg tablet naproxen 500 mg ta blet completed naproxen 500 MG Oral Tablet [facility] ([facility]) chlorhexidine gluconate 1.2 MG/ML Mouthw juan josé chlorhexidine gluconate 0.12 % mouthwash chlorhexidine gluconate 0.12 % mouthwash completed chlorhexidine gluconate 1.2 MG/ML Mouthwash LENNY ([facility]) Ascorbic Acid 500 MG Oral Tablet Vitamin C 500 mg tabl et TAKE 1 TABLET DAILY Vitamin C 500 mg tablet TAKE 1 TABLET DAILY completed ascorbic acid 500 MG Oral Tablet LENNY ([facility]) Fluconazole 150 MG Oral Tablet fluconazole 150 mg tabl et fluconazole 150 mg tablet completed fluconazole 150 MG Oral Tablet [facility] ([facility]) Sulfamethoxazole 800 MG / Trimethoprim 1 60 MG Oral Tablet sulfamethoxazole 800 mg-trimethoprim 160 mg tablet sulfamethoxazole 800 mg-trimethoprim 160 mg tablet completed sulfame thoxazole 800 MG / trimethoprim 160 MG Oral Tablet LENNY ([facility]) ferrous sulfate 325 MG Oral Tablet ferrous sulfate 325 mg (65 mg iron) tablet ferrous sulfate 325 mg (65 mg iron) tablet completed ferrous sulfate 325 MG Oral Tablet LENNY ([facility]) Lidocaine Hydrochloride 20 MG/ML Mucous Membrane Topical Solution Lidocaine Viscous 2 % mucosal solution Lidocaine Viscous 2 % mucosal solution completed lidocaine hydrochloride 20 MG/ML Mucous Membrane Topical Solution LENNY ([facility]) Clindamycin 300 MG Oral Capsule clindamycin HCl 300 mg capsule clindamycin HCl 300 mg capsule completed clindam ycin 300 MG Oral Capsule LENNY ([facility]) Ibuprofen 600 MG Oral Tablet ibuprofen 600 mg tablet ibuprofen 6 00 mg tablet completed ibuprofen 600 MG Oral Tablet [facility]ENNY ([facility]) Acetaminophen 325 MG / Hydrocodone Sara trate 5 MG Oral Tablet hydrocodone 5 mg- acetaminophen 325 mg tablet hydrocodone 5 mg-acetaminophen 325 mg tablet completed acetaminophen 325 MG / hydrocodone bitartrate 5 MG Oral Tablet [facility]ENNY ([facility]) Sulfamethoxazole 800 MG / Trimethoprim 1 60 MG Oral Tablet sulfamethoxazole 800 mg-trimethoprim 160 mg tablet sulfamethoxazole 800 mg-trimethoprim 160 mg tablet completed sulfame thoxazole 800 MG / trimethoprim 160 MG Oral Tablet LENNY ([facility]) Naproxen 500 MG Oral Tablet naproxen 500 mg tablet naproxen 500 mg ta blet completed naproxen 500 MG Oral Tablet [facility] ([facility]) Ibuprofen 600 MG Oral Tablet ibuprofen 600 mg tablet ibuprofen 6 00 mg tablet completed ibuprofen 600 MG Oral Tablet [facility] ([facility]) Permethrin 50 MG/ML Topical Cream permethrin 5 % topic al cream permethrin 5 % topical cream completed permethr in 50 MG/ML Topical Cream [facility]ENNY ([facility]) albuterol sulfate HFA 90 mcg/actuation aerosol inhaler [id number] completed [id number] 200 ACTUAT albuterol 0.09 MG/ACTUAT Metered Dose Inhaler LENNY ([facility]) tramadol hydrochloride 50 MG Oral Tablet tramadol 50 mg tablet take 1 tablet by mouth every 6 hours if needed for pain tramadol 50 mg tablet take 1 tablet by mouth every 6 hours if needed for pain completed tramadol hydrochloride 50 MG Oral Tablet LENNY ([facility]) Ascorbic Acid 500 MG Oral Tablet Vitamin C 500 mg tabl et TAKE 1 TABLET DAILY Vitamin C 500 mg tablet TAKE 1 TABLET DAILY completed ascorbic acid 500 MG Oral Tablet [facility]EN[facility] ([facility]) Acetaminophen 325 MG / Hydrocodone Sara trate 5 MG Oral Tablet hydrocodone 5 mg- acetaminophen 325 mg tablet hydrocodone 5 mg-acetaminophen 325 mg tablet completed acetaminophen 325 MG / hydrocodone bitartrate 5 MG Oral Tablet [facility]EN[facility] ([facility]) Phenazopyridine hydrochloride 200 MG Ora l Tablet phenazopyridine 200 mg tablet TAKE 1 TABLET BY MOUTH THREE TIMES DAILY FOR 2 DAYS phenazopyridine 200 mg tablet TAKE 1 TABLET BY MOUTH THREE TIMES DAILY FOR 2 DAYS completed phenazopyridine hydrochloride 20 0 MG Oral Tablet LENNY ([facility]) ferrous sulfate 325 MG Oral Tablet ferrous sulfate 325 mg (65 mg iron) tablet ferrous sulfate 325 mg (65 mg iron) tablet completed ferrous sulfate 325 MG Oral Tablet LENNY ([facility]) Phenazopyridine hydrochloride 200 MG Ora l Tablet phenazopyridine 200 mg tablet TAKE 1 TABLET BY MOUTH THREE TIMES DAILY FOR 2 DAYS phenazopyridine 200 mg tablet TAKE 1 TABLET BY MOUTH THREE TIMES DAILY FOR 2 DAYS completed phenazopyridine hydrochloride 20 0 MG Oral Tablet LENNY ([facility]) Cyclobenzaprine hydrochloride 10 MG Oral Tablet cyclob enzaprine 10 mg tablet cyclobenzaprine 10 mg tablet completed cyclobenzaprine hydrochloride 10 MG Oral Tablet [facility] ([facility]) Cholecalciferol 07067 UNT Oral Capsule c holecalciferol (vitamin D3) 1,250 mcg (50,000 unit) capsule cholecalciferol (vitamin D3) 1,250 mcg ( 50,000 unit) capsule completed cholecalcifero l 1.25 MG Oral Capsule LENNY ([facility]) chlorhexidine gluconate 1.2 MG/ML Mouthw juan josé chlorhexidine gluconate 0.12 % mouthwash chlorhexidine gluconate 0.12 % mouthwash completed chlorhexidine gluconate 1.2 MG/ML Mouthwash [facility] ([facility]) Insurance Providers Payer name Policy type / Coverage type Policy ID Covered green party ID Covered green party's relationship to [place] Policy [place] Plan Information EMEDNY [id number] SP [id number] COMMITED HOME CARE [id number] [facility] [place] Medicaid D [id number] SELF [id number] SNYDER [id number] [employer]ia [id number] MEDICAID [id number] [employer] [id number] 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 [id number] COMMITTED HOME CARE [id number] SP [id number] SELF PAY ONLY [id number] SP [id number] WORKERS COMPENSATION GENERIC W [id number] Empl [id number] [facility] I [id number] Self CB [id number] MEDICAID [id number] SNYDER [id number] [facility] [id number] SP [id number] SNYDER [id number] [facility] [id number] SNYDER [id number] SNYDER [id number] [place] [id number] MEDICAID [id number] [place]ia [id number] [facility] HEA [id number] S CB [id number] [facility] MEDICAID/SNYDER [id number] [facility]ia [id number] TOTAL CARE MEDICAID/SNYDER [id number] [facility]ia [id number] [facility] I [id number] Self CB [id number] MEDICAID GME [id number] S [id number] MEDICAID PI PI TOTAL CARE MEDICAID/SNYDER PI PI STPP Wrap [id number] D [facility] [id number] M [id number] NO FAULT [id number] Fozia [id number] [facility] IPA INC DENTAL [id number] Fozia [id number] NO FAULT PI PI HEALTHPLEX IPA INC DENTAL PI PI UNAVAILABLE UNAVAILA BLE MEDICAID HEALTH MAINTENANCE ORGANIZATION HEA UNAVAILABLE UNAVAILABLE TOTAL CARE HEA [id number] TOTAL CARE I [id number] Self [id number] TOTAL CARE MEDICAID [id number] Fozia [id number] [facility]ALTHPLEX IPA INC DENTAL [id number] Fozia [id number] Totalcare Medicaid F [id number] SELF C [id number] Total Care [id number] Totalcare Medicaid F [id number] SELF C [id number] MEDICAID GME W [id number] S [id number] TOTAL CARE W [id number] S [id number] MEDICAID [id number] Fozia [id number] MEDICAID [id number] [place]ozia [id number] [facility]ALTH[facility] IPA INC DENTAL [id number] Fozia [id number] SELF PAY 2 UNAVAILABLE 1 UNAVAILA BLE PCAP PENDING 2 [id number] [place] MEDICAID 2 [id number] 1 [id number] [place]ID [place] 3 [id number] TOTAL CARE MEDICAID 2 [id number] [place] 3 [id number] PCAP PENDING 2 [id number] SELF PAY 2 UNAVAILABLE UNAVAILA BLE Problems, Conditions, and Diagnoses Code Display Name Description Problem Type Effective Dates Data Source(s) Z11.1 Encounter for screening for respiratory tuberculosis Encounter for screening for respiratory Diagnosis 10/12/2020 02:55:01 PM EST [facility] Z02.1 Encounter for pre-employment examination Encounter for pre-employment examination Diagnosis 10/09/2020 01:48:23 PM EST [facility] M51.36 Other intervertebral disc degeneration, lumbar region Other intervertebral disc degeneration, Diagnosis 07/08/2020 09:48:58 AM EDT [facility] M50.30 Other cervical disc degeneration, unspec ified cervical region Other cervical disc degeneration, unspec Diagnosis 07/08/2020 09:48:58 AM ED T [facility] N93.9 Abnormal uterine and vaginal bleeding, u nspecified Abnormal uterine and vaginal bleeding, u Diagnosis 05/31/2020 12:40:57 PM EDT [facility] M54.32 Sciatica, left side Sciatica, left side Diagnosis 0 05/31/2020 12:40:57 PM EDT [facility] Z48.89 Encounter for other specified surgical a ftercare Encounter for other specified surgical a Diagnosis 02/27/2020 12:19:46 PM EDT [facility] T81.49XA Infection following a proced ure, other surgical site, initial encounter Infection following a procedure, other s Diagnosis 020 01:07:26 PM EDT [facility] T81.49XA Infection following a proced ure, other surgical site, initial encounter Infection following a procedure, other s Diagnosis 020 12:26:[address] [facility] F41.9 Anxiety disorder, unspecified Anxiety disorder, unspec ified Diagnosis 02/13/2020 12:26:[address] [facility] Z48.03 Encounter for change or removal of drain s Encounter for change or removal of drain Diagnosis 02/08/2020 09:18:27 AM EDT [facility] Z51.89 Encounter for other specified aftercare Encounter for other specified aftercare Diagnosis 02/08/2020 09:18:27 AM EDT [facility] N89.8 Other specified noninflammatory disorder s of vagina Other specified noninflammatory disorder Diagnosis 01/27/2020 08:49:25 AM EDT [facility] Z13.6 Encounter for screening for cardiovascul ar disorders Encounter for screening for cardiovascul Diagnosis 01/02/2020 09:19:17 AM EST [facility] Z13.21 Encounter for screening for nutritional disorder Encounter for screening for nutritional Diagnosis 01/02/2020 09:19:17 AM [facility] F32.9 Major depressive disorder, single episod e, unspecified Major depressive disorder, single episod Diagnosis 01/02/2020 09:19:17 AM [facility] K21.9 Gastro-esophageal reflux disease without esophagitis Gastro-esophageal reflux disease without Diagnosis 01/02/2020 09:19:17 AM [facility] Z98.84 Bariatric surgery status Bariatric surgery status Diag nosis 01/02/2020 09:19:17 AM [facility] J45.20 Mild intermittent asthma, uncomplicated Mild intermittent asthma, uncomplicated Diagnosis 01/02/2020 09:19:17 AM [facility] Z00.00 Encounter for general adult medical examination without abnormal findings Encounter for general adult medical exam Diagnosis 020 09:19:17 AM [facility] Surgeries/Procedures Procedure Description Date Indications Data Source(s) MRI, lumbar spine, w/o contrast 10/27/2020 12:00:00 AM EST [facility] ([facility]) MRI, cervical spine, w/o contrast 10/27/2020 12:00:00 AM EST [facility] ([facility]) DUP-SCAN XTR VEINS UNILATERAL/LIMITED STUDY US LOWER EXTREM ITY VENOUS LEFT STAT 05/31/2020 1:40 PM EDT 05/31/2020 05:40:38 PM EDT [facility] BLOOD COUNT COMPLETE AUTO&AUTO DIFRNTL WBC COUNT CBC AND DIFFER ENTIAL STAT 05/31/2020 1:20 PM EDT 05/31/2020 05:20:00 PM EDT [facility] GONADOTROPIN CHORIONIC QUANTITATIVE HCG, QUANTITATIVE, PREGNANC Y STAT 05/31/2020 1:20 PM EDT 05/31/2020 05:20:00 PM EDT [facility] BASIC METABOLIC PANEL CALCIUM TOTAL BASIC METABOLIC PANEL STAT 05/31/2020 1:20 PM EDT 05/31/2020 05:20:00 PM EDT [facility] GLUC BLD GLUC MNTR DEV CLEARED FDA SPEC HOME USE POCT GLUCOSE Routine 02/08/2020 10:29 AM EDT 02/08/2020 02:29:00 PM EDT [facility] Results ID Date Data Source [id number] 10/21/2020 09:14:00 AM EST [facility] [address] [place] [address] PHONE: [phone] FAX: [phone] Name .................. : FAIZA SOUZA Acct Number.................. : [id number] ROOM. ................. : MR Number ................... : [id number] Stay type ............. : CLINIC Discharge Date......... ... : 10/19/20 Admit Date ...... ... : 10/19/20 Admit Phys .................... : ORIANA WHITEHEAD Date of ....... : 1990 Family Phys ................... : Phone .................. : [phone] Age ................................ : 30 Film# .................. .:[id number] Sex ................................. : F Unsigned transcriptions are preliminary reports and do not represent a medical or legal document SPINE CERVICAL AP & LAT [id number] COMPLETE:10/19/20 12:15 CALEB 80449 (SPINE PROC REASON: CERVICALGIA CERVICAL SPINE SERIES: HISTORY: Cervicalgia. FINDINGS: There is some slight loss of the normal cervical lordosis. There is otherwise normal alignment and position of the bones with no significant pathology identified. IMPRESSION: No acute pathology noted. Electronically Reviewed and Signed By JOSE LOPEZ MD , 10/21/20 09:14, GMM Transcribe Initials: DZ , Transcribe Date: 10/19/20 21:33, Dictation Date: Page 1 of 1 Name Value Range Interpretation Code Description Data Dayana rce(s) Supporting Document(s) ID Date Data Source [id number] 10/20/2020 09:39:00 AM EST [facility] [address] [place] [address] PHONE: [phone] FAX: [phone] Name .................. : FAIZA SOUZA Acct Number.................. : [id number] ROOM. ................. : Number ................... : [id number] Stay type ............. : CLINIC Discharge Date......... ... : 10/19/20 Admit Date ...... ... : 10/19/20 Admit Phys .................... : ORIANA WHITEHEAD Date of ....... : 1990 Family Phys ................... : Phone .................. : [phone] Age ................................ : 30 Film# .................. .:[id number] Sex ................................. : F Unsigned transcriptions are preliminary reports and do not represent a medical or legal document SPINE LS AP & LAT [id number] COMPLETE:10/19/20 12:15 CALEB 37366 (SPINE PROC REASON: CERVICALGIA LUMBAR SPINE SERIES: [...] rce(s) Supporting Document(s) ID Date Data Source [id number] 10/15/2020 05:04:[address] [facility]FORMATION[facility] MRN Name Date of Age Gend*PT [id number] Harley Rutherford 1990 30 years F ---PT Location Admission Date/Time Visit ID Attending Provider --- --- --- --- EPI ID CSN Admitting Provider [id number] ---Assessment/Plan:Diagnoses and all orders for this visit:Encounter for PPD skin test reading (Primary)Negative PPDSigned paperworkFollow Up Return for Next scheduled follow up.Subjective:Patient ID: Harley Rutherford is a 30 years female.Patient presetns today for a PPD reading.HPIPPD Reading NotePPD read and results entered in [employer].Result: 0 mm induration.Interpretation: negative PPDIf test not [...] rce(s) Supporting Document(s) ID Date Data Source [id number] 10/09/2020 04:26:[address] 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 Paperwork done. PPD placed. 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 She needs a ppd placed.The following portions [...] rce(s) Supporting Document(s) ID Date Data Source [id number] 10/07/2020 11:12:00 AM EST [facility] ([facility]) Name Value Range Interpretation Code Description Data Dayana rce(s) Supporting Document(s) Lyme Disease IgG/IgM Antibodie Laboratory test result 0.00-0.90 [facility] ([facility]) <content>Negative <0.91</content >
<content>Equivocal 0.91 - 1.09</content>
<content>Positive >1.09</content>
<content></content> Lyme Disease IgM Ab Quantitati Laboratory test result 0.00-0.79 [facility] ([facility]) <content>Negative <0.80</content >
<content>Equivocal 0.80 - 1.19</content>
<content>Positive >1.19</content>
<content>.</content>
<content>IgM levels may peak at 3-6 weeks post infection, then</content>
<content>gradually decline.</content>
<content></content> ID Date Data Source [id number] 10/07/2020 11:12:00 AM EST [facility] ([facility]) Name Value Range Interpretation Code Description Data Dayana rce(s) Supporting Document(s) Erythrocyte sedimentation rate by Westergren method 17 mm/hr 0-20 [facility] ([facility]) C reactive protein [Mass/volume] in Serum or Plasma by High sensitivity method 0.41 mg/dL 0.00-0.30 [facility] ([facility]) ID Date Data Source [id number] 10/07/2020 11:12:00 AM EST [facility] ([facility]) Name Value Range Interpretation Code Description Data Dayana rce(s) Supporting Document(s) Antinuclear Antibodies Direct Laboratory test result [facility] ([facility]) Performed at: - [facility] [id number] Personal Driver: Michelle Metzger MD, Phone: [phone] ID Date Data Source [id number] 10/07/2020 11:12:00 AM EST [facility] ([facility]) Name Value Range Interpretation Code Description Data Dayana rce(s) Supporting Document(s) Rheumatoid factor [Units/volume] in Serum or Plasma Laboratory test result [facility] ([facility]) ID Date Data Source [id number] 10/07/2020 11:12:00 AM EST [facility] ([facility]) Name Value Range Interpretation Code Description Data Dayana rce(s) Supporting Document(s) Red Blood Count 4.41 10 4.00-5.40 [facility] ([facility]) White Blood Count 6.7 10 4.0-10.0 [facility] ([facility]) Hematocrit 37.1 % 36.0-47.0 [facility] ([facility]) Mean Corpuscular Volume 84.1 fl 80.0-96.0 M [facility] ([facility]) Hemoglobin 11.2 g/dL 12.0-15.5 [facility] ([facility]) Mean Corpuscular HGB Conc 30.2 g/dL 32.0-36.5 [facility] ([facility]) Red Cell Distribution Width 13.6 % 11.5-14.5 [facility] ([facility]) Mean Corpuscular Hemoglobin 25.4 pg 27.0-33.0 [facility] ([facility]) Lymph % 28.3 % 24.0-44.0 [facility] ([facility]) Platelet Count, Automated 270 10 150-450 [facility] ([facility]) Neutrophils % 61.8 % 36.0-66.0 [facility] ([facility]) [place] % 8.2 % 0.0-5.0 [facility] ([facility]) Eos % 1.2 % 0.0-3.0 [facility] ([facility]) Nucleated Red Blood Cell % 0.0 % 0-0 [facility] ([facility]) Immature Granulocyte % 0.1 % 0-3.0 [facility] ([facility]) Baso % 0.4 % 0.0-1.0 [facility] ([facility]) [place] # 0.6 10 0.0-0.8 [facility] ([facility]) Neutrophils # 4.2 10 1.5-8.5 [facility] ([facility]) Lymph # 1.9 10 1.5-5.0 [facility]) Eos # 0.1 10 0.0-0.5 [facility] ([facility]) Baso # 0.0 10 0.0-0.2 [facility]) ID Date Data Source [id number] 09/29/2020 12:00:00 AM EST [facility] Name Value Range Interpretation Code Description Data Dayana rce(s) Supporting Document(s) SARS coronavirus 2 RNA [Presence] in Res piratory specimen by CHEY with probe detection [facility] This lab was ordered by Althea Villavicencio and reported by [facility]. ID Date Data Source [id number] 06/02/2020 08:49:[address] [facility] [address] [facility] INFORMATIONPatient MRN Name Date of Age Gend*PT [id number] Harley Rutherford 1990 29 years F EDPT Location Admission Date/Time Visit ID Attending [id number] 05/31/20 1240 --- --- EPI ID CSN Admitting Provider [id number] ---Provider in Triage NotesNo notes on fileHistory [...] time.PCP- Cyndi Sylvester MDHistory provided by: PatientLanguage mash tub cooker operator used: Mitch Medical History:Diagnosis Date Adverse effect [...] MICROSCOPE ; Surgeon: Miguel Ambriz MD; Location: [facility] [place];Service: Spine; Laterality: Bilateral; BARIATRIC SURGERY SECTION SECTION [...] the documentation, reviewed the documentation recorded by laura in my presence and it accurately and completely records my words andactions.Aletha Licona MD 8:49 Sanam Licona MD06/02/20 0849 Name Value Range Interpretation Code Description Data Dayana rce(s) Supporting Document(s) ID Date Data Source [id number] 05/31/2020 01:48:37 PM EDT [address] [address]Pzwtbxw Name: HARLEY RUTHERFORDDOB: 1990Sex: FOrdering Provider: ALETHA LICONAAuthorizing Prov: ALETHA LICONAReferring Provider: Procedure Performed: US LOWER EXTREMITY VENOUS LEFTExam Date: 05/31/2020 13:40MRN: [id number] Number: [id number] Class: EmergencyAccount #: [id number] for Exam: left leg swelling and painTechnique: Duplex sonography was performed.Comparison: NoneFINDINGS:The common femoral vein, superficial femoral vein, and popliteal veins are patent and compressible.The calf veins are unremarkableIMPRESSION:1. No deep vein thrombosis identified.Report electronically signed by: SEBASTIAN MOSQUEDA On 05/31/2020 1:48 PMWorkstation ID: [id number] Name Value Range Interpretation Code Description Data Dayana rce(s) Supporting Document(s) ID Date Data Source [id number] 05/31/2020 02:44:08 PM EDT [facility] Name Value Range Interpretation Code Description Data Dayana rce(s) Supporting Document(s) HCG,QUANT PREG <1 mU/mL [facility] INTERPRETATION:LESS THAN 6 NEGATIVE 6 - 10 BORDERLINE (SUGGEST REPEAT IN 48 HOURS) APPROX HCG RANGE WEEKS POST LMP 11 - 130 3 - 4 WEEKS 75 - 2600 4 - 5 WEEKS 850 - 71261 5 - 6 WEEKS 4000 - 773403 6 - 7 [id number] - [id number] 7 - 12 [id number] - [id number] 12 - 16 WEEKS 1400 - 96048 16 - 29 WEEKS 940 - 38597 29 - 41 WEEKS ID Date Data Source [id number] 05/31/2020 02:14:48 PM EDT [facility] Name Value Range Interpretation Code Description Data Dayana rce(s) Supporting Document(s) SODIUM 140 mmol/L (136-145) [facility] POTASSIUM 3.7 mmol/L (3.6-5.2) [facility] CHLORIDE 107 mmol/L (100-108) [facility] CO2 30 mmol/L (22-31) [facility] ANION GAP 3 mmol/L (7-16) L [facility] UREA NITROGEN 12 mg/dL (7-24) [facility] CREATININE 0.78 mg/dL (0.60-1.00) [facility] BUN/CREAT RATIO 15.4 RATIO (10.0-20.0) [facility] GLUCOSE 71 mg/dL (70-99) [facility] CALCIUM 8.9 mg/dL (8.4-10.2) [facility] GFR >60 ml/min/1.73m2 (>59) [facility] GFR ( AMER) >60 ml/min/1.73m2 (>59) [facility] GFR INTERPRETATION [facility] --NORMAL KIDNEY FUNCTION OR MILD DISEASE - GFR >OR= 60CHRONIC KIDNEY DISEASE - GFR 15 - 59RENAL FAILURE - GFR <15 Est. GFR calculation based on the MDRDstudy equation, which assumes a steadystate for creatinine. Est. GFR should notbe used for medication dosing. ID Date Data Source [id number] 05/31/2020 02:03:11 PM EDT [facility] Name Value Range Interpretation Code Description Data Dayana rce(s) Supporting Document(s) WBC 5.6 10*3/uL (4.1-11.0) [facility] RBC 4.89 10*6/uL (4.00-5.40) [facility] HGB 12.3 g/dL (12.0-16.0) [facility] HCT 39.2 % (36.0-47.0) [facility] MCV 80.1 fL (80.0-95.0) [facility] MCH 25.1 pg (27.0-32.0) L [facility] MCHC 31.4 g/dL (32.0-36.0) L [facility] RDW 14.9 % (10.5-14.5) H [facility] PLT 276 10*3/uL (150-450) [facility] MPV 8.5 fL (7.1-10.7) [facility] NEUT % 62.2 % (35.0-75.0) [facility] LYMPH % 25.3 % (16.0-52.0) [facility] MONO % 10.5 % (0.0-8.0) H [facility] EOS % 1.2 % (0.0-5.0) [facility] BASO % 0.8 % (0.0-4.0) [facility] NEUT # 3.5 10*3/uL (1.8-7.7) [facility] LYMPH # 1.4 10*3/uL (1.2-4.8) [facility] MONO # 0.6 10*3/uL (0.0-0.8) [facility] Eosinophils [#/volume] in Blood by Automated count 0.1 10*3/uL (0.0-0 .5) [facility] BASO # 0.0 10*3/uL (0.0-0.2) [facility] ID Date Data Source [id number] 05/01/2020 12:00:00 AM EDT [facility] Name Value Range Interpretation Code Description Data Dayana rce(s) Supporting Document(s) SARS-CoV-2 [facility] This lab was ordered by [facility] and reported by [facility]. ID Date Data Source [id number] 02/27/2020 01:17:[address] [address] [facility] INFORMATIONPatient MRN Name Date of Age Gend*PT [id number] Harley Rutherford 1990 29 years F ---PT Location Admission Date/Time Visit ID Attending Provider --- --- --- --- EPI ID CSN Admitting Provider [id number] ---Subjective:Harley Rutherford is a 29 years old female who [facility] No iss ues.Imaging:noneObjective:Pathology:nonePhysical ExamThere were no vitals taken for this visit.Constitutional: Appears well-developed and well- nourished.Underarm and inner thigh incisions closed with scabs in place, no infectionAssessment:Doing well s/p arm and thigh skin removal.Plan:1. Sutures removed2. Return to clinic PRNSignature: Ortiz Saleem MDDate: February 27, 2020Time: 1:16 PM Name Value Range Interpretation Code Description Data Dayana rce(s) Supporting Document(s) ID Date Data Source [id number] 02/18/2020 01:48:[address] [facility] [address] [facility] INFORMATIONPatient MRN Name Date of Age Gend*PT [id number] Harley Rutherford 1990 29 years F ---PT Location Admission Date/Time Visit ID Attending Provider --- --- --- Cyndi Sylvester MD([id number]) EPI ID CSN Admitting Provider [id number] ---Subjective:Harley Rutherford is a 29 years old female who was referred for evaluation forwound care following skin removal of both arms and abdomen. Pt had surgery [facility]02/03/20 [facility]. No complaints. Pain controlled. Somedrainage from right [...] MICROSCOPE ; Surgeon: Miguel Ambriz MD; Location: [facility];Service: Spine; Laterality: Bilateral; BARIATRIC SURGERY SECTION [...] file Gets together: Not on file Attends episcopal service: Not on file Active member of [...] Rfl: 2 Cholecalciferol (VITAMIN D3) 1.25 MG (91833 UT) CAPS, Take 1 capsule (50,000Units total) [...] rce(s) Supporting Document(s) ID Date Data Source [id number] 02/13/2020 02:06:54 PM [facility]T [facility] Name Date of Age Gend*PT [id number] Harley Rutherford 1990 29 years F ---PT Location Admission Date/Time Visit ID Attending Provider --- --- --- --- EPI ID CSN Admitting Provider [id number] ---Assessment/Plan:Diagnoses and all orders for this visit:Anxiety [...] MICROSCOPE ; Surgeon: Miguel Ambriz MD; Location: [facility] [place];Service: Spine; Laterality: Bilateral; BARIATRIC SURGERY SECTION SECTION [...] tablet 2 Cholecalciferol (VITAMIN D3) 1.25 MG (65216 UT) CAPS Take 1 capsule (50,000Units total) [...] Name Value Range Interpretation Code Description Data [facility](s) Supporting Document(s) ID Date Data Source [id number] 02/09/2020 09:52:[address] [address] [facility]FORMATIONPatient MRN Name Date of Age Gend*PT [id number] Harley Rutherford 1990 29 years F EDPT Location Admission Date/Time Visit ID Attending [id number] 02/08/20 0918 --- --- EPI ID CSN Admitting Provider [id number] ---Provider in Triage NotesNo notes on fileHistory of Present IllnessChief ComplaintPatient presents with Post-op Problem pt had lipo in the [place] 5 days ago, pt has drains in back and arms that sheneeds removed.29 years old Female [facility] ED [facility] [facility] [place] [facility] [place]. Pt had a [place], fat removal and skin removal. Because [...] .PCP Cyndi Sylvester MDHistory provided by: PatientLanguage mash tub cooker operator used: Mitch Medical History:Diagnosis Date Adverse effect [...] MICROSCOPE ; Surgeon: Miguel Ambriz MD; Location: [facility] [place];Service: Spine; Laterality: Bilateral; BARIATRIC SURGERY SECTION SECTION [...] Wt 68 kg | LMP 01/19/2020 | DpE535% | BMI 24.96 kg/m Physical ExamConstitutional: She [...] the [facility] with [facility]. [...] rce(s) Supporting Document(s) ID Date Data Source [id number] 02/08/2020 10:30:45 AM EDT [facility] Name Value Range Interpretation Code Description Data Dayana rce(s) Supporting Document(s) POC NOVA GLU 91 mg/dL (70-99) [facility] PERFORMED BY [facility] CLINICAL STAFF ID Date Data Source [id number] 01/27/2020 09:40:05 AM EDT [facility] INFORMATIONPatient MRN Name Date of Age Gend*PT [id number] RaudelHarley ambrosio 1990 29 years F ---PT Location Admission Date/Time Visit ID Attending Provider --- --- --- --- EPI ID CSN Admitting Provider [id number] ---Assessment/Plan:Diagnoses and all orders for this visit:Vaginal [...] rce(s) Supporting Document(s) ID Date Data Source [id number] 01/02/2020 02:36:49 PM [facility] NT INFORMATIONPatient MRN Name Date of Age Gend*PT [id number] Harley Rutherford 1990 29 years F ---PT Location Admission Date/Time Visit ID Attending Provider --- --- --- --- EPI ID CSN Admitting Provider [id number] ---Subjective: Harley Rutherford is a 29 years female and is here for a comprehensive physicalexam. The patient reports problems - needs refills for medications anddepression - she sees . Pt needs to do labs. States she planes to haveliposuction done outside [facility]. She f/u with [facility].Patient Care Team:Cyndi Sylvester MD as PCP - General (Family Medicine)Miguel Ambriz MD as Consulting Physician (Neurosurgery)Mary Carmen Parisi RN as Registered Nurse (Behavioral Health)Doug Law MD as Referring Physician (Gastroenterology)[facility] as Care Management - External Health [facility] as Care Management - External Health [...] MICROSCOPE ; Surgeon: Miguel Ambriz MD; Location: [facility] OR [place];Service: Spine; Laterality: Bilateral; BARIATRIC SURGERY SECTION SECTION [...] file Gets together: Not on file Attends episcopal service: Not on file Active member of [...] rce(s) Supporting Document(s) ID Date Data Source [id number] 01/02/2020 09:30:[address] [facility] [...] by Repeat Analysis ID Date Data Source [id number] 01/02/2020 09:30:[address] [facility] [...] Physici ans Carbon Dioxide 24 mmol/L 21-30 [facility] Anion Gap 10.0 7.0-16.0 [facility] Calcium 9.6 mg/dL 8.8-10.4 [facility] AST 19 U/L 1-41 [facility] ALT 11 U/L 1-43 [facility] Alkaline Phosphatase 53 U/L 36-126 [facility] Total Bilirubin 0.3 mg/dL 0.0-1.2 [facility] Albumin 4.1 g/dL 3.3-4.5 [facility] Total Protein 7.2 g/dL 6.1-8.1 [facility] Globulin 3.1 g/dL 2.2-4.[facility] A[facility]G Ratio 1.3 0.9-1.[facility] New range effective: 07/09/2019. ALP now traceable to the IFCC procedure at 37 ID Date Data Source [id number] 01/02/2020 09:30:[address] [facility] Name Value Range Interpretation Code Description Data Dayana rce(s) Supporting Document(s) Cholesterol 132 mg/dL 100-[facility] Triglycerides 36 mg/dL 25-160 [facility] HDL 66 mg/dL 40-[facility] LDL (calculated) 59 mg/dL 0-130 [facility] VLDL 7.2 mg/dL 6.0-40.0 [facility] Chol/HDL Ratio 2.00 [facility] Values listed are Risk Dependent: ID Date Data Source [id number] 01/02/2020 09:30:[address] [facility] Name Value Range Interpretation Code Description Data Dayana rce(s) Supporting Document(s) Ultra hTSH II 0.78 uIU/mL 0.30-5.00 [facility] ID Date Data Source [id number] 01/02/2020 09:30:[address] [facility] Name Value Range Interpretation Code Description Data Dayana rce(s) Supporting Document(s) VITAMIN_D 20.3 ng/ml 30.0-100.0 [facility] Procedure Social History Code Duration Value Status Description Data Source(s ) Alcohol intake 10/15/2020 12:00:00 AM EST No completed [facility] Smoking 10/15/2020 12:00:00 AM EST Never smoker completed Never [facility] Alcohol intake 10/09/2020 12:00:00 AM EST No completed [facility] Smoking 10/09/2020 12:00:00 AM EST Never smoker completed Never [facility] Alcohol intake 05/31/2020 12:00:00 AM EDT No completed [facility] Smoking 05/31/2020 12:00:00 AM EDT Never smoker completed Never [facility] Alcohol intake 02/08/2020 12:00:00 AM EDT No completed [facility] Smoking 02/08/2020 12:00:00 AM EDT Never smoker completed Never [facility] Vital Signs ID Date Data Source UNK Name Value Range Interpretation Code Description Data Source(s) Systolic blood pressure 130 mm[Hg] 130 mm[Hg] A THENA ([facility]) Body height 65 [in_i] 65 [in_i] LENNY ([facility]) Diastolic blood pressure 82 mm[Hg] 82 mm[Hg] LENNY ([facility]) Body weight 189 [lb_av] 189 [lb_av] LENNY ([facility]) Systolic blood pressure 128 mm[Hg] 128 mm[Hg] A THENA ([facility]) Body mass index (BMI) [Ratio] 31.5 kg/m2 31.5 k g/m2 LENNY ([facility]) Body height 65 [in_i] 65 [in_i] LENNY ([facility]) Diastolic blood pressure 81 mm[Hg] 81 mm[Hg] LENNY ([facility]) Body weight 189 [lb_av] 189 [lb_av] LENNY ([facility]) Systolic blood pressure 128 mm[Hg] 128 mm[Hg] A THENA ([facility]) Body mass index (BMI) [Ratio] 31.5 kg/m2 31.5 k g/m2 LENNY ([facility]) Body height 65 [in_i] 65 [in_i] LENNY ([facility]) Diastolic blood pressure 81 mm[Hg] 81 mm[Hg] LENNY ([facility]) Systolic blood pressure 121 mm[Hg] 121 mm[Hg] M EDENT ([facility]) Diastolic blood pressure 81 mm[Hg] 81 mm[Hg] MEDENT ([facility]) Heart rate 87 /min 87 /min MEDENT ([facility]) Body temperature 97.8 [degF] 97.8 [degF] MEDENT ([facility]) Respiratory rate 16 /min 16 /min [facility] ( [facility]) Oxygen saturation in Arterial blood by Pulse oximetry 98 % 98 % MEDENT ([facility]) Body weight 190.00 [lb_av] 190.00 [lb_av] MEDEN T ([facility]) Body weight 86.184 kg 86.184 kg MEDENT ([facility]) Body height 65 [in_i] 65 [in_i] MEDENT ([facility]) 5'5" Body mass index (BMI) [Ratio] 31.6 kg/m2 31.6 k g/m2 [facility] ([facility]) Body surface area Derived from formula 1.94 m2 1.94 m2 [facility] ([facility]) Oxygen saturation in Arterial blood by Pulse oximetry 96 % 96 % [facility] Body mass index (BMI) [Ratio] 28.06 kg/m2 28.06 kg/m2 [facility] Body weight 86.183 kg 86.183 kg [facility] Body height 175.3 cm 175.3 cm [facility] Respiratory rate 16 /min 16 /min [facility] Body temperature 36.67 Fernanda 36.67 Fernanda [facility] Heart rate 85 /min 85 /min [facility] Diastolic blood pressure 70 mm[Hg] 70 mm[Hg] [facility] Systolic blood pressure 100 mm[Hg] 100 mm[Hg] [facility] Oxygen saturation in Arterial blood by Pulse oximetry 98 % 98 % [facility] Respiratory rate 16 /min 16 /min [facility] Heart rate 84 /min 84 /min [facility] Diastolic blood pressure 84 mm[Hg] 84 mm[Hg] [facility] Systolic blood pressure 119 mm[Hg] 119 mm[Hg] [facility] Body mass index (BMI) [Ratio] 24.66 kg/m2 24.66 kg/m2 [facility] Body weight 75.751 kg 75.751 kg [facility] Body height 175.3 cm 175.3 cm [facility] Body temperature 36.56 Fernanda 36.56 Fernanda [facility] Oxygen saturation in Arterial blood by Pulse oximetry 95 % 95 % [facility] Respiratory rate 18 /min 18 /min [facility] Body temperature 36.44 Fernanda 36.44 Fernanda [facility] Heart rate 83 /min 83 /min [facility] Diastolic blood pressure 83 mm[Hg] 83 mm[Hg] [facility] Systolic blood pressure 161 mm[Hg] 161 mm[Hg] [facility] Body mass index (BMI) [Ratio] 24.96 kg/m2 24.96 kg/m2 [facility] Body weight 68.04 kg 68.04 kg [facility] Body height 165.1 cm 165.1 cm [facility] Patient Treatment Plan of Care Planned Activity Planned Date Details Description Data Source (s) lidocaine (LIDODERM) 5 % 07/08/2020 12:00:00 AM EDT [facility] Cyclobenzaprine hydrochloride 10 MG Oral Tablet 07/08/2020 12:00:00 AM EDT [facility] 24 HR Bupropion Hydrochloride 150 MG Extended Release Oral Tablet 07/08/2020 12:00:00 AM EDT [facility] buspirone hydrochloride 7.5 MG Oral Tablet 02/13/2020 12:00:00 AM E DT [facility] Sulfamethoxazole 800 MG / Trimethoprim 160 MG Oral Tab let 02/08/2020 12:00:00 AM EDT [facility] tramadol hydrochloride 50 MG Oral Tablet 02/08/2020 12:00:00 AM EDT [facility] Cholecalciferol 84519 UNT Oral Capsule 01/07/2020 12:00:00 AM EST [facility] Vit-Fe Fumarate-FA ( MULTIVITAMIN) 27 -1 MG TABS 01/02/2020 12:00:00 AM EST [facility] Ibuprofen 600 MG Oral Tablet 01/02/2020 12:00:00 AM EST [facility] ferrous sulfate 325 MG Oral Tablet 01/02/2020 12:00:00 AM EST [facility] calcium citrate-vitamin D (CALCIUM + D) 315-200 MG-UNI T per tablet 01/02/2020 12:00:00 AM EST [facility] Ascorbic Acid 500 MG Oral Capsule 01/02/2020 12:00:00 AM EST [facility] albuterol (PROVENTIL HFA) 108 (90 Base) MCG/ACT inhale r 01/02/2020 12:00:00 AM EST [facility] Ascorbic Acid 500 MG Oral Tablet LEN[facility] ([facility]) tramadol hydrochloride 50 MG Oral Tablet LENNY ([facility]) Sulfamethoxazole 800 MG / Trimethoprim 160 MG Oral Tablet LENNY ([facility]) Phenazopyridine hydrochloride 200 MG Oral Tablet LENNY ([facility]) Permethrin 50 MG/ML Topical Cream LENNY ([facility]) NITROFURANTOIN, MACROCRYSTALS 25 MG / Ni trofurantoin, Monohydrate 75 MG Oral Capsule [facility] ([facility]) Naproxen 500 MG Oral Tablet LENNY ([facility]) Lidocaine Hydrochloride 20 MG/ML Mucous Membrane Topical Solution LENNY ([facility]) Ibuprofen 600 MG Oral Tablet LENNY ([facility]) Acetaminophen 325 MG / Hydrocodone Bitartrate 5 MG Oral Tablet LENNY ([facility]) Fluconazole 150 MG Oral Tablet LEN[facility] ([facility]) ferrous sulfate 325 MG Oral Tablet LEN[facility] ([facility]) Cyclobenzaprine hydrochloride 10 MG Oral Tablet LEN[facility] ([facility]) Clindamycin 300 MG Oral Capsule LENNY ([facility]) Clindamycin 150 MG Oral Capsule LENNY ([facility]) Cholecalciferol 33039 UNT Oral Capsule LENNY ([facility]) chlorhexidine gluconate 1.2 MG/ML Mouthwash LENNY ([facility]) 24 HR Bupropion Hydrochloride 150 MG Extended Release Oral Tablet LENNY ([facility]) albuterol sulfate HFA 90 mcg/actuation aerosol inhaler LENNY ([facility]) Ascorbic Acid 500 MG Oral Tablet LENNY ([facility]) tramadol hydrochloride 50 MG Oral Tablet LEN[facility] ([facility]) Sulfamethoxazole 800 MG / Trimethoprim 160 MG Oral Tablet LENNY ([facility]) Phenazopyridine hydrochloride 200 MG Oral Tablet LENNY ([facility]) Permethrin 50 MG/ML Topical Cream LENNY ([facility]) NITROFURANTOIN, MACROCRYSTALS 25 MG / Ni trofurantoin, Monohydrate 75 MG Oral Capsule [facility] ([facility]) Naproxen 500 MG Oral Tablet LENNY ([facility]) Lidocaine Hydrochloride 20 MG/ML Mucous Membrane Topical Solution LENNY ([facility]) Ibuprofen 600 MG Oral Tablet LENNY ([facility]) Acetaminophen 325 MG / Hydrocodone Bitartrate 5 MG Oral Tablet LENNY ([facility]) Fluconazole 150 MG Oral Tablet LENNY ([facility]) ferrous sulfate 325 MG Oral Tablet LENNY ([facility]) Cyclobenzaprine hydrochloride 10 MG Oral Tablet LENNY ([facility]) Clindamycin 300 MG Oral Capsule LENNY ([facility]) Clindamycin 150 MG Oral Capsule LENNY ([facility]) Cholecalciferol 00381 UNT Oral Capsule LENNY ([facility]) chlorhexidine gluconate 1.2 MG/ML Mouthwash LENNY ([facility]) 24 HR Bupropion Hydrochloride 150 MG Extended Release Oral Tablet LENNY ([facility]) albuterol sulfate HFA 90 mcg/actuation aerosol inhaler LENNY ([facility])
[2020-12-07] MEDS: KCL 20MEQ IN D5/0.45NS 1000ML 1,000 ML IV SCH ×2 (14:55→19:27)
[2020-12-07] MEDS: FLUCONAZOLE 200 MG in IV 1 EA IV SCH (19:54)
[2020-12-07] MEDS: metroNIDAZOLE 500 MG in IV 1 EA IV SCH (20:39)
[2020-12-07] MEDS: PANTOPRAZOLE 40MG VIAL (C9113 PER 1) IV SCH (20:39)
[2020-12-07] MEDS: CIPROFLOXACIN 400 MG in IV 1 EA IV SCH (23:10)
[2020-12-08] VITALS (8 sets, daily range): BP systolic 92–130; BP diastolic 52–67; O2SAT 97–100
[2020-12-08] MEDS: ONDANSETRON 4MG/2ML VIAL IV PRN ×3 (00:17→17:50)
[2020-12-08] MEDS: KETOROLAC 30 MG/ML 1ML VIAL IV PRN ×3 (00:18→16:19)
[2020-12-08] MEDS: KCL 20MEQ IN D5/0.45NS 1000ML 1,000 ML IV SCH ×3 (03:12→20:18)
[2020-12-08] MEDS: metroNIDAZOLE 500 MG in IV 1 EA IV SCH ×3 (05:39→20:18)
[2020-12-08] MEDS: ENOXAPARIN 40MG/0.4ML SYRINGE (J1650 PER 10MG) SC SCH (09:00)
--- NOTE | 2020-12-08 09:27 | IPNPDOC ---
Text Note Date of Service The patient was seen on 12/08/20. NOTE No acute events overnight. She has some left shoulder pain only. The abd pain is much improved. She has been up walking around, and had a BM already today. VSSAF NAD abd - soft, TTP appropriate, dressings c/d/i, drain in the LUQ with serosanguinous output. labs - pending A) 30y/o female POD#1 s/p RA ex laparoscopy with repair of perforated marginal ulcer P) NPO abx PPI antifungal ambulate IS plan for UGI on Chip Marcum DO VS,Fishbone, I+O VS, Fishbone, I+O Vital Signs Date Time Temp Pulse Resp B/P (MAP) Pulse Ox O2 Delivery O2 Flow Rate FiO2 12/08/20 06:00 98.6 74 18 92/52 (65) 98 Room Air 12/08/20 02:00 2.0 I&O- Last 24 Hours up to 6 AM 12/08/20 06:00 Intake Total 3035 ml Output Total 1400 ml Balance 1635 ml ALANA MARCUM DO Dec 08, 2020 09:27
[2020-12-08 10:02] LABS: BLOOD UREA NITROGEN 9 MG/DL (7-18); CALCIUM LEVEL 8.9 MG/DL (8.5-10.1); CARBON DIOXIDE LEVEL 24 MEQ/L (21-32); CHLORIDE LEVEL 108 MEQ/L (98-107); CREATININE FOR GFR 0.64 MG/DL (0.55-1.30); GLOMERULAR FILTRATION RATE > 60.0 (>60); GLUCOSE, FASTING 103 MG/DL (70-100); POTASSIUM SERUM 3.9 MEQ/L (3.5-5.1); SODIUM LEVEL 138 MEQ/L (136-145)
[2020-12-08] MEDS: PANTOPRAZOLE 40MG VIAL (C9113 PER 1) IV SCH ×2 (10:30→20:18)
[2020-12-08] MEDS: MORPHINE 2 MG/ML 1ML VIAL (J2270) IV PRN ×2 (10:31→21:55)
[2020-12-08] MEDS: CIPROFLOXACIN 400 MG in IV 1 EA IV SCH (11:08)
[2020-12-08 11:37] LABS: HEMATOCRIT 30.4 % (36.0-47.0); HEMOGLOBIN 9.3 g/dl (12.0-15.5); MEAN CORPUSCULAR HEMOGLOBIN 25.1 pg (27.0-33.0); MEAN CORPUSCULAR HGB CONC 30.6 g/dl (32.0-36.5); MEAN CORPUSCULAR VOLUME 82.2 fl (80.0-96.0); PLATELET COUNT, AUTOMATED 225 10^3/uL (150-450); WHITE BLOOD COUNT 14.5 10^3/uL (4.0-10.0)
[2020-12-08] MEDS ORDERED: NS 1,000 ML IV ONE (12:30)
[2020-12-08] MEDS: FLUCONAZOLE 200 MG in IV 1 EA IV SCH (16:19)
[2020-12-09] MEDS: CIPROFLOXACIN 400 MG in IV 1 EA IV SCH ×3 (00:17→23:09)
[2020-12-09] MEDS: metroNIDAZOLE 500 MG in IV 1 EA IV SCH ×4 (05:44→20:52)
[2020-12-09 06:00] VITALS: BP 105/76
[2020-12-09] MEDS: KCL 20MEQ IN D5/0.45NS 1000ML 1,000 ML IV SCH ×4 (06:55→23:08)
[2020-12-09] MEDS ORDERED: NS 1,000 ML IV ONE (07:45)
[2020-12-09] MEDS: ENOXAPARIN 40MG/0.4ML SYRINGE (J1650 PER 10MG) SC SCH (08:43)
[2020-12-09] MEDS: PANTOPRAZOLE 40MG VIAL (C9113 PER 1) IV SCH ×2 (08:43→20:51)
[2020-12-09 11:12] LABS: HEMATOCRIT 28.3 % (36.0-47.0); HEMOGLOBIN 8.3 g/dl (12.0-15.5); MEAN CORPUSCULAR HEMOGLOBIN 25.2 pg (27.0-33.0); MEAN CORPUSCULAR HGB CONC 29.3 g/dl (32.0-36.5); MEAN CORPUSCULAR VOLUME 85.8 fl (80.0-96.0); PLATELET COUNT, AUTOMATED 217 10^3/uL (150-450); WHITE BLOOD COUNT 8.2 10^3/uL (4.0-10.0)
[2020-12-09 11:38] LABS: BLOOD UREA NITROGEN 7 MG/DL (7-18); CALCIUM LEVEL 8.6 MG/DL (8.5-10.1); CARBON DIOXIDE LEVEL 26 MEQ/L (21-32); CHLORIDE LEVEL 109 MEQ/L (98-107); CREATININE FOR GFR 0.64 MG/DL (0.55-1.30); GLOMERULAR FILTRATION RATE > 60.0 (>60); GLUCOSE, FASTING 87 MG/DL (70-100); POTASSIUM SERUM 3.9 MEQ/L (3.5-5.1); SODIUM LEVEL 141 MEQ/L (136-145)
--- NOTE | 2020-12-09 13:06 | IPNPDOC ---
Text Note Date of Service The patient was seen on 12/09/20. NOTE No acute events overnight. Left shoulder pain is gone. The abd pain is much i mproved. She has been up walking around, and is urinating well. The drain output is clear now. VSSAF NAD abd - soft, TTP appropriate, dressings c/d/i, drain in the LUQ with serous output. labs - below A) 30y/o female POD#2 s/p RA ex laparoscopy with repair of perforated marginal ulcer P) NPO abx PPI antifungal ambulate IS plan for UGI tomorrow then start a diet Chip Marcum DO VS,Fishbone, I+O VS, Fishbone, I+O Laboratory Tests 12/09/20 10:41 Vital Signs Date Time Temp Pulse Resp B/P (MAP) Pulse Ox O2 Delivery O2 Flow Rate FiO2 12/09/20 06:00 98.0 94 18 105/76 (86) 98 12/08/20 21:00 Room Air 12/08/20 02:00 2.0 I&O- Last 24 Hours up to 6 AM 12/09/20 06:00 Intake Total 3700 ml Output Total 900 ml Balance 2800 ml ALANA MARCUM DO Dec 09, 2020 13:06
[2020-12-09] MEDS: KETOROLAC 30 MG/ML 1ML VIAL IV PRN ×2 (13:55→22:19)
[2020-12-09] MEDS ORDERED: GASTROGRAFIN SOLUTION 30ML (Q9963) As Ordered ONE (14:14)
[2020-12-09] MEDS: FLUCONAZOLE 200 MG in IV 1 EA IV SCH (17:24)
[2020-12-09] MEDS: MORPHINE 2 MG/ML 1ML VIAL (J2270) IV PRN (17:46)
--- NOTE | 2020-12-09 18:04 | REP ---
INDICATION: s/p marginal ulcer repair. Checking for leak.. COMPARISON: None. TECHNIQUE: The procedure was performed under the direct supervision of Dr. Cabrera. The images were reviewed with Dr. Cabrera. A 50/50 solution of Gastrografin and water was given in the prone oblique positions. FINDINGS: The oral and pharyngeal stages of deglutition are unremarkable. Esophageal transport is prompting deficient and there is no evidence of esophagitis stricture or mucosal ring or hiatal hernia. Gastroesophageal reflux is not demonstrated on this examination. The contrast passes through the stomach pouch and into the small bowel without delay. There is no evidence of stricture or obstruction. There is no evidence of extravasation. There are thickened mucosal folds which likely represents postsurgical edema. 1.3 minutes of fluoroscopy time was utilized for this procedure. IMPRESSION: There is no evidence of stricture, obstruction or extravasation. There are thickened mucosal folds which likely represents postsurgical edema. <Electronically signed by Travis Zuniga > 12/09/20 1710 <Electronically signed by Jose Angel Cabrera > 12/09/20 1800
[2020-12-09 22:00] VITALS: BP 112/77
[2020-12-10 02:00] VITALS: BP 102/65
[2020-12-10 03:38] VITALS: O2SAT 98
[2020-12-10] MEDS: metroNIDAZOLE 500 MG in IV 1 EA IV SCH (05:55)
[2020-12-10 06:00] VITALS: BP 111/70
[2020-12-10] MEDS: KETOROLAC 30 MG/ML 1ML VIAL IV PRN (06:01)
[2020-12-10] MEDS: KCL 20MEQ IN D5/0.45NS 1000ML 1,000 ML IV SCH (06:01)
[2020-12-10] MEDS: ENOXAPARIN 40MG/0.4ML SYRINGE (J1650 PER 10MG) SC SCH (08:25)
[2020-12-10] MEDS: PANTOPRAZOLE 40MG VIAL (C9113 PER 1) IV SCH (08:26)
--- NOTE | 2020-12-10 09:27 | IPNPDOC ---
Text Note Date of Service The patient was seen on 12/10/20. NOTE No acute events overnight. She has been up ambulating in the halls. UGI was c ompleted last evening, and there are no signs of any leaks. VSSAF NAD abd - soft, TTP appropriate, dressings c/d/i, drain in the LUQ with serous output. labs - below A) 30y/o female POD#3 s/p RA ex laparoscopy with repair of perforated marginal ulcer P) clq diet abx PPI antifungal ambulate IS will check drain and labs in am. If ok, and tolerating clq diet, then I will advance her to full liquids and d/c home. Chip Marcum DO VS,Randall, I+O VS, Randall, I+O Laboratory Tests 12/09/20 10:41 Vital Signs Date Time Temp Pulse Resp B/P (MAP) Pulse Ox O2 Delivery O2 Flow Rate FiO2 12/10/20 06:00 97.0 77 17 111/70 (84) 98 Room Air 12/08/20 02:00 2.0 I&O- Last 24 Hours up to 6 AM 12/10/20 05:59 Intake Total 3275 ml Output Total 1410 ml Balance 1865 ml ALANA MARCUM DO Dec 10, 2020 09:27
[2020-12-10] MEDS ORDERED: ACETAMINOPHEN 500 MG TAB PO PRN (09:30)
[2020-12-10] MEDS: CIPROFLOXACIN 500MG TABLET PO SCH ×2 (09:59→17:39)
[2020-12-10 10:00] VITALS: BP 120/83
[2020-12-10 10:31] LABS: HEMOGLOBIN 9.6 g/dl (12.0-15.5); MEAN CORPUSCULAR HEMOGLOBIN 25.4 pg (27.0-33.0); MEAN CORPUSCULAR VOLUME 84.7 fl (80.0-96.0); PLATELET COUNT, AUTOMATED 246 10^3/uL (150-450); RED BLOOD COUNT 3.78 10^6/uL (4.00-5.40); WHITE BLOOD COUNT 7.9 10^3/uL (4.0-10.0)
[2020-12-10 11:11] LABS: BLOOD UREA NITROGEN 4 MG/DL (7-18); CALCIUM LEVEL 8.9 MG/DL (8.5-10.1); CARBON DIOXIDE LEVEL 26 MEQ/L (21-32); CHLORIDE LEVEL 107 MEQ/L (98-107); CREATININE FOR GFR 0.61 MG/DL (0.55-1.30); GLOMERULAR FILTRATION RATE > 60.0 (>60); GLUCOSE, FASTING 98 MG/DL (70-100); POTASSIUM SERUM 3.8 MEQ/L (3.5-5.1); SODIUM LEVEL 142 MEQ/L (136-145)
[2020-12-10] MEDS: metroNIDAZOLE (FLAGYL) 500MG TABLET PO SCH ×2 (13:13→21:31)
[2020-12-10] MEDS: SUCRALFATE 1 GM TAB PO SCH ×3 (13:14→21:31)
[2020-12-10] MEDS: FLUCONAZOLE 100 MG TAB PO SCH (13:14)
[2020-12-10 13:22] VITALS: BP 125/86
[2020-12-10] MEDS: NORCO, ANEXSIA 5/325MG TABLET (HYDROcodone/ACETAMINOPHEN) PO PRN (17:39)
[2020-12-10 22:00] VITALS: BP_SYST 113; BP_SYST 119; BP_DIAS 56; BP_DIAS 78
[2020-12-11] MEDS: metroNIDAZOLE (FLAGYL) 500MG TABLET PO SCH (05:39)
[2020-12-11] MEDS: CIPROFLOXACIN 500MG TABLET PO SCH (05:39)
[2020-12-11 06:00] VITALS: BP 122/70
[2020-12-11 06:31] LABS: HEMATOCRIT 28.4 % (36.0-47.0); HEMOGLOBIN 8.6 g/dl (12.0-15.5); MEAN CORPUSCULAR HEMOGLOBIN 25.1 pg (27.0-33.0); MEAN CORPUSCULAR HGB CONC 30.3 g/dl (32.0-36.5); PLATELET COUNT, AUTOMATED 243 10^3/uL (150-450); RED BLOOD COUNT 3.42 10^6/uL (4.00-5.40); WHITE BLOOD COUNT 6.2 10^3/uL (4.0-10.0)
[2020-12-11 06:52] LABS: BLOOD UREA NITROGEN 4 MG/DL (7-18); CALCIUM LEVEL 8.5 MG/DL (8.5-10.1); CARBON DIOXIDE LEVEL 27 MEQ/L (21-32); CHLORIDE LEVEL 105 MEQ/L (98-107); CREATININE FOR GFR 0.59 MG/DL (0.55-1.30); GLOMERULAR FILTRATION RATE > 60.0 (>60); GLUCOSE, FASTING 84 MG/DL (70-100); POTASSIUM SERUM 3.5 MEQ/L (3.5-5.1); SODIUM LEVEL 140 MEQ/L (136-145)
[2020-12-11] MEDS: ENOXAPARIN 40MG/0.4ML SYRINGE (J1650 PER 10MG) SC SCH (08:14)
[2020-12-11] MEDS: FLUCONAZOLE 100 MG TAB PO SCH (08:14)
[2020-12-11] MEDS: SUCRALFATE 1 GM TAB PO SCH (08:14)
[2020-12-11] MEDS ORDERED: OMEPRAZOLE 20 MG CAP PO SCH (09:00)
[2020-12-11] MEDS ORDERED: OMEP-218 PO (10:00)
[2020-12-11] MEDS ORDERED: FLAG500T PO (10:00)
[2020-12-11] MEDS ORDERED: SUCR1TA PO (10:00)
[2020-12-11] MEDS ORDERED: HYDR-3715 PO (10:00)
[2020-12-11] MEDS ORDERED: CIPR-249 PO (10:00)
[2020-12-11] MEDS: NORCO, ANEXSIA 5/325MG TABLET (HYDROcodone/ACETAMINOPHEN) PO PRN (10:02)
--- NOTE | 2020-12-11 12:47 | DSES ---
DISCHARGE SUMMARY DATE OF ADMISSION: 12/07/2020 DATE OF DISCHARGE: 12/11/2020 ADMISSION DIAGNOSIS: Perforated viscus. DISCHARGE DIAGNOSIS: Perforated marginal ulcer. HOSPITAL COURSE: Patient is a 30-year-old female who presented to the hospital on the morning of December 07 with severe abdominal pain, found to have free air on x-ray. Followed up by CT that showed most likely an upper abdominal source. She was brought to the operating room for robotic exploratory surgery with repair of perforation. Postoperatively she did well. She was kept nothing by mouth for 48 hours. She had intravenous (IV) fluids, antibiotics, antifungals. During that time, she was up out bed, ambulated appropriately. She had good urine output, and her drain output became clearer every day. On Monday evening, which was December 09, she had an upper gastrointestinal (GI) completed, which confirmed that there was no longer any leakage. Because of that, she was started on clear liquid diet on the morning of December 10. She tolerated the clear liquid diet well overnight. This morning, she has no problems with pain. Her drain has remained clear, and volume has not increased after starting a diet. She was also started on by mouth Carafate, proton pump inhibitor (PPI), and oral antibiotics yesterday and oral pain pains, and she is tolerating all that appropriately. Plan is for discharge home today. I will send her home on a full liquid diet. She will followup with me in the office in 2 weeks. She has pain medications, Cipro and Flagyl, by mouth, omeprazole by mouth, and Carafate by mouth to go home with. Prescriptions were already sent. She can lift up to 20 pounds. She can shower. No baths for 5 days. All of her questions were answered, and she will followup with me in 2 weeks.
== END 2020-12-11 12:03 | disposition home or self-care (01) | DRG 227 ==
LOC: M ED 08:02 → M SDC 08:03 → M MSPAV 11:32
PROVIDERS: ADMIT Surgery; ATTEND Surgery
PROC: 8E0W4CZ Robotic Assisted Procedure of Trunk Region, Percutaneous Endoscopic Approach (ICD-10-PCS; 2020-12-07)
PROC: 0WUF47Z Supplement Abdominal Wall with Autologous Tissue Substitute, Percutaneous Endoscopic Approach (ICD-10-PCS; principal; 2020-12-07 09:45)
DX: K28.5 Chronic or unspecified gastrojejunal ulcer with perforation (principal); Z88.0 Allergy status to penicillin; Z98.84 Bariatric surgery status; Z11.52 Encounter for screening for COVID-19; Z90.49 Acquired absence of other specified parts of digestive tract

== ENCOUNTER 2021-03-25 13:51 | Outpatient (CLI) | payer MEDICAID ==
[~2021-03-25 13:51] MED LIST changes: +CIPR-249 PO; +CLIN300C6 PO; +FLAG500T PO; +HYDR-3715 PO; +OMEP-218 PO; +SUCR1TA PO
--- NOTE | 2021-03-25 14:54 | IPNPDOC ---
Text Note Date of Service The patient was seen on 03/25/21. NOTE Triage note S: 30 yo female at 13 weeks gestation per her report presents with one day of vaginal bleeding. The bleeding occurs with wiping only. No pain. She has had two prior sections. She gets care at [facility]. O: NAD Abd: NT, soft SVE: cx L/C/P, small amount of blood noted bedside ultrasound: 13 week SIUP by CRL, AP=450, numerous movements observed. nl HARRISON Blood type =O+ (obtained through [employer]) A/P 30 yo at 13 weeks gestation with vaginal bleeding Pt reassured discussed risk of miscarriage Pt plans to transfer care to [place] due to distance from [place] LESLIE PEPE MD March 25, 2021 14:54
== END 2021-03-25 14:51 | disposition home or self-care (01) ==
LOC: M LDO 13:51
PROVIDERS: ATTEND Specialist
DX: O20.8 Other hemorrhage in early pregnancy (principal); Z3A.13 13 weeks gestation of pregnancy; Z88.0 Allergy status to penicillin

== ENCOUNTER → 2021-04-02 | Outpatient (REF) | payer OTHER ==
[2021-04-02 15:48] LABS: HEMATOCRIT 33.3 % (36.0-47.0); HEMOGLOBIN 9.8 g/dl (12.0-15.5); MEAN CORPUSCULAR HEMOGLOBIN 23.6 pg (27.0-33.0); MEAN CORPUSCULAR HGB CONC 29.4 g/dl (32.0-36.5); MEAN CORPUSCULAR VOLUME 80.2 fl (80.0-96.0); PLATELET COUNT, AUTOMATED 326 10^3/uL (150-450); RED BLOOD COUNT 4.15 10^6/uL (4.00-5.40); WHITE BLOOD COUNT 9.1 10^3/uL (4.0-10.0)
[2021-04-02 16:19] LABS: ALT/SGPT 18 U/L (12-78); BILIRUBIN,TOTAL 0.3 MG/DL (0.2-1.0); CREATININE FOR GFR 0.44 MG/DL (0.55-1.30); GLOMERULAR FILTRATION RATE > 60.0 (>60); LDH LACTATE DEHYDROGENASE 176 U/L (84-246); URIC ACID 2.7 MG/DL (2.6-6.0)
[2021-04-02 17:08] LABS: HEPATITIS C VIRUS ABY INDEX < 0.0 INDEX (<0.8); HIV 1&2 SCREEN CENTAUR NEGATIVE (NEGATIVE)
[2021-04-02 17:18] LABS: CHLAMYDIA DNA AMPLIFICATION POSITIVE (NEGATIVE); GC DNA AMPLIFICATION NEGATIVE (NEGATIVE)
== END ==
LOC: M PLALAB 13:06
PROVIDERS: ATTEND Specialist
DX: Z34.82 Encounter for supervision of other normal pregnancy, second trimester (principal)

== ENCOUNTER → 2021-04-09 | Outpatient (CLI) | payer OTHER | LOC: M PLALAB 09:20 | PROVIDERS: ATTEND Specialist | DX: Z34.81 Encounter for supervision of other normal pregnancy, first trimester (principal) ==

== ENCOUNTER → 2021-04-30 | Outpatient (REF) | payer OTHER | LOC: M SFHCWAGY 16:53 | PROVIDERS: ATTEND Advanced Practice Midwife | DX: Z11.3 Encounter for screening for infections with a predominantly sexual mode of transmission (principal) ==

== ENCOUNTER → 2021-05-31 | Outpatient (CLI) | payer OTHER ==
--- NOTE | 2021-05-31 14:57 | REP ---
INDICATION: ANATOMY. COMPARISON: None. TECHNIQUE: Transabdominal FINDINGS: Multiple ultrasonographic images of the gravid uterus shows a single living intrauterine gestation in the cephalic presentation. Doppler interrogation of the heart shows a heart rate of 160 beats per minute. The placenta is posterior and not low-lying. The cervix measures 3.3 cm in length and is closed. The subjective amniotic fluid volume is within normal limits. BPD: 5 cm 21 weeks 1 day HC: 19 cm 21 weeks 2 days AC: 16.3 cm 21 weeks 2 day FL: 3.6 cm 21 weeks 3 days The estimated weight is 420 g which is at the 23rd percentile for a 21 week 6 day gestational age. anatomical structures seen to be unremarkable are as follows three-vessel umbilical cord, kidneys, cord insertion, urinary bladder, 1 upper lower extremities. The remainder of the anatomical screen was suboptimal. IMPRESSION: Single living intrauterine gestation as described above an estimated gestational age is 21 weeks 3 days via composite criteria and an estimated date of delivery of 10/08/2021 by today's exam. No anomalies were detected, however, I recommend repeat anatomical screen as described above. <Electronically signed by Ranjith Velásquez > 05/31/21 1510
== END ==
LOC: M WHC 10:00
PROVIDERS: ATTEND Specialist
DX: Z34.82 Encounter for supervision of other normal pregnancy, second trimester (principal)

== ENCOUNTER → 2021-06-18 | Outpatient (CLI) | payer OTHER ==
--- NOTE | 2021-06-18 13:05 | REP ---
INDICATION: F/U ANATOMY. FOLLOW-UP THALAMI, CAVUM SEPTUM PELLUCIDUM, CEREBELLUM, CISTERNA MAGNA, CEREBRAL VENTRICLES,, FOUR-CHAMBER HEART, VENTRICULAR OUTFLOW TRACTS, UPPER LIP, AND URINARY BLADDER COMPARISON: 05/31/2021 TECHNIQUE: Transabdominal FINDINGS: Multiple ultrasonographic images of the gravid uterus shows a single living intrauterine gestation in the breech presentation. Doppler interrogation of the heart shows a heart rate of 134 beats per minute. The placenta is posterior and not low-lying. The cervix measures 3.7 cm in length and is closed. The subjective amniotic fluid volume is within normal limits. BPD: 5.6 cm 23 weeks 0 days HC: 21.8 cm 23 weeks 6 days AC: 18.8 cm 23 weeks 4 days FL: 4.4 cm 24 weeks 4 days The estimated weight is 640 g which is at the 20th percentile for a 4 week 3 day gestational age. anatomical structures seen to be unremarkable are as follows: Thalami, cavum septum pellucidum, cerebral ventricles, cisterna magna, spine, kidneys, and upper lip. Four-chamber heart, ventricular outflow tracts, and urinary bladder still suboptimally visualized. IMPRESSION: Single living intrauterine gestation as described above with an estimated gestational age of 23 weeks 6 days via composite criteria and an estimated date of delivery of 10/09/2021 by today's exam. No anomalies were detected, however, I recommend a follow-up examination to better visualize the four-chamber, ventricular outflow tracts, and urinary bladder. <Electronically signed by Ranjith Velásquez > 06/18/21 3208
== END ==
LOC: M WHC 11:05
PROVIDERS: ATTEND Advanced Practice Midwife
DX: Z34.82 Encounter for supervision of other normal pregnancy, second trimester (principal)

== ENCOUNTER → 2021-07-14 | Outpatient (REF) | payer OTHER | LOC: M SFHCWAGY 16:59 | PROVIDERS: ATTEND Advanced Practice Midwife | DX: R10.2 Pelvic and perineal pain (principal) ==

== ENCOUNTER → 2021-07-14 | Outpatient (CLI) | payer OTHER | LOC: M WHC 13:49 | PROVIDERS: ATTEND Advanced Practice Midwife | DX: O34.211 Maternal care for low transverse scar from previous cesarean delivery (principal) ==

== ENCOUNTER 2021-08-25 21:03 | Outpatient (CLI) | payer OTHER ==
[~2021-08-25] VITALS: Ht 167.6 cm; Wt 89.0 kg
[2021-08-25 21:13] VITALS: BP 126/77
[2021-08-25] MEDS ORDERED: ACET-907 PO (21:46)
[2021-08-25] MEDS ORDERED: PRENTAB9 PO (21:46)
--- NOTE | 2021-08-26 06:34 | IPN ---
PROGRESS NOTE DATE: 08/25/2021 SUBJECTIVE: Joie is a 31-year-old 6 para 3-1-2-3 at 34 and 1/7th weeks with an EDC of 10/05/2021 based on last menstrual period and confirmed by first trimester ultrasound. She presents to Labor and Delivery today with a report of constant pelvic pain and back discomfort. She denies painful contractions, vaginal bleeding and leakage of fluid, the fetus No fetus has been active. She does report some leakage of fluid. Her care was initiated at [facility] in the first trimester. Her course was complicated by chlamydial infection, a history of preeclampsia, she is taking aspirin 81 mg daily, depression and anxiety, not on medications, a history of a prior section x3, history of a pre-term delivery and history of gastric bypass. OBSTETRIC HISTORY: January 2014, 34 weeks gestation, 4 pound, 1 ounce male, section, preeclampsia with severe features; 2014 elective termination, March 2017, 37 weeks, 4 pounds, 9 ounce female, section, preeclampsia; November 2018, 38 weeks, 8 pound, 9 ounce female, section. OBSTETRIC LABS: O positive, antibody screen negative. Syphilis nonreactive. Chlamydia positive. Gonorrhea negative. Test to cure one month later, chlamydia negative, gonorrhea negative. Hepatitis B surface antigen negative, hepatitis C antibody nonreactive, HIV nonreactive, rubella immune. Urine culture contaminated. Gestational diabetic screening not performed. Baseline preeclamptic labs: Within normal limits. GBS is unknown at this time. PAST MEDICAL HISTORY: Depression, anxiety, sleep apnea. PAST SURGICAL HISTORY: Appendectomy, cholecystectomy, section x3, gastric bypass, back surgery lumbar 4 and 5, intestional surgery, tummy tuck, bilateral skin removal from legs and arms due to gastric bypass, [place] butt lift, liposuction. FAMILY HISTORY: Hypertension, high cholesterol, stroke, diabetes, colon cancer, breast cancer. SOCIAL HISTORY: The patient is single. There is no partner at bedside. She is a nonsmoker. She denies alcohol use. Denies drug use. She does have a history of chlamydia. She denies a history of abuse, physical, sexual and emotional. ALLERGIES: Amoxicillin and penicillin. CURRENT MEDICATIONS: vitamin. OBJECTIVE: Temperature is 98.3, pulse is 102, blood pressure if 126/71. She is alert and oriented, heart rate is 145, moderate variability, positive accelerations, negative decelerations. There is no pattern of contractions. Sterile speculum exam: Valsalva is negative, pooling negative, Nitrazine negative, fern negative. Sterile vaginal exam: Closed, thick and firm, posterior. ASSESSMENT: Intrauterine at 34 and 1/7th weeks, heart rate is Category 1, normal discomforts of . PLAN: I did review palliative measures related to pelvic pressure and back discomfort. I reviewed signs and symptoms of labor, movement counts and danger signs to report. I reviewed access to care with the patient. The patient has had her questions answered and is agreeable to discharge home. Plan is to discharge the patient home.
== END 2021-08-25 22:31 | disposition home or self-care (01) ==
LOC: M LDO 21:03
PROVIDERS: ATTEND Advanced Practice Midwife
DX: O26.893 Other specified pregnancy related conditions, third trimester (principal); O34.219 Maternal care for unspecified type scar from previous cesarean delivery; M54.50 Low back pain, unspecified; R10.2 Pelvic and perineal pain; Z3A.34 34 weeks gestation of pregnancy; Z88.0 Allergy status to penicillin; Z98.84 Bariatric surgery status

== ENCOUNTER → 2021-09-01 | Outpatient (CLI) | payer OTHER ==
[~2021-09-01] MED LIST changes: +ACET-907 PO; +CLIN-250 PO; -CLIN300C6 PO; +MACR100C43 PO; +PRENTAB9 PO
--- NOTE | 2021-09-01 16:31 | REP ---
INDICATION: F/U ANATOMY HEART, VOTS, BLADDER COMPARISON: 06/18/2021 TECHNIQUE: Transabdominal obstetrical ultrasound with color Doppler evaluation. FINDINGS: Examination demonstrates a single live intrauterine in cephalic presentation. motion is identified by technologist. Placenta is noted posterior and grade 1 without evidence for placenta previa or abruption. Amniotic fluid volume is normal. Cervix measures 4.1 cm in length and appears closed.. Selected gestational age: 35 weeks 1 day with WILLIAMS 10/05/2021. Gestational age by current measurements 35 weeks 3 days with WILLIAMS 10/03/2021. FHR equals 130 beats per minute. HARRISON: 16.6 cm Estimated weight 2669 grams (55thpercentile). Anatomical assessment demonstrates normal structures including four-chamber heart/ventricular outflow tracts and bladder. IMPRESSION: Single live advanced gestation in cephalic presentation demonstrating appropriate estimated weight. In conjunction with prior examination anatomical assessment is complete and normal. <Electronically signed by Gavin Pittman > 09/01/21 [id number]
== END ==
LOC: M WHC 15:50
PROVIDERS: ATTEND Advanced Practice Midwife
DX: O34.211 Maternal care for low transverse scar from previous cesarean delivery (principal)

== ENCOUNTER 2021-09-03 21:03 | Outpatient (CLI) | payer OTHER ==
[~2021-09-03] VITALS: Ht 167.6 cm; Wt 89.5 kg
[~2021-09-03 21:03] MED LIST changes: -MACR100C43 PO
[2021-09-03 21:24] VITALS: BP 130/72
[2021-09-03] MEDS ORDERED: HOME MED LIST COMPLETE! XX SCH (21:40)
--- NOTE | 2021-09-03 22:24 | IPNPDOC ---
Text Note Date of Service The patient was seen on 09/03/21. NOTE S: Joie is a 31-year-old at 35 3/7 whose has been complicated by history of gastric bypass, chlamydia, hx of preeclampsia, depression and anxiety, and prior LTCS. She presents to L & D triage with complaints of lower back pain, lower abdominal pain, and headache for two days. She has taken tylenol for relief with no effect. She also complains of leaking of fluid and vaginal discomfort. She notes positive movement. She denies vaginal bleeding or abnormal vaginal discharge. O: VS see below FHR 140 with moderate variability, + accels, and rare uterine contractions. Reassuring strip, Category 1. General: Pt alert and oriented x 3. Appears uncomfortable, holding head and complaining of back pain. Respiratory: breathing comfortably on room air, no use of accessory muscles. Abdomen: Gravid, non-tender on palpation. Sterile speculum exam: neg for pooling of fluid in vagina, neg valsalva, moderate amount of white discharge. Positive nitrazine, cervix appears friable. Wet mount: pH 5+, +WBCs, neg clue, neg ferning. Sterile Vaginal exam reveals closed, posterior and thick cervix, presenting part out of pelvis. A: IUP at 35 3/7 with reassuring strip, headache, lower abdominal pain and lower back pain P: Continue monitoring Rule out preeclampsia, urine obtained for ct/gc, u/a and urine culture Labs as ordered and reassess. VS,Fishbone, I+O VS, Fishbone, I+O Vital Signs Date Time Temp Pulse Resp B/P (MAP) Pulse Ox O2 Delivery O2 Flow Rate FiO2 09/03/21 21:24 97.9 92 130/72 (91) Dianna Sheriff CNM Sep 03, 2021 22:24
[2021-09-03 22:32] LABS: HEMATOCRIT 27.7 % (36.0-47.0); HEMOGLOBIN 7.9 g/dl (12.0-15.5); MEAN CORPUSCULAR HEMOGLOBIN 21.4 pg (27.0-33.0); MEAN CORPUSCULAR HGB CONC 28.5 g/dl (32.0-36.5); MEAN CORPUSCULAR VOLUME 75.1 fl (80.0-96.0); PLATELET COUNT, AUTOMATED 229 10^3/uL (150-450); RED BLOOD COUNT 3.69 10^6/uL (4.00-5.40); WHITE BLOOD COUNT 12.7 10^3/uL (4.0-10.0)
[2021-09-03 22:55] LABS: ALT/SGPT 14 U/L (12-78); BILIRUBIN,TOTAL 0.3 MG/DL (0.2-1.0); GLOMERULAR FILTRATION RATE > 60.0 (>60); LDH LACTATE DEHYDROGENASE 191 U/L (84-246); URIC ACID 3.7 MG/DL (2.6-6.0)
[2021-09-03] MEDS ORDERED: PROMETHAZINE INJ 25 MG/ML VIAL (J2550) IV ONE (23:30)
[2021-09-03] MEDS ORDERED: BUTORPHANOL 2 MG/ML INJ (J0595) IV ONE (23:30)
[2021-09-03] MEDS ORDERED: SODIUM CHLORIDE 0.9% 1000ML IV ONE (23:30)
[2021-09-03 23:40] VITALS: BP 127/73
--- NOTE | 2021-09-03 23:53 | IPNPDOC ---
Text Note Date of Service The patient was seen on 09/03/21. NOTE S: Remains uncomfortable. Pt states she does not believe this is a UTI and she feels she is in labor. She states she had this exact type of pain with her previous and she knows she is in labor. Pt adamant that "her baby is fully developed at 33 weeks and she is ready for a section". O: VS-see below Sterile vaginal exam reveals cervix is closed and posterior. No cervical change noted from previous exam. Rare uterine contractions noted. FHR 140 with moderate variability, + accels, Class 1 tracing. Renal ultrasound is negative for hydronephrosis and negative for hydroureter. A: IUP at 35 3/7, severe anemia, lower back pain, lower abdominal pain, abnormal urinalysis with pending urine culture. P: Plan of care collaborated with Dr Will Reviewed labs with patient, plan of care, and advised IV antibiotics, 2 units of packed red blood cells, hydration, and pain management with IV stadol and IV phenergen. GBS collected. Pt verbalized consent and agrees with above plan of care. Written consent for blood transfusion obtained. VS,Fishbone, I+O VS, Fishbone, I+O Laboratory Tests 09/03/21 22:13 Vital Signs Date Time Temp Pulse Resp B/P (MAP) Pulse Ox O2 Delivery O2 Flow Rate FiO2 09/03/21 21:24 97.9 92 130/72 (91) Dianna Sheriff CNM Sep 03, 2021 23:53
[2021-09-04] VITALS (11 sets, daily range): BP systolic 99–123; BP diastolic 51–79
[2021-09-04 00:12] LABS: GC DNA AMPLIFICATION NEGATIVE (NEGATIVE)
[2021-09-04] MEDS: CLINDAMYCIN 600 MG in IV 1 EA IV SCH ×2 (00:18→06:00)
--- NOTE | 2021-09-04 00:46 | REPVR ---
PROCEDURE INFORMATION: Exam: US Retroperitoneal Limited, Kidneys Exam date and time: 09/03/2021 11:24 PM Age: 31 years old Clinical indication: Pain; Other: Back; ; Additional info: Back pain TECHNIQUE: Imaging protocol: Real-time ultrasound of the retroperitoneum with image documentation. Examination was focused on the kidneys. COMPARISON: CT ABD/PEL W/IV CONTRAST ONLY 12/07/2020 10:33 AM FINDINGS: Right kidney: Right kidney measures 10.9 x 5.1 x 6.1 cm. The right kidney appears within normal limits. Left kidney: Left kidney measures 12.0 x 4.5 x 5.6 cm. Left kidney appears within normal limits. Bladder: Urinary bladder is decompressed and not visualized. Uterus: Intrauterine gestation is present. cardiac activity is detected at 144 bpm. IMPRESSION: Kidneys appear within normal limits. Electronically signed by: Harpreet Jain On 09/04/2021 00:46:14 AM
[2021-09-04 00:54] LABS: TOTAL PROTEIN,RANDOM URINE 30.6 MG/DL (0.0-12.0)
[2021-09-04] MEDS ORDERED: diphenhydrAMINE 50MG/ML VIAL (J1200) IV STA (03:33)
--- NOTE | 2021-09-04 06:56 | IPNPDOC ---
Text Note Date of Service The patient was seen on 09/04/21. NOTE S: Pain unchanged. Pt slept most of the night. bleeding. O: AVSS NAD Abd: NT, gravid FHR: cat. I toco: rare ext: NT A/P 31 yo at 35 3/7 weeks with back pain, anemia PT received 1 unit PRBC's Plan to treat with Macrobid Discharge home fu office as scheduled VS,Fishbone, I+O VS, Fishbone, I+O Laboratory Tests 09/03/21 22:13 Vital Signs Date Time Temp Pulse Resp B/P (MAP) Pulse Ox O2 Delivery O2 Flow Rate FiO2 09/04/21 05:33 81 99/51 (67) 09/04/21 03:43 97.7 18 99 Room Air I&O- Last 24 Hours up to 6 AM 09/04/21 06:00 Intake Total 1252 ml Balance 1252 ml LESLIE PEPE MD Sep 04, 2021 06:56
[2021-09-04] MEDS ORDERED: MACR100C43 PO (06:58)
== END 2021-09-04 06:24 | disposition home or self-care (01) ==
LOC: M LDO 21:03
PROVIDERS: ATTEND Advanced Practice Midwife
DX: O26.893 Other specified pregnancy related conditions, third trimester (principal); R10.2 Pelvic and perineal pain; O99.013 Anemia complicating pregnancy, third trimester; O34.211 Maternal care for low transverse scar from previous cesarean delivery; R51.9 Headache, unspecified; M54.50 Low back pain, unspecified; O99.843 Bariatric surgery status complicating pregnancy, third trimester; O99.343 Other mental disorders complicating pregnancy, third trimester; N89.8 Other specified noninflammatory disorders of vagina; Z3A.35 35 weeks gestation of pregnancy; F32.A Depression, unspecified
CPT/HCPCS: 36415; 36430; 59025; 76775; 81001; 82247; 82565; 82570; 83615; 84156; 84450; 84460; 84550; 85027; 86850; 86900; 86901; 86920; 87081; 87086; 87661; 96374; J1200; P9016

== ENCOUNTER 2021-09-10 08:45 | Outpatient (CLI) | payer OTHER ==
[~2021-09-10] VITALS: Ht 167.6 cm; Wt 90.0 kg
[~2021-09-10 08:45] MED LIST changes: +IRON SUCROSE 500 MG in NS 250 ML OVER 4 HRS IV ONE; +MACR100C43 PO
[2021-09-10 09:00] VITALS: BP 124/83
[2021-09-10 10:30] VITALS: BP 114/59
[2021-09-10 11:30] VITALS: BP 126/80
[2021-09-10 12:30] VITALS: BP 120/74
[2021-09-10 13:30] VITALS: BP 130/80
== END 2021-09-10 13:35 | disposition home or self-care (01) ==
LOC: M INFU 08:45
PROVIDERS: ATTEND Advanced Practice Midwife
DX: D64.9 Anemia, unspecified (principal); Z88.0 Allergy status to penicillin
CPT/HCPCS: 96365; 96366; J1756

== ENCOUNTER → 2021-09-18 | Outpatient (CLI) | payer OTHER ==
[~2021-09-18] MED LIST changes: +FOLTTAB9 PO; -IRON SUCROSE 500 MG in NS 250 ML OVER 4 HRS IV ONE; +OXYC1TAB23 PO
== END ==
LOC: M LABSMTC 09:33
PROVIDERS: ATTEND Anesthesiology
DX: Z01.818 Encounter for other preprocedural examination (principal); Z11.52 Encounter for screening for COVID-19

== ENCOUNTER 2021-09-19 00:25 | Outpatient (CLI) | payer OTHER ==
[~2021-09-19] VITALS: Ht 165.1 cm; Wt 92.1 kg
[~2021-09-19 00:25] MED LIST changes: -FOLTTAB9 PO; -OXYC1TAB23 PO
[2021-09-19 00:43] VITALS: BP 110/70
[2021-09-19] MEDS ORDERED: HOME MED LIST COMPLETE! XX SCH (00:55)
[2021-09-19] MEDS ORDERED: ACETAMINOPHEN 500 MG TAB PO ONE (01:25)
== END 2021-09-19 01:39 | disposition home or self-care (01) ==
LOC: M LDO 00:25
PROVIDERS: ATTEND Obstetrics & Gynecology
DX: O26.893 Other specified pregnancy related conditions, third trimester (principal); Z3A.37 37 weeks gestation of pregnancy; Z53.21 Procedure and treatment not carried out due to patient leaving prior to being seen by health care provider

== ENCOUNTER 2021-09-21 21:07 | Inpatient (IN) | payer OTHER ==
[~2021-09-21] VITALS: Ht 167.6 cm; Wt 91.1 kg
[2021-09-21] MEDS ORDERED: FOLTTAB9 PO (21:30)
[2021-09-21] MEDS ORDERED: HOME MED LIST COMPLETE! XX SCH (21:30)
[2021-09-21 21:38] VITALS: BP 118/75
[2021-09-21] MEDS ORDERED: LR 1,000 ML IV SCH (22:10)
[2021-09-21] MEDS ORDERED: LACTATED RINGER'S 1000 ML IV STA (22:10)
[2021-09-21] MEDS ORDERED: ceFAZolin SOD 2 GM in IV 1 EA IV ONE (22:10)
--- NOTE | 2021-09-21 22:26 | HPEPDOC ---
Obstetrical History & Physical General Date of Admission Sep 21, 2021 at 22:04 History of Present Illness 31 yo female at 38 0/7 weeks gestation by LMP c/w 13 week ultrasound (EDC=10/05/2021) presents for contractions every 2-3 minutes for the past hour. No bleeding. no loss of fluid. Pt has had 3 prior sections. Chief Complaint: Contractions, term Age: 31 : 4 Term: 3 Pre-term: 1 Abortions: 2 Livin Care Care: Good Care Dating Final EDC: Oct 05, 2021 Final EDC by: LMP, 1st trimester (US) Antepartum Course Diagnos(e)s section x 3 Past Medical History Past Medical History Medical History medical hx: Depression Anxiety CPAP- sleep apnea surgical hx: appendectomy gallbladder 3 c-sections Gastric bypass back surgery L4-5 lumbar 12/2020 Intestinal surgery Tummy tuck Bilateral skin removal legs and arms- due to gastric Dutch butt lift Liposuction ob hx: 1 01/2014 34 4-1oz Male [place] preeclamp margaret with severe features 2 2014 Termination 3 03/2017 37 4-9oz female [place] preeclampsia 4 11/2018 38 8-9oz female [place] 5 08/2020 Termination Social History Marital Status: Single Family situation: Spouse/partner home Psychosocial History: No pertinent psych hx, Anxiety, Depression * Smoker: non-smoker Alcohol: Denies Drugs: denies Allergies Coded Allergies: Penicillins (Verified Allergy, Severe, 09/03/21) analphylactic Medications Scheduled B12/Levomefolate Calcium/B-6 (Foltx Tablet) 1 Each Tablet, 1 TAB PO DAILY No.137/Iron/Folic Acd ( Vitamin Tablet) 1 Each Tablet, 1 TAB PO DAILY Physical Examination Physical Examination GENERAL: Alert and oriented times three. BREAST: . ABDOMEN: Gravid and non-tender to touch. FETUS: Is vertex (VTX) by sterile vaginal examination (SVE), fetus is vertex (VTX) by Sebastian. HEART RATE: Regular rate and rhythm. LUNGS: Clear to auscultation (CTA). EXTREMITIES: No edema. No clonus. Deep tendon reflexes (DTRs) + . Vital Signs/I&O Vital Signs Date Time Temp Pulse Resp B/P (MAP) Pulse Ox O2 Delivery O2 Flow Rate FiO2 11/2/21 21:38 98.1 95 18 118/75 (89) 98 Room Air Laboratory Data 24H LABS Laboratory Tests 2 09/21/21 22:10: Serology Scanned Report Hepatitis B Testing Vaginal Examination Dilation: 1cm Effacement: 50% Station: -2 Cervical Consistency: Medium Cervical Position: Posterior Assessment Variability: Moderate Accelerations: Positive Decelerations: None Tocometer Contractions: Yes Frequency: regular Assessment/Plan Assessment Pt is a 31-year-old (G)4 para (P)3-1-2-3 at 38+0 weeks by LMP c/w 13- week ultrasound presents to Labor and Delivery with regular contractions. Pt has h/o three prior sections Plan Admit and orient. Cardiothoracic Anesthesia Technician and consent. Diet: NPO Plan repeat and BTL Consent previously signed. LESLIE PEPE MD Sep 21, 2021 22:26
[2021-09-21] MEDS ORDERED: GENTAMICIN 100 MG in IV 1 EA IV ONE (22:30)
[2021-09-21] MEDS ORDERED: CLINDAMYCIN 300 MG in IV 1 EA IV ONE (22:30)
[2021-09-21] MEDS ORDERED: NS 1,000 ML IV SCH (22:35)
[2021-09-21 22:36] VITALS: BP 120/71
[2021-09-21 22:42] LABS: HEMATOCRIT 33.1 % (36.0-47.0); HEMOGLOBIN 9.8 g/dl (12.0-15.5); MEAN CORPUSCULAR HEMOGLOBIN 22.8 pg (27.0-33.0); MEAN CORPUSCULAR HGB CONC 29.6 g/dl (32.0-36.5); MEAN CORPUSCULAR VOLUME 77.2 fl (80.0-96.0); PLATELET COUNT, AUTOMATED 218 10^3/uL (150-450); RED BLOOD COUNT 4.29 10^6/uL (4.00-5.40); WHITE BLOOD COUNT 13.8 10^3/uL (4.0-10.0)
[2021-09-21 23:30] VITALS: BP 121/74
[2021-09-21] MEDS ORDERED: MORPHINE PRES-FREE INJ 10 MG/10 ML VIAL (J2274) As Ordered ONE (23:58)
[2021-09-21] MEDS ORDERED: ONDANSETRON 4MG/2ML VIAL As Ordered ONE (23:58)
[2021-09-21] MEDS ORDERED: OXYTOCIN 30 UNITS IN 0.9% NaCl 500ML IV BAG (J2590) As Ordered ONE (23:58)
[2021-09-22] VITALS (9 sets, daily range): BP systolic 98–116; BP diastolic 53–66
[2021-09-22] MEDS ORDERED: METOCLOPRAMIDE INJ 10MG/2ML VIAL (J2765 PER 1) IV PRN (00:07)
[2021-09-22] MEDS ORDERED: ONDANSETRON 4MG/2ML VIAL IV PRN ×3 (00:07→02:25)
[2021-09-22] MEDS ORDERED: NALOXONE INJ 0.4MG/1ML VIAL (J2310 PER 1MG) IV PRN ×2 (00:07)
[2021-09-22] MEDS ORDERED: NALBUPHINE HCL 10 MG/ML AMP (J2300) IV PRN (00:07)
[2021-09-22] MEDS ORDERED: diphenhydrAMINE 50MG/ML VIAL (J1200) IV PRN ×2 (00:07→02:25)
[2021-09-22] MEDS ORDERED: ePHEDrine SULFATE 25 MG/5 ML(5MG/ML) SYRINGE As Ordered ONE (00:12)
[2021-09-22] MEDS ORDERED: DOCUSATE SODIUM 100MG CAPSULE PO PRN (01:15)
[2021-09-22] MEDS ORDERED: MEASLES,MUMPS,RUBELLA VACCINE INJ (MMR-II) (90707) SC SCH (01:15)
[2021-09-22] MEDS: LR 1,000 ML IV SCH ×3 (01:15→20:15)
[2021-09-22] MEDS ORDERED: OXYTOCIN DRIP 30 UNITS in IV 1 EA IV SCH (01:15)
[2021-09-22] MEDS ORDERED: RHOGAM 300 MCG (1500 IU) INJ (J2790) IM SCH (01:15)
[2021-09-22] MEDS ORDERED: SIMETHICONE 80MG CHEW TAB PO PRN (01:15)
[2021-09-22] MEDS ORDERED: PERCOCET 5MG/325MG TAB PO PRN (01:15)
--- NOTE | 2021-09-22 01:17 | ROOPDOC ---
[facility] Report Of Operation Report of Operation DATE OF PROCEDURE: 09/22/21 Report of operation Preoperative diagnosis: 38 weeks gestation, labor, prior section x3 Postoperative diagnosis: Same Procedure: Repeat low transverse section and bilateral tubal ligation. Surgeon: Leslie Pepe M.D. EBL: 500 ml. Urine output: 100 mL's. Findings: 6 lbs. 7 oz. male , 's 9 and 9, normal uterus, fallopian tubes, ovaries. Operative summary: Patient taken to the operating room where spinal anesthesia was induced. She was prepped draped in a sterile fashion in the supine position. A Hernandez catheter was placed. A Pfannenstiel skin incision was made with scalpel. Fascia was incised and extended bilaterally. The fascia was dissected off the rectus muscles. The peritoneal cavity was entered. A Mobius retractor was placed. A bladder flap was created. A curvilinear incision was made in lower uterine segment until Clear fluid was noted. The incision was extended manually. The was delivered from the vertex position without difficulty. Cord was doubly clamped and cut. The infant was handed to the awaiting nurses. The placenta was expressed. Uterus was closed with O-Vicryl in a running locked fashion. A second imbricating layer of Vicryl was placed. Attention was turned to the fallopian tubes. A [place] clamp was used to grasp the fallopian tubes at the midportion.. A window was created in the broad ligament free tie of 2-0 chromic was placed around the segment of tube on either side of the clamp. A Segment of tube was excised bilaterally and sent to pathology. Peritoneum was closed with 2-0 Vicryl a running fashion. Fascia was closed with 0 Vicryl in running fashion. Skin was closed 4-0 Monocryl subcuticular sutures. Sponge, instrument and needle counts were correct. LESLIE PEPE MD Sep 22, 2021 01:17
[2021-09-22] MEDS ORDERED: OXYTOCIN 30 UNITS IN 0.9% NaCl 500ML IV BAG (J2590) As Ordered ONE (01:50)
[2021-09-22] MEDS ORDERED: diphenhydrAMINE 50MG/ML VIAL (J1200) As Ordered ONE (02:22)
[2021-09-22] MEDS ORDERED: oxyCODONE 5MG TAB PO PRN (02:25)
[2021-09-22] MEDS ORDERED: fentaNYL 100 MCG/2 ML INJECTION (J3010) IV PRN (02:25)
[2021-09-22] MEDS: KETOROLAC 30 MG/ML 1ML VIAL IV SCH ×3 (03:00→15:20)
[2021-09-22] MEDS ORDERED: OXYC1TAB23 PO (06:37)
[2021-09-22] MEDS: SERTRALINE HCL 50 MG TAB PO SCH (08:49)
[2021-09-22] MEDS: PRENATAL VITAMINS CHEWABLE TABLET PO SCH (09:00)
[2021-09-22] MEDS ORDERED: LR 1,000 ML IV ONE (09:55)
[2021-09-22] MEDS ORDERED: PROMETHAZINE INJ 25 MG/ML VIAL (J2550) IV PRN (09:55)
[2021-09-22] MEDS: PERCOCET 5MG/325MG TAB PO PRN (20:17)
[2021-09-23] VITALS (7 sets, daily range): BP systolic 98–123; BP diastolic 57–72
[2021-09-23] MEDS: SERTRALINE HCL 50 MG TAB PO SCH (09:07)
[2021-09-23] MEDS: PRENATAL VITAMINS CHEWABLE TABLET PO SCH (09:07)
[2021-09-23 09:14] LABS: HEMOGLOBIN 9.5 g/dl (12.0-15.5); MEAN CORPUSCULAR HEMOGLOBIN 22.5 pg (27.0-33.0); MEAN CORPUSCULAR HGB CONC 28.8 g/dl (32.0-36.5); MEAN CORPUSCULAR VOLUME 78.2 fl (80.0-96.0); PLATELET COUNT, AUTOMATED 254 10^3/uL (150-450); RED BLOOD COUNT 4.22 10^6/uL (4.00-5.40); WHITE BLOOD COUNT 11.8 10^3/uL (4.0-10.0)
--- NOTE | 2021-09-23 10:00 | IPNPDOC ---
Progress Note Date of Service: Sep 23, 2021 Day#: 1 Progress Note SUBJECT: Doing well without complaints. Ambulating, voiding and pain is well- controlled. Reports minimal lochia. OBJECTIVE: VITAL SIGNS: Within normal limits, afebrile. Alert and oriented times three. Abdomen: Fundus firm at U-2. Soft, NTTP. Incision: dressed Ext: neg calf tenderness. ASSESSMENT: /postoperative day #1 status post delivery. Recovering in stable condition. PLAN: 1. Continue routine /postoperative care 2. Discharge plans for tomorrow VS, I&O, 24H, Fishbone Vital Signs/I&O Vital Signs Date Time Temp Pulse Resp B/P (MAP) Pulse Ox O2 Delivery O2 Flow Rate FiO2 09/23/21 06:20 98.0 67 18 98/57 (71) 99 Room Air I&O- Last 24 Hours up to 6 AM 09/23/21 06:00 Intake Total 2413 ml Output Total 1925 ml Balance 488 ml Laboratory Data 24H LABS Laboratory Tests 2 09/23/21 08:37: Nucleated Red Blood Cells % (auto) 0.0 CBC/BMP Laboratory Tests 09/23/21 08:37 DERECK KELLER MD. Sep 23, 2021 10:00
[2021-09-23] MEDS: PERCOCET 5MG/325MG TAB PO PRN (20:32)
[2021-09-24 02:17] VITALS: BP 139/75
[2021-09-24 06:17] VITALS: BP 120/80
[2021-09-24] MEDS: PRENATAL VITAMINS CHEWABLE TABLET PO SCH (08:12)
[2021-09-24] MEDS: SERTRALINE HCL 50 MG TAB PO SCH (08:17)
--- NOTE | 2021-09-24 13:04 | DSES ---
DISCHARGE SUMMARY DATE OF ADMISSION: 09/22/2021 DATE OF DISCHARGE: 09/24/2021 DISCHARGE DIAGNOSES: 1. Repeat section. 2. Bilateral tubal ligation. Postoperative day two, stable condition. SURGEON: Hugo Will MD BRIEF HISTORY: Joie underwent a repeat section with a bilateral tubal ligation 09/22/2021 due to active labor at term with a planned repeat section. Her surgery was uncomplicated. She had an estimated blood loss of 500 mL. Delivered a live male, 6 pounds, 7 ounces. Apgars were 9 and 9. Her postoperative course has been uncomplicated. She has been out of bed for self-care, christophe-care, and care. She is tolerating p.o. fluids and a regular diet, voiding without difficulty and passing flatus. Pain has been well managed with p.o. pain medications and she does request discharge home. OBJECTIVE: Vital signs: Temperature 97.6, pulse 82, respirations 18, blood pressure 120/80. On 09/21 CBC with a hemoglobin of 9.8, hematocrit 33.1, and platelets 218. 09/23 CBC: Hemoglobin 9.5, hematocrit 33, and platelets 254. Breasts: Soft and nontender. Nipples are intact. Fundus firm at umbilicus. Incision is intact. Dressing Optifoam is still applied. There is no new drainage. Perineum is intact. The lochia and rubra scant. Bilateral lower extremities with +1 pitting edema. PLAN: Discharge the patient home. E-medications have been sent to her pharmacy for Percocet and ibuprofen by Dr. Will. I did review discharge instructions that include breast care, incision care, christophe-care, pelvic rest, activity and lifting restrictions, danger signs to report as well as access to her care provider. The patient and her partner have had all of their questions answered and request discharge home today. She is to follow up at [facility] for a two week incision check and an eight week appointment.
== END 2021-09-24 11:51 | disposition home or self-care (01) | DRG 540 ==
LOC: M LDO 21:07 → M LDI 22:04 → M OBS 09-22 02:44
PROVIDERS: ADMIT Specialist; ATTEND Specialist
PROC: 10D00Z1 Extraction of Products of Conception, Low, Open Approach (ICD-10-PCS; principal; 2021-09-21)
PROC: 0UB70ZZ Excision of Bilateral Fallopian Tubes, Open Approach (ICD-10-PCS; 2021-09-21)
DX: O34.211 Maternal care for low transverse scar from previous cesarean delivery (principal); O99.844 Bariatric surgery status complicating childbirth; O75.82 Onset (spontaneous) of labor after 37 completed weeks of gestation but before 39 completed weeks gestation, with delivery by (planned) cesarean section; Z3A.38 38 weeks gestation of pregnancy; Z37.0 Single live birth; Z30.2 Encounter for sterilization

== ENCOUNTER → 2021-12-15 | Outpatient (REF) | payer OTHER ==
[~2021-12-15] MED LIST changes: +FOLTTAB9 PO; +OMEP-173 PO; -OMEP-218 PO; +OXYC1TAB23 PO
[2021-12-15 13:40] LABS: APPEARANCE, URINE CLEAR (CLEAR); BACTERIA, URINE AUTO 1+ (NEGATIVE); BILIRUBIN, URINE AUTO NEGATIVE (NEGATIVE); BLOOD, URINE BLOOD NEGATIVE (NEGATIVE); COLOR, URINE YELLOW (YELLOW); GLUCOSE, URINE (UA) AUTO NEGATIVE (NEGATIVE); KETONE, URINE AUTO NEGATIVE (NEGATIVE); LEUKOCYTE ESTERASE, URINE AUTO NEGATIVE (NEGATIVE); MUCUS, URINE SMALL (NEGATIVE); NITRITE, URINE AUTO NEGATIVE (NEGATIVE); PROTEIN, URINE AUTO NEGATIVE (NEGATIVE); RBC, URINE AUTO 0 /HPF (0-3); SPECIFIC GRAVITY URINE AUTO 1.018 (1.002-1.035); SQUAMOUS EPITHELIAL CELL UR AU 1 /HPF (0-6); UROBILINOGEN, URINE AUTO 0.2 mg/dL (0.0-2.0); WBC, URINE AUTO 1 /HPF (0-3)
== END ==
LOC: M SFHCWAGY 12:52
PROVIDERS: ATTEND Advanced Practice Midwife
DX: R35.0 Frequency of micturition (principal)

== ENCOUNTER → 2021-12-22 | Outpatient (CLI) | payer OTHER | LOC: M RAD 07:47 | PROVIDERS: ATTEND Physical Medicine & Rehabilitation | DX: M47.892 Other spondylosis, cervical region (principal); M47.893 Other spondylosis, cervicothoracic region; M50.320 Other cervical disc degeneration, mid-cervical region, unspecified level; M50.33 Other cervical disc degeneration, cervicothoracic region; M25.531 Pain in right wrist; M25.532 Pain in left wrist; M79.644 Pain in right finger(s); M79.645 Pain in left finger(s); R20.2 Paresthesia of skin ==

== ENCOUNTER 2022-05-26 16:56 | Emergency (ER) | payer OTHER ==
[~2022-05-26] VITALS: Ht 167.6 cm; Wt 91.1 kg
[2022-05-26] MEDS ORDERED: APAP325T4 PO (17:50)
[2022-05-26] MEDS ORDERED: IBUP80TA (17:50)
[2022-05-26 21:41] VITALS: BP 142/83
== END 2022-05-27 02:02 | disposition left against medical advice (07) ==
LOC: M ED 16:56
DX: Z53.21 Procedure and treatment not carried out due to patient leaving prior to being seen by health care provider (principal)

== ENCOUNTER → 2024-06-05 | Outpatient (CLI) | payer MEDICARE, MEDICAID ==
[~2024-06-05] MED LIST changes: +APAP325T4 PO; +CALC-362 PO; +CYAN-1 PO; +FERR325T3 PO; +HYDR-643 PO; +IBUP80TA; +IRONTAB2 PO; +MULT1TAB16 PO; +SENN1TAB85 PO; +VITA500C24 PO
== END ==
LOC: M RAD 10:17 → MERGE 10:17
PROVIDERS: ATTEND Nurse Practitioner Family
DX: M54.2 Cervicalgia (principal)

== ENCOUNTER 2024-08-18 20:03 | Emergency (ER) | payer MEDICARE, MEDICAID ==
[~2024-08-18] VITALS: Ht 170.2 cm; Wt 93.4 kg
[2024-08-18 20:14] VITALS: TEMP 97.4
[2024-08-18 20:38] LABS: BASO % 0.4 % (0.0-1.0); EOS # 0.1 10^3/uL (0.0-0.5); EOS % 0.9 % (0.0-3.0); HEMATOCRIT 38.4 % (36.0-47.0); HEMOGLOBIN 12.3 g/dl (12.0-15.5); LYMPH # 2.3 10^3/uL (1.5-5.0); MEAN CORPUSCULAR HEMOGLOBIN 27.3 pg (27.0-33.0); MEAN CORPUSCULAR VOLUME 85.1 fl (80.0-96.0); MONO # 0.6 10^3/uL (0.0-0.8); MONO % 7.8 % (2.0-8.0); NEUTROPHILS # 4.6 10^3/uL (1.5-8.5); NEUTROPHILS % 60.6 % (36.0-66.0); PLATELET COUNT, AUTOMATED 281 10^3/uL (150-450); RED BLOOD COUNT 4.51 10^6/uL (4.00-5.40); WHITE BLOOD COUNT 7.6 10^3/uL (4.0-10.0)
[2024-08-18 21:02] LABS: BLOOD UREA NITROGEN 15 MG/DL (9-23); CARBON DIOXIDE LEVEL 28 MMOL/L (20-31); CHLORIDE LEVEL 109 MMOL/L (98-107); CK-MB VALUE MASS < 1.0 NG/ML (<3.6); CPK CREATINE PHOSPHOKINASE 91 U/L (34-145); CREATININE FOR GFR 0.64 MG/DL (0.55-1.30); GLOMERULAR FILTRATION RATE > 60.0 (>60); GLUCOSE, FASTING 144 MG/DL (60-100); MB/CK RELATIVE INDEX 1.09 (< OR =4); POTASSIUM SERUM 3.9 MMOL/L (3.5-5.1); SODIUM LEVEL 142 MMOL/L (136-145)
[2024-08-18 21:04] LABS: HCG, SERUM QUALITATIVE NEGATIVE (NEGATIVE)
[2024-08-18 22:18] VITALS: O2SAT 98
[2024-08-18] MEDS ORDERED: METOCLOPRAMIDE INJ 10MG/2ML VIAL IV ONE (22:20)
[2024-08-18] MEDS ORDERED: KETOROLAC 30 MG/ML 1ML VIAL IV ONE (22:20)
[2024-08-18 22:30] VITALS: BP 120/74
[2024-08-18] MEDS: METOCLOPRAMIDE INJ 10MG/2ML VIAL IM ONE (22:54)
[2024-08-18] MEDS: KETOROLAC 60MG 2ML VIAL IM ONE (22:54)
== END 2024-08-18 22:55 | disposition home or self-care (01) ==
LOC: M ED 20:03
DX: K29.00 Acute gastritis without bleeding (principal); M94.0 Chondrocostal junction syndrome [Tietze]; B34.9 Viral infection, unspecified; R07.89 Other chest pain; Z88.0 Allergy status to penicillin; Z88.1 Allergy status to other antibiotic agents; Z79.1 Long term (current) use of non-steroidal anti-inflammatories (NSAID); Z79.899 Other long term (current) drug therapy

== ENCOUNTER → 2024-08-27 | Outpatient (CLI) | payer MEDICARE, MEDICAID | LOC: M PLAIMG 11:20 | PROVIDERS: ATTEND Nurse Practitioner Family | DX: M54.2 Cervicalgia (principal) ==

== ENCOUNTER 2024-09-05 22:25 | Emergency (ER) | payer MEDICARE, MEDICAID ==
[~2024-09-05] VITALS: Ht 170.2 cm; Wt 93.2 kg
[2024-09-05 22:31] VITALS: BP 127/73; TEMP 97; O2SAT 100
== END 2024-09-06 00:13 | disposition left against medical advice (07) ==
LOC: M ED 22:25
DX: Z53.21 Procedure and treatment not carried out due to patient leaving prior to being seen by health care provider (principal)

== ENCOUNTER → 2024-09-24 | Outpatient (REF) | payer MEDICARE, MEDICAID, OTHER ==
[~2024-09-24] MED LIST changes: -CYCL5TAB PO; +CYCL5TAB4 PO
[2024-09-24 11:59] LABS: Trichomonas vaginalis (AMP) NOT DETECTED (NEGATIVE)
[2024-09-24 12:23] LABS: GC DNA AMPLIFICATION NEGATIVE (NEGATIVE)
== END ==
LOC: M SFHCWAGY 09:56 → EEVIPCON 09:56
PROVIDERS: ATTEND Nurse Practitioner Family
DX: R10.2 Pelvic and perineal pain (principal); Z11.3 Encounter for screening for infections with a predominantly sexual mode of transmission

== ENCOUNTER 2024-10-27 08:44 | Emergency (ER) | payer MEDICARE, MEDICAID ==
[~2024-10-27] VITALS: Ht 170.2 cm; Wt 96.6 kg
[2024-10-27] MEDS: METOCLOPRAMIDE INJ 10MG/2ML VIAL IV ONE (09:48)
[2024-10-27] MEDS: ACETAMINOPHEN *IV* 1,000 MG in IV 1 EA IV ONE (09:49)
[2024-10-27 10:01] LABS: HEMATOCRIT 36.1 % (36.0-47.0); HEMOGLOBIN 11.5 g/dl (12.0-15.5); MEAN CORPUSCULAR HEMOGLOBIN 27.1 pg (27.0-33.0); MEAN CORPUSCULAR HGB CONC 31.9 g/dl (32.0-36.5); MEAN CORPUSCULAR VOLUME 85.1 fl (80.0-96.0); PLATELET COUNT, AUTOMATED 254 10^3/uL (150-450); RED BLOOD COUNT 4.24 10^6/uL (4.00-5.40); WHITE BLOOD COUNT 5.4 10^3/uL (4.0-10.0)
[2024-10-27 10:09] LABS: ERYTHROCYTE SEDIMENTATION RATE 7 mm/hr (0-20)
[2024-10-27 10:10] LABS: ALBUMIN 3.7 G/DL (3.2-5.2); ALKALINE PHOSPHATASE 49 U/L (35-104); ALT/SGPT 31 U/L (7.0-40); AST/SGOT 30 U/L (<34); BILIRUBIN,TOTAL 0.4 MG/DL (0.3-1.2); BLOOD UREA NITROGEN 15 MG/DL (9-23); CALCIUM LEVEL 9.4 MG/DL (8.5-10.1); CARBON DIOXIDE LEVEL 28 MMOL/L (20-31); CHLORIDE LEVEL 107 MMOL/L (98-107); CREATININE FOR GFR 0.63 MG/DL (0.55-1.30); GLOMERULAR FILTRATION RATE > 60.0 (>60); GLUCOSE, FASTING 90 MG/DL (60-100); POTASSIUM SERUM 4.4 MMOL/L (3.5-5.1); SODIUM LEVEL 141 MMOL/L (136-145); TOTAL PROTEIN 6.8 G/DL (5.7-8.2)
[2024-10-27 10:11] LABS: HCG, SERUM QUALITATIVE NEGATIVE (NEGATIVE)
[2024-10-27 11:25] VITALS: BP 105/70; TEMP 96.8; O2SAT 98
== END 2024-10-27 12:00 | disposition home or self-care (01) ==
LOC: M ED 08:44
DX: R51.9 Headache, unspecified (principal); Z88.0 Allergy status to penicillin; Z88.1 Allergy status to other antibiotic agents; Z79.1 Long term (current) use of non-steroidal anti-inflammatories (NSAID); Z79.899 Other long term (current) drug therapy
CPT/HCPCS: 70450; 80053; 83735; 84703; 85027; 85652; 86140; 96365; 96366; 96375; 99283; J0131; J2765

== ENCOUNTER 2024-11-03 01:07 | Emergency (ER) | payer MEDICARE, MEDICAID ==
[~2024-11-03] VITALS: Ht 170.2 cm; Wt 90.7 kg
[2024-11-03 01:19] VITALS: TEMP 97.2
[2024-11-03 01:46] LABS: BASO # 0.1 10^3/uL (0.0-0.2); BASO % 0.5 % (0.0-1.0); EOS # 0.2 10^3/uL (0.0-0.5); EOS % 1.7 % (0.0-3.0); HEMATOCRIT 39.9 % (36.0-47.0); HEMOGLOBIN 12.7 g/dl (12.0-15.5); LYMPH # 3.9 10^3/uL (1.5-5.0); LYMPH % 38.3 % (24.0-44.0); MEAN CORPUSCULAR HEMOGLOBIN 27.2 pg (27.0-33.0); MEAN CORPUSCULAR HGB CONC 31.8 g/dl (32.0-36.5); MEAN CORPUSCULAR VOLUME 85.4 fl (80.0-96.0); MONO % 10.1 % (2.0-8.0); NEUTROPHILS % 49.1 % (36.0-66.0); PLATELET COUNT, AUTOMATED 309 10^3/uL (150-450); RED BLOOD COUNT 4.67 10^6/uL (4.00-5.40); WHITE BLOOD COUNT 10.2 10^3/uL (4.0-10.0)
[2024-11-03 02:05] LABS: BLOOD UREA NITROGEN 16 MG/DL (9-23); CALCIUM LEVEL 9.8 MG/DL (8.5-10.1); CARBON DIOXIDE LEVEL 29 MMOL/L (20-31); CHLORIDE LEVEL 105 MMOL/L (98-107); CK-MB VALUE MASS < 1.0 NG/ML (<3.6); CREATININE FOR GFR 0.68 MG/DL (0.55-1.30); GLOMERULAR FILTRATION RATE > 60.0 (>60); GLUCOSE, FASTING 102 MG/DL (60-100); POTASSIUM SERUM 3.9 MMOL/L (3.5-5.1); SODIUM LEVEL 142 MMOL/L (136-145)
[2024-11-03 02:06] LABS: CPK CREATINE PHOSPHOKINASE 145 U/L (34-145); MB/CK RELATIVE INDEX 0.68 (< OR =4)
[2024-11-03 02:30] LABS: HCG, SERUM QUALITATIVE NEGATIVE (NEGATIVE)
[2024-11-03 03:27] LABS: CK-MB VALUE MASS < 1.0 NG/ML (<3.6)
[2024-11-03 03:29] LABS: CPK CREATINE PHOSPHOKINASE 132 U/L (34-145); MB/CK RELATIVE INDEX 0.75 (< OR =4)
[2024-11-03] MEDS: FAMOTIDINE IV BAG 20 MG in IV 1 EA IV ONE (04:07)
[2024-11-03] MEDS: PANTOPRAZOLE 40MG VIAL IV ONE (04:07)
[2024-11-03] MEDS: GASTROGRAFIN SOLUTION 30ML PO SCH (04:14)
[2024-11-03] MEDS ORDERED: ISOVUE-370 76% 100ML VIAL As Ordered ONE (05:51)
[2024-11-03] MEDS ORDERED: CARA1TAB6 PO (06:28)
[2024-11-03] MEDS ORDERED: PEPC1TAB5 PO (06:28)
[2024-11-03 06:45] VITALS: BP 104/51; O2SAT 96
[2024-11-03] MEDS: SUCRALFATE 1 GM TAB PO ONE (06:45)
== END 2024-11-03 06:54 | disposition home or self-care (01) ==
LOC: M ED 01:07
DX: R10.13 Epigastric pain (principal); K21.9 Gastro-esophageal reflux disease without esophagitis; Z88.0 Allergy status to penicillin; Z88.1 Allergy status to other antibiotic agents; Z79.1 Long term (current) use of non-steroidal anti-inflammatories (NSAID); Z79.899 Other long term (current) drug therapy
CPT/HCPCS: 71045; 74177; 80048; 82550; 82553; 84484; 84703; 85025; 93005; 93041; 94760; 96365; 96366; 99285; J2470; Q9963; Q9967

== ENCOUNTER → 2024-12-05 | Outpatient (REF) | payer MEDICARE, MEDICAID ==
[~2024-12-05] MED LIST changes: +CARA1TAB6 PO; +PANT40TA29; +PEPC1TAB5 PO; +SUCR1TAB56
== END ==
LOC: M LAB REF 12:16
PROVIDERS: ATTEND Nurse Practitioner Family
DX: R30.0 Dysuria (principal)

== ENCOUNTER → 2024-12-05 | Outpatient (REF) | payer MEDICARE, MEDICAID ==
[2024-12-06 14:53] LABS: Trichomonas vaginalis (AMP) NOT DETECTED (NEGATIVE)
[2024-12-06 15:16] LABS: GC DNA AMPLIFICATION NEGATIVE (NEGATIVE)
== END ==
LOC: M LAB REF 12:07
PROVIDERS: ATTEND Nurse Practitioner Family
DX: R30.0 Dysuria (principal); Z11.3 Encounter for screening for infections with a predominantly sexual mode of transmission; Z72.89 Other problems related to lifestyle

== ENCOUNTER 2024-12-09 08:28 | Emergency (ER) | payer MEDICARE, MEDICAID ==
[~2024-12-09] VITALS: Ht 170.2 cm; Wt 93.2 kg
[~2024-12-09 08:28] MED LIST changes: -PANT40TA29; -SUCR1TAB56
[2024-12-09] MEDS ORDERED: PANT40TA29 (08:37)
[2024-12-09] MEDS ORDERED: SUCR1TAB56 (08:37)
[2024-12-09 10:35] LABS: BASO % 0.7 % (0.0-1.0); EOS # 0.1 10^3/uL (0.0-0.5); EOS % 0.9 % (0.0-3.0); HEMATOCRIT 37.2 % (36.0-47.0); HEMOGLOBIN 11.8 g/dl (12.0-15.5); LYMPH % 35.8 % (24.0-44.0); MEAN CORPUSCULAR HEMOGLOBIN 26.6 pg (27.0-33.0); MEAN CORPUSCULAR HGB CONC 31.7 g/dl (32.0-36.5); MEAN CORPUSCULAR VOLUME 83.8 fl (80.0-96.0); MONO # 0.5 10^3/uL (0.0-0.8); MONO % 8.7 % (2.0-8.0); NEUTROPHILS % 53.7 % (36.0-66.0); PLATELET COUNT, AUTOMATED 283 10^3/uL (150-450); RED BLOOD COUNT 4.44 10^6/uL (4.00-5.40); WHITE BLOOD COUNT 5.7 10^3/uL (4.0-10.0)
[2024-12-09 10:37] LABS: KETONE, URINE AUTO RFX NEGATIVE (NEGATIVE); MUCUS, URINE RFX SMALL (NEGATIVE); NITRITE, URINE AUTO RFX NEGATIVE (NEGATIVE); RBC, URINE AUTO RFX 1 /HPF (0-3); SQUAM EPITHELIAL CELL UR AURFX 5 /HPF (0-6); WBC, URINE AUTO RFX 4 /HPF (0-3)
[2024-12-09 10:43] LABS: LEUKOCYTE ESTERASE UR AUTO RFX 2+ (NEGATIVE)
[2024-12-09 10:53] LABS: LIPASE 32 U/L (12-53)
[2024-12-09 10:55] LABS: ALBUMIN 4.2 G/DL (3.2-5.2); ALKALINE PHOSPHATASE 50 U/L (35-104); ALT/SGPT 31 U/L (7.0-40); AST/SGOT 30 U/L (<34); BILIRUBIN,DIRECT 0.1 MG/DL (<0.4); BILIRUBIN,TOTAL 0.4 MG/DL (0.3-1.2); BLOOD UREA NITROGEN 13 MG/DL (9-23); CALCIUM LEVEL 9.5 MG/DL (8.5-10.1); CARBON DIOXIDE LEVEL 29 MMOL/L (20-31); CHLORIDE LEVEL 105 MMOL/L (98-107); CREATININE FOR GFR 0.59 MG/DL (0.55-1.30); GLOMERULAR FILTRATION RATE > 60.0 (>60); GLUCOSE, FASTING 87 MG/DL (60-100); POTASSIUM SERUM 4.6 MMOL/L (3.5-5.1); SODIUM LEVEL 143 MMOL/L (136-145); TOTAL PROTEIN 7.2 G/DL (5.7-8.2)
[2024-12-09] MEDS: MAALOX 30 ML SUSP *UDC PO ONE (11:45)
[2024-12-09] MEDS: LIDOCAINE VISCOUS 2% SOLN 15ML UDC PO ONE (11:47)
[2024-12-09 12:00] VITALS: BP 109/78; O2SAT 99
[2024-12-09 12:05] VITALS: TEMP 97.5
== END 2024-12-09 12:10 | disposition home or self-care (01) ==
LOC: M ED 08:28
DX: K21.9 Gastro-esophageal reflux disease without esophagitis (principal); D50.9 Iron deficiency anemia, unspecified; F41.9 Anxiety disorder, unspecified; F32.A Depression, unspecified; Z88.0 Allergy status to penicillin; Z88.1 Allergy status to other antibiotic agents; Z79.1 Long term (current) use of non-steroidal anti-inflammatories (NSAID); Z79.899 Other long term (current) drug therapy

== ENCOUNTER 2024-12-11 14:56 | Emergency (ER) | payer MEDICARE, MEDICAID ==
[~2024-12-11] VITALS: Ht 170.2 cm; Wt 93.3 kg
[~2024-12-11 14:56] MED LIST changes: +PANT40TA29; +SUCR1TAB56
[2024-12-11 15:29] LABS: KETONE, URINE AUTO RFX NEGATIVE (NEGATIVE); LEUKOCYTE ESTERASE UR AUTO RFX NEGATIVE (NEGATIVE); NITRITE, URINE AUTO RFX NEGATIVE (NEGATIVE); RBC, URINE AUTO RFX 0 /HPF (0-3); SQUAM EPITHELIAL CELL UR AURFX 0 /HPF (0-6); WBC, URINE AUTO RFX 1 /HPF (0-3)
[2024-12-11 16:18] VITALS: BP 123/85; TEMP 97.6; O2SAT 100
== END 2024-12-11 16:39 | disposition left against medical advice (07) ==
LOC: M ED 14:56
DX: Z53.21 Procedure and treatment not carried out due to patient leaving prior to being seen by health care provider (principal)

== ENCOUNTER 2024-12-24 23:04 | Emergency (ER) | payer MEDICARE, MEDICAID ==
[~2024-12-24] VITALS: Ht 170.2 cm; Wt 93.6 kg
[2024-12-24 23:06] VITALS: TEMP 96.8
[2024-12-25 00:11] LABS: BASO # 0.1 10^3/uL (0.0-0.2); BASO % 0.7 % (0.0-1.0); EOS # 0.1 10^3/uL (0.0-0.5); EOS % 1.5 % (0.0-3.0); HEMATOCRIT 38.9 % (36.0-47.0); HEMOGLOBIN 12.3 g/dl (12.0-15.5); LYMPH # 3.3 10^3/uL (1.5-5.0); LYMPH % 36.9 % (24.0-44.0); MEAN CORPUSCULAR HEMOGLOBIN 26.6 pg (27.0-33.0); MEAN CORPUSCULAR HGB CONC 31.6 g/dl (32.0-36.5); MONO # 0.9 10^3/uL (0.0-0.8); MONO % 9.5 % (2.0-8.0); NEUTROPHILS # 4.6 10^3/uL (1.5-8.5); NEUTROPHILS % 51.2 % (36.0-66.0); PLATELET COUNT, AUTOMATED 225 10^3/uL (150-450); RED BLOOD COUNT 4.63 10^6/uL (4.00-5.40); WHITE BLOOD COUNT 8.9 10^3/uL (4.0-10.0)
[2024-12-25 00:22] LABS: CK-MB VALUE MASS < 1.0 NG/ML (<3.6)
[2024-12-25 00:24] LABS: BLOOD UREA NITROGEN 14 MG/DL (9-23); CALCIUM LEVEL 9.2 MG/DL (8.5-10.1); CARBON DIOXIDE LEVEL 24 MMOL/L (20-31); CHLORIDE LEVEL 108 MMOL/L (98-107); CPK CREATINE PHOSPHOKINASE 84 U/L (34-145); GLOMERULAR FILTRATION RATE > 60.0 (>60); GLUCOSE, FASTING 99 MG/DL (60-100); MB/CK RELATIVE INDEX 1.19 (< OR =4); POTASSIUM SERUM 3.9 MMOL/L (3.5-5.1); SODIUM LEVEL 143 MMOL/L (136-145)
[2024-12-25 04:45] LABS: CK-MB VALUE MASS < 1.0 NG/ML (<3.6)
[2024-12-25 04:56] LABS: CPK CREATINE PHOSPHOKINASE 74 U/L (34-145); MB/CK RELATIVE INDEX 1.35 (< OR =4)
[2024-12-25 05:30] VITALS: BP 127/78; O2SAT 100
[2024-12-25] MEDS ORDERED: BENA25CA4 PO (05:46)
[2024-12-25] MEDS: LIDOCAINE VISCOUS 2% SOLN 15ML UDC PO ONE (05:57)
[2024-12-25] MEDS: PANTOPRAZOLE 40MG TAB (PROTONIX) PO ONE (05:57)
[2024-12-25] MEDS: MAALOX 30 ML SUSP *UDC PO ONE (05:57)
== END 2024-12-25 06:02 | disposition home or self-care (01) ==
LOC: M ED 23:04
DX: R07.89 Other chest pain (principal); R00.0 Tachycardia, unspecified; K21.9 Gastro-esophageal reflux disease without esophagitis; Z88.0 Allergy status to penicillin; Z88.1 Allergy status to other antibiotic agents; Z79.1 Long term (current) use of non-steroidal anti-inflammatories (NSAID); Z79.899 Other long term (current) drug therapy

== ENCOUNTER 2025-01-15 06:50 | Day surgery (SDC) | payer MEDICARE, MEDICAID ==
[~2025-01-15] VITALS: Ht 170.2 cm; Wt 95.3 kg
[~2025-01-15 06:50] MED LIST changes: +BENA25CA4 PO; +FAMO1TAB11 PO; +FLUT1BLS4; +GABA-1171 PO; -PANT40TA29; +PANT40TA29 PO; -SUCR1TAB56; +SUCR1TAB56 PO
[2025-01-15] MEDS ORDERED: propofoL 200 MG/20 ML VIAL As Ordered ONE (08:24)
[2025-01-15] MEDS ORDERED: LIDOCAINE 2% 100MG/5ML SDV (FOR ANES.) As Ordered ONE (08:24)
[2025-01-15] MEDS ORDERED: fentaNYL 100 MCG/2 ML INJECTION As Ordered ONE (08:24)
[2025-01-15 08:36] VITALS: TEMP 97.9
[2025-01-15 09:00] VITALS: BP 119/67; O2SAT 98
== END 2025-01-15 09:11 | disposition home or self-care (01) ==
LOC: M OPP 06:50
PROVIDERS: ATTEND Surgery
DX: K64.0 First degree hemorrhoids (principal); R10.13 Epigastric pain; K29.70 Gastritis, unspecified, without bleeding; F41.9 Anxiety disorder, unspecified; F32.A Depression, unspecified; J45.909 Unspecified asthma, uncomplicated; Z98.84 Bariatric surgery status; Z88.0 Allergy status to penicillin; Z88.1 Allergy status to other antibiotic agents; Z79.51 Long term (current) use of inhaled steroids; Z79.899 Other long term (current) drug therapy
CPT/HCPCS: 43239; 45378; 88305; J3010

== ENCOUNTER 2025-02-21 19:43 | Emergency (ER) | payer MEDICARE, MEDICAID ==
[~2025-02-21] VITALS: Ht 170.2 cm; Wt 89.9 kg
[2025-02-21 22:49] VITALS: BP 107/66; TEMP 98; O2SAT 97
== END 2025-02-21 22:54 | disposition home or self-care (01) ==
LOC: M ED 19:43
DX: M25.561 Pain in right knee (principal); K21.9 Gastro-esophageal reflux disease without esophagitis; D50.9 Iron deficiency anemia, unspecified; F41.9 Anxiety disorder, unspecified; F32.A Depression, unspecified; Z88.0 Allergy status to penicillin; Z88.1 Allergy status to other antibiotic agents; Z79.1 Long term (current) use of non-steroidal anti-inflammatories (NSAID); Z79.810 Long term (current) use of selective estrogen receptor modulators (SERMs); Z79.899 Other long term (current) drug therapy

== ENCOUNTER → 2025-07-03 | Outpatient (REF) | payer MEDICARE, MEDICAID ==
[~2025-07-03] MED LIST changes: +HOLTER MONITOR XX; +LIDO1ADH93 TD; -LIDO5DIS41 TD
== END ==
LOC: M LAB REF 11:52
PROVIDERS: ATTEND Nurse Practitioner Family
DX: R30.0 Dysuria (principal)

== ENCOUNTER → 2025-11-19 | Outpatient (CLI) | payer MEDICARE, MEDICAID ==
[2025-11-19 12:22] LABS: BASO # 0.0 10^3/uL (0.0-0.2); BASO % 0.4 % (0.0-1.0); EOS # 0.1 10^3/uL (0.0-0.5); EOS % 2.0 % (0.0-3.0); LYMPH # 1.7 10^3/uL (1.5-5.0); LYMPH % 37.2 % (24.0-44.0); MONO # 0.8 10^3/uL (0.0-0.8); MONO % 17.1 % (2.0-8.0); NEUTROPHILS # 2.0 10^3/uL (1.5-8.5); NEUTROPHILS % 43.1 % (36.0-66.0); PLATELET COUNT, AUTOMATED 233 10^3/uL (150-450)
[2025-11-19 12:47] LABS: CALCIUM LEVEL 9.2 MG/DL (8.5-10.1); CARBON DIOXIDE LEVEL 30 MMOL/L (20-31); CHLORIDE LEVEL 106 MMOL/L (98-107); CREATININE FOR GFR 0.72 MG/DL (0.55-1.30); GLOMERULAR FILTRATION RATE > 90.0 (>60); MAGNESIUM LEVEL 2.2 MG/DL (1.8-2.4); POTASSIUM SERUM 4.6 MMOL/L (3.5-5.1); SODIUM LEVEL 142 MMOL/L (136-145)
== END ==
LOC: M WUC 08:36
PROVIDERS: ATTEND Nurse Practitioner Family
DX: R11.0 Nausea (principal); R51.9 Headache, unspecified